=== PATIENT | female | born 1960 | race Caucasian/White ===

== ENCOUNTER → 2018-06-05 14:39 | Outpatient (CLI) | payer BC, SELFPAY ==
[2018-06-05 14:53] LABS: Basophils % 0.1 % (0.1-2.0); Eosinophils % 0.4 % (0.1-12.0); Hematocrit 40.2 % (37.0-47.0); Lymphocytes # 2.2 K/mm3 (0.7-4.5); Lymphocytes % 31.3 % (10-50); Mean Corpuscular HGB Conc 32.4 g/dL (31.8-35.4); Mean Corpuscular Hemoglobin 30.2 pg (27.0-31.2); Mean Corpuscular Volume 93.2 fl (81-99); Mean Platelet Volume 8.2 fl (7.4-10.4); Monocytes # 0.3 K/mm3 (0.1-1.0); Monocytes % 3.8 % (1.7-9.3); Neutrophils # 4.6 K/mm3 (1.8-7.8); Neutrophils % 64.4 % (37.0-80.0); Platelet Count 199 K/mm3 (142-424); Red Blood Count 4.32 M/mm3 (4.20-5.40); Red Cell Distribution Width 14.1 % (11.5-17.5); White Blood Count 7.1 K/mm3 (4.8-10.8)
[2018-06-05 15:42] LABS: Alanine Aminotransferase 37 U/L (12-78); Albumin Level 3.5 gm/dL (3.4-5.0); Albumin/Globulin Ratio 1.1 (1.1-1.8); Alkaline Phosphatase 67 U/L (46-116); Anion Gap 13.7 mEq/L (5-15); Aspartate Amino Transferase 18 U/L (15-37); Bilirubin,Total 0.2 mg/dL (0.2-1.0); Blood Urea Nitrogen 20 mg/dL (7-18); Calcium 9.2 mg/dL (8.5-10.1); Carbon Dioxide 29 mmol/L (21.0-32.0); Chloride 104 mmol/L (98-107); Creatinine,Serum 0.61 mg/dL (0.55-1.02); Estimated Glomerular Filt Rate 100 ml/min (>60); GFR (African American) 121 ML/MIN (>60); Globulin 3.1 gm/dl (1.3-3.2); Glucose 104 mg/dL (74-106); Potassium 3.7 mmoL/L (3.5-5.1); Sodium 143 mmol/L (136-145); Total Protein,Serum 6.6 gm/dL (6.4-8.2); Uric Acid 4.1 mg/dL (2.6-7.2)
[2018-06-05 15:43] LABS: C-Reactive Protein < 0.2 mg/L (0.0-0.9)
[2018-06-06 15:44] LABS: Erythrocyte Sedimentation Rate 14 mm/hr (0-30)
[2018-06-07 13:08] LABS: Clarity,Fluid Hazy (Clear); Color,Fluid Yellow (Yellow); Eosinophils,Fluid 0 % (Not Estab.); Lymphocytes,Fluid 38 % (Not Estab.); Macrophages,Fluid 40 % (Not Estab.); Nucleated cells, Syn. Fluid 1005 cells/uL (0-200); Polys,Fluid 22 % (Not Estab.); RBC,Fluid Rare /uL (Not Estab.)
[2018-06-09 13:19] LABS: Glucose, Body Fluid 93 mg/dL (.)
== END ==
PROVIDERS: Visit Provider Orthopaedic Surgery
DX: B99.9 Unspecified infectious disease (principal); M25.462 Effusion, left knee
CPT/HCPCS: 36415; 80053; 82945; 84550; 85025; 85651; 86140; 87070; 87205; 89051

== ENCOUNTER → 2018-06-13 13:39 | Outpatient (CLI) | payer BC, SELFPAY ==
--- NOTE | 2018-06-13 13:41 | MR_ITS ---
MR knee LT wo con HISTORY: Left knee pain and swelling, pain when bending knee ITS.REASON: evaluate for meniscus tear ORDERING PHYSICIAN: Donovan Segal MD PATIENT AGE: 57 years Comparison: 05/30/2018 TECHNIQUE: Standard multiplanar multiecho sequences are performed without contrast. FINDINGS: The cruciate ligaments are intact. The collateral ligaments are intact. The patellar tendon and quadriceps tendon are unremarkable. There is a moderate to large size knee joint effusion nailing the suprapatellar region. There is a small Naidu cyst of 2.5 cm. Complex tear of the medial meniscus having both a longitudinal and horizontal component. The lateral meniscus has an unremarkable appearance. The patellar cartilage is preserved. There are mild osteoarthritic changes of the medial and lateral compartment. No bone marrow edema is evident. IMPRESSION: 1. Complex tear of the posterior horn of the medial meniscus. 2. Moderate to large size knee joint effusion with mild osteoarthritic change
== END ==
PROVIDERS: PCP Pediatrics; Visit Provider Orthopaedic Surgery
DX: M25.462 Effusion, left knee (principal)
CPT/HCPCS: 73721

== ENCOUNTER 2018-08-04 13:05 | Outpatient (RCR) | payer BC, SELFPAY | END 2018-08-04 13:10 | disposition home or self-care (01) | LOC: PT 13:05 | PROVIDERS: Visit Provider Orthopaedic Surgery | DX: S83.30XA Tear of articular cartilage of unspecified knee, current, initial encounter (principal) | CPT/HCPCS: 97010; 97014; 97110; 97163; G0283 ==

== ENCOUNTER → 2018-08-08 14:50 | Outpatient (CLI) | payer BC, SELFPAY ==
--- NOTE | 2018-08-08 15:17 | US_ITS ---
US thyroid HISTORY: ITS.REASON: LT THYROID MASS ORDERING PHYSICIAN: Jd Santillan PATIENT AGE: 57 years Comparison: 07/01/2018 FINDINGS: The right lobe of the thyroid gland has an unremarkable appearance measuring 2.9 x 1 x 1.4 cm. The left lobe is enlarged measuring 5.6 x 3.5 x 4.4 cm containing a heterogeneous dominant solid appearing nodule with some internal cystic areas. The nodule measures 4.9 x 3.2 cm.. IMPRESSION: Dominant 4.9 cm left thyroid mass. Consider fine-needle aspiration with ultrasound guidance.
[2018-08-08 16:39] LABS: Free T4 (Free Thyroxine) 0.76 ng/dl (0.76-1.46); Thyroid Stimulating Hormone 0.88 uIU/ml (0.358-3.740)
== END ==
PROVIDERS: Visit Provider Pediatrics
DX: E04.1 Nontoxic single thyroid nodule (principal)
CPT/HCPCS: 36415; 76536; 84439; 84443

== ENCOUNTER → 2018-10-21 09:57 | Outpatient (POV) | payer BC, SELFPAY | PROVIDERS: Visit Provider Otolaryngology | DX: Z00.00 Encounter for general adult medical examination without abnormal findings (principal) ==

== ENCOUNTER → 2018-11-13 09:36 | Outpatient (CLI) | payer BC, SELFPAY ==
--- NOTE | 2018-11-13 09:45 | US_ITS ---
US FNA Thyroid HISTORY: Dominant nodule left lobe of thyroid gland ITS.REASON: THYROID NODULE ORDERING PHYSICIAN: Pattie Rome MD PATIENT AGE: 58 years COMPARISON: 08/08/2018 FINDINGS: The nodule was localized using standard sonographic technique. Timeout procedure performed. TECHNIQUE: Following obtaining informed consent, using aseptic technique and local anesthesia with buffered lidocaine, fine-needle aspiration was performed of the nodule of interest using sonographic guidance. 3 passes were made into the nodule with a 21 needle. Specimen was given to cytology. The patient tolerated the procedure well without evidence of immediate complications and left the ultrasound suite in stable condition. CYTOLOGY:Atypical, atypical follicular lesion of undetermined significance. IMPRESSION: Uneventful ultrasound-guided fine-needle aspiration of the dominant nodule in the left showing atypical cytology. Please see pathologist report
== END ==
PROVIDERS: PCP Pediatrics; Visit Provider Otolaryngology
DX: E04.1 Nontoxic single thyroid nodule (principal)
CPT/HCPCS: 10005; 76942

== ENCOUNTER → 2019-03-12 13:42 | Outpatient (CLI) | payer BC, SELFPAY ==
--- NOTE | 2019-03-12 13:48 | CT_ITS ---
PROCEDURE: CT CHEST WO CON CLINICAL INDICATION: 6 MO FU NODULE RML Follow-up pulmonary nodule COMPARISON: CHESTW CT chest w con from 07/01/2018 TECHNIQUE: Axial images obtained with sagittal and coronal reformats. All CT scans at the facility use one or more dose reduction, viz: automated exposure control, ma/kV adjustment per patient size (including targeted exams where dose is matched to indication, i.e. head), or iterative reconstruction technique. FINDINGS: HEART,AORTA,PULMONARY ARTERIES there is extensive coronary artery calcification MEDIASTINAL AND HILAR STRUCTURES: 5 x 4 cm left thyroid mass is present causing compression upon the trachea with deviation of the trachea toward the right by 1.7 cm. Not significantly changed. LUNGS: The there is a 4 mm nodule in right middle lobe unchanged. Calcified granuloma is present in the right lower lobe. 4 mm nodules present in the lingula not previously identified. There was however mild degree of motion in this region on the previous exam. There is also low lung volumes on the previous study. 3 mm nodules present and central aspect of the left upper lobe. The there is a 4 mm ground-glass nodule in the left lower lobe. PLEURAL SPACES: No significant effusion. No evidence of pneumothorax. BONY STRUCTURES: No acute bony abnormalities apparent. LYMPH NODES: No enlarged lymph nodes evident. UPPER ABDOMEN: Hyperdense nodules present on the medial aspect of the left kidney at 8 mm nonspecific. ADDITIONAL FINDINGS: No other significant abnormalities. IMPRESSION: 1. No change in the 4 mm nodule in the right middle lobe. A 4 mm nodule is noted in the lingula, 3 mm nodule left upper lobe, and 4 mm nodule in the left lower lobe. These were not readily identified on the previous exam however the study is much better quality today with improved inspiration and no significant motion. Consider continued six-month follow-up to confirm stability. 2. No change left thyroid mass with mass effect upon the trachea. Dictated by: Jarad Lu MD 03/13/2019 05:38 Electronically signed by Jarad Lu MD in [place] 03/13/2019 13:08
== END ==
PROVIDERS: PCP Pediatrics; Visit Provider Pediatrics
DX: R91.1 Solitary pulmonary nodule (principal)
CPT/HCPCS: 71250

== ENCOUNTER → 2020-10-31 14:56 | Outpatient (CLI) | payer BC, SELFPAY ==
--- NOTE | 2020-10-31 15:06 | CT_ITS ---
PROCEDURE: CT LUNG SCREENING CLINICAL INDICATION: H/O NICOTINE DEPENDENCE Current smoker 46 pack year smoking history No prior COMPARISON: CT CT CHEST WO CON from 03/12/2019 TECHNIQUE: The exam was performed on a GE Light Speed [address] scanner using 2.90 mGy CTDI. A low dose helical CT CHEST was performed on a multi-detector scanner. All CT scans at the facility use one or more dose reduction, viz: automated exposure control, ma/kV adjustment per patient size (including targeted exams where dose is matched to indication, i.e. head), or iterative reconstruction technique. The LDCT was performed in a facility that meets the criteria for the screening program. Data regarding this exam was submitted to ACR which is an approved registry. The order for this exam indicates that it came as a result of a lung cancer screening counseling shard decision-making visit that included all the elements required of such a visit including smoking cessation. The radiologist interpreting this exam meets the CMS criteria for the LDCT lung cancer screening program. The exam is reported using the Lung-RADS classification scale and reported to the ACR registry. NOTE: This study was performed for the specific purposes of lung cancer screening and is not an alternative to diagnostic chest CT. RADIATION DOSE: CTDI vol(CT dose Index-volume) = 2.90mG DLP (Dose Length Product) = 100.81 mGcm FINDINGS: Severe enlargement of the left lobe of the thyroid gland with tracheal deviation and compression toward the right. The trachea is deviated toward the right by 1.7 cm. Not significantly changed from 03/12/2019. COPD changes. Stable right middle lobe nodule at 4 mm. Calcified granuloma right lower lobe. No change 4 mm semi-solid nodule within the lingula. Semi solid nodule left lower lobe at 5 mm not significantly changed. No new nodules apparent. OTHER FINDINGS: Extensive coronary artery calcification. Cholelithiasis. IMPRESSION: Lung-RADS Category 2 Benign Appearance or Behavior Follow-up: Continue annual screening with LDCT in 12 months Dictated by: Jarad Lu MD 11/09/2020 08:25 Jarad Lu MD in [place] 11/09/2020 08:25
== END ==
PROVIDERS: PCP Pediatrics; Visit Provider Pediatrics
DX: Z87.891 Personal history of nicotine dependence (principal); Z12.2 Encounter for screening for malignant neoplasm of respiratory organs
CPT/HCPCS: 71271

== ENCOUNTER → 2020-11-22 09:14 | Outpatient (CLI) | payer BC, SELFPAY ==
--- NOTE | 2020-11-22 09:19 | XR_ITS ---
PROCEDURE: XR DEXA AXIAL SKELETON CLINICAL HISTORY: POST MENOPAUSAL COMPARISON: No exams were available for comparison FINDINGS: The right hip BMD is 0.674 with a T-score of -1.6. The left hip BMD is 0.764 with a T-score of -1.5. The lumbar spine BMD is 0.868 with a T-score of -1.6. IMPRESSION: This patient is considered osteopenic according to the World Health Organization criteria. Bone density is between 10 and 25 percent below young normal. Fracture risk is moderate. Treatment is advised. Based on these results a follow-up exam is recommended in 2 year. Dictated by: Jarad Lu MD 11/22/2020 09:56 Jarad Lu MD in [place] 11/22/2020 09:56
== END ==
PROVIDERS: PCP Pediatrics; Visit Provider Pediatrics
DX: Z13.820 Encounter for screening for osteoporosis (principal); Z78.0 Asymptomatic menopausal state
CPT/HCPCS: 77080

== ENCOUNTER → 2021-08-10 09:59 | Outpatient (CLI) | payer BC, SELFPAY ==
[2021-08-10 10:51] LABS: Alanine Aminotransferase 58 U/L (12-78); Albumin Level 4.5 g/dl (3.5-5.0); Albumin/Globulin Ratio 1.6 (1.1-1.8); Alkaline Phosphatase 84 U/L (38-126); Anion Gap 8.8 mEq/L (5-15); Aspartate Amino Transferase 45 U/L (14-36); Bilirubin,Total 0.5 mg/dl (0.2-1.3); Blood Urea Nitrogen 19 mg/dl (7-17); Calcium 9.3 mg/dl (8.4-10.2); Carbon Dioxide 29 mmol/L (22.0-30.0); Chloride 103 mmol/L (98-107); Chol/HDL Ratio 7.4 (1-3.5); Cholesterol 305 mg/dl (140-200); Estimated Glomerular Filt Rate 101 ml/min (>60); GFR (African American) 123 ML/MIN (>60); Globulin 2.8 g/dL (1.3-3.2); Glucose 113 mg/dl (74-100); HDL Cholesterol 41 mg/dl (40-60); Potassium 3.8 mmoL/L (3.5-5.1); Sodium 137 mmol/L (136-145); Total Protein,Serum 7.3 g/dl (6.3-8.2); Triglycerides 274 mg/dl (30-150); VLDL Cholesterol 55 mg/dL (0-40)
[2021-08-10 11:02] LABS: Direct LDL Cholesterol 186.89 mg/dL (100-129)
== END ==
PROVIDERS: PCP Pediatrics; Visit Provider Pediatrics
DX: E78.5 Hyperlipidemia, unspecified (principal)
CPT/HCPCS: 36415; 80053; 80061

== ENCOUNTER → 2022-06-27 10:41 | Outpatient (CLI) | payer BC, SELFPAY ==
--- NOTE | 2022-06-27 10:55 | CT_ITS ---
FINAL REPORT TECHNIQUE: Axial images were obtained from the lung apex to the mid abdomen by computed tomography. This study was performed with techniques to keep radiation doses as low as reasonably achievable (ALARA). Individualized dose reduction techniques using automated exposure control or adjustment of mA and/or kV according to the patient's size were employed. CLINICAL HISTORY: H/O TOBACCO USE, smokes 1/2 pk per day x 50 yrs COMPARISON: 10/31/2020 FINDINGS: CHEST CT LOW DOSE CTDI vol (mGy): 2.90 DLP (mGy-cm): 105.25 Redemonstrated is a mass in the left lobe of the thyroid favored to represent goiter. This significantly displaces the trachea to the right. There is extrinsic compression of the trachea. There is moderate coronary artery calcification. There is no axillary adenopathy. There is no hilar or mediastinal adenopathy. The heart is normal in size. There is no pericardial or pleural effusion. There is a 4 mm right renal lobe nodule seen on image 52 of series 4. This is stable since previous. The previously questioned left lower lobe nodule is not well seen. The previously identified small focus in the lingula is not well seen. There is a nodule in the periphery of the right lower lobe measuring 4 mm which is stable. Finding is best seen on image 45 of series 4. Limited images of the upper abdomen are unremarkable. IMPRESSION: Stable nodules in the right middle lobe and right lower lobe. Previously identified nodules in the left lower lobe and lingula are not well seen. Lung RADS category 2 S. Recommend 12 month follow-up low-dose chest CT. Reviewed, Interpreted and Dictated by Usman Krueger MD Transcribed by Valentina Mcgovern Authenticated and . [facility]
== END ==
PROVIDERS: PCP Pediatrics; Visit Provider Pediatrics
DX: Z87.891 Personal history of nicotine dependence (principal); Z12.2 Encounter for screening for malignant neoplasm of respiratory organs
CPT/HCPCS: 71271

== ENCOUNTER 2023-07-19 13:31 | Outpatient (CLI) | payer BC, SELFPAY ==
--- NOTE | 2023-07-19 13:38 | CT_ITS ---
FINAL REPORT TECHNIQUE: Thin section axial images were obtained from the lung apices to the upper abdomen by computed tomography. Reformatted images were obtained and reviewed. This study was performed with techniques to keep radiation doses al low as reasonably achievable (ALARA). Individualized dose reduction techniques using automated exposure control or adjustment of mA and/or kV according to the patient's size were employed. CLINICAL HISTORY: H/O TOBACCO USE CURRENT SMOKER 1/2PPD X49 YEARS COMPARISON: 06/27/2022 FINDINGS: CHEST CT LOW DOSE 62-year-old female, current smoker, 15-[id number] history. CTDI vol (mGy): 2.9 DLP (mGy-cm): 92.47 There is no axillary adenopathy. There is a large left thyroid mass, 4.4 cm in size, that is stable since the prior CT. The trachea is displaced to the right, and the degree of displacement is also stable. There is no mediastinal or hilar mass or adenopathy. The heart is normal in size. There is no pericardial or pleural effusion. Severe left coronary artery calcifications are present. There is mild emphysema and mild pulmonary scarring. Lung window images demonstrate a posterior left upper lobe nodule, 3 mm in size, best seen on image #24, stable. There is a 4 mm nodule near the left major fissure, also stable. There are several other less than 5 mm in size nodules, without any new nodules or masses identified. There is a calcified granuloma present in the right lower lobe.. Limited images of the upper abdomen are unremarkable. IMPRESSION: Lung-RADS category 2S, with the S designations for the left thyroid mass and the severe left coronary artery calcifications.. Recommend 12 month follow up low dose chest CT. Reviewed, Interpreted and Dictated by Raymond Boles III, MD Transcribed by Tika Murphy Authenticated and [facility]
== END 2023-07-19 23:59 ==
LOC: RAD 13:32
PROVIDERS: PCP Pediatrics; Visit Provider Pediatrics
DX: F17.210 Nicotine dependence, cigarettes, uncomplicated (principal); Z12.2 Encounter for screening for malignant neoplasm of respiratory organs
CPT/HCPCS: 71271

== ENCOUNTER 2023-08-12 10:47 | Outpatient (CLI) | payer BC, SELFPAY ==
--- NOTE | 2023-08-12 10:53 | US_ITS ---
FINAL REPORT CLINICAL HISTORY: THYROID ENLARGEMENT COMPARISON: CT of the neck dated 07/01/2018 FINDINGS: THYROID ULTRASOUND: The right lobe of the thyroid measures 3.2 x 1 x 1.2 cm in size. There is a 3 mm cystic nodule present in the right lobe of the thyroid, a TI-RADS category 1 nodule. The left lobe of the thyroid is enlarged, measuring 5.25 x 3.4 x 4 cm in size. There is a dominant mass in the left thyroid, measuring 53 x 36 x 48 mm in size. This nodule is spongiform in appearance, a TI-RADS category 1 nodule. This mass was seen on the prior CT of June 2018, and is stable in size since then. The isthmus of the thyroid gland measures 3 mm in thickness. IMPRESSION: Dominant mass in the left lobe of the thyroid, spongiform, a TI-RADS category 1 nodule. This mass is essentially stable since the prior CT of June 2018. Reviewed, Interpreted and Dictated by Raymond Boles III, MD Transcribed by Tika Murphy Authenticated and [facility]
== END 2023-08-12 23:59 | disposition home or self-care (01) ==
LOC: RAD 10:48
PROVIDERS: PCP Pediatrics; Visit Provider Pediatrics
DX: E04.9 Nontoxic goiter, unspecified (principal)
CPT/HCPCS: 76536

== ENCOUNTER 2023-10-14 10:32 | Outpatient (CLI) | payer MEDICARE, BC, SELFPAY ==
[2023-10-14 19:05] LABS: Basophils # 0.1 K/mm3 (0-0.2); Basophils % 0.8 % (0.1-2.0); Eosinophils # 0.1 K/mm3 (0.0-0.4); Eosinophils % 0.9 % (0.1-12.0); Hematocrit 42.3 % (37.0-47.0); Hemoglobin 14.3 g/dL (12.2-16.2); Lymphocytes # 1.8 K/mm3 (0.7-4.5); Lymphocytes % 21.6 % (10-50); Mean Corpuscular HGB Conc 33.8 g/dL (31.8-35.4); Mean Corpuscular Hemoglobin 31.2 pg (27.0-31.2); Mean Corpuscular Volume 92.3 fl (81-99); Mean Platelet Volume 10.2 fl (7.4-10.4); Monocytes # 0.4 K/mm3 (0.1-1.0); Monocytes % 4.9 % (1.7-9.3); Neutrophils # 6.1 K/mm3 (1.8-7.8); Neutrophils % 71.8 % (37.0-80.0); Platelet Count 188 K/mm3 (142-424); Red Blood Count 4.59 M/mm3 (4.20-5.40); Red Cell Distribution Width 14.9 % (11.5-17.5); White Blood Count 8.5 K/mm3 (4.8-10.8)
[2023-10-14 19:28] LABS: Alanine Aminotransferase 25 U/L (12-78); Albumin Level 4.6 g/dl (3.5-5.0); Albumin/Globulin Ratio 1.4 (1.1-1.8); Alkaline Phosphatase 67 U/L (38-126); Anion Gap 13.7 mEq/L (5-15); Aspartate Amino Transferase 25 U/L (14-36); Bilirubin,Total 0.5 mg/dl (0.2-1.3); Blood Urea Nitrogen 25 mg/dl (7-17); Calcium 10.3 mg/dl (8.4-10.2); Carbon Dioxide 28 mmol/L (22.0-30.0); Chloride 101 mmol/L (98-107); Chol/HDL Ratio 6.4 (1-3.5); Cholesterol 255 mg/dl (140-200); Estimated Glomerular Filt Rate 100 ml/min (>60); GFR (African American) 121 ML/MIN (>60); Globulin 3.2 g/dL (1.3-3.2); Glucose 109 mg/dl (74-100); HDL Cholesterol 40 mg/dl (40-60); Potassium 3.7 mmoL/L (3.5-5.1); Sodium 139 mmol/L (136-145); Total Protein,Serum 7.8 g/dl (6.3-8.2); Triglycerides 372 mg/dl (30-150); VLDL Cholesterol 74 mg/dL (0-40)
[2023-10-14 19:39] LABS: Direct LDL Cholesterol 144.13 mg/dL (100-129)
[2023-10-14 19:59] LABS: Hemoglobin A1C 8.2 % (4.0-6.0); Thyroid Stimulating Hormone 0.66 uIU/mL (0.465-4.68)
== END 2023-10-14 23:59 | disposition home or self-care (01) ==
LOC: LAB.DROPOF 10-15 10:33
PROVIDERS: PCP Family Medicine; Visit Provider Family Medicine
DX: E07.9 Disorder of thyroid, unspecified (principal); E78.5 Hyperlipidemia, unspecified; R73.09 Other abnormal glucose
CPT/HCPCS: 80050; 80053; 80061; 83036; 84443; 85025

== ENCOUNTER 2023-11-12 11:56 | Outpatient (CLI) | payer MEDICARE, BC, SELFPAY ==
--- NOTE | 2023-11-12 11:56 | CT_ITS ---
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 A noncontrast coronary calcium scan was performed. A CT attenuation threshold of 130 Hounsfield units (HU) was used for the detection of calcium in contiguous voxels of 1 sq mm in area to be counted as individual lesions. Bolus tracking in the ascending aorta with a threshold of 180 HU was performed. Immediately afterwards, ECG synchronized cardiac CT was then performed from the cardiac base to apex using retrospective gating with ECG tube current modulation. A total of 85 mL of Isovue 370 mg/mL contrast medium was administered at 5 mL/sec followed by a saline flush using a biphasic injection protocol. A tube voltage of 120 KVp was used. The patient received the following medications prior to the cardiac CT. 50 mg of oral metoprolol 15 mg of oral ivabradine 0.8 mg of sublingual nitroglycerin The average heart rate at the time of acquisition was 62 bpm and regular. Image Reconstruction Transaxial images were reconstructed at 0.67 mm slide thickness. Data was reviewed interactively on an advanced workstation capable of 2 and 3-dimensional displays in all conventional reconstruction formats, including multiplanar reformations, maximum intensity projections, curved multiplanar reformations, and volume rendered reconstructions. When applicable, selected routine images describing the relevant coronary anatomy and pathology were saved and sent to PACS. Complications None Technical Quality Overall image quality was suboptimal due to significant motion. Coronary artery opacification was adequate. Total DLP (Dose-Length Product) is 1429.3 mGy-cm. The reported value represents the total of one or more individual components during the CT acquisition of this date and at this time, and as such, the same value may appear in more than one CT report depending on the interpreting/reporting physicians. COMPARISON None FINDINGS CT Coronary Calcium Scoring LMA (Left Main Artery) = 234 LAD (Left Anterior Descending) = 703 LCX (Left Coronary Circumflex) = 261 RCA (Right Coronary Artery) = 36 Total Calcium Score = 1234 using the AJ-130 method. The observed calcium score of 1234 is at 99th percentile for subjects of the same age, sex, and race/ethnicity. The interpretation of the calcium heart score is based on the following continuum*: 0 = no calcified plaque detected (risk of coronary artery disease is very low ??? less than 5%) 1-10 = calcium detected in extremely minimal levels (risk of coronary diseases is still low ??? less than 10%) 11-100 = mild levels of plaque detected with certainty (mild or minimal narrowing of heart arteries is likely) 101-400 = definite,at least moderate levels of plaque detected (relatively high risk of a heart attack within 3-5 years) >401-999 = extensive levels of plaque detected (high risk of heart attack, high levels of vascular disease are present, high likelihood of at least one significant coronary narrowing) *The calcium heart score quantifies the burden of coronary calcification/plaque in the coronary arteries. The calcium heart score is not able to evaluate the presence or burden of non-calcified (i.e. soft) plaque. There is also identifiable calcification in the ascending and descending thoracic aorta. Coronary CT Angiography The coronary arterial system is right dominant. Quantitative Stenosis Grading: Left Main (LM): The left main originates normally from the left sinus of Valsalva. The LM bifurcates into the left anterior descending artery and left circumflex artery. There is mixed calcified/noncalcified plaque in the proximal LM, with up to 50% luminal stenosis. Left Anterior Descending (LAD) and Diagonal Branches: The LAD gives off 2 diagonal branch(es). There is mixed calcified/noncalcified plaque in the proximal and mid LAD segments, with up to 70-90% luminal stenosis. There is no evidence of LAD-myocardial bridge. Left Circumflex (LCX) and Obtuse Marginals (OM): The LCX gives off 1 Obtuse Marginal (OM) branch(es). There is mixed calcified/noncalcified plaque in the proximal LCx segment, with up to 70-90% luminal stenosis. Right Coronary Artery (RCA): The RCA originates normally from the right sinus of Valsalva. The RCA gives off a posterior descending artery (PDA) and posterolateral (PL) branches. There is mixed calcified/noncalcified plaque in the proximal RCA segment with up to 50-70% luminal stenosis. However, this is suboptimal visualization of the mid to distal RCA segments due to significant motion. Non-Coronary Cardiac Findings: Weight is a pleasure talking and this is what Analysis of the left ventricular (LV) structure and function was performed after 3-D reconstruction of the LV from axial images, with user-corrected automatic contouring for assessment of LV volumes and user-defined reconstruction from oblique planes for measurement of 3-D cardiac structure and function. -The left ventricle systolic function is normal. -There is no left atrial appendage filling defect. Two right pulmonary veins and two left pulmonary veins drain normally into the left atrium. -No pericardial thickening or calcification. -Central and branch pulmonary arteries in the [id number] are unremarkable. -Thoracic aorta within the visualized thoracic aortic-branches in the [id number] is unremarkable. Extracardiac Structures No significant extra-cardiac findings. Note, however, that this study is focused on the cardiac findings. IMPRESSION -Presence of coronary calcification with an Agatston score = 1234 using the AJ-130 method. -The observed calcium score of 1234 is at 99th percentile for subjects of the same age, sex, and race/ethnicity. -Significant flow-limiting atherosclerosis of the coronary arterie in the LM and LAD, as well as possibly in the LCX. Suboptimal visualization of the RCA segments due to motion. -CAD-RADS 4B. Management recommendations per ACC/AHA guidelines*, as clinically appropriate. *Recommendations: CAD RADS 0: Reassurance. Consider non-atherosclerotic causes of chest pain. CAD RADS 1: Consider non-atherosclerotic causes of chest pain. Consider preventive therapy and risk factor modification. CAD RADS 2: Consider non-atherosclerotic causes of chest pain. Consider preventive therapy and risk factor modification, particularly for patients with nonobstructive plaque in multiple segments. CAD RADS 3: Consider further functional testing. Consider symptom-guided anti-ischemic and preventive pharmacotherapy as well as risk factor modification per published guideline statements. CAD RADS 4A: Consider further functional testing or invasive coronary angiography with revascularization per published guideline statements. Consider symptom-guided anti-ischemic and preventive pharmacotherapy as well as risk factor modification per published guideline statements. CAD RADS 4B: Invasive coronary angiography recommended with revascularization per published guideline statements. Consider symptom-guided anti-ischemic and preventive pharmacotherapy as well as risk factor modification per published guideline statements. CAD RADS 5: Consider invasive angiography and/or viability assessment with revascularization per published guideline statements. Consider symptom-guided anti-ischemic and preventive pharmacotherapy as well as risk factor modification per published guideline statements. CRITICAL RESULT None COMMUNICATION Per this written report The coronary and cardiac findings of this CCTA were reviewed, reported, and signed by Elijah Hunt MD (Video Game Technician) Conclusion Electronically signed by : Irena Hunt MD 11/14/2023 14:17:24
[2023-11-12 12:18] VITALS: BP 131/71; PULSE 67; RESP 18; O2SAT 99
[2023-11-12] MEDS: METOPROLOL TARTRATE 50MG TABLET 50 MG (12:24)
[2023-11-12] MEDS: IVABRADINE HCL 7.5MG TABLET 15 MG PO (12:24)
[2023-11-12 12:34] LABS: POC Glucose,Bedside 95 (70-110)
[2023-11-12 13:18] VITALS: BP 151/83; PULSE 60; RESP 18; O2SAT 100
[2023-11-12] MEDS: NITROGLYCERIN 0.4MG SL TABLET SL (13:18)
[2023-11-12 13:22] VITALS: BP 141/88; PULSE 71; RESP 18; O2SAT 100
[2023-11-12 13:25] VITALS: BP 144/74; PULSE 67; RESP 18; O2SAT 97
[2023-11-12 13:30] VITALS: BP 150/79; PULSE 71; RESP 18; O2SAT 97
[2023-11-12 13:35] VITALS: BP 115/68; PULSE 64; RESP 18; O2SAT 97
[2023-11-12] MEDS: 0.9 % SODIUM CHLORIDE 50 ML VIAL IV (13:36)
[2023-11-12] MEDS: IOPAMIDOL-370 (76%);100ML BOTTLE 85 ML IV (13:36)
[2023-11-12] MEDS: SODIUM CHLORIDE 0.9% 10ML SYR (RAD ONLY) 10 ML IV (13:36)
[2023-11-12 13:39] VITALS: BMI 30.7
== END 2023-11-12 13:35 | disposition home or self-care (01) ==
PROVIDERS: PCP Family Medicine; Visit Provider Physician Assistant
DX: R94.31 Abnormal electrocardiogram [ECG] [EKG] (principal); I25.10 Atherosclerotic heart disease of native coronary artery without angina pectoris; M89.8X1 Other specified disorders of bone, shoulder; I10 Essential (primary) hypertension; F17.210 Nicotine dependence, cigarettes, uncomplicated
CPT/HCPCS: 75574; 82962; Q9967

== ENCOUNTER 2023-11-22 09:55 | Outpatient (CLI) | payer MEDICARE, BC, SELFPAY ==
--- NOTE | 2023-11-22 09:55 | MM_ITS ---
PROCEDURE INFORMATION: Exam: MG Bilateral Screening 3D Mammography Exam date and time: 11/22/2023 9:42 AM Age: 63 years old Clinical indication: Screening examination TECHNIQUE: Imaging protocol: Bilateral Screening tomosynthesis and 2D mammography including computer-aided detection (CAD) when performed. COMPARISON: 1. MG SCREEN MAMMO W CAD BILAT 08/10/2022 10:56 AM 2. MG SCREEN MAMMO W CAD BILAT 08/09/2021 9:18 AM FINDINGS: MAMMOGRAPHY: Breast composition: There are scattered areas of fibroglandular density. Mass: None. Architectural distortion: None. Calcifications: No suspicious calcifications. Asymmetric density: None. Skin thickening: None. Axillary adenopathy: None. IMPRESSION: No mammographic evidence of malignancy. Annual screening is recommended unless otherwise clinically indicated. ASSESSMENT: BI-RADS Category 1: Negative
== END 2023-11-22 23:59 | disposition home or self-care (01) ==
LOC: RAD 09:55
PROVIDERS: PCP Family Medicine; Visit Provider Family Medicine
DX: Z12.31 Encounter for screening mammogram for malignant neoplasm of breast (principal)
CPT/HCPCS: 77063; 77067

== ENCOUNTER 2024-01-15 19:22 | Outpatient (CLI) | payer MEDICARE, SELFPAY ==
[2024-01-15 19:55] LABS: Alanine Aminotransferase 22 U/L (12-78); Albumin Level 4.7 g/dl (3.5-5.0); Alkaline Phosphatase 63 U/L (38-126); Anion Gap 4.1 mEq/L (5-15); Aspartate Amino Transferase 26 U/L (14-36); Bilirubin,Direct 0.3 mg/dl (0.0-0.4); Bilirubin,Indirect 0.2 mg/dL (0.0-0.9); Bilirubin,Total 0.5 mg/dl (0.2-1.3); Bilirubin,Unconjugated 0.2 mg/dL (0.0-1.1); Blood Urea Nitrogen 20 mg/dl (7-17); Calcium 10.2 mg/dl (8.4-10.2); Carbon Dioxide 30 mmol/L (22.0-30.0); Chloride 105 mmol/L (98-107); Chol/HDL Ratio 6.2 (1-3.5); Cholesterol 271 mg/dl (140-200); Estimated Glomerular Filt Rate 100 ml/min (>60); GFR (African American) 121 ML/MIN (>60); Glucose 108 mg/dl (74-100); HDL Cholesterol 44 mg/dl (40-60); Potassium 4.1 mmoL/L (3.5-5.1); Sodium 135 mmol/L (136-145); Total Protein,Serum 7.7 g/dl (6.3-8.2); Triglycerides 292 mg/dl (30-150); VLDL Cholesterol 58 mg/dL (0-40)
[2024-01-15 20:02] LABS: Basophils # 0.1 K/mm3 (0-0.2); Basophils % 0.8 % (0.1-2.0); Eosinophils # 0.2 K/mm3 (0.0-0.4); Hematocrit 40.5 % (37.0-47.0); Lymphocytes # 2.3 K/mm3 (0.7-4.5); Lymphocytes % 25.7 % (10-50); Mean Corpuscular HGB Conc 34.5 g/dL (31.8-35.4); Mean Corpuscular Hemoglobin 30.9 pg (27.0-31.2); Mean Corpuscular Volume 89.5 fl (81-99); Mean Platelet Volume 8.8 fl (7.4-10.4); Monocytes # 0.4 K/mm3 (0.1-1.0); Monocytes % 4.4 % (1.7-9.3); Neutrophils # 5.9 K/mm3 (1.8-7.8); Platelet Count 197 K/mm3 (142-424); Red Blood Count 4.53 M/mm3 (4.20-5.40); Red Cell Distribution Width 14.7 % (11.5-17.5); White Blood Count 8.8 K/mm3 (4.8-10.8)
[2024-01-15 20:06] LABS: Direct LDL Cholesterol 177.74 mg/dL (100-129)
[2024-01-15 20:14] LABS: Free T4 (Free Thyroxine) 0.85 ng/dl (0.78-2.19)
[2024-01-15 20:18] LABS: Hemoglobin A1C 6.2 % (4.0-6.0)
[2024-01-15 20:25] LABS: Thyroid Stimulating Hormone 0.65 uIU/mL (0.465-4.68)
== END 2024-01-15 23:59 | disposition home or self-care (01) ==
PROVIDERS: PCP Physician Assistant; Visit Provider Physician Assistant
DX: E11.65 Type 2 diabetes mellitus with hyperglycemia (principal); K21.9 Gastro-esophageal reflux disease without esophagitis; R93.1 Abnormal findings on diagnostic imaging of heart and coronary circulation; E78.49 Other hyperlipidemia; I10 Essential (primary) hypertension; R94.31 Abnormal electrocardiogram [ECG] [EKG]; I25.118 Atherosclerotic heart disease of native coronary artery with other forms of angina pectoris; I11.9 Hypertensive heart disease without heart failure; R06.00 Dyspnea, unspecified
CPT/HCPCS: 80048; 80061; 80076; 83036; 84439; 84443; 85025

== ENCOUNTER 2024-02-04 08:44 | Day surgery (SDC) | payer MEDICARE, MEDICAID, SELFPAY ==
[2024-02-04] VITALS (12 sets, daily range): BP systolic 95–168; BP diastolic 45–90; PULSE 52–88; RESP 16–20; TEMP 36.4; O2SAT 91–99; BMI 31.8
--- NOTE | 2024-02-04 07:07 | IR_ITS ---
APPROVED REPORT Patient Location: Outpatient Cafeteria Director: George Dyer, RT (R) PROCEDURES Selective coronary angiogram Catheter placed in the left subclavian artery with left internal mammary angiography INDICATION Abnormal CCTA, Angina pectoris, Preoperative evaluation for coronary bypass surgery Informed consent was obtained prior to the procedure. COMPLICATIONS NONE Estimated Blood Loss: LESS THAN 10 ML TECHNIQUE One percent lidocaine used to anesthetize the right anterior aspect of the wrist. The right radial artery was accessed via the Seldinger technique. A 6 Mal[place]ian sheath was placed in the right radial artery. 2.5 mg of Verapamil, 800 mcg of nitroglycerin, 1mg Lidocaine and 5000 U Heparin were given through the arterial sheath. The JL 3 guide catheter was used to perform selective coronary angiogram. At the end of the diagnostic coronary angiogram the JL 3 guide catheter was placed in left subclavian artery in anticipation of upcoming coronary bypass surgery at the end of the procedure the sheath was removed good hemostasis was achieved using Traclet band, patient was transferred to the postop holding area in stable condition. ANGIOGRAPHIC RESULTS The left main artery Has distal eccentric calcified 60% stenosis The left anterior descending artery Has proximal calcified concentric greater than 90% stenosis the vessel is proximally subtotally occluded. The mid and distal distal vessel is collateralized via a large ramus intermedius The circumflex artery Is a large dominant vessel and gives rise to a large ramus intermedius which has proximal and mid vessel 50% stenoses. The circumflex artery has proximal eccentric calcified 90% stenosis The right coronary artery Is nondominant and has proximal 60 and 70% stenoses The MELO ventriculogram reveals Not performed The left ventricular end-diastolic pressure Not measured The left subclavian artery and left internal mammary artery is widely patent IMPRESSION Severe to critical coronary artery disease as described above Proximally occluded LAD which fills via left to left collaterals through a large ramus intermedius Critical disease in the proximal dominant circumflex artery PLAN 1. Patient will be [facility] to [facility] for coronary bypass graft evaluation 2. LDL less than 55 to be achieved with high intensity statin 3. Maximize antianginal medications Electronically signed by : Antonio Yepez MD 02/04/2024 11:55:01
[2024-02-04 09:24] LABS: Basophils % 0.5 % (0.1-2.0); Eosinophils # 0.1 K/mm3 (0.0-0.4); Eosinophils % 1.6 % (0.1-12.0); Hematocrit 44.8 % (37.0-47.0); Hemoglobin 14.7 g/dL (12.2-16.2); Lymphocytes # 1.3 K/mm3 (0.7-4.5); Lymphocytes % 18.3 % (10-50); Mean Corpuscular HGB Conc 32.7 g/dL (31.8-35.4); Mean Corpuscular Hemoglobin 31.4 pg (27.0-31.2); Mean Platelet Volume 7.8 fl (7.4-10.4); Monocytes # 0.3 K/mm3 (0.1-1.0); Monocytes % 4.2 % (1.7-9.3); Neutrophils # 5.2 K/mm3 (1.8-7.8); Neutrophils % 75.4 % (37.0-80.0); Platelet Count 177 K/mm3 (142-424); Red Blood Count 4.67 M/mm3 (4.20-5.40); Red Cell Distribution Width 14.5 % (11.5-17.5); White Blood Count 6.9 K/mm3 (4.8-10.8)
[2024-02-04 09:34] LABS: Chloride 108 mmol/L (98-107); Potassium 3.7 mmoL/L (3.5-5.1); Sodium 142 mmol/L (136-145)
[2024-02-04 09:37] LABS: Blood Urea Nitrogen 27 mg/dl (7-17); Creatinine Clearance Estimated 63 mL/min (50-200); Estimated Glomerular Filt Rate 84 ml/min (>60); GFR (African American) 102 ML/MIN (>60)
[2024-02-04 09:38] LABS: Anion Gap 12.7 mEq/L (5-15); Calcium 9.6 mg/dl (8.4-10.2); Carbon Dioxide 25 mmol/L (22.0-30.0); Glucose 126 mg/dl (74-100)
[2024-02-04] MEDS: VERAPAMIL 2.5MG/ML 2ML VIAL 2.5 MG IV (10:38)
[2024-02-04] MEDS: 0.9 % SODIUM CHLORIDE 500 ML 25 ML IV (10:38)
[2024-02-04] MEDS: NITROGLYCERIN 800MCG/8ML SYR (CATH LAB) 800 MCG IA (10:38)
[2024-02-04] MEDS: HEPARIN 1,000 UNITS/ML 10ML VIAL (CATH LAB) 10000 UNIT IV (10:38)
[2024-02-04] MEDS: LIDOCAINE 1% 10ML MDV 20 ML IJ (10:38)
[2024-02-04] MEDS: HEPARIN 1,000 UNITS/500ML NS (CATH LAB) 3000 UNIT IV (10:39)
[2024-02-04] MEDS: diphenhydrAMINE 50MG/ML VIAL 50 MG IV (10:40)
[2024-02-04] MEDS: MIDAZOLAM HCL 1MG/ML 5ML VIAL 1 MG IV (10:48)
[2024-02-04] MEDS: FENTANYL 100MCG/2ML VIAL 50 MCG IV (10:49)
[2024-02-04] MEDS: IOPAMIDOL-370 (76%);100ML BOTTLE 50 ML IV (14:35)
== END 2024-02-04 13:49 | disposition home or self-care (01) ==
PROVIDERS: PCP Family Medicine; Visit Provider Internal Medicine
DX: R93.1 Abnormal findings on diagnostic imaging of heart and coronary circulation (principal); E11.65 Type 2 diabetes mellitus with hyperglycemia; E78.49 Other hyperlipidemia; I10 Essential (primary) hypertension; R94.31 Abnormal electrocardiogram [ECG] [EKG]; I25.118 Atherosclerotic heart disease of native coronary artery with other forms of angina pectoris; F17.210 Nicotine dependence, cigarettes, uncomplicated; Z79.899 Other long term (current) drug therapy; E11.9 Type 2 diabetes mellitus without complications; E78.5 Hyperlipidemia, unspecified
CPT/HCPCS: 80048; 85025; 93454; 99152; C1725; C1769; J1200; J1644; J2250; J3010; Q9967

== ENCOUNTER 2024-02-15 11:16 | Outpatient (CLI) | payer MEDICARE, MEDICAID, SELFPAY ==
[2024-02-15 11:36] LABS: Hematocrit 38.8 % (37.0-47.0); Hemoglobin 13.7 g/dL (12.2-16.2); Mean Corpuscular HGB Conc 35.3 g/dL (31.8-35.4); Mean Corpuscular Hemoglobin 31.7 pg (27.0-31.2); Mean Corpuscular Volume 89.9 fl (81-99); Platelet Count 180 K/mm3 (142-424); Red Blood Count 4.32 M/mm3 (4.20-5.40); Red Cell Distribution Width 14.2 % (11.5-17.5); White Blood Count 8.2 K/mm3 (4.8-10.8)
[2024-02-15 12:04] LABS: INR 0.89 (0.9-1.1); Prothrombin Time 10.1 seconds (10.1-12.5)
[2024-02-15 12:34] LABS: Albumin Level 4.6 g/dl (3.5-5.0); Chloride 105 mmol/L (98-107); Potassium 3.9 mmoL/L (3.5-5.1); Sodium 141 mmol/L (136-145)
[2024-02-15 12:37] LABS: Alanine Aminotransferase 21 U/L (12-78); Albumin/Globulin Ratio 1.6 (1.1-1.8); Alkaline Phosphatase 61 U/L (38-126); Anion Gap 8.9 mEq/L (5-15); Aspartate Amino Transferase 25 U/L (14-36); Bilirubin,Total 0.7 mg/dl (0.2-1.3); Blood Urea Nitrogen 23 mg/dl (7-17); Calcium 9.6 mg/dl (8.4-10.2); Carbon Dioxide 31 mmol/L (22.0-30.0); Estimated Glomerular Filt Rate 100 ml/min (>60); GFR (African American) 121 ML/MIN (>60); Globulin 2.8 g/dL (1.3-3.2); Glucose 136 mg/dl (74-100); Total Protein,Serum 7.4 g/dl (6.3-8.2)
== END 2024-02-15 23:59 | disposition home or self-care (01) ==
LOC: LAB 11:18
PROVIDERS: PCP Family Medicine; Visit Provider Thoracic Surgery (Cardiothoracic Vascular Surgery)
DX: I25.10 Atherosclerotic heart disease of native coronary artery without angina pectoris (principal); E11.40 Type 2 diabetes mellitus with diabetic neuropathy, unspecified
CPT/HCPCS: 36415; 80053; 83036; 85027; 85610

== ENCOUNTER 2024-03-13 18:55 | Inpatient (IN) | payer MEDICARE, MEDICAID, SELFPAY ==
[2024-03-13] VITALS (10 sets, daily range): BP systolic 109–167; BP diastolic 54–83; PULSE 65–84; RESP 14–22; TEMP 36.7–36.9; O2SAT 92–98; BMI 31.3; BMI 30.6
--- NOTE | 2024-03-13 18:56 | ECG_ITS ---
APPROVED REPORT Exam: Resting ECG HR:74 bpm ECG Measurements Heart Rate 74 AXES WV 149 P 44 QRSd 95 QRS 61 QT 402 T 69 QTc 429 Conclusion SINUS RHYTHM NORMAL ECG UNCONFIRMED REPORT Electronically signed by : Lee Michaels, 03/14/2024 23:11:59
--- NOTE | 2024-03-13 19:05 | XR_ITS ---
PROCEDURE INFORMATION: Exam: XR Chest Exam date and time: 03/13/2024 7:11 PM Age: 63 years old Clinical indication: Pain; Chest pressure; Additional info: Chest pain TECHNIQUE: Imaging protocol: Radiologic exam of the chest. Views: 2 views. COMPARISON: CT LUNG SCREENING 07/19/2023 1:42 PM FINDINGS: Lungs: Unremarkable. No consolidation. Pleural spaces: Unremarkable. No pleural effusion. No pneumothorax. Heart/Mediastinum: Unremarkable. No cardiomegaly. Bones/joints: Unremarkable. IMPRESSION: No acute findings.
--- NOTE | 2024-03-13 19:06 | PC.NURSE ---
dr blanchard at bedside
[2024-03-13 19:11] LABS: Basophils # 0.1 K/mm3 (0-0.2); Eosinophils # 0.1 K/mm3 (0.0-0.4); Eosinophils % 1.3 % (0.1-12.0); Hematocrit 38.6 % (37.0-47.0); Hemoglobin 13.4 g/dL (12.2-16.2); Lymphocytes # 2.1 K/mm3 (0.7-4.5); Lymphocytes % 29.1 % (10-50); Mean Corpuscular HGB Conc 34.6 g/dL (31.8-35.4); Mean Corpuscular Hemoglobin 31.1 pg (27.0-31.2); Mean Corpuscular Volume 89.8 fl (81-99); Mean Platelet Volume 8.1 fl (7.4-10.4); Monocytes # 0.4 K/mm3 (0.1-1.0); Neutrophils # 4.5 K/mm3 (1.8-7.8); Neutrophils % 62.6 % (37.0-80.0); Platelet Count 178 K/mm3 (142-424); Red Cell Distribution Width 13.8 % (11.5-17.5); White Blood Count 7.1 K/mm3 (4.8-10.8)
[2024-03-13 19:12] LABS: Microscopic, Urine URINE MICROSCOPIC (MICROSCOPIC)
[2024-03-13 19:13] LABS: Chloride 108 mmol/L (98-107)
[2024-03-13 19:14] LABS: Appearance,Urine CLEAR (Clear); Bilirubin,Urine Negative (Negative); Blood, Urine Negative (Negative); Color,Urine YELLOW (Yellow); Glucose,Urine (UA) 3+ (Negative); Ketones,Urine Negative (Negative); Leukocyte Esterase,Urine Negative (Negative); Nitrate,Urine Negative (Negative); Protein,Urine Negative (Negative); Specific Gravity, Urine 1.025 (1.005-1.030); Urobilinogen,Urine 0.2 EU/dl (0.2)
[2024-03-13 19:14] LABS: Albumin Level 4.4 g/dl (3.5-5.0); Sodium 137 mmol/L (136-145)
[2024-03-13 19:16] LABS: Alanine Aminotransferase 20 U/L (12-78); Aspartate Amino Transferase 30 U/L (14-36); Blood Urea Nitrogen 27 mg/dl (7-17); Carbon Dioxide 25 mmol/L (22.0-30.0); Creatinine Clearance Estimated 62 mL/min (50-200); Estimated Glomerular Filt Rate 100 ml/min (>60); GFR (African American) 121 ML/MIN (>60)
[2024-03-13 19:17] LABS: Albumin/Globulin Ratio 1.5 (1.1-1.8); Alkaline Phosphatase 55 U/L (38-126); Bilirubin,Total 0.6 mg/dl (0.2-1.3); Calcium 9.3 mg/dl (8.4-10.2); Globulin 2.9 g/dL (1.3-3.2); Glucose 155 mg/dl (74-100); Total Protein,Serum 7.3 g/dl (6.3-8.2)
[2024-03-13 19:28] LABS: HIV (1&2) Antibody Rapid NONREACTIVE (NONREACTIVE)
[2024-03-13 19:30] LABS: RBC,Urine Occasional #/hpf (0-3)
[2024-03-13 19:31] LABS: Bacteria,Urine 1+ /lpf; Mucus,Urine 2+ /lpf
[2024-03-13 19:33] LABS: Troponin I < 0.01 ng/ml (0.00-0.034)
[2024-03-13] MEDS: MORPHINE 4MG/ML SYRINGE 4 MG IV (19:34)
--- NOTE | 2024-03-13 19:34 | ECG_ITS ---
APPROVED REPORT Exam: Resting ECG HR:73 bpm ECG Measurements Heart Rate 73 AXES UT 152 P 35 QRSd 98 QRS 17 QT 409 T 60 QTc 434 Conclusion SINUS RHYTHM NORMAL ECG UNCONFIRMED REPORT Electronically signed by : Lee Michaels, 03/14/2024 23:11:52
[2024-03-13] MEDS: ONDANSETRON 4MG/2ML VIAL 4 MG IV (19:35)
[2024-03-13 19:39] LABS: Lipase 127 U/L (23-300)
[2024-03-13 19:46] LABS: D-Dimer 0.87 ug/mL (0.0-0.5)
--- NOTE | 2024-03-13 19:49 | PC.NURSE ---
Call to [facility] for cardiac surgery, Dr. Michaels on phone with Dr. Yepez at this time.
--- NOTE | 2024-03-13 20:06 | ED_ITS ---
Discharge Plan Disposition Patient Disposition: Admitted Prescriptions Prescriptions: No Action terconazole 0.8 % cream 1 appful vaginal HS 3 Days Qty: 20 2RF (DME) OneTouch Verio test strips Strip See Rx Instructions .ROUTE .MEDSUPPLY Qty: 50 12RF Rx Instructions: As directed losartan 100 mg tablet 100 mg PO DAILY Qty: 90 3RF polyethylene glycol 3350 [ClearLax] 17 gram/dose powder 17 g PO DAILY Patient Comments: MIX 1/2 - 1 CAPFUL OF POWDER IN 8 OUNCE GLASS OF WATER AND DRINK ONCE DAILY (DME) lancets [OneTouch [employer] Plus Lancet] 33 gauge misc See Rx Instructions .ROUTE .MEDSUPPLY Qty: 100 Patient Comments: TEST BLOOD SUGAR ONCE DAILY Rx Instructions: As directed Repatha SureClick 140 mg/mL pen injector 140 mg SQ Q2W Qty: 2 5RF glimepiride 2 mg tablet 2 mg PO DAILY Qty: 30 2RF loratadine 10 mg tablet 10 mg PO DAILY Qty: 30 3RF cholecalciferol (vitamin D3) [Vitamin D3] 50 mcg (2,000 unit) tablet 2,000 unit PO DAILY Qty: 30 2RF hydrocortisone valerate 0.2 % cream 1 applic topical BID Qty: 60 0RF fluticasone propionate 50 mcg/actuation spray,suspension 1 spray INTRANASAL ONCE Qty: 16 12RF montelukast 10 mg tablet 10 mg PO DAILY Qty: 90 3RF Jardiance 25 mg tablet 25 mg PO DAILY Qty: 30 3RF ezetimibe 10 mg tablet 10 mg PO DAILY Qty: 90 3RF rosuvastatin 40 mg tablet 40 mg PO DAILY Qty: 90 3RF azithromycin 500 mg tablet 500 mg PO DAILY 3 Days Qty: 3 0RF lorazepam 1 mg tablet 1 mg PO HS PRN (Reason: anxiety) Qty: 20 0RF escitalopram oxalate [Lexapro] 20 mg tablet 20 mg PO DAILY Qty: 90 3RF Clinical Impressions Clinical Impression: Unstable angina, CAD, multiple vessel Print Language Print Language: Mohawk Discharge ED Provider: Bryant Michaels General Chief Complaint: Chest Pain Stated Complaint: Chest Pain Time Seen by Provider: 03/13/24 18:58 Mode of Arrival: EMS Source of Information: Patient Limitations: No Limitations Description of Symptoms (Recalled from ER Triage Doc. by RN): pt presents to the er via [facility] for substernal chest pain that radiates to her L breast, biltaeral arms, and in between shoulder blades, states it started around 5:30pm, states pain is worse in L arm more than R arm, ems gave her 2 nitro prior to arrival and she currently rates pain 2/10 from 10/10 prior to adminstration, states pain is constant, states she was playing games on her phone when it started, had heart cath 02/04/24 where she was told she needs a CABG, has follow up with cardologist 01/29/24 to discuss surgery History of Present Illness HPI narrative: Patient is a 63-year-old who presents today with chest pain. She states that chest pain began about 2 hours just prior to arrival located substernal radiating to her left arm also she has been having shoulder blade pain and minimally for the last several months. States that chest pain is worse than it has been in the past associate anxiety shortness of breath diaphoresis and is exertional. With chart review she had a coronary CTA done in November of this year that showed multivessel disease she subsequently had a heart cath that was done on February 03 of this year showing severe multivessel disease ultimately being referred to the emergency of [place]. The heart cath showed proximal 90% LAD occlusion, 90% proximal dominant left circumflex occlusion, 60 to 70% RCA occlusion, 60 to 70% left main occlusion. Initially the patient did not tell me that she had gone to [facility] however she states she wanted to go to [facility] where she saw Dr. Segal whom she thought was a cardiothoracic surgeon but no surgical intervention was planned. She states also she has a severe allergy to aspirin. She has not had any aspirin or antiplatelets today. She had 2 submental nitroglycerin just prior to arrival with significant improvement in her symptoms. Related Data Home Medications ?Medication ?Instructions ?Recorded ?Confirmed polyethylene glycol 3350 17 17 g PO DAILY 01/03/21 02/19/24 gram/dose oral powder (ClearLax) lancets 33 gauge ([employer] #100 ea 06/27/23 02/19/24 Plus Lancet) Previous Rx's ?Medication ?Instructions ?Recorded terconazole 0.8 % vaginal cream 1 appful vaginal HS 3 days #20 11/28/22 grams blood sugar diagnostic (OneTouch #50 ea 10/14/23 Verio test strips) losartan 100 mg tablet 100 mg PO DAILY #90 tabs 10/14/23 glimepiride 2 mg tablet 2 mg PO DAILY #30 tabs 10/16/23 cholecalciferol (vitamin D3) 50 2,000 unit PO DAILY #30 tabs 10/31/23 mcg (2,000 unit) tablet (Vitamin D3) loratadine 10 mg tablet 10 mg PO DAILY allergies #30 tabs 10/31/23 hydrocortisone valerate 0.2 % 1 applic topical BID #60 grams 11/04/23 topical cream fluticasone propionate 50 1 spray intranasal ONCE #16 grams 01/06/24 mcg/actuation nasal spray,suspension montelukast 10 mg tablet 10 mg PO DAILY #90 tabs 01/06/24 evolocumab 140 mg/mL subcutaneous 140 mg SQ Q2W #2 mL 01/13/24 pen injector (Repatha SureClick) empagliflozin 25 mg tablet 25 mg PO DAILY Diabetes #30 tabs 01/14/24 (Jardiance) ezetimibe 10 mg tablet 10 mg PO DAILY #90 tabs 01/28/24 rosuvastatin 40 mg tablet 40 mg PO DAILY #90 tabs 01/28/24 azithromycin 500 mg tablet 500 mg PO DAILY 3 days #3 tabs 02/24/24 lorazepam 1 mg tablet 1 mg PO HS PRN anxiety #20 tabs 02/24/24 escitalopram oxalate 20 mg tablet 20 mg PO DAILY #90 tabs 03/11/24 (Lexapro) Allergies Allergy/AdvReac Type Severity Reaction Status Date / Time aspirin Allergy Mild Rash Verified 03/13/24 19:17 Penicillins (PENICILLINS) Allergy Mild BREAKS HER Verified 03/13/24 19:17 OUT. calcium Allergy rash Verified 03/13/24 19:17 evolocumab (From Repatha AdvReac Mild rash on Verified 03/13/24 19:17 SureClick) arms [facility] Disclaimer: The information contained in this section may have been updated after the patient was seen, as this information can be updated by other users. Medical History Diabetes HLD (hyperlipidemia) HTN (hypertension) Abnormal ECG Shoulder blade pain Impacted cerumen, right ear Sinusitis Ear congestion Right ovarian cyst Surgical History H/O left knee surgery Family History Other No significant family history Social History Smoking Status: Current every day smoker tobacco type: cigarettes packs per day: 0 alcohol intake: never substance use type: denies use current occupational status: other Travel in the last 8 weeks: None household members: family housing: house Other Medical History Have you received the Flu Vaccine for this season: No Have you received the Pneumonia Vaccine: No ROS Obtained: Yes All systems reviewed & no additional complaints except as documented Physical Exam General General appearance: alert and in no apparent distress Respiratory Respiratory exam: Present normal lung sounds bilaterally Cardiovascular Cardiovascular exam: Present regular rate and normal rhythm Neurological Exam Neurological exam: Present alert HEART Score HEART Score HEART Score assessment performed?: Yes History (anamnesis): Highly suspicious ECG: Non-specific disturbance Age: 45-65 years Risk factors: Atherosclerosis history Troponin: </= normal limit HEART Score: 6 Procedures Miscellaneous Procedure Procedure Performed: Limited cardiac ultrasound Indication: Chest pain Identified structures: The heart was visualized in the parasternal long axis, parastenal short axis, apical four chamber and subxyphiod views. The IVC was visualized in the short axis and long axis at its entry into the right atrium. Findings: Normal LVEF no regional wall motion abnormalities noted no severe right heart strain no pericardial effusion Impression: Unremarkable limited cardiac ultrasound Images were saved to permanent archive The study was technically adequate CPT: 83847-49 This study was performed by me, and I personally interpreted all images/videos. Based on my clinical judgement, these images were adequate and did not necessitate further imaging. Critical Care Critical Care Time Critical Care Time: Yes Attestation: On 03/13/24, the high probability of a clinically significant, sudden or life threatening deterioration of the following system(s) required my full and direct attention, intervention and personal management. The time I documented below is in addition to time spent performing reported procedures but includes the following listed in this critical care notation. Total Time Total Critical Care Time: 35 Medical Decision Making [place]wey Inquiry Pt receiving controlled substance: No Vital Signs Vital Signs: 12/06/24 18:55 03/13/24 19:04 03/13/24 19:51 Temperature 98.2 F Temperature Source Oral Pulse Rate 71 79 Pulse Rate [Left Radial] 71 Respiratory Rate 18 20 Blood Pressure 148/81 H Blood Pressure [Right Arm] 155/83 H Blood Pressure Mean [Right Arm] 107 Blood Pressure Source [Right Arm] Automatic Cuff Blood Pressure Position [Right Arm] Sitting 02 Sat by Pulse Oximetry 95 98 Oxygen Delivery Method Room Air Room Air Lab Data Lab results reviewed: Yes I reviewed the patient's lab results. Labs: Lab Results 03/13/24 18:58: WBC 7.1, RBC 4.30, Hgb 13.4, Hct 38.6, MCV 89.8, MCH 31.1, MCHC 34.6, RDW 13.8, Plt Count 178, MPV 8.1, Neut % (Auto) 62.6, Lymph % (Auto) 29.1, [place] % (Auto) 6.0, Eos % (Auto) 1.3, Baso % (Auto) 1.0, Neut # (Auto) 4.5, Lymph # (Auto) 2.1, [place] # (Auto) 0.4, Eos # (Auto) 0.1, Baso # (Auto) 0.1, APTT 27.0 L, D-Dimer 0.87 H, Sodium 137, Potassium 4.0, Chloride 108 H, Carbon Dioxide 25, Anion Gap 8.0, BUN 27 H, Creatinine 0.60, Estimated Creat Clear 62, Estimated GFR 100, Est GFR ( Amer) 121, Glucose 155 H, Calcium 9.3, Total Bilirubin 0.6, AST 30, ALT 20, Alkaline Phosphatase 55, Troponin I < 0.01, Total Protein 7.3, Albumin 4.4, Globulin 2.9, Albumin/Globulin Ratio 1.5, Lipase 127, HIV 1&2 Antibody Rapid Nonreactive 03/13/24 19:00: Urine Color Yellow, Urine Appearance Clear, Urine pH 6.0, Ur Specific Emerson 1.025, Urine Protein Negative, Urine Glucose (UA) 3+, Urine Ketones Negative, Urine Blood Negative, Urine Nitrate Negative, Urine Bilirubin Negative, Urine Urobilinogen 0.2, Ur Leukocyte Esterase Negative, Urine RBC Occasional, Urine WBC 10-20, Ur Squamous Epith Cells 10-20, Urine Bacteria 1+, Urine Mucus 2+ 03/13/24 18:58 03/13/24 18:58 Response Orders (Tests/Meds): ED MEDICATIONS Generic Name Dose Route Start Last Admin Trade Name Freq PRN Reason Stop Dose Admin Nitroglycerin/Dextrose 250 mls @ 6 mls/hr 03/13/24 19:15 Nitroglycerin 50mg/250ml D5w IV 04/12/24 19:14 .Q24H ROSSI Protocol 20 MCG/MIN Heparin Sodium/Dextrose 500 mls @ 16 mls/hr 03/13/24 20:15 Heparin 25,000 Units In D5w 500ml Premix IV 04/12/24 20:14 .Q25H ROSSI 800 UNITS/HR Miscellaneous 1 each 03/13/24 19:45 Heparin Drip Consult NOTAPPLIC 04/12/24 19:44 CONSULT PHARMACY ROSSI Discontinued Medications Generic Name Dose Route Start Last Admin Trade Name Davidq PRN Reason Stop Dose Admin Clopidogrel Bisulfate 300 mg 03/13/24 19:57 Clopidogrel 300mg Tablet PO 03/13/24 19:58 ONCE ONE Heparin Sodium (Porcine) 4,000 unit 03/13/24 19:40 Heparin Sodium 5,000 Unit/Ml Vial IV 03/13/24 19:41 ONCE ONE Morphine Sulfate 4 mg 03/13/24 19:31 03/13/24 19:34 Morphine 4mg/Ml Syringe IV 03/13/24 19:32 4 mg ONCE ONE Administration Ondansetron HCl 4 mg 03/13/24 19:33 03/13/24 19:35 Ondansetron 4mg/2ml Vial IV 03/13/24 19:34 4 mg ONCE ONE Administration ORDERS Category Date Time Status POCUS Point of Care (ER Only) Stat Exams 03/13/24 19:19 Ordered XR chest 2V Stat Exams 03/13/24 19:05 Completed Complete Blood Count Auto Diff Stat Lab 03/13/24 18:58 Completed Comprehensive Metabolic Panel Stat Lab 03/13/24 18:58 Completed D-Dimer Stat Lab 03/13/24 18:58 Completed HIV (1&2) Antibody Rapid Stat Lab 03/13/24 18:58 Completed Hep C Ab with Reflex to RNA Stat Lab 03/13/24 18:58 Received Heparin drip PTT [PTT Heparin (inpatient only)] Stat Lab 03/14/24 02:00 Ordered Lipase Stat Lab 03/13/24 18:58 Completed PTT Heparin (inpatient only) Stat Lab 03/13/24 18:58 Completed Troponin I Q3H Lab 03/13/24 22:15 Ordered Troponin I Q3H Lab 03/14/24 01:15 Ordered Troponin I Stat Lab 03/13/24 18:58 Completed Urinalysis and Microscopic Stat Lab 03/13/24 19:00 Completed Urine Culture Stat Micro 03/13/24 19:00 Received ECG Data Tracing #1: Attestation: I reviewed this ECG and interpreted as documented below: ECG Narrative: Ventricular rate of 74 normal axis no acute ischemic changes noted no significant conduction abnormalities Tracing #2: Attestation: I reviewed this ECG and interpreted as documented below: ECG Narrative: Ventricular rate of 73 normal sinus rhythm no acute ischemic changes noted normal axis no changes from previous EKG MDM Narrative Medical Decision Narrative: Patient with above history and physical. Symptoms are consistent with unstable angina particular given her known severe multivessel coronary disease. Limited bedside ultrasound of the heart did not demonstrate any regional wall motion abnormalities serial EKGs were unremarkable. Initially had ordered a nitroglycerin infusion but her pressure got soft and we stopped this and given morphine and Zofran with improvement in symptoms. I also discussed the case with our edger automatic and reviewed the case with him and we agreed that this was primarily surgical initially. Subsequently I called [facility] and spoke to the transfer center they actually stated that the patient had seen our cardiothoracic surgeons on and had a scheduled CABG on 02/27 however the patient canceled on . I confronted the patient about this and she agreed to this and stated that she wanted to go to [facility] to be closer to family. However she has not seen a surgeon. When asked further she states that she does not want surgery and she just wants Intervention. Nonetheless [facility] had no open beds and we did not place the patient on the list because she does not want surgery at this point. I further spoke with Dr. Yepez who agrees to keep her at [facility] and do a cath on Saturday and stent her at that point. Given the fact that she has an aspirin allergy we decided to anticoagulate her with unfractionated heparin and initiate Plavix in the emergency department. I spoke with Dr. Dillard with hospital medicine who agreed to admit this patient for further evaluation and management.
[2024-03-13] MEDS: CLOPIDOGREL 300MG TABLET 300 MG PO (20:07)
[2024-03-13] MEDS: HEPARIN SODIUM 5,000 UNIT/ML VIAL 4000 UNIT IV (20:09)
[2024-03-13] MEDS: HEPARIN SODIUM,PORCINE/D5W 500 ML 16 UNIT IV (20:12)
--- NOTE | 2024-03-13 20:25 | EXP.HP ---
History of Present Illness *Admission Date: 03/13/24 *Reason for visit:: Chest pain *History of present illness: This is a 63-year-old female that presents to emergency department with concerns of chest pain that started today. She identifies the chest pain as retrosternal and radiates to the left breast. Initially her chest pain was rated as a 10 on a 1-10 pain scale but after receiving nitroglycerin from EMS she reports that her pain has improved. She reports at that chest pain is reproducible with exertion and she reports some diaphoresis but no associated nausea and vomiting. She denies confusion, unusual headaches, bruising, bleeding or syncopal episodes. Her past medical history is significant for multivessel coronary artery disease identified on a cardiac catheterization in January. She was recently evaluated by cardiothoracic surgery at [facility] with plans to pursue CABG but the patient declined and canceled the surgery. Thus far ECG x 2 identifies no acute changes and her troponins are negative. Cardiology was consulted out of the ED. She has been started on IV heparin and has received P2Y12 inhibitor therapy. [facility] Medical History (Updated 03/13/24 @ 21:37 by Calin Henao MD) Tobacco dependence Coronary artery disease CAD, multiple vessel Diabetes HLD (hyperlipidemia) HTN (hypertension) Abnormal ECG Right ovarian cyst Surgical History (Updated 03/13/24 @ 20:38 by Calin Henao MD) S/P cardiac catheterization H/O left knee surgery Family History Other No significant family history Social History Smoking Status: Current every day smoker tobacco type: cigarettes packs per day: 0 alcohol intake: never substance use type: denies use current occupational status: other Travel in the last 8 weeks: None household members: family housing: house Other Medical History Have you received the Flu Vaccine for this season: No Have you received the Pneumonia Vaccine: No Review of Systems Review of Systems Review of systems:: pertinent systems reviewed and negative unless documented below Meds Home Medications and Allergies Home Medications ?Medication ?Instructions ?Recorded ?Confirmed ?Type polyethylene glycol 3350 17 17 g PO DAILY 01/03/21 02/19/24 History gram/dose oral powder (ClearLax) terconazole 0.8 % vaginal cream 1 appful vaginal HS 3 days #20 11/28/22 02/19/24 Rx grams lancets 33 gauge (OneTouch Delica #100 ea 06/27/23 02/19/24 History Plus Lancet) blood sugar diagnostic (OneTouch #50 ea 10/14/23 02/19/24 Rx Verio test strips) losartan 100 mg tablet 100 mg PO DAILY #90 tabs 10/14/23 03/13/24 Rx glimepiride 2 mg tablet 2 mg PO DAILY #30 tabs 10/16/23 02/19/24 Rx hydrocortisone valerate 0.2 % 1 applic topical BID #60 grams 11/04/23 02/19/24 Rx topical cream fluticasone propionate 50 1 spray intranasal ONCE #16 grams 01/06/24 02/19/24 Rx mcg/actuation nasal spray,suspension montelukast 10 mg tablet 10 mg PO DAILY #90 tabs 01/06/24 02/19/24 Rx evolocumab 140 mg/mL subcutaneous 140 mg SQ Q2W #2 mL 01/13/24 02/19/24 Rx pen injector (Repatha SureClick) empagliflozin 25 mg tablet 25 mg PO DAILY Diabetes #30 tabs 01/14/24 03/13/24 Rx (Jardiance) ezetimibe 10 mg tablet 10 mg PO DAILY #90 tabs 01/28/24 02/19/24 Rx rosuvastatin 40 mg tablet 40 mg PO DAILY #90 tabs 01/28/24 03/13/24 Rx lorazepam 1 mg tablet 1 mg PO HS PRN anxiety #20 tabs 02/24/24 Rx escitalopram oxalate 20 mg tablet 20 mg PO DAILY #90 tabs 03/11/24 03/13/24 Rx (Lexapro) New Prescriptions to Start Prescriptions: Allergies Allergy/AdvReac Type Severity Reaction Status Date / Time aspirin Allergy Mild Rash Verified 03/13/24 19:17 Penicillins (PENICILLINS) Allergy Mild BREAKS HER Verified 03/13/24 19:17 OUT. calcium Allergy rash Verified 03/13/24 19:17 evolocumab (From Repatha AdvReac Mild rash on Verified 03/13/24 19:17 SureClick) arms Exam Data for Last 24 hours Vital signs and Labs for Last 24 Hours: Temp Pulse Resp BP Pulse Ox O2 Del Method 98.2 F 74 22 135/73 95 Room Air 03/13/24 18:55 03/13/24 20:00 03/13/24 20:00 03/13/24 20:00 03/13/24 20:00 03/13/24 19:51 Laboratory Results - last 24 hr 03/13/24 18:58: WBC 7.1, RBC 4.30, Hgb 13.4, Hct 38.6, MCV 89.8, MCH 31.1, MCHC 34.6, RDW 13.8, Plt Count 178, MPV 8.1, Neut % (Auto) 62.6, Lymph % (Auto) 29.1, [place] % (Auto) 6.0, Eos % (Auto) 1.3, Baso % (Auto) 1.0, Neut # (Auto) 4.5, Lymph # (Auto) 2.1, [place] # (Auto) 0.4, Eos # (Auto) 0.1, Baso # (Auto) 0.1, APTT 27.0 L, D-Dimer 0.87 H, Sodium 137, Potassium 4.0, Chloride 108 H, Carbon Dioxide 25, Anion Gap 8.0, BUN 27 H, Creatinine 0.60, Estimated Creat Clear 62, Estimated GFR 100, Est GFR ( Amer) 121, Glucose 155 H, Calcium 9.3, Total Bilirubin 0.6, AST 30, ALT 20, Alkaline Phosphatase 55, Troponin I < 0.01, Total Protein 7.3, Albumin 4.4, Globulin 2.9, Albumin/Globulin Ratio 1.5, Lipase 127, HIV 1&2 Antibody Rapid Nonreactive 03/13/24 19:00: Urine Color Yellow, Urine Appearance Clear, Urine pH 6.0, Ur Specific [place] 1.025, Urine Protein Negative, Urine Glucose (UA) 3+, Urine Ketones Negative, Urine Blood Negative, Urine Nitrate Negative, Urine Bilirubin Negative, Urine Urobilinogen 0.2, Ur Leukocyte Esterase Negative, Urine RBC Occasional, Urine WBC 10-20, Ur Squamous Epith Cells 10-20, Urine Bacteria 1+, Urine Mucus 2+ I & O for Last 24 hours: Intake & Output 03/10/24 03/11/24 03/12/24 03/13/24 23:59 23:59 23:59 23:59 Weight 70.307 kg Constitutional Constitutional: no acute distress, obese, chronically ill appearing and cooperative *Routine HEENT Exam Head: Present normocephalic Eye: Present EOMI and PERRL ENT: Present mucous membranes moist *Routine Neck Exam Neck: Present supple; Absent lymphadenopathy *Routine Respiratory Exam Respiratory: Present rhonchi, normal respiratory effort and symmetric chest movement; Absent respiratory distress *Routine Cardiovascular Exam Cardiovascular: Present RRR, Normal S1 and Normal S2; Absent murmur *Routine Abdominal Exam Abdominal: Present soft and normoactive bowel sounds; Absent tenderness *Routine Rectal Exam Rectal:: deferred *Routine Genitalia Exam Genitalia:: deferred *Routine Extremities Exam Extremities: Present full ROM; Absent cyanosis or edema *Routine Skin Exam Skin: Present intact; Absent rash *Routine Neurological Exam Neurological: Present alert, oriented X3, moving all extremities, hearing grossly intact and normal speech; Absent sensory deficit or motor deficit Routine Psychiatric Exam Psychiatric: Present normal affect, normal thought process, cooperative, good insight, good judgment and anxious Assessment and Plan *Assessment and plan (1) Unstable angina: Status: Acute Category: Medical Code(s): I20.0 - Unstable angina (2) CAD, multiple vessel: Status: Acute Category: Medical Code(s): I25.10 - Atherosclerotic heart disease of [place] coronary artery without angina pectoris (3) Diabetes: Status: Acute Qualifiers: Diabetes mellitus complication status: with hyperglycemia Diabetes mellitus 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 insulin use: without 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 use Diabetes mellitus type: type 2 Qualified Code(s): E11.65 - Type 2 diabetes mellitus with hyperglycemia Category: Medical Code(s): E11.9 - Type 2 diabetes mellitus without complications (4) HTN (hypertension): Status: Acute Qualifiers: Hypertension type: primary hypertension Qualified Code(s): I10 - Essential (primary) hypertension Category: Medical Code(s): I10 - Essential (primary) hypertension (5) Tobacco dependence: Status: Acute Category: Medical Code(s): F17.200 - Nicotine dependence, unspecified, uncomplicated Plan This is a 63-year-old female with identified multi-vessel coronary artery disease with recent cardiac catheterization and referred for surgical intervention. The patient declined surgical intervention and presented to the ED with chest pain. Problems addressed as follows: Unstable angina Multi-vessel coronary artery disease Telemetry monitoring Cardiology consultation Coronary angiography CT (11/12/2023) with multi-vessel coronary artery disease Cardiac catheterization (02/04/2024) with multi-vessel coronary artery disease [facility] cardiothoracic surgery evaluation and recommendations (February 2024) Patient elected to decline surgical procedure Admission ECG with no STEMI Admission troponin negative Nitroglycerin as needed Aspirin allergy noted High-dose statin therapy IV heparin Drug therapy requiring intensive monitoring for toxicity Routine PTT P2 Y12 inhibitor therapy Beta-ysabel therapy ARB therapy Antiemetic therapy Pain control Parenterally administered controlled substance for comfort care Diabetes Routine blood sugar monitoring Hemoglobin A1c 6.0% Basal insulin therapy Sliding scale insulin therapy Avoiding SGLT2 inhibitor therapy with planned procedure Consistent carbohydrate diet Hypertension Routine blood pressure monitoring Beta-ysabel therapy ARB therapy IV nitroglycerin for uncontrolled blood pressure Generalized anxiety disorder Routine nursing interaction SSRI therapy Admission ECG with QTc 434 MS Benzodiazepine therapy as needed Tobacco dependence Tobacco cessation education Nicotine replacement therapy The length of stay for this patient will be 2 midnights or greater due to above diagnoses.
--- NOTE | 2024-03-13 21:06 | PC.NURSE ---
This RN called to give report to floor x2. awaiting nurse to recieve report @ 2100 for room 218
--- NOTE | 2024-03-13 21:15 | PC.NURSE ---
Patient arrived to floor via wheelchair from ED at 21:09.
[2024-03-13] MEDS: HEPARIN DRIP CONSULT 1 EACH NOTAPPLIC (21:20)
[2024-03-13] MEDS: ATORVASTATIN 40MG TABLET 80 MG PO (21:33)
[2024-03-13] MEDS: PANTOPRAZOLE 40MG TABLET 40 MG PO (21:33)
[2024-03-13] MEDS: METOPROLOL SUCCINATE XL 50MG TABLET 50 MG PO (21:33)
[2024-03-13] MEDS: humaLOG 100 UNITS/ML 10ML VIAL (SSI) SUBCUT (21:34)
[2024-03-13] MEDS: INSULIN GLARGINE 100 UNITS/ML 10ML VIAL 10 UNIT SUBCUT (21:35)
[2024-03-13] MEDS: ALPRAZolam 0.5MG TABLET 0.5 MG PO (21:42)
[2024-03-13 21:43] LABS: POC Glucose,Bedside 173 (70-110)
[2024-03-13] MEDS: NICOTINE 21MG/24HR PATCH 21 MG TD (21:43)
[2024-03-13 22:55] LABS: Troponin I < 0.01 ng/ml (0.00-0.034)
[2024-03-14] VITALS (8 sets, daily range): BP systolic 97–123; BP diastolic 48–73; PULSE 54–60; RESP 16–20; TEMP 36.5–36.8; O2SAT 90–99; BMI 30.6
[2024-03-14] MEDS: MELATONIN 5MG TABLET 5 MG PO ×2 (00:08→20:12)
[2024-03-14 01:26] LABS: Troponin I < 0.01 ng/ml (0.00-0.034)
[2024-03-14] MEDS: MORPHINE 4MG/ML SYRINGE 4 MG IV (03:22)
--- NOTE | 2024-03-14 04:14 | ECG_ITS ---
APPROVED REPORT Exam: Resting ECG HR:53 bpm ECG Measurements Heart Rate 53 AXES MS 155 P 42 QRSd 98 QRS 40 QT 466 T 63 QTc 449 Conclusion SINUS BRADYCARDIA BORDERLINE ECG UNCONFIRMED REPORT Electronically signed by : Hilton Magana MD 03/14/2024 08:12:24
--- NOTE | 2024-03-14 04:27 | PC.NURSE ---
Spoke with Shawna fofana/ [facility]. Stated PTT result 45.0. States she will order a 3000u heparin bolus and to titrate heparin gtt to 900u/hr. Repeated, verified, and carried out.
[2024-03-14] MEDS: HEPARIN SODIUM 5,000 UNIT/ML VIAL 3000 UNIT IV (04:34)
--- NOTE | 2024-03-14 05:14 | PC.NURSE ---
Pt A/Ox4. Pt has complained of sharp pain in midsternal chest that radiates to left arm with numbness 2x since arriving to floor. PRN pain medication administered. EKG performed, no change from admission. Pt has been bradycardic w/ hr 40s-60s. Tolerating RA with sat >90%. Lung sounds clear, diminished in bilateral lower lobes. Heparin gtt currently running @ 900uhr. Call light within reach.
[2024-03-14 05:20] LABS: POC Glucose,Bedside 102 (70-110)
[2024-03-14 06:51] LABS: Basophils # 0.1 K/mm3 (0-0.2); Basophils % 0.7 % (0.1-2.0); Eosinophils # 0.1 K/mm3 (0.0-0.4); Eosinophils % 1.5 % (0.1-12.0); Hematocrit 38.2 % (37.0-47.0); Hemoglobin 12.9 g/dL (12.2-16.2); Lymphocytes # 2.7 K/mm3 (0.7-4.5); Lymphocytes % 35.2 % (10-50); Mean Corpuscular HGB Conc 33.9 g/dL (31.8-35.4); Mean Corpuscular Hemoglobin 30.9 pg (27.0-31.2); Mean Corpuscular Volume 91.4 fl (81-99); Mean Platelet Volume 8.3 fl (7.4-10.4); Monocytes # 0.4 K/mm3 (0.1-1.0); Monocytes % 5.6 % (1.7-9.3); Neutrophils # 4.3 K/mm3 (1.8-7.8); Platelet Count 172 K/mm3 (142-424); Red Blood Count 4.17 M/mm3 (4.20-5.40); White Blood Count 7.5 K/mm3 (4.8-10.8)
[2024-03-14 06:53] LABS: Chloride 111 mmol/L (98-107); Sodium 139 mmol/L (136-145)
[2024-03-14 06:54] LABS: Potassium 3.8 mmoL/L (3.5-5.1)
[2024-03-14 06:56] LABS: Anion Gap 8.8 mEq/L (5-15); Blood Urea Nitrogen 21 mg/dl (7-17); Carbon Dioxide 23 mmol/L (22.0-30.0); Creatinine Clearance Estimated 61 mL/min (50-200); Estimated Glomerular Filt Rate 84 ml/min (>60); GFR (African American) 102 ML/MIN (>60)
[2024-03-14 06:57] LABS: Calcium 8.9 mg/dl (8.4-10.2); Glucose 98 mg/dl (74-100); Magnesium 2.1 mg/dl (1.6-2.3)
[2024-03-14] MEDS: CITALOPRAM 40MG TABLET 40 MG PO (08:39)
[2024-03-14] MEDS: ENOXAPARIN 80MG/0.8ML SYRINGE 70 MG SUBCUT ×2 (08:40→20:12)
[2024-03-14] MEDS: POLYETHYLENE GLYCOL 3350 17 GM PACKET PO (08:40)
[2024-03-14] MEDS: METOPROLOL SUCCINATE XL 50MG TABLET 50 MG PO (08:49)
[2024-03-14] MEDS: CLOPIDOGREL 75MG TAB 75 MG PO (08:55)
--- NOTE | 2024-03-14 09:30 | HMH.PHAINT1 ---
Pharmacy Intervention Comments: MEDICATION RECONCILIATION COMPLETE USING CARDIOLOGY OFFICE VISIT NOTE AND EXTERNAL PHARMACY FILL HISTORY.
[2024-03-14] MEDS: HYDROCODONE/APAP 5/325 MG TABLET 1 TAB PO ×2 (09:46→17:04)
[2024-03-14 12:27] LABS: POC Glucose,Bedside 109 (70-110)
[2024-03-14] MEDS: hydrOXYzine pamoate 25MG CAPSULE 25 MG PO (13:29)
--- OUTSIDE RECORDS SUMMARY | 2024-03-14 14:20 | XMS_ITS | Encounter Summary ---
Author Organization [facility] Address [address] [place] [address] Care Team Providers Care Embalmer Assistant Name Role Phone Marcos Tran MD Primary Care Provider [phone] Antonio Yepez MD Unavailable [phone] Encounter Details Date Type Department Care Team (Latest Contact Info) Description 02/13/2024 1:41 PM EST - 02/13/2024 11:59 PM [facility] [address], [address] [place] [id number] Preop testing Discharge Disposition: Home or Self Care Social History Tobacco Use Types Packs/Day Years Used Date Smoking Tobacco: Every Day Cigarettes Smokeless Tobacco: Never Alcohol Use Standard Drinks/Week Comments Never 0 (1 standard drink = 0.6 oz pur e alcohol) Comments Unknown Sex and Gender Information Value Date Recorded Sex Assigned at Not on file Legal Sex Female 3:27 PM EDT Gender Identity Not on file Sexual Orientation Not on file Occupation Industry Job Start Date Job End Date retired Not on file Not on file Not on file documented as of this encounter Medications at Time of Discharge D3 50 MCG (1999) tablet Take 1 tablet (2,000 Units) by mouth 1 (one) time each day. 07/15/2023 empagliflozin (Jardiance) 25 MG Take 1 tablet (25 mg) by mouth 1 (one) time each day. 09/05/2023 ezetimibe (Zetia) 10 MG tablet Take 1 tablet (10 mg) by mouth 1 (one) time each day. fluticasone (Flonase) 50 MCG/ACT nasal spray 04/15/2023 glimepiride (Amaryl) 2 MG tablet Take 1 tablet (2 mg) by mouth 1 (one) time each day before breakfast. 10/16/2023 hydrocortisone (West-Rodolfo) 0.2 % cream Apply topically 2 (two) times a day. 11/04/2023 ibuprofen 400 MG tablet Take 1 tablet (400 mg) by mouth every 6 (six) hours if needed for moderate pain. loratadine (Claritin) 10 MG tablet Take 1 tablet (10 mg) by mouth 1 (one) time each day. 10/31/2023 losartan (Cozaar) 100 MG tablet Take 1 tablet (100 mg) by mouth 1 (one) time each day. 10/14/2023 montelukast (Singulair) 10 MG tablet Take 1 tablet (10 mg) by mouth every night. 09/27/2023 rosuvastatin (Crestor) 40 MG tablet Take 1 tablet (40 mg) by mouth 1 (one) time each day. 01/28/2024 documented as of this encounter Plan of Treatment Not on file documented as of this encounter Procedures Procedure Name Priority Date/Time Associated Diagnosis Comments XR CHEST 2 VIEWS Routine 02/13/2024 1:52 PM EST Preop testing documented in this encounter Results * XR Chest 2 Views (02/13/2024 1:52 PM EST) Anatomical Region Laterality Modality Chest Digital Radiogra phy Impressions 02/13/2024 4:03 PM EST No acute findings. CRITICAL RESULT: ?? No. COMMUNICATION: Per this written report. By electronically signing this report, I, the attending physician, attest that I have personally reviewed the images/data for the above examination(s) and agree with the final edited report. Drafted by Yeyo Aldana MD on 02/13/2024 3:27 PM Final report signed by George Pickard MD on 02/13/2024 4:03 PM Narrative 02/13/2024 4:03 PM EST CLINICAL INDICATION: Preop testing TECHNIQUE: XR CHEST 2 VIEWS COMPARISON: CT angiography coronary artery protocol outside images dated November 12, 2023 FINDINGS: Cardiac silhouette and mediastinal contours are normal. No consolidation, pleural effusion, or pneumothorax. Procedure Note George Pickard MD - 02/13/2024 CLINICAL INDICATION: Preop testing TECHNIQUE: XR CHEST 2 VIEWS COMPARISON: CT angiography coronary artery protocol outside images dated November FINDINGS: Cardiac silhouette and mediastinal contours are normal. No consolidation,pleural effusion, or pneumothorax. IMPRESSION: No acute findings. CRITICAL RESULT: No. COMMUNICATION: Per this written report. By electronically signing this report, I, the attending physician, attestthat I have personally reviewed the images/data for the aboveexamination(s) and agree with the final edited report. Drafted by Yeyo Aldana MD on 02/13/2024 3:27 PM Final report signed by George Pickard MD on 02/13/2024 4:03 PM George Sandoval MD IMG XR PROCEDURES Final Resu lt documented in this encounter Visit Diagnoses Diagnosis Preop testing Unspecified pre-operative examination documented in this encounter Additional Health Concerns Assessment Noted Time A fall risk assessment has been complete d for the patient 02/13/2024 11:11 AM EST A Body Mass Index follow-up plan has been documented for the patient 02/13/2024 12:52 PM EST documented as of this encounter Care Teams Embalmer Assistant Relationship Specialty Start Date End Date Marcos Tran MD [facility] [place] [address] PCP - General 02/05/24 Antonio Yepez MD [address] [address] Referring Physician 02/05/24 documented as of this encounter
--- OUTSIDE RECORDS SUMMARY | 2024-03-14 14:20 | XMS_ITS | Encounter Summary ---
Author Organization [facility] Address [address] [id number] Care Team Providers Care Grades 1 Through 6 Teacher Name Role Phone Marcos Tran MD Primary Care Provider [phone] Antonio Yepez MD Unavailable [phone] Encounter Details Date Type Department Care Team (Late st Contact Info) Description 02/24/2024 2:00 PM EST Pre-Admission Testing [facility] [address], [address] [place] [id number] Social History Tobacco Use Types Packs/Day Years [...] on file documented as of this encounter Last Filed Vital Signs Vital Sign Reading Time Taken Comments Blood Pressure - - Pulse - - Temperature - - Respiratory Rate - - Oxygen Saturation - - Inhaled Oxygen Concentration - - Weight 70.8 kg (156 lb) 02/24/2024 12:43 PM EST Height - - Body Mass Index 31.51 02/13/2024 10:59 AM EST documented in this encounter Miscellaneous Notes * PAT Evaluation Note - Lianna Coelho PA - 02/24/2024 2:00 PM EST HPI Ruthann Lee is a 63 y.o. female who presents with Pre-op Diagnosis * Coronary artery disease involving [place] coronary artery of [place] heart without angina pectoris [I25.10] now scheduled for CABG, 2 OR MORE VESSELS (N/A) with George Sandoval MD on 02/28/2024 [facility]. Past Medical History: Diagnosis Date CAD (coronary artery disease) DMII (diabetes mellitus, type 2) (CMS/HCC) Family History Problem Relation Name Age of Onset Heart disease Mother Cancer Father liver Cancer Brother Cancer Brother Anesthesia problems Neg Hx Malig Hyperthermia Neg Hx Social History Tobacco Use Smoking status: Every Day Types: Cigarettes Smokeless tobacco: Never Vaping Use Vaping status: Never Used Substance Use Topics Alcohol use: Never Drug use: Never SURGICAL HISTORY: Past Surgical History: Procedure Laterality Date COLONOSCOPY CYST REMOVAL ovaries KNEE SURGERY Allergies Allergen Reactions Aspirin Rash Evolocumab Rash Penicillins Rash MEDICATIONS: Current Outpatient Medications: D3, Take 1 tablet (2,000 Units) by mouth 1 (one) time each day. empagliflozin, Take 1 tablet (25 mg) by mouth 1 (one) time each day. ezetimibe, Take 1 tablet (10 mg) by mouth 1 (one) time each day. fluticasone, glimepiride, Take 1 tablet (2 mg) by mouth 1 (one) time each day before breakfast. hydrocortisone, Apply topically 2 (two) times a day. ibuprofen, Take 1 tablet (400 mg) by mouth every 6 (six) hours if needed for moderate pain. loratadine, Take 1 tablet (10 mg) by mouth 1 (one) time each day. losartan, Take 1 tablet (100 mg) by mouth 1 (one) time each day. montelukast, Take 1 tablet (10 mg) by mouth every night. rosuvastatin, Take 1 tablet (40 mg) by mouth 1 (one) time each day. (Patient not taking: Reported on 02/13/2024) ROS Anesthesia: Date of last anesthetic: 3 years ago history of previous anesthesia. Does not have a history of anesthetic complications, obstructive sleep apnea and PONV. Cardiovascular: CAD and hyperlipidemia. Does not have angina, atrial fibrillation, CHF, dyspnea, dysrhythmias, murmur, pacemaker, past AK or syncope. hypertension: is well controlled. Exercise tolerance is 1 flight of stairs. Does not have chest pain. Cardio additional comments: 02/04/2024 Cardiac Cath Results: 60% L Main Dz 90% Proximal LAD 90% proximal Cx 60-70% proximal RCA EKG () 06/2023: normal EKG, sinus rhythm. . Respiratory: Patient has no dyspnea.no asthma: no COPD: Has not had bronchitis in the last 30 days, pneumonia inthe last 30 days or COVID in the last 30 days. Respiratory ROS additional comments: Pt reports onset 02/20 rhinorrhea, cough, sneezing with malaise; afebrile. Seeing PCP this afternoon. Per pt she informed surgeon and they want her to give them an update after seeing PCP. Neurological: no seizures: Did not have a cerebrovascular accident.Does not have TIA. Musculoskeletal: arthritis. Does not have cervical spine limited mobility. Musc/Skel/Integ additional comments: + Able to lay flat without difficulty Gastrointestinal: Does not have GERD.Does not have cirrhosis. obese. Genitourinary: Does not have renal disease. Hematological/Lymphatic: History of no DVT. History of no pulmonary embolism. no history of chemotherapy no history of radiation Does not have HIV, MRSA or tuberculosis. Endocrine/Metabolic: diabetes mellitus type 2.well controlled. 6% Does not have thyroid disorder. Lab Results Component Value Date WBC 8.2 02/15/2024 HGB 13.70 02/15/2024 HCT 38.8 02/15/2024 MCV 89.9 02/15/2024 PLT 180 02/15/2024 Lab Results Component Value Date GLUCOSE 136 02/15/2024 BUN 23 02/15/2024 CREATININE 0.60 02/15/2024 NA 141 02/15/2024 K 3.9 02/15/2024 CL 105 02/15/2024 CO2 31 02/15/2024 PROT 7.4 02/15/2024 ALBUMIN 4.6 02/15/2024 ALKPHOS 61 02/15/2024 BILITOT 0.7 02/15/2024 Lab Results Component Value Date HGBA1C 6.0 02/15/2024 Lab Results Component Value Date INR 0.89 02/15/2024 PROTIME 10.1 02/15/2024 Visit Vitals Wt 70.8 kg (156 lb) BMI 31.51 kg/m?? Smoking Status Every Day BSA 1.72 m?? 02/24/2024 12:43 PM Vitals Weight (kg) 70.761 kg BMI 31.51 kg/m2 BSA (m2) 1.72 m2 Physical Exam BUSHRA phone screen. Anesthesia Plan ASA 4 Anesthesia technique(s) discussed with the patient/family: general Comment: B[facility]RA phone screen. Pt is sick with cold like symptoms, per pt seeing PCP today then going to update Dr. Sandoval's team.Will follow up as well. Update 02/24: Per Dr. Sandoval's nurse Pt reports she has decided to cancel her surgery at and [facility] to [facility] due to the close proximity to her home and family. Dr Sandoval updated. PHILLY Maguire * Preprocedure Instructions - Lianna Coelho PA - 02/24/2024 2:00 PM EST Home Medication Instructions Current Medications Medication Instructions D3 50 MCG (2000 UT) tablet Hold day of surgery empagliflozin (Jardiance) 25 MG Hold 72 days before surgery ezetimibe (Zetia) 10 MG tablet Take morning of surgery fluticasone (Flonase) 50 MCG/ACT nasal spray Take morning of surgery glimepiride (Amaryl) 2 MG tablet Hold day of surgery hydrocortisone (West-Rodolfo) 0.2 % cream Hold day of surgery ibuprofen 400 MG tablet Hold 5-7 days before surgery loratadine (Claritin) 10 MG tablet Take morning of surgery as needed losartan (Cozaar) 100 MG tablet Hold 3 days before surgery per surgeon montelukast (Singulair) 10 MG tablet Take night before surgery General Preoperative Instructions You will be called the business day before surgery with your arrival time Do not eat or drink anything after midnight except water with your medications unless other instructions are given No alcohol or smoking prior to surgery Arrive on time to avoid delays Parking/Registration procedure explained You MUST have a responsible adult available for transport to and from hospital Visitation policy for the day of surgery reviewed Bring insurance card, photo ID, along with power of trade mark attorney, guardianship or advanced directives if applicable Do not bring money, jewelry or other valuables Hibiclens bathing instructions reviewed if applicable Notify surgeon of fever, illness, any changes or if you decide not to have surgery Pediatric patients under 12 years of age (If applicable) No solid food or milk after midnight Formula 6 hours prior to arrival for surgery Breast milk 4 hours prior to arrival surgery Clear liquids 2 hours prior to arrival for surgery Diabetes Instructions (If applicable) Take diabetes medication as instructed You may have up to 4 ounces of apple juice 2 hours prior to arrival for surgery for low glucose documented in this encounter Plan of Treatment Not on file documented as of this encounter Visit Diagnoses Not on filedocumented in this encounter Additional Health Concerns Assessment Noted Time A fall risk assessment has been complete d for the patient 02/13/2024 11:11 AM EST A Body Mass Index follow-up plan has been documented for the patient 02/13/2024 12:52 PM EST documented as of this encounter Care Teams Grades 1 Through 6 Teacher Relationship Specialty Start Date End Date Marcos Tran MD [address] [place] [address] PCP - General 02/05/24 Antonio Yepez MD [address] [place] [address] Referring Physician 02/05/24 documented as of this encounter
--- OUTSIDE RECORDS SUMMARY | 2024-03-14 14:20 | XMS_ITS | Encounter Summary ---
Author Organization [facility] Address [address] [place] [address] Care Team Providers Care Pega Developer Name Role Phone Marcos Tran MD Primary Care Provider [phone] Antonio Yepez MD Unavailable [phone] Encounter Details Date Type Department Care Team (Latest Contact Info) Description 02/13/2024 Travel Social History Tobacco Use Types Packs/Day Years [...] on file documented as of this encounter Plan of [...] documented as of this encounter Care Teams Pega Developer Relationship Specialty Start Date End Date Marcos Tran MD [address] [place] [address] PCP - General 02/05/24 Antonio Yepez MD [address] [place] [address] Referring Physician 02/05/24 documented as of this encounter
--- OUTSIDE RECORDS SUMMARY | 2024-03-14 14:20 | XMS_ITS | Clinical Summary ---
Author Organization [facility] Address [address] [place] [address] Care Team Providers Care Cooperage Shop Supervisor Name Role Phone Marcos Tran MD Primary Care Provider [phone] Antonio Yepez MD Unavailable [phone] Allergies Active Allergy Reactions Criticality Noted Date Comments Aspirin Rash Low 02/04/2024 Evolocumab Rash Low 02/04/2024 Penicillins Rash Low 12/28/2016 Medications D3 50 MCG (1999 UT) tablet Take 1 tablet (2,000 Units) by mouth 1 (one) time each day. 4 Active empagliflozin (Jardiance) 25 MG Take 1 tablet (25 mg) by mouth 1 (one) time each day. 4 Active fluticasone (Flonase) 50 MCG/ACT nasal spray 4 Active glimepiride (Amaryl) 2 MG tablet Take 1 tablet (2 mg) by mouth 1 (one) time each day before breakfast. 4 Active hydrocortisone (West-Rodolfo) 0.2 % cream Apply topically 2 (two) times a day. 4 Active loratadine (Claritin) 10 MG tablet Take 1 tablet (10 mg) by mouth 1 (one) time each day. 4 Active losartan (Cozaar) 100 MG tablet Take 1 tablet (100 mg) by mouth 1 (one) time each day. 4 Active montelukast (Singulair) 10 MG tablet Take 1 tablet (10 mg) by mouth every night. 4 Active rosuvastatin (Crestor) 40 MG tablet Take 1 tablet (40 mg) by mouth 1 (one) time each day. 4 Active ezetimibe (Zetia) 10 MG tablet Take 1 tablet (10 mg) by mouth 1 (one) time each day. Active ibuprofen 400 MG tablet Take 1 tablet (400 mg) by mouth every 6 (six) hours if needed for moderate pain. Active Active Problems Problem Noted Date Diagnosed Date BMI 31.0-31.9,adult 02/13/2024 Coronary artery disease invo lving [place] coronary artery of [place] mountain heart without angina pectoris 02/13/2024 Encounters Date Type Department Care Team Description 03/13/2024 Orders Only External Location [address] [place] [address] Devin Michaels MD 02/24/2024 2:00 PM EST Pre-Admission Testing [facility] [address], [address] [place] [address] 02/24/2024 Travel 02/24/2024 Telephone [facility] [address], [address] [place] [address] Jeannine Chapman RN 02/21/2024 Travel 02/13/2024 1:41 PM EST - 02/13/2024 11:59 PM EST Hospital Encounter [facility] Radiology [address], [address] [place] [address] Preop testing Discharge Disposition: Home or Self Care 02/13/2024 10:00 AM EST Consult [facility] [address], [address] [place] [address] George Sandoval MD Coronary artery disease involving [place] coronary artery of [place] mountain heart without angina pectoris (Primary Dx) 02/13/2024 Orders Only [facility] [address], [address] [place] [address] George Sandoval MD Preop testing (Primary Dx) 02/13/2024 Orders Only [facility] [address], [address] [place] [address] George Sandoval MD Coronary artery disease involving [place] mountain coronary artery of [place] mountain heart without angina pectoris (Primary Dx) 02/13/2024 Travel from Last 3 Months Immunizations Name Administration Dates Next Due Tdap 10/12/2020 Family History Medical History Relation Name Comments Cancer Brother 1 Cancer Brother 2 Cancer Father liver Heart disease Mother Anesthesia problems Neg Hx Malig Hyperthermia Neg Hx Relation Name Status Comments Brother 1 Brother 2 Father Mother Social History Tobacco Use Types Packs/Day Years Used Date Smoking Tobacco: Every Day Cigarettes Smokeless Tobacco: Never Tobacco Cessation:Ready to Q uit: Not Asked; Counseling Given: Not Answered Alcohol Use Standard Drinks/Week Comments Never 0 [...] file Not on file Not on file Last Filed Vital Signs Vital Sign Reading Time Taken Comments Blood Pressure 115/71 02/13/2024 10:59 AM EST Pulse 75 02/13/2024 10:59 AM EST Temperature - - Respiratory Rate - - Oxygen Saturation 96% 02/13/2024 10:59 AM EST Inhaled Oxygen Concentration - - Weight 70.8 kg (156 lb) 02/24/2024 12:43 PM EST Height 149.9 cm (4' 11 ) 02/13/2024 10:59 AM EST Body Mass Index 31.51 02/13/2024 10:59 AM EST Plan of Treatment Health Maintenance Due Date Last Done Comments [facility]- Medicare Initial Physic al (IPPE) 1958 [facility]-Bone Density Scan 1958 [facility]-Depression Screening 1958 [facility]-Infant/Child/Adol SDOH Screenings 1958 [facility]-Pneumococcal Vaccine: 65 + Years (1 of 2 - PCV) 1964 Diabetes: Dental Exam 1968 [facility]- SDOH Screenings 1976 [facility]-Adult SDOH Screenings 1976 [facility]-Zoster Vaccines (1 of 2) 1977 [facility]-Pap Smear 08/19/1979 [facility]-Cervical Cancer Screening 1988 [facility]-HPV/Cotest 1988 CT Colonography 08/19/2003 Colonoscopy 08/19/2003 FIT-DNA 08/19/2003 FIT 08/19/2003 FOBT 08/19/2003 Sigmoidoscopy 08/19/2003 [facility]-Colorectal Cancer Screening 08/19/2003 [facility]-Breast Cancer Screening 2008 [id number] Vaccine (3 - Moderna risk series) 10/06/2020 09/08/2020, 08/11/2020 [facility]-Influenza Vaccine (#1) 2023 [facility]-Diabetes: Hemoglobin A1C 08/14/2024 02/15/2024 [facility]-DTaP,Tdap,and Td Vaccine s (2 - Td or Tdap) 10/12/2030 10/12/2020 [facility]-RSV Vaccine: 60+ Years o r (1 - 1-dose 75+ series) 2033 [facility]-Hepatitis C Screening Completed 05/21/2022 [facility]-Obesity Intervention Completed 02/13/2024 [facility]-HIB Vaccines Aged Out No longer e ligible based on patient's age to complete this topic [facility]-HPV Vaccines Aged Out No longer e ligible based on patient's age to complete this topic [facility]-Hepatitis A Vaccines Aged Out No longer eligible based on patient's age to complete this topic [facility]-IPV Vaccines Aged Out No longer e ligible based on patient's age to complete this topic [facility]-Rotavirus Vaccines Aged Out No lo nger eligible based on patient's age to complete this topic Procedures Procedure Name Priority Date/Time Associated Diagnosis Comments XR OUTSIDE IMAGES 03/13/2024 7:1 1 PM EST EXTERNAL PROTHROMBIN TIME (PT)/INR Routine 02/15/2024 COMPREHENSIVE METABOLIC PANEL, PLASMA Routine 02/15/2024 HEMOGLOBIN A1C Routine 02/15/2024 CBC W/O DIFFERENTIAL Routine 02/15/2024 COMPLETE METABOLIC PROFILE (CMP) Routine 02/15/2024 XR CHEST 2 VIEWS Routine 02/13/2024 1:52 PM EST Preop testing TYPE AND SCREEN 30 DAYS Routine 02/13/2024 1:21 PM EST Coronary artery disease involving ute mountain coronary artery of [place] mountain heart without angina pectoris from Last 3 Months Results * XR OUTSIDE IMAGES (03/13/2024 7:11 PM EST) Anatomical Region Laterality Modality Radiographic Iwona ging 03/13/2024 7:11 PM EST Result [facility] Devin Michaels MD IMG XR PROCEDURES Final Result * External Prothrombin Time (PT)/INR (02/15/2024) External Prothrombin Time (PT) 10.1 External INR - Internormal Ratio 0.89 Blood Venous blood specimen / Unknown 02/15/2024 Result [facility] Historical Provider POINT OF CARE TEST ENTER/ EDIT ORDERABLES Final Result * COMPLETE METABOLIC PROFILE (CMP) (02/15/2024) 02/15/2024 Result [facility] Historical Provider LAB BLOOD ORDERABLES Edit ed Result - Final * CBC W/O Differential (02/15/2024) External WBC 8.2 External Red Blood Cell (RBC) 4.32 External Hemoglobin (Hgb) 13.70 External Hematocrit (Hct) 38.8 External Platelet Count (Plt) 180 External MCV 89.9 External MCH 31.7 External MCHC 35.3 External RDW 14.2 Blood Venous blood specimen / Unknown 02/15/2024 Result [facility] Historical Provider LAB BLOOD ORDERABLES Michela l Result * Hemoglobin A1c (02/15/2024) External Hemoglobin A1c 6.0 Blood Venous blood specimen / Unknown 02/15/2024 Historical Provider LAB BLOOD ORDERABLES Michela l Result * Comprehensive Metabolic Panel, Plasma (02/15/2024) External Glucose 136 External BUN 23 External Creatinine Blood 0.60 mg/dL External Sodium (Na) 141 mEq/L External Potassium (K) 3.9 External Chloride (Cl) 105 External Carbon Dioxide (CO2) 31 External Anion Gap (AG) 8.9 External Calcium (Ca) 9.6 External Total Protein 7.4 External Albumin 4.6 g/dL External AST (SGOT) 25 External ALT (SGPT) 21 External Alkaline Phosphatase 61 External Bilirubin Total 0.7 mg/dL External Estimated GFR 100 Blood Venous blood specimen / Unknown 02/15/2024 [facility] Provider LAB BLOOD ORDERABLES Michela l Result * XR Chest 2 Views (02/13/2024 1:52 [...] George Pickard MD on 02/13/2024 4:03 PM us George Sandoval MD IMG XR PROCEDURES Final Resu lt * Type & Screen, 30 Days (02/13/2024 1:21 PM EST) ABO/Rh A Positive 02/13/2024 1:15 PM EST BLOOD BANK Antibody Screen Negative 1:15 PM EST BLOOD BANK Specimen Expiration 02/16/2024 23:59 02/13/2024 1:15 PM EST BLOOD BANK 30 Day Eligibility See Comment 02/13/2024 1:15 PM EST BLOOD BANK Comment:This specimen is not eligible for a 30 day Type and Screen. A new Type and Screen will need to be ordered and collected on the day of, or the day before, surgery/procedure which may result in a delay of transfusion. Please contact the Blood Bank with any questions or concerns. Blood Venous blood specimen / Unknown Venipuncture / Unknown 02/13/2024 1:21 PM EST 02/13/2024 1:21 PM EST us George Sandoval MD LAB BLOOD BANK TEST ORDERABL ES Final Result Performing Organization Address City/State/[facility] Co de Phone Number BLOOD BANK [address] [place] [address], from Last 3 Months Insurance [employer] MED[employer] Care Teams Cooperage Shop Supervisor Relationship Specialty Start Date End Date Marcos Tran MD [address] [place] [address] PCP - General 02/05/24 Antonio Yepez MD [address] [place] [address] Referring Physician 02/05/24
--- OUTSIDE RECORDS SUMMARY | 2024-03-14 14:20 | XMS_ITS | Encounter Summary ---
Author Organization [facility] Address [address] [place] [address] Care Team Providers Care [facility] Name Role Phone Marcos Tran MD Primary Care Provider [phone] Antonio Yepez MD Unavailable [phone] Reason for Referral * Consultation (Routine) - Authorized Specialty Diagnoses / Procedures Referred By Contac t Referred To Contact Anesthesiology Diagnoses Coronary artery disease involving sel[place] coronary artery of [place] heart without angina pectoris George Sandoval MD [address] [place] [address] Phone: tel: fax: [facility] [address] [facility], [address]st [place] [address] Phone: tel: Referral ID Status Reason Start Date Expiration Date Visits Requested Visits Authorized [id number] Authorized Consult and Treat 02/14/2024 08/15/2025 1 1 Encounter Details Date Type Department Care Team (Late st Contact Info) Description 02/13/2024 10:00 AM EST Consult [facility] [address] [address] George Sandoval MD [address] [place], [place] [address] Coronary artery disease involving [place] coronary artery of [place] heart without angina pectoris (Primary Dx) Social History Tobacco Use Types Packs/Day Years [...] EST Inhaled Oxygen Concentration - - Weight 70.9 kg (156 lb 4.9 oz) 02/13/2024 10:59 AM EST Height 149.9 cm (4' 11 ) 02/13/2024 10:59 AM EST Body Mass Index 31.57 02/13/2024 10:59 AM EST documented in this encounter Miscellaneous Notes * Addendum Note - Marcos Fernandez - 02/13/2024 10:00 AM ESTAddended by: MARCOS FERNANDEZ on: 02/14/2024 02:50 PM Modules accepted: Orders * Progress Notes - Yasmani Gonzalez PA - 02/13/2024 10:[address] Surgery Consult Reason for visit / Chief Complaint: CAD History of present illness: Ruthann Denice Lee is a 63 y.o. DM II female from [facility] referred to us in consultation by Dr. Mushtaq Yepez in regards to multivessel CAD. Ms. Lee was in the process of changing providers as she was transitioning to Medicare coverage. She had undergone CTA of coronaries which revealed multivessel atherosclerosis. This led to a L heart catheterization confirming CTA findings. She states that she is asymptomatic and denies syncope, presycopal episodes, dizziness, lightheadedness, chest pain, AGEE and PND. She has been referred to our service for surgical evaluation. Medical History Her chronic comorbid conditions that impact our treatment planning include: Cardiac Surgery: The comorbid conditions that impact and complicate our treatment planning include:Atherosclerosis, Non-peripheral Type II Diabetes Tobacco abuse disorder Active Problems: Patient Active Problem List Diagnosis Date Noted BMI 31.0-31.9,adult 02/13/2024 Medical History: No past medical history on file. Surgical History: Past Surgical History: Procedure Laterality Date COLONOSCOPY CYST REMOVAL ovaries KNEE SURGERY Social History: Tobacco: Tobacco Use: High Risk (02/13/2024) Patient History Smoking Tobacco Use: Every Day Smokeless Tobacco Use: Never Passive Exposure: Not on file Alcohol: Alcohol Use: Not on file Illicit drug use: Social History Substance and Sexual Activity Drug Use Never Family History: family history includes Cancer in her brother, brother, and father; Heart disease in her mother. Allergies: Allergies Allergen Reactions Aspirin Rash Evolocumab Rash Penicillins Rash Medications: Prior to Admission medications Medication Sig Start Date End Date Taking? Authorizing Provider D3 50 MCG (2000 UT) tablet Take 1 tablet (2,000 Units) by mouth 1 (one) time each day. 07/15/23 Yes Génesis Negrete MD empagliflozin (Jardiance) 25 MG Take 1 tablet (25 mg) by mouth 1 (one) time each day. 09/05/23 Yes Génesis Negrete MD ezetimibe (Zetia) 10 MG tablet Take 1 tablet (10 mg) by mouth 1 (one) time each day. Yes Génesis Negrete MD fluticasone (Flonase) 50 MCG/ACT nasal spray 04/15/23 Yes Génesis Negrete MD hydrocortisone (West-Rodolfo) 0.2 % cream Apply topically 2 (two) times a day. 11/04/23 Yes Génesis Negrete MD ibuprofen 400 MG tablet Take 1 tablet (400 mg) by mouth every 6 (six) hours if needed for moderate pain. Yes Génesis Negrete MD loratadine (Claritin) 10 MG tablet Take 1 tablet (10 mg) by mouth 1 (one) time each day. 10/31/23 Yes Génesis Negrete MD losartan (Cozaar) 100 MG tablet Take 1 tablet (100 mg) by mouth 1 (one) time each day. 10/14/23 Yes Génesis Negrete, MD montelukast (Singulair) 10 MG tablet Take 1 tablet (10 mg) by mouth every night. 09/27/23 Yes Génesis Negrete MD glimepiride (Amaryl) 2 MG tablet Take 1 tablet (2 mg) by mouth 1 (one) time each day before breakfast. 10/16/23 Génesis Negrete MD rosuvastatin (Crestor) 40 MG tablet Take 1 tablet (40 mg) by mouth 1 (one) time each day. Patient not taking: Reported on 02/13/2024 01/28/24 ProviderGénesis MD ROS: 14 point ROS obtained, all negative unless stated in the HPI Physical exam: Physical Exam Vitals and nursing note reviewed. Constitutional: Appearance: She is obese. Comments: BMI 31.57 Class I obesity HENT: Head: Normocephalic and atraumatic. Nose: Nose normal. Mouth/Throat: Mouth: Mucous membranes are moist. Eyes: Extraocular Movements: Extraocular movements intact. Pupils: Pupils are equal, round, and reactive to light. Cardiovascular: Rate and Rhythm: Normal rate and regular rhythm. Pulses: Normal pulses. Heart sounds: Normal heart sounds. No murmur heard. Pulmonary: Effort: Pulmonary effort is normal. Breath sounds: Normal breath sounds. Abdominal: General: Bowel sounds are normal. Musculoskeletal: General: Normal range of motion. Cervical back: Normal range of motion and neck supple. Skin: General: Skin is warm. Capillary Refill: Capillary refill takes less than 2 seconds. Neurological: General: No focal deficit present. Mental Status: She is alert and oriented to person, place, and time. Mental status is at baseline. Psychiatric: Mood and Affect: Mood normal. Behavior: Behavior normal. Thought Content: Thought content normal. Imagin02/04/2024 Cardiac Cath Results: 60% L Main Dz 90% Proximal LAD 90% proximal Cx 60-70% proximal RCA Impression/Plan: Ruthannsharifa Lee is a 63 y.o. DM II female from [facility] referred to us in consultation by Dr. Mushtaq Yepez in regards to multivessel CAD. Ms. Lee was in the process of changing providers as she was transitioning to Medicare coverage. She had undergone CTA of coronaries which revealed multivessel atherosclerosis. This led to a L heart catheterization confirming CTA findings. She states that she is asymptomatic and denies syncope, presycopal episodes, dizziness, lightheadedness, chest pain, AGEE and PND. She has been referred to our service for surgical evaluation. After examining and interviewing the pt., as well as reviewing the imaging provided, we have offered her coronary artery bypass grafting for her MVCAD and she is in agreement. She has been consented.She has been instructed when to stop taking her Jardiance and Losartan prior to day of surgery. Surgery is scheduled for 02/28/2024 MES Cosigned by George Sandoval MD at 02/18/2024 4:17 PM EST Associated attestation - George Sandoval MD - 02/18/2024 4:17 PM EST The patient was seen by myself and Advanced Practice Provider (BUSHRA), and care was reviewed with me. documented in this encounter Plan of Treatment Scheduled Orders Name Type Priority Associated Diagnoses Orde r Schedule CBC W/O Differential Lab Routine Coronary artery disease involving sel[place]ik coronary artery of [place] heart without angina pectoris Expected: 02/14/2024 (Approximate), Expires: 08/13/2025 Comprehensive Metabolic Panel, Plasma Lab Routine Coronary artery disease involving [place] coronary artery of [place] heart without angina pectoris Expected: 02/14/2024 (Approximate), Expires: 08/13/2025 Hemoglobin A1c Lab Routine Coronary artery disease involving [place] coronary artery of [place] heart without angina pectoris Expected: 02/14/2024 (Approximate), Expires: 08/13/2025 Prothrombin Time/INR Lab Routine Coronary artery disease involving [place] coronary artery of sel[place] heart without angina pectoris Expected: 02/14/2024 (Approximate), Expires: 08/13/2025 XR Chest 2 Views Imaging Routine Coronary artery disease involving sel[place] coronary artery of sel[place] heart without angina pectoris 1 Occurrences starting 02/14/2024 until 08/13/2025 Scheduled Referrals Name Type Priority Associated Diagnoses Order Schedule Ambulatory referral to Anesthesiology Outpatient Referral Routine Coronary artery disease involving sel[place] coronary artery of sel[place] heart without angina pectoris 1 Occurrences starting 02/14/2024 until 08/13/2025 documented as of this encounter Visit Diagnoses Diagnosis Coronary artery disease involving [place] coronary artery of sel[place] heart without angina pectoris- Primary documented in this encounter Additional Health Concerns Assessment Noted Time A fall risk assessment has been complete d for the patient 02/13/2024 11:11 AM EST A Body Mass Index follow-up plan has been documented for the patient 02/13/2024 12:52 PM EST documented as of this encounter Care Teams [facility] Relationship Specialty Start Date End Date Marcos Tran MD [address] [place] [address] PCP - General 02/05/24 Antonio Yepez MD [address] [place] [address] Referring Physician 02/05/24 documented as of this encounter
--- OUTSIDE RECORDS SUMMARY | 2024-03-14 14:20 | XMS_ITS | Encounter Summary ---
Author Organization [facility] Address [address] [place] [address] Care Team Providers Care Exterior Interior Specialist Name Role Phone Marcos Tran MD Primary Care Provider [phone] Antonio Yepez MD Unavailable [phone] Reason for Referral * Consultation (Routine) - Authorized Specialty Diagnoses / Procedures Referred By Contac t Referred To Contact Anesthesiology Diagnoses Coronary artery disease involving campo coronary artery of campo heart without angina pectoris George Sandoval MD [address] [place] [address] Phone: tel: fax: [facility] [address], [address] [place] [address] Phone: tel: Referral ID Status Reason Start Date Expiration Date Visits Requested Visits Authorized [id number] Authorized Consult and Treat 02/13/2024 08/14/2025 1 1 Encounter Details Date Type Department Care Team (Late st Contact Info) Description 02/13/2024 Orders Only [facility] [id number] [place] [address] George Sandoval MD [address] [place], [place] [phone] Coronary artery disease involving campo coronary artery of campo heart without angina pectoris (Primary Dx) Social [...] as of this encounter Plan of Treatment Scheduled Referrals Name Type Priority Associated Diagnoses Order Schedule Ambulatory referral to Anesthesiology Outpatient Referral Routine Coronary artery disease involving campo coronary artery of campo heart without angina pectoris Expected: 02/13/2024 (Approximate), Expires: 08/12/2025 documented as of this encounter Results * Type & Screen, 30 Days (02/13/2024 [...] BLOOD BANK TEST ORDERABL ES Final Result BLOOD BANK [address] [id number], documented in this encounter Visit Diagnoses Diagnosis Coronary artery disease involving campo coronary artery of campo heart without angina pectoris- Primary documented in this encounter Additional Health Concerns Assessment Noted Time A fall risk assessment has been complete d for the patient 02/13/2024 11:11 AM EST A Body Mass Index follow-up plan has been documented for the patient 02/13/2024 12:52 PM EST documented as of this encounter Care Teams Exterior Interior Specialist Relationship Specialty Start Date End Date Marcos Tran MD [facility] [place] [address] PCP - General 02/05/24 Antonio Yepez MD [address] [place] [address] Referring Physician 02/05/24 documented as of this encounter
--- OUTSIDE RECORDS SUMMARY | 2024-03-14 14:20 | XMS_ITS | Encounter Summary ---
Author Organization [facility] Address [address] [place] [address] Care Team Providers Care Bell Spinner Name Role Phone Marcos Tran MD Primary Care Provider [phone] Antonio Yepez MD Unavailable [phone] Encounter Details Date Type Department Care Team (Late st Contact Info) Description 02/24/2024 Telephone [facility] [address], [address] [place] [address] Jeannine Chapman RN [id number] [address] [id number] Social History Tobacco Use Types Packs/Day Years [...] on file documented as of this encounter Miscellaneous Notes * Telephone Encounter - Jeannine Chapman RN - 02/25/2024 10:07 AM EST Pt reports she has decided to cancel her surgery at and is going to [facility] due to the close proximity to her home and family. Dr Sandoval updated. * Telephone Encounter - Jeannine Chapman RN - 02/24/2024 8:39 AM EST Pt called in with sneezing, coughing, runny nose, cold chills, has not checked temperature. Going to see PCP today and will be tested for flu and COVID and call me back. documented in this encounter Plan of Treatment [...] documented as of this encounter Care Teams Bell Spinner Relationship Specialty Start Date End Date Marcos Tran MD [address] [place] [address] PCP - General 02/05/24 Antonio Yepez MD [address] [place] [address] Referring Physician 02/05/24 documented as of this encounter
--- OUTSIDE RECORDS SUMMARY | 2024-03-14 14:20 | XMS_ITS | Encounter Summary ---
Author Organization [facility] Address [address] [place] [address] Care Team Providers Care Word Processor Operator Name Role Phone Marcos Tran MD Primary Care Provider [phone] Antonio Yepez MD Unavailable [phone] Encounter Details Date Type Department Care Team (Late st Contact Info) Description 03/13/2024 Orders Only External Location [address] [place] [id number] Devin Michaels MD [address] [place] [phone] Social History Tobacco Use Types Packs/Day Years [...] Associated Diagnosis Comments XR OUTSIDE IMAGES 03/13/2024 7:11 PM EST documented in this encounter Results * XR OUTSIDE IMAGES (03/13/2024 7:11 PM EST) Anatomical Region Laterality Modality Radiographic Iwona ging 03/13/2024 7:11 PM EST Devin Michaels MD IMG XR PROCEDURES Final Result documented in this encounter Visit Diagnoses Not on filedocumented in this encounter Additional Health Concerns Assessment Noted Time A fall risk assessment has been complete d for the patient 02/13/2024 11:11 AM EST A Body Mass Index follow-up plan has been documented for the patient 02/13/2024 12:52 PM EST documented as of this encounter Care Teams Word Processor Operator Relationship Specialty Start Date End Date Marcos Tran MD [address] [place] [address] PCP - General 02/05/24 Antonio Yepez MD [address] [place] [address] Referring Physician 02/05/24 documented as of this encounter
--- OUTSIDE RECORDS SUMMARY | 2024-03-14 14:20 | XMS_ITS | Encounter Summary ---
Author Organization [facility] Address [address] [place] [address] Care Team Providers Care Port Traffic Manager Name Role Phone Marcos Tran MD Primary Care Provider [phone] Antonio Yepez MD Unavailable [phone] Encounter Details Date Type Department Care Team (Latest Contact Info) Description 02/24/2024 Travel Social History Tobacco Use Types Packs/Day [...] documented as of this encounter Care Teams Port Traffic Manager Relationship Specialty Start Date End Date Marcos Tran MD [address] [place] [address] PCP - General 02/05/24 Antonio Yepez MD [address] [place] [address] Referring Physician 02/05/24 documented as of this encounter
--- OUTSIDE RECORDS SUMMARY | 2024-03-14 14:20 | XMS_ITS | Encounter Summary ---
Author Organization [facility] Address [address] [place] [address] Care Team Providers Care Communications Maintainer Name Role Phone Marcos Tran MD Primary Care Provider [phone] Marcos Tran MD Unavailable [phone] Reason for Visit * Reason Onset Date Comments Referral 03/03/2024 Encounter Details Date Type Department Care Team (Late st Contact Info) Description 03/03/2024 Telephone [facility] Physicians - Heart & Vascular, [facility] [address] [facility], [facility] [address] [place] [address] Damion Navas MD [address] [facility] [address] [place], [place] [address] Referral Social History Tobacco Use Types Packs/Day Years Used Date Smoking Tobacco: Never Assessed Comments Unknown Sex and Gender Information Value Date Recorded Sex Assigned at Not on file Legal Sex Female 9:35 AM EST Gender Identity Not on file Sexual Orientation Not on file documented as of this encounter Miscellaneous Notes * Telephone Encounter - Hayley Desai - 03/03/2024 1:13 PM EST PT already scheduled at [facility] office. documented in this encounter Plan of Treatment Upcoming Encounters Date Type Department Care Team (Late st Contact Info) Description 03/30/2024 3:00 PM EST Office Visit [facility] Physicians - Heart & Vascular, [facility] [address] [facility] [place] [address] Cata Segal Jr., MD [address] [facility] [place] [address] documented as of this encounter Visit Diagnoses Not on filedocumented in this encounter Care Teams Communications Maintainer Relationship Specialty [place] [address] [place] [address] PCP - General Family Medicine 03/03/24 [place] [address] [place] [address] Family Medicine 03/03/24 documented as of this encounter
--- OUTSIDE RECORDS SUMMARY | 2024-03-14 14:20 | XMS_ITS | Encounter Summary ---
Author Organization [facility] Address [address] [place] [address] Care Team Providers Care Mottler Operator Name Role Phone Marcos Tran MD Primary Care Provider [phone] Antonio Yepez MD Unavailable [phone] Encounter Details Date Type Department Care Team (Late st Contact Info) Description 02/13/2024 Orders Only [facility] Cardiothoracic [address], [address] [place] [address] George Sandoval MD [address] [place] [address] Preop testing (Primary Dx) Social History Tobacco Use Types [...] on file documented as of this encounter Results * XR Chest 2 [...] in this encounter Visit Diagnoses Diagnosis Preop testing- Primary Unspecified pre-operative examination Preop testing Unspecified pre-operative examination documented in this encounter Additional Health Concerns Assessment Noted Time A fall risk assessment has been complete d for the patient 02/13/2024 11:11 AM EST A Body Mass Index follow-up plan has been documented for the patient 02/13/2024 12:52 PM EST documented as of this encounter Care Teams Mottler Operator Relationship Specialty Start Date End Date Marcos Tran MD [address] [place] [address] PCP - General 02/05/24 Antonio Yepez MD [facility] [place] [address] Referring Physician 02/05/24 documented as of this encounter
--- OUTSIDE RECORDS SUMMARY | 2024-03-14 14:20 | XMS_ITS | Encounter Summary ---
Author Organization [facility] Address [address] [place] [address] Care Team Providers Care Lift Supervisor Name Role Phone Marcos Tran MD Primary Care Provider [phone] Antonio Yepez MD Unavailable [phone] Encounter Details Date Type Department Care Team (Latest Contact Info) Description 02/21/2024 Travel Social History Tobacco Use Types Packs/Day [...] documented as of this encounter Care Teams Lift Supervisor Relationship Specialty Start Date End Date Marcos Tran MD [address] [place] [address] PCP - General 02/05/24 Antonio Yepez MD [address] [place] [address] Referring Physician 02/05/24 documented as of this encounter
--- OUTSIDE RECORDS SUMMARY | 2024-03-14 14:20 | XMS_ITS | Encounter Summary ---
Author Organization [facility] Address [address] [place] [id number] Care Team Providers Care Mail Distribution Scheme Examiner Name Role Phone Marcos Tran MD Primary Care Provider [phone] Marcos Tran MD Unavailable [phone] Encounter Details Date Type Department Care Team (Late st Contact Info) Description 03/03/2024 Telephone [facility] Physicians - Heart & Vascular, [facility] [address] [address] None, None [address] [place] [address] Social History Tobacco Use Types Packs/Day Years Used Date Smoking Tobacco: Never Assessed Comments Unknown Sex and Gender Information Value Date Recorded Sex Assigned at Not on file Legal Sex Female 9:35 AM EST Gender Identity Not on file Sexual Orientation Not on file documented as of this encounter Miscellaneous Notes * Telephone Encounter - Vita Beltran - 03/03/2024 9:45 AM EST Referral received from [facility] for HIGH CALCIUM SCORE, POSSIBLE LHC. Routed to scheduling pool for scheduling documented in this encounter Plan of Treatment Upcoming Encounters Date Type Department Care Team (Late st Contact Info) Description 03/30/2024 3:00 PM EST Office Visit [facility] Physicians - Heart & Vascular, [place] [address] [place] [address] Cata Segal Jr., MD [address] [place] [address] documented as of this encounter Visit Diagnoses Not on filedocumented in this encounter Care Teams Mail Distribution Scheme Examiner Relationship Specialty [place] [address] [place] [address] PCP - General Family Medicine 03/03/24 [place] [address] [place] [address] Family Medicine 03/03/24 documented as of this encounter
--- OUTSIDE RECORDS SUMMARY | 2024-03-14 14:20 | XMS_ITS | Clinical Summary ---
Author Organization [facility] Address [address] [place] [address] Care Team Providers Care Freezer Assistant Name Role Phone Marcos Tran MD Primary Care Provider [phone] Marcos Tran MD Unavailable [phone] Encounters Date Type Department Care Team Description 03/03/2024 Telephone [facility] Heart & Vascular, [facility] [address] [place] [phone] None, None 03/03/2024 Telephone [facility] Heart & [facility] [address] [address] Damion Navas MD Referral from Last 3 Months Social History Tobacco Use Types Packs/Day Years Used Date Smoking Tobacco: Never Assessed Comments Unknown Sex and Gender Information Value Date Recorded Sex Assigned at Not on file Legal Sex Female 9:35 AM EST Gender Identity Not on file Sexual Orientation Not on file Plan of Treatment Upcoming Encounters Date Type Department Care Team (Late st Contact Info) Description 03/30/2024 3:00 PM EST Office Visit [facility] Physicians - Heart & Vascular, [facility] [address] [facility] [place] [address] Cata Segal Jr., MD [address] [facility] [place] [address] Health Maintenance Due Date Last Done Comments Cologuard 1960 Colonoscopy 1960 Colorectal Cancer Screening 1960 FIT 1958 Lipid Screening 1976 Tetanus Vaccination (Every 10 Years) 1976 Hepatitis C Virus (HCV) Screening 08/19/1979 Breast Cancer Screening 2008 Zoster-RZV(Shingrix) (1 of 2) 2008 Depression Screening 04/08/2023 Advance Care Planning 08/19/2023 Fall Risk Assessment 08/19/2023 Osteoporosis Screening 08/19/2023 Pneumococcal Vaccine: 65+ Years (1 of 1 - PCV) 024 COVID-19 Vaccine ( - 2023-25 season) 2023 Influenza Vaccination (#1) 2023 RSV Vaccines (1 - 1-dose 75+ series) 2033 Insurance [employer] MEDICARE Care Teams Freezer Assistant Relationship Specialty [place] [address] [place] [address] PCP - General Family Medicine 03/03/24 [place] [address] [place] [address] Family Medicine 03/03/24
--- OUTSIDE RECORDS SUMMARY | 2024-03-14 14:21 | XMS_ITS | Encounter Summary ---
Author Organization [facility] Address [address] [place] [phone] Care Team Providers Care Communications Department Head Name Role Phone Jd Santillan MD Primary Care Provider [phone] Reason for Visit * Reason Comments sinus Encounter Details Date Type Department Care Team (Late st Contact Info) Description 07/16/2022 11:30 AM EDT Office Visit [facility] [address] [place] [address] [place] [address] Tash Luna APRN [address] [place], [place] [id number] Acute recurrent maxillary sinusitis (Primary Dx); Seasonal allergic rhinitis due to pollen Social History Tobacco Use Types Packs/Day Years Used Date Smoking Tobacco: Every Day Cigarettes 0.5 48 Smokeless Tobacco: Never Tobacco Cessation:Ready to Q uit: Not Asked; Counseling Given: Not Answered Alcohol Use Standard Drinks/Week Comments Defer 0 (1 standard drink = 0.6 oz pur e alcohol) PHQ-2 Answer Date Recorded Retired PHQ-9: Brief Depression Severity Measure Score 0 05/21/2022 PHQ-2 Answer Date Recorded Retired PHQ-9: Brief Depression Severity Measure Score 0 05/21/2022 Comments Unknown Sex and Gender Information Value Date Recorded Sex Assigned at Not on file Legal Sex Female 2:25 PM EDT Gender Identity Not on file Sexual Orientation Not on file documented as of this encounter Last Filed Vital Signs Vital Sign Reading Time Taken Comments Blood Pressure 128/74 07/16/2022 11:12 AM EDT Pulse 96 07/16/2022 11:12 AM EDT Temperature 36.3 ??C (97.4 ??F) 07/16/2022 11:12 AM E DT Respiratory Rate 18 07/16/2022 11:12 AM EDT Oxygen Saturation 98% 07/16/2022 11:12 AM EDT Inhaled Oxygen Concentration - - Weight 82.1 kg (181 lb) 07/16/2022 11:12 AM EDT Height 149.9 cm (4' 11 ) 07/16/2022 11:12 AM EDT Body Mass Index 36.56 07/16/2022 11:12 AM EDT documented in this encounter Progress Notes * Tash Luna APRN - 07/16/2022 11:40 AM EDTAssociated Problem(s): Seasonal allergic rhinitis due to pollen Good response to daily Claritin, Flonase and Singulair until recently when her sinus symptoms have continued to worsen without any benefit to these medications. Significant maxillary tenderness on palpation during physical exam. Some mild periorbital swelling bilaterally. Advised to continue Claritin, Singulair and Flonase. We will add prednisone 30 mg once daily for 5 days for allergy benefit. Prescribe Z-Pato as directed for secondary sinusitis. Discussed possible benefits of saline nasal spray, coolmist humidifier and Tylenol/Advil as needed * Tash Luna APRN - 07/16/2022 11:30 AM EDT Images from the original note were not included. Office Note Name: Ruthann Lee : 1960 Chief Complaint sinus Subjective History of Present Illness: Ruthann Lee is a 61 y.o. female who presents today with complaints of sinus headache, sinus pressure, facial swelling and ear pain for approximately 9 days. She denies any fever or GI symptoms. Continue to utilize her daily Flonase, Claritin and Singulair without benefit. She denies any shortness of breath, she has developed a mild intermittent dry cough over the last 24 hours. She has significant seasonal allergies with chronic rhinitis due to pollen. She has no further complaints or concerns today Review of Systems Constitutional: Negative for activity change, appetite change, fatigue and fever. HENT: Positive for congestion, ear pain, postnasal drip, sinus pressure and sneezing. Negative for sore throat and swollen glands. Eyes: Positive for itching. Negative for blurred vision and double vision. Respiratory: Positive for cough. Negative for chest tightness, shortness of breath and wheezing. Cardiovascular: Negative for chest pain, palpitations and leg swelling. Gastrointestinal: Positive for diarrhea. Negative for constipation, nausea and vomiting. Endocrine: Negative for polydipsia and polyuria. Musculoskeletal: Negative for arthralgias and myalgias. Neurological: Positive for headache. Negative for dizziness, syncope, weakness and light-headedness. Objective Past Medical History: Diagnosis Date ??? Acute maxillary sinusitis ??? Allergic ??? Asthma ??? Atopic dermatitis ??? Borderline hyperlipidemia ??? Cervicalgia ??? Chronic low back pain managed by anti-inflammatories ??? Left hip pain cartilage tear, details not further known ??? Localized swelling, mass and lump, neck ??? Nicotine dependence ??? Pain in left shoulder ??? Pain in right shoulder ??? Seasonal allergic rhinitis ??? Tinea barbae and tinea capitis ??? Type 2 diabetes mellitus without complication ??? Urinary tract infection, site not specified Past Surgical History: Procedure Laterality Date ??? KNEE SURGERY Left 1993 knee repair, arthroscopic procedure ??? OVARIAN CYST REMOVAL Left 1993 Family History Problem Relation Age of Onset ??? Heart disease Mother ??? Liver cancer Father ??? Breast cancer Sister ??? Heart disease Brother ??? Other Brother RESPIRATORY PROBLEMS ??? No Known Problems Brother ??? No Known Problems Maternal Grandmother ??? Heart disease Paternal Grandfather ??? No Known Problems Daughter ??? Bipolar disorder Son ??? Liver cancer Paternal Uncle Vital Signs BP 128/74 (BP Location: Left arm, Patient Position: Sitting, Cuff Size: Adult) Pulse 96 Temp 97.4 ??F (36.3 ??C) (Temporal) Resp 18 Ht 149.9 cm (59 ) Wt 82.1 kg (181 lb) SpO2 98% BMI 36.56 kg/m?? Estimated body mass index is 36.56 kg/m?? as calculated from the following: Height as of this encounter: 149.9 cm (59 ). Weight as of this encounter: 82.1 kg (181 lb). Physical Exam Constitutional: Appearance: Normal appearance. HENT: Head: Normocephalic and atraumatic. Right Ear: Ear canal and external ear normal. Left Ear: Ear canal and external ear normal. Ears: Comments: Clear fluid noted bilaterally behind TMs. Mild erythema noted. No bulging Nose: Congestion present. Right Sinus: Maxillary sinus tenderness present. Left Sinus: Maxillary sinus tenderness present. Mouth/Throat: Pharynx: Oropharynx is clear. Posterior oropharyngeal erythema present. Eyes: Conjunctiva/sclera: Conjunctivae normal. Cardiovascular: Rate and Rhythm: Normal rate and regular rhythm. Pulses: Normal pulses. Heart sounds: Normal heart sounds. Pulmonary: Effort: Pulmonary effort is normal. Breath sounds: Normal breath sounds. Skin: General: Skin is warm and dry. Neurological: Mental Status: She is alert and oriented to person, place, and time. Psychiatric: Behavior: Behavior normal. Thought Content: Thought content normal. Judgment: Judgment normal. POCT Results (if applicable): Results for orders placed or performed in visit on 05/21/22 Urine culture, Comprehensive - , Urine Release to gi Result Value Ref Range Urine Culture Final report (A) Result 1 Comment (A) Result 2 Enterococcus faecalis (A) Susceptibility Testing Comment Vitamin D,25-Hydroxy Specimen: Arm, Right; Blood Blood Release to gi Result Value Ref Range 25 Hydroxy, Vitamin D 22.2 (L) 30.0 - 100.0 ng/mL Hepatitis C Antibody Specimen: Arm, Right; Blood Blood Release to gi Result Value Ref Range Hep C Virus Ab Non Reactive Non Reactive HIV-1 / O / 2 Ag / Antibody 4th Generation Specimen: Arm, Right; Blood Blood Release to gi Result Value Ref Range HIV Screen 4th Gen w/RFX (Reference) Non Reactive Non Reactive MicroAlbumin, Urine, Random - Urine, Clean Catch Specimen: Urine, Clean Catch Urine Release to gi Result Value Ref Range Microalbumin, Urine 8.0 Not Estab. ug/mL TSH Specimen: Arm, Right; Blood Blood Release to gi Result Value Ref Range TSH 1.020 0.450 - 4.500 uIU/mL Lipid Panel Specimen: Arm, Right; Blood Blood Release to gi Result Value Ref Range Total Cholesterol 299 (H) 100 - 199 mg/dL Triglycerides 411 (H) 0 - 149 mg/dL HDL Cholesterol 36 (L) >39 mg/dL VLDL Cholesterol Cornelio 82 (H) 5 - 40 mg/dL LDL Chol Calc (NIH) 181 (H) 0 - 99 mg/dL Comprehensive Metabolic Panel Specimen: Arm, Right; Blood Blood Release to gi Result Value Ref Range Glucose CANCELED mg/dL BUN 21 8 - 27 mg/dL Creatinine 0.66 0.57 - 1.00 mg/dL EGFR Result 99 >59 mL/min/1.73 BUN/Creatinine Ratio 32 (H) 12 - 28 Sodium 138 134 - 144 mmol/L Potassium CANCELED mmol/L Chloride 100 96 - 106 mmol/L Total CO2 19 (L) 20 - 29 mmol/L Calcium 9.8 8.7 - 10.3 mg/dL Total Protein 7.5 6.0 - 8.5 g/dL Albumin 4.5 3.8 - 4.8 g/dL Globulin 3.0 1.5 - 4.5 g/dL A/G Ratio 1.5 1.2 - 2.2 Total Bilirubin 0.2 0.0 - 1.2 mg/dL Alkaline Phosphatase 93 44 - 121 IU/L AST (SGOT) 18 0 - 40 IU/L ALT (SGPT) 23 0 - 32 IU/L Urinalysis With Culture If Indicated - Urine, Clean Catch Specimen: Urine, Clean Catch Urine Release to gi Result Value Ref Range Specific Albia, UA 1.020 1.005 - 1.030 pH, UA 6.0 5.0 - 7.5 Color, UA Yellow Yellow Appearance, UA Clear Clear Leukocytes, UA 1+ (A) Negative Protein Negative Negative/Trace Glucose, UA Negative Negative Ketones Negative Negative Blood, UA Negative Negative Bilirubin, UA Negative Negative Urobilinogen, UA 0.2 0.2 - 1.0 mg/dL Nitrite, UA Negative Negative Microscopic Examination See below: Urinalysis Reflex Comment Microscopic Examination - Urine Release to gi Result Value Ref Range WBC, UA 0-5 0 - 5 /hpf RBC, UA None seen 0 - 2 /hpf Epithelial Cells (non renal) 0-10 0 - 10 /hpf Casts None seen None seen /lpf Bacteria, UA None seen None seen/Few POC Glycosylated Hemoglobin (Hb A1C) Specimen: Blood Result Value Ref Range Hemoglobin A1C 6.6 % Lot Number [id number] Expiration Date 02/09/2024 POC Glucose Specimen: Blood Result Value Ref Range Glucose 119 70 - 130 mg/dL CBC & Differential Specimen: Arm, Right; Blood Blood Release to gi Result Value Ref Range WBC 7.1 3.4 - 10.8 x10E3/uL RBC 4.73 3.77 - 5.28 x10E6/uL Hemoglobin 14.2 11.1 - 15.9 g/dL Hematocrit 41.4 34.0 - 46.6 % MCV 88 79 - 97 fL MCH 30.0 26.6 - 33.0 pg MCHC 34.3 31.5 - 35.7 g/dL RDW 13.4 11.7 - 15.4 % Platelets 199 150 - 450 x10E3/uL Neutrophil Rel % 66 Not Estab. % Lymphocyte Rel % 28 Not Estab. % Monocyte Rel % 6 Not Estab. % Eosinophil Rel % 0 Not Estab. % Basophil Rel % 0 Not Estab. % Neutrophils Absolute 4.6 1.4 - 7.0 x10E3/uL Lymphocytes Absolute 2.0 0.7 - 3.1 x10E3/uL Monocytes Absolute 0.4 0.1 - 0.9 x10E3/uL Eosinophils Absolute 0.0 0.0 - 0.4 x10E3/uL Basophils Absolute 0.0 0.0 - 0.2 x10E3/uL Immature Granulocyte Rel % 0 Not Estab. % Immature Grans Absolute 0.0 0.0 - 0.1 x10E3/uL Assessment and Plan Diagnoses and all orders for this visit: 1. Acute recurrent maxillary sinusitis (Primary) - azithromycin (Zithromax Z-Pato) 250 MG tablet; Take 2 tablets by mouth on day 1, then 1 tablet daily on days 2-5 Dispense: 6 tablet; Refill: 0 - predniSONE (DELTASONE) 10 MG tablet; Take 3 tablets by mouth Daily for 5 days. Dispense: 15 tablet; Refill: 0 2. Seasonal allergic rhinitis due to pollen Assessment & Plan: Good response to daily Claritin, Flonase and Singulair until recently when her sinus symptoms have continued to worsen without any benefit to these medications. Significant maxillary tenderness on palpation during physical exam. Some mild periorbital swelling bilaterally. Advised to continue Claritin, Singulair and Flonase. We will add prednisone 30 mg once daily for 5 days for allergy benefit. Prescribe Z-Pato as directed for secondary sinusitis. Discussed possible benefits of saline nasal spray, coolmist humidifier and Tylenol/Advil as needed Follow Up No follow-ups on file. Tash Luna APRN documented in this encounter Plan of Treatment Not on file documented as of this encounter Visit Diagnoses Diagnosis Acute recurrent maxillary sinusitis- Primary Seasonal allergic rhinitis due to pollen documented in this encounter Care Teams Communications Department Head Relationship Specialty Start Date End Date Jd Santillan MD [address] [place] [address] PCP - General Internal Medicine 05/18/22 documented as of this encounter
--- OUTSIDE RECORDS SUMMARY | 2024-03-14 14:21 | XMS_ITS | Encounter Summary ---
Author Organization [facility] Address [address] [place] [id number] Care Team Providers Care Last Sawyer Name Role Phone Jd Santillan MD Primary Care Provider [phone] Reason for Visit * Reason Comments Med Refill Encounter Details Date Type Department Care Team (Late st Contact Info) Description 09/28/2022 Refill [facility] [address] [place] [id number] Jd Santillan MD [address] [place] [address] [place] [id number] Social History Tobacco Use Types Packs/Day Years Used Date Smoking Tobacco: Every Day Cigarettes 0.5 48 Smokeless Tobacco: Never Alcohol Use Standard Drinks/Week Comments Defer 0 [...] on filedocumented in this encounter Care Teams Last Sawyer Relationship Specialty Start Date End Date Jd Santillan MD [address] [place] [address] [place] [id number] PCP - General Internal Medicine 05/18/22 documented as of this encounter
--- OUTSIDE RECORDS SUMMARY | 2024-03-14 14:21 | XMS_ITS | Encounter Summary ---
Author Organization [facility] Address [address] [place] [address] Care Team Providers Care Block Saw Operator Name Role Phone Jd Santillan MD Primary Care Provider [phone] Reason for Visit * Reason Onset Date Comments MD ASHLEY MEEHAN REQUEST 07/16/2022 Encounter Details Date Type Department Care Team (Late st Contact Info) Description 07/16/2022 Telephone [facility] [address] [place] [address] [place] [address] Jd Santillan MD [address] [place] [address] MD ASHLEY MEEHAN REQUEST Social History Tobacco Use Types Packs/Day Years [...] encounter Miscellaneous Notes * Telephone Encounter - Mandi Khanna MA - 07/16/2022 9:45 AM EDT Spoke to patient sent to front to make appt. * Telephone Encounter - Lorie Bah RegSched Rep - 07/16/2022 8:41 AM EDT Caller: Ruthann Lee Relationship: Self Best call back number: [phone] What medication are you requesting: ANTIBIOTICS TO HELP WITH ALLERGIES What are your current symptoms: INFECTED EAR, RIGHT EYE SWOLLEN RED, SINUS HEADACHE, SINUS PRESSURE, ALLERGIES How long have you been experiencing symptoms: A WEEK If a prescription is needed, what is your preferred pharmacy and phone number: [facility] - [place], [place] - [address] [facility] - [phone] - [phone] FX PATIENT IS REQUESTING A CALL BACK TO DISCUSS OPTIONS AND HER SYMPTOMS. documented in this encounter Plan of Treatment Not on file documented as of this encounter Visit Diagnoses Not on filedocumented in this encounter Care Teams Block Saw Operator Relationship Specialty Start Date End Date Jd Santillan MD [address] [place] [address] PCP - General Internal Medicine 05/18/22 documented as of this encounter
--- OUTSIDE RECORDS SUMMARY | 2024-03-14 14:21 | XMS_ITS | Encounter Summary ---
Author Organization [facility] Address [address] [place] [address] Care Team Providers Care Landmen Name Role Phone Jd Santillan MD Primary Care Provider [phone] Reason for Visit * Reason Comments Follow-up Encounter Details Date Type Department Care Team (Late st Contact Info) Description 02/13/2023 11:00 AM EST Office Visit [facility] [address] [place] [address] Jd Santillan MD [address] [place] [address] Type 2 diabetes mellitus without complication, without long-term current use of insulin (Primary Dx); Mixed hyperlipidemia; Essential hypertension; Folliculitis barbae; Cigarette smoker; Class 2 obesity due to excess calories without serious comorbidity with body mass index (BMI) of 35.0 to 35.9 in adult; Right middle lobe pulmonary nodule; Vitamin D deficiency; Need for vaccination Social History Tobacco Use Types Packs/Day Years Used Date Smoking Tobacco: Every Day Cigarettes 0.5 48 Smokeless Tobacco: Never Alcohol Use Standard Drinks/Week Comments Defer 0 (1 standard drink = 0.6 oz pur e alcohol) PHQ-2 Answer Date Recorded Retired PHQ-9: Brief Depression Severity Measure Score 0 05/21/2022 Abuse Screen Answer Date Recorded Unsafe at Home or Work/School Not on file Feels Threatened by Someone? Not on file 02/2023 Does Anyone Keep You from Co ntacting Others or Doint Things Outside the Home? Not on file 01/16/2023 Physical Sign of Abuse Present Not on file 1 Housing Stability Answer Date Recorded Current Living Arrangements Not on file 01/06 Potentially Unsafe Housing Conditions Not on mitzi e 01/16/2023 Family and Community Support Answer Deandre e Recorded Help with Day-to-Day Activities Not on file 01/16/2023 Lonely or Isolated Not on file 01/16/2023 Employment Answer Date Recorded Do you want help finding or keeping work or a shawn b? Not on file 01/16/2023 Disabilities Answer Date Recorded Concentrating, Remembering, or Making Decisions Difficulty Not on file 01/16/2023 Doing Errands Independently Difficulty Not on fi le 01/16/2023 Education Answer Date Recorded Help with school or training? Not on file Preferred Language Not on file 01/16/2023 PHQ-2 Answer Date Recorded Retired PHQ-9: Brief Depression Severity Measure Score 0 05/21/2022 Comments Unknown Sex and Gender Information Value Date Recorded Sex Assigned at Not on file Legal Sex Female 2:25 PM EDT Gender Identity Not on file Sexual Orientation Not on file documented as of this encounter Last Filed Vital Signs Vital Sign Reading Time Taken Comments Blood Pressure 140/80 02/13/2023 11:08 AM EST Pulse 85 02/13/2023 11:08 AM EST Temperature 36.2 ??C (97.2 ??F) 02/13/2023 11:[address] Respiratory Rate 18 02/13/2023 11:08 AM EST Oxygen Saturation 96% 02/13/2023 11:08 AM EST Inhaled Oxygen Concentration - - Weight 81.3 kg (179 lb 4 oz) 02/13/2023 11:08 AM EST Height 149.9 cm (4' 11 ) 02/13/2023 11:08 AM EST Body Mass Index 36.2 02/13/2023 11:08 AM EST documented in this encounter Progress Notes * Jd Santillan MD - 02/13/2023 12:30 PM ESTAssociated Problem(s): Vitamin D deficiency 05/21/2022 vitamin D 25-hydroxy level 22.0, comparison 06/13/2020 at 26.4 with lower limit of normal 30, 17.1 on 07/07/2016.patient has not been taking vitamin D as such I prescribed vitamin D 2000 units daily, to take regularly we will recheck with next year's blood work. * Jd Santillan MD - 02/13/2023 12:30 PM ESTAssociated Problem(s): Type 2 diabetes mellitus, without long-term current use of insulin Diagnosis 06/13/2020 with hemoglobin A1c 6.8%. Hemoglobin A1c modestly increased to 7.0%, previous 6.6%, 6.5%, 6.4%, 6.5%. Previous diet control but we will add metformin 5 mg ER daily, continue importance of healthy diet, exercise, ongoing weight loss. Infrequent monitoring of glucose at home, recommend checking more regularly. Check feet daily, eye check non-concerning April 2022, monitor yearly. * Jd Santillan MD - 02/13/2023 12:29 PM ESTAssociated Problem(s): Right middle lobe pulmonary nodule Noted incidentally on CT the chest 07/01/2018, a 5 mm noncalcified right middle lobe nodule, followup 03/12/2019 revealing no change in 4 mm nodule in right middle lobe, 4 mm nodule in lingula, 3 mm nodule left upper lobe, 4 mm nodule left upper lobe, all new. Low-dose CT of chest 10/31/2020 revealingstable right middle lobe nodule a 4 mm, and 4 mm semisolid nodule in the lingula, 5 mm semi- solid nodule in the left lower lobe, all without change compared to 2019. Subsequent follow-up at [facility] on 06/27/2022 with stable right middle lung nodule, recommend 12-month follow-up low-dose CT the chest which will be due for July 2023. * Jd Santillan MD - 02/13/2023 12:28 PM ESTAssociated Problem(s): Mixed hyperlipidemia 05/21/2022 total cholesterol 299, triglycerides of 411, HDL 36, LDL 181. Previous 06/13/2020 total cholesterol 295, triglycerides 187, HDL 41, LDL 207, 07/07/2016 with total cholesterol 317, [id number], HDL 47, LDL 212. Previous attempts at pravastatin, simvastatin and atorvastatin all causing GIupset. Crestor 10 mg attempted 10/11/2020 with some GI upset but also rash. Livalo was not covered by insurance although he might retry in the future. At this time despite asking to increase to 3 timesweekly atorvastatin 40 mg daily she has not, she says she worries about her stomach, such we have agreed to try twice weekly and I will add additionally Zetia 10 mg tablet daily. Caution stomach upset. Reinforced importance healthy diet, exercise and weight loss. * Jd Santillan MD - 02/13/2023 12:27 PM ESTAssociated Problem(s): Folliculitis barbae Some associated modest dandruff for which she is using Selsun Blue, but some secondary folliculitisbarbae. Initial treatment will be with mupirocin 2% ointment for a mild pattern, if persistent we could consider oral antibiotic or even fungal pursuit as there can be sometimes similar in appearance. Advised if not improving, reassess at follow-up. * Jd Santillan MD - 02/13/2023 12:26 PM ESTAssociated Problem(s): Essential hypertension Somewhat borderline elevations in the past which would improve on recheck, but today persisting around 140/80. As such she is transition to hypertension pattern, initiate losartan/HCTZ 50/12.5 mg daily. Continue healthy diet, exercise, decrease salt intake, weight loss to benefit blood pressure. Recommend monitoring most days at home and bring in blood pressure diary at follow-up. Reassess at follow-up. * Jd Santillan MD - 02/13/2023 12:26 PM ESTAssociated Problem(s): Class 2 obesity due to excess calories without serious comorbidity with bodymass index (BMI) of 35.0 to 35.9 in adult BMI in the mid 30s range, reinforced importance of healthy diet, exercise and weight loss to benefit multiple medical comorbidities. * Jd Santillan MD - 02/13/2023 12:25 PM ESTAssociated Problem(s): Cigarette smoker Long-standing smoker, at average about 1/2 pack/day for about 45 years. Currently 1/4-1/3 pack per day, patient understands cardiovascular, cancer, respiratory risks. Not ready to pursue cessation, advise if she changes her mind. * Jd Santillan MD - 02/13/2023 11:00 AM EST Images from the original note were not included. Follow Up Office Visit Date: 02/13/2023 Patient Name: Ruthann Lee : 1960 Chief Complaint: Chief Complaint Patient presents with Follow-up History of Present Illness: Ruthann Lee is a 62 y.o. female who is here today to follow up with multimedical problems. Regarding type 2 diabetes mellitus she is checking her sugars most mornings and runs in the 120s to 130s, possibly little bit higher recently but nothing significant change. Diet and exercise has been fairly stable, despite modest increase hemoglobin A1c today she does not notice any specific differences in how she has been doing. Regarding her hyperlipidemia pattern as noted with significant increased cholesterol from May 2022, she did not increase her atorvastatin 40 mg daily up from weekly to 3 times weekly as we discussed, she worried about stomach upset. She is agreeable today to try and twice weekly and we will add Zetia 10 mg tablet daily as well. Livalo was tried but not covered by insurance at that time. Diet and exercise stable. Regarding blood pressure today, no lightheadedness or dizziness but modestly elevated in clinic and she now requires medication, discussed in detail. No chest pain or palpitations. She continued to smoke at 1/2 pack/day, understands benefit of cessation but not ready to pursue. Subjective Review of Systems: Review of Systems I have reviewed the patients family history, social history, past medical history, past surgical history and have updated it as appropriate. Medications: Current Outpatient Medications: albuterol (PROVENTIL HFA;VENTOLIN HFA) 108 (90 Base) MCG/ACT inhaler, Inhale 2 puffs Every 4 (Four)Hours As Needed for Wheezing or Shortness of Air., Disp: 1 inhaler, Rfl: 0 [START ON 02/14/2023] atorvastatin (LIPITOR) 40 MG tablet, Take 1 tablet by mouth 2 (Two) Times a Week., Disp: 30 tablet, Rfl: 2 fluticasone (FLONASE) 50 MCG/ACT nasal spray, Use 1 to 2 Sprays in each nostril once daily., Disp: 16 g, Rfl: 3 loratadine (CLARITIN) 10 MG tablet, Take 1 Tablet by mouth once daily., Disp: 30 tablet, Rfl: 3 montelukast (SINGULAIR) 10 MG tablet, Take 1 tablet by mouth Every Night for 30 days., Disp: 30 tablet, Rfl: 0 Cholecalciferol (Vitamin D) 50 MCG (2000 UT) tablet, Take 1 tablet by mouth Daily., Disp: 90 tablet, Rfl: 3 ezetimibe (Zetia) 10 MG tablet, Take 1 tablet by mouth Daily., Disp: 30 tablet, Rfl: 5 losartan-hydrochlorothiazide (Hyzaar) 50-12.5 MG per tablet, Take 1 tablet by mouth Daily., Disp: 30 tablet, Rfl: 2 metFORMIN ER (GLUCOPHAGE-XR) 500 MG 24 hr tablet, Take 1 tablet by mouth Daily With Breakfast., Disp: 30 tablet, Rfl: 2 mupirocin (BACTROBAN) 2 % ointment, Apply 1 application topically to the appropriate area as directed 3 (Three) Times a Day., Disp: 22 g, Rfl: 1 Allergies: Allergies Allergen Reactions Penicillins Rash Objective Physical Exam: Please see above Vital Signs: Vitals: 02/13/23 1108 BP: 140/80 BP Location: Left arm Patient Position: Sitting Cuff Size: Adult Pulse: 85 Resp: 18 Temp: 97.2 ??F (36.2 ??C) TempSrc: Temporal SpO2: 96% Weight: 81.3 kg (179 lb 4 oz) Height: 149.9 cm (59 ) Body mass index is 36.2 kg/m??. Physical Exam Constitutional: General: She is not in acute distress. Appearance: Normal appearance. She is not ill-appearing, toxic-appearing or diaphoretic. HENT: Head: Normocephalic and atraumatic. Right Ear: Tympanic membrane, ear canal and external ear normal. Left Ear: Tympanic membrane, ear canal and external ear normal. Nose: Nose normal. No rhinorrhea. Mouth/Throat: Mouth: Mucous membranes are moist. Pharynx: Oropharynx is clear. No oropharyngeal exudate or posterior oropharyngeal erythema. Neck: Vascular: No carotid bruit. Cardiovascular: Rate and Rhythm: Normal rate and regular rhythm. Pulses: Normal pulses. Heart sounds: Normal heart sounds. No murmur heard. No friction rub. No gallop. Pulmonary: Effort: Pulmonary effort is normal. No respiratory distress. Breath sounds: Normal breath sounds. No stridor. No wheezing. Abdominal: General: Abdomen is flat. Bowel sounds are normal. There is no distension. Palpations: Abdomen is soft. Tenderness: There is no abdominal tenderness. There is no guarding or rebound. Musculoskeletal: Cervical back: Neck supple. No tenderness. Right lower leg: No edema. Left lower leg: No edema. Lymphadenopathy: Cervical: No cervical adenopathy. Skin: General: Skin is warm and dry. Capillary Refill: Capillary refill takes less than 2 seconds. Findings: Rash present. Comments: Some dry scaly rash in the scalp with a couple areas of slight thickening consistent withfolliculitis pattern, no significant erythema, no discharge or drainage, no crusting. Neurological: General: No focal deficit present. Mental Status: She is alert and oriented to person, place, and time. Mental status is at baseline. Psychiatric: Mood and Affect: Mood normal. Behavior: Behavior normal. Thought Content: Thought content normal. Procedures Results: Labs: Hemoglobin A1C Date Value Ref Range Status 02/13/2023 7.0 (A) 4.5 - 5.7 % Final TSH Date Value Ref Range Status 05/21/2022 1.020 0.450 - 4.500 uIU/mL Final Imaging: No valid procedures specified. Smoking Cessation: 3-10 mintues spent counseling Will try to cut down Patient declines flu vaccine. Assessment / Plan Assessment/Plan: Diagnoses and all orders for this visit: 1. Type 2 diabetes mellitus without complication, without long-term current use of insulin (Primary) Assessment & Plan: Diagnosis 06/13/2020 with hemoglobin A1c 6.8%. Hemoglobin A1c modestly increased to 7.0%, previous 6.6%, 6.5%, 6.4%, 6.5%. Previous diet control but we will add metformin 5 mg ER daily, continue importance of healthy diet, exercise, ongoing weight loss. Infrequent monitoring of glucose at home, recommend checking more regularly. Check feet daily, eye check non-concerning April 2022, monitor yearly. Orders: - POC Glycosylated Hemoglobin (Hb A1C) - POC Glucose - metFORMIN ER (GLUCOPHAGE-XR) 500 MG 24 hr tablet; Take 1 tablet by mouth Daily With Breakfast. Dispense: 30 tablet; Refill: 2 2. Mixed hyperlipidemia Assessment & Plan: 05/21/2022 total cholesterol 299, triglycerides of 411, HDL 36, LDL 181. Previous 06/13/2020 total cholesterol 295, triglycerides 187, HDL 41, LDL 207, 07/07/2016 with total cholesterol 317, [id number], HDL 47, LDL 212. Previous attempts at pravastatin, simvastatin and atorvastatin all causing GIupset. Crestor 10 mg attempted 10/11/2020 with some GI upset but also rash. Livalo was not covered by insurance although he might retry in the future. At this time despite asking to increase to 3 timesweekly atorvastatin 40 mg daily she has not, she says she worries about her stomach, such we have agreed to try twice weekly and I will add additionally Zetia 10 mg tablet daily. Caution stomach upset. Reinforced importance healthy diet, exercise and weight loss. Orders: - ezetimibe (Zetia) 10 MG tablet; Take 1 tablet by mouth Daily. Dispense: 30 tablet; Refill: 5 - atorvastatin (LIPITOR) 40 MG tablet; Take 1 tablet by mouth 2 (Two) Times a Week. Dispense: 30 tablet; Refill: 2 3. Essential hypertension Assessment & Plan: Somewhat borderline elevations in the past which would improve on recheck, but today persisting around 140/80. As such she is transition to hypertension pattern, initiate losartan/HCTZ 50/12.5 mg daily. Continue healthy diet, exercise, decrease salt intake, weight loss to benefit blood pressure. Recommend monitoring most days at home and bring in blood pressure diary at follow-up. Reassess at follow-up. Orders: - losartan-hydrochlorothiazide (Hyzaar) 50-12.5 MG per tablet; Take 1 tablet by mouth Daily. Dispense: 30 tablet; Refill: 2 4. Folliculitis barbae Assessment & Plan: Some associated modest dandruff for which she is using Selsun Blue, but some secondary folliculitisbarbae. Initial treatment will be with mupirocin 2% ointment for a mild pattern, if persistent we could consider oral antibiotic or even fungal pursuit as there can be sometimes similar in appearance. Advised if not improving, reassess at follow-up. Orders: - mupirocin (BACTROBAN) 2 % ointment; Apply 1 application topically to the appropriate area as directed 3 (Three) Times a Day. Dispense: 22 g; Refill: 1 5. Cigarette smoker Assessment & Plan: Long-standing smoker, at average about 1/2 pack/day for about 45 years. Currently 1/4-1/3 pack per day, patient understands cardiovascular, cancer, respiratory risks. Not ready to pursue cessation, advise if she changes her mind. 6. Class 2 obesity due to excess calories without serious comorbidity with body mass index (BMI) of35.0 to 35.9 in adult Assessment & Plan: BMI in the mid 30s range, reinforced importance of healthy diet, exercise and weight loss to benefit multiple medical comorbidities. 7. Right middle lobe pulmonary nodule Assessment & Plan: Noted incidentally on CT the chest 07/01/2018, a 5 mm noncalcified right middle lobe nodule, followup 03/12/2019 revealing no change in 4 mm nodule in right middle lobe, 4 mm nodule in lingula, 3 mm nodule left upper lobe, 4 mm nodule left upper lobe, all new. Low-dose CT of chest 10/31/2020 revealingstable right middle lobe nodule a 4 mm, and 4 mm semisolid nodule in the lingula, 5 mm semi- solid nodule in the left lower lobe, all without change compared to 2019. Subsequent follow-up at [facility] on 06/27/2022 with stable right middle lung nodule, recommend 12-month follow-up low-dose CT the chest which will be due for July 2023. 8. Vitamin D deficiency Assessment & Plan: 05/21/2022 vitamin D 25-hydroxy level 22.0, comparison 06/13/2020 at 26.4 with lower limit of normal 30, 17.1 on 07/07/2016.patient has not been taking vitamin D as such I prescribed vitamin D 2000 units daily, to take regularly we will recheck with next year's blood work. 9. Need for vaccination Other orders - Cholecalciferol (Vitamin D) 50 MCG (2000 UT) tablet; Take 1 tablet by mouth Daily. Dispense: 90 tablet; Refill: 3 Follow Up: Return in about 3 months (around 05/16/2023) for Next scheduled follow up. Jd Santillan MD [facility] documented in this encounter Plan of Treatment Not on file documented as of this encounter Procedures Procedure Name Priority Date/Time Associated Diagnosis Comments POCT GLUCOSE FINGERSTICK Routine 02/13/2023 12:37 PM EST Type 2 diabetes mellitus without complication, without long-term current use of insulin POCT GLYCOSYLATED HEMOGLOBIN (HGB A1C) Routine 02/13/2023 12:37 PM EST Type 2 diabetes mellitus without complication, without long-term current use of insulin documented in this encounter Results * (ABNORMAL) POC Glucose (02/13/2023 12:37 PM EST) Glucose 153(A) 70 - 130 mg/dL Blood 02/13/2023 12:3 7 PM EST Jd Santillan MD POINT OF CARE TEST ORDERABLES Fi nal Result * (ABNORMAL) POC Glycosylated Hemoglobin (Hb A1C) (02/13/2023 12:37 PM EST) Hemoglobin A1C 7.0(A) 4.5 - 5.7 % [facility] Lot Number [id number] [facility] Expiration Date 10/07/2024 [facility] Blood 02/13/2023 12:3 7 PM EST us Jd Santillan MD POINT OF CARE TEST ORDERABLES Fi nal Result [facility]
[address] [place] [address], documented in this encounter Visit Diagnoses Diagnosis Type 2 diabetes mellitus without complication, without long-term current use of insulin- Primary Mixed hyperlipidemia Essential hypertension Unspecified essential hypertension Folliculitis barbae Dermatophytosis of scalp and streeter Cigarette smoker Tobacco use disorder Class 2 obesity due to excess calories without serious comorbidity with body mass index (BMI) of 35.0 to 35.9 in adult Right middle lobe pulmonary nodule Vitamin D deficiency Need for vaccination Need for prophylactic vaccination and inoculation against unspecified single disease documented in this encounter Care Teams Landmen Relationship Specialty Start Date End Date Jd Santillan MD [address] [place] [address] [place] [address] PCP - General Internal Medicine 05/18/22 documented as of this encounter
--- OUTSIDE RECORDS SUMMARY | 2024-03-14 14:21 | XMS_ITS | Encounter Summary ---
Author Organization [facility] Address [address] [place] [address] Care Team Providers Care Admitted Attorneys Name Role Phone Jd Santillan MD Primary Care Provider [phone] Reason for Visit * Reason Onset Date Comments Med Refill 08/01/2023 Encounter Details Date Type Department Care Team (Late st Contact Info) Description 08/01/2023 Refill [facility] [address] [place] [address] [place] [address] Jd Santillan MD [address] [place] [address] Social History Tobacco Use Types Packs/Day Years [...] PHQ-9: Brief Depression Severity Measure Score 0 06/14/2023 Comments Unknown Sex and Gender Information Value Date Recorded Sex Assigned at Not on file Legal Sex Female 2:25 PM EDT Gender Identity Not on file Sexual Orientation Not on file documented as of this encounter Miscellaneous Notes * Telephone Encounter - Yadi Ramirez RegSched Rep - 08/01/2023 11:59 AM EDT Caller: Ruthann Lee Relationship: Self Best call back number: [phone] Requested Prescriptions: Requested Prescriptions Pending Prescriptions Disp Refills Blood Glucose Monitoring Suppl (ONE TOUCH ULTRA 2) w/Device kit 1 each 1 Sig: Use 1 each Daily. glucose blood (OneTouch Verio) test strip 50 each 6 Sig: TEST BLOOD SUGAR ONCE DAILY OneTouch Delica Lancets 30G misc 50 each 6 Sig: Use 1 each Daily. Pharmacy where request should be sent: [facility] - [place], [place] - [address] [place] [address] [facility] [phone] FX Last office visit with prescribing clinician: 06/14/2023 Last telemedicine visit with prescribing clinician: Visit date not found Next office visit with prescribing clinician: 09/16/2023 Additional details provided by patient: PATIENT STATED THAT SHE PREFERS THE ONE TOUCH Does the patient have less than a 3 day supply: [x] Yes [] No Lula Sanchez 08/01/23 12:00 EDT documented in this encounter Plan of Treatment Not on file documented as of this encounter Visit Diagnoses Not on filedocumented in this encounter Care Teams Admitted Attorneys Relationship Specialty Start Date End Date Jd Santillan MD [address] [place] [address] PCP - General Internal Medicine 05/18/22 documented as of this encounter
--- OUTSIDE RECORDS SUMMARY | 2024-03-14 14:21 | XMS_ITS | Encounter Summary ---
Author Organization [facility] Address [address] [place] [address] Care Team Providers Care Pharmacy Technician Inpatient Name Role Phone Jd Santillan MD Primary Care Provider [phone] Reason for Visit * Reason Comments Med Refill Encounter Details Date Type Department Care Team (Late st Contact Info) Description 09/27/2023 Refill [facility] [address] [place] [address] Jd Santillan MD [address] [place] [id number] Essential hypertension Social History Tobacco Use Types Packs/Day Years [...] as of this encounter Visit Diagnoses Diagnosis Essential hypertension Unspecified essential hypertension documented in this encounter Care Teams Pharmacy Technician Inpatient Relationship Specialty Start Date End Date Jd Santillan MD [address] [place] [address] [place] [id number] PCP - General Internal Medicine 05/18/22 documented as of this encounter
--- OUTSIDE RECORDS SUMMARY | 2024-03-14 14:21 | XMS_ITS | Encounter Summary ---
Author Organization [facility] Address [address] [place] [address] Care Team Providers Care Manager Organizational Name Role Phone Jd Santillan MD Primary Care Provider [phone] Reason for Visit * Reason Comments Med Refill Encounter Details Date Type Department Care Team (Late st Contact Info) Description 04/10/2023 Refill [facility] [address] [place] [address] Jd Santillan MD [address] [place] [id number] Social History Tobacco Use Types Packs/Day Years [...] on filedocumented in this encounter Care Teams Manager Organizational Relationship Specialty Start Date End Date Jd Santillan MD [address] [place] [address] PCP - General Internal Medicine 05/18/22 documented as of this encounter
--- OUTSIDE RECORDS SUMMARY | 2024-03-14 14:21 | XMS_ITS | Clinical Summary ---
Author Organization [facility] Address [address] [place] [address] Care Team Providers Care Horse Show Manager Name Role Phone Jd Santillan MD Primary Care Provider [phone] Allergies Active Allergy Reactions Criticality Noted Date Comments Penicillins Rash Low 12/28/2016 Medications ezetimibe (Zetia) 10 MG tabletIndications: Mixed hyperlipidemia Take 1 tablet by mouth Daily. 30 tablet 5 02/14/20 23 Active atorvastatin (LIPITOR) 40 MG tabletIndications: Mixed hyperlipidemia Take 1 tablet by mouth 2 (Two) Times a Week. 30 tablet 2 02/15/20 23 Active mupirocin (BACTROBAN) 2 % ointmentIndication s:Folliculitis barbae Apply 1 application topically to the appropriate area as directed 3 (Three) Times a Day. 22 g 1 02/14/20 23 Active metFORMIN ER (GLUCOPHAGE-XR) 500 MG 24 hr tabletIndications: Type 2 diabetes mellitus without complication, without long-term current use of insulin Take 1 tablet by mouth Daily With Breakfast. 30 tablet 2 06/03/19 24 Active D3 50 MCG (1999) tablet Take 1 tablet by mouth Daily. 05/09/19 24 Active Blood Glucose Monitoring Suppl (ONE TOUCH ULTRA 2) w/Device kit Use 1 each Daily. 1 each 1 08/01/19 24 Active glucose blood (OneTouch Verio) test strip TEST BLOOD SUGAR ONCE DAILY 50 each 6 08/01/19 24 Active OneTouch Delica Lancets 30G misc Use 1 each Daily. 50 each 6 08/01/19 24 Active Jardiance 25 MG tablet tabletIndications: Type 2 diabetes mellitus without complication, without long-term current use of insulin Take 1 tablet by mouth Daily. 30 tablet 2 09/05/19 24 Active fluticasone (FLONASE) 50 MCG/ACT nasal spray Use 1 to 2 Sprays in each nostril once daily. 16 g 3 09/27/19 24 Active loratadine (CLARITIN) 10 MG tablet Take 1 Tablet by mouth once daily. 30 tablet 3 09/27/19 24 Active montelukast (SINGULAIR) 10 MG tablet Take 1 Tablet by mouth once daily. 30 tablet 3 09/27/19 24 Active losartan-hydrochlo rothiazide (HYZAAR) 100-25 MG per tabletIndications: Essential hypertension Take 1 tablet by mouth Daily. 30 tablet 2 09/27/19 24 Active Cholecalciferol (Vitamin D) 50 MCG (2000 UT) tablet Take 1 tablet by mouth Daily. 90 tablet 3 02/14/20 23 024 Active Problems Problem Noted Date Diagnosed Date Need for vaccination 02/13/2023 Folliculitis barbae 02/13/2023 Assessment & Plan (06/14/2023 11:42 AM EST): Some associated modest dandruff for which she is using Selsun Blue, but some secondary folliculitis barbae. Good response to treatment 02/14/2023 with mupirocin 2% ointment, resolved at this time. Advise any recurrence. Assessment & Plan (02/13/2023 12:27 PM EST): Some associated modest dandruff for which she is using Selsun Blue, but some secondary folliculitis barbae. Initial treatment will be with mupirocin 2% ointment for a mild pattern, if persistent we could consider oral antibiotic or even fungal pursuit as there can be sometimes similar in appearance. Advised if not improving, reassess at follow-up. Essential hypertension 02/13/2023 Assessment & Plan (06/14/2023 11:43 AM EST): With persistent blood pressure elevation as of 06/14/2023 visit, increase losartan/HCTZ from 50/12.5 mg dosing after 100/25 mg dosing. She needs to start monitoring her blood pressure more regularly at home. Notable for nonconcerning EKG with only some nonspecific ST and T wave changes 06/14/2023 and unchanged compared to 05/21/2022, 10/11/2020. Continue healthy diet, exercise, decrease salt intake, weight loss to benefit blood pressure. Reassess at follow-up. Assessment & Plan (02/13/2023 12:26 PM EST): Somewhat borderline elevations in the past which would improve on recheck, but today persisting around 140/80. As such she is transition to hypertension pattern, initiate losartan/HCTZ 50/12.5 mg daily. Continue healthy diet, exercise, decrease salt intake, weight loss to benefit blood pressure. Recommend monitoring most days at home and bring in blood pressure diary at follow-up. Reassess at follow-up. Acute recurrent maxillary sinusitis 07/16/2022 Type 2 diabetes mellitus, [facility] long-term current use of insulin 05/21/2022 Assessment & Plan (06/14/2023 11:47 AM EST): Diagnosis 06/13/2020 with hemoglobin A1c 6.8%. Hemoglobin A1c improved to 6.3% with addition of metformin 500 mg ER on 02/13/2023 visit, previous 7.0%, 6.6%, 6.5%, 6.4%, 6.5%. Despite benefit of hemoglobin A1c, metformin 500 mg ER daily caused notable GI upset, such we will discontinue and switch to Jardiance 25 mg daily, and subsequently could add GLP-1 agonist in future. continue importance of healthy diet, exercise, ongoing weight loss. Infrequent monitoring of glucose at home, recommend checking more regularly. Check feet daily, eye check non-concerning April 2022, monitor yearly. Diabetic foot exam nonconcerning 06/14/2023. Assessment & Plan (02/13/2023 12:30 PM EST): Diagnosis 06/13/2020 with hemoglobin A1c 6.8%. Hemoglobin A1c modestly increased to 7.0%, previous 6.6%, 6.5%, 6.4%, 6.5%. Previous diet control but we will add metformin 5 mg ER daily, continue importance of healthy diet, exercise, ongoing weight loss. Infrequent monitoring of glucose at home, recommend checking more regularly. Check feet daily, eye check non-concerning April 2022, monitor yearly. Assessment & Plan (05/21/2022 2:44 PM EST): Currently diet controlled. Diagnosis 06/13/2020 with hemoglobin A1c 6.8%. Hemoglobin A1c 6.6%, previous 6.5%, 6.4%, 6.5%. Nonfasting glucose 119. Continue diet control, no need to add a medicine at this time. Reinforced importance of healthy diet, exercise, ongoing weight loss. Infrequent monitoring of glucose at home, recommend checking more regularly. Check feet daily, eye check non-concerning April 2022, monitor yearly. Routine general medical exam ination at a health care facility 05/21/2022 Assessment & Plan (06/14/2023 11:45 AM EST): Last blood work 05/21/2022 including notable negative HIV and hepatitis C virus screening, repeat ordered 06/14/2023 with management per results. Mammogram normal 08/10/2022, monitor yearly. DEXA scan 11/22/2020 with osteopenic picture but not in the range treatment with bisphosphonate, initiation of calcium plus vitamin D. Recheck 3 years. Pap smear normal by Dr. Anthony montalvo in summer 2022, patient discussed with That she may not need further based on no ongoing risk factors. Positive Cologuard testing 04/18/2020 with resultant colonoscopy 06/01/2020 with 4-5 mm sessile polyp in the descending colon and few hyperplastic polyps in the rectum with five-year repeat recommended, by Dr. Ga, due April 2025. TDaP vaccine October 2020 at [facility]. Recommend keep COVID vaccination and flu vaccinations up-to-date. Plan pneumococcal 20 valent vaccine at 63 years of age. Assessment & Plan (05/21/2022 2:49 PM EST): Last blood work 06/13/2020, complete blood work ordered at this time. Mammogram normal 08/09/2021, monitor yearly. DEXA scan 11/22/2020 with osteopenic picture but not in the range treatment with bisphosphonate, initiation of calcium plus vitamin D. Recheck 3 years. Pap smear normal by Dr. Cruz 12/06/2020. Positive Cologuard testing 04/18/2020 with resultant colonoscopy 06/01/2020 with 4-5 mm sessile polyp in the descending colon and few hyperplastic polyps in the rectum with five-year repeat recommended, by Dr. Ga. TDaP vaccine October 2020 at [facility]. Covid vaccine x3 up-to-date. Palpitation 05/21/2022 Assessment & Plan (05/21/2022 2:48 PM EST): Infrequent palpitation pattern, not associated chest pain or shortness of breath. EKG nonconcerning 05/21/2022 with normal sinus rhythm, nonspecific T wave change completely unchanged compared to 10/11/2020. Nonconcerning pattern. No need to evaluate further Seasonal allergic rhinitis due to pollen 023 Assessment & Plan (06/14/2023 11:46 AM EST): General benefit on regimen of Claritin, Flonase and Singulair, though typical June seasonal triggers in spring where she is having some breakthrough at this time. I discussed that neck step of treatment would be for allergy evaluation but she declines desire to proceed at this time. Additionally recommend [place] pot, nasal flushing, saline spray. Advised if not improving. Assessment & Plan (07/16/2022 11:48 AM EDT): Good response to daily Claritin, Flonase and [...] spray, coolmist humidifier and Tylenol/Advil as needed Assessment & Plan (05/21/2022 2:44 PM EST): Good response historically to Zyrtec, Flonase and Singulair, use as needed. Additional benefit saline spray, Olga pot, discuss. Cigarette smoker 05/21/2022 Assessment & Plan (06/14/2023 11:41 AM EST): Long-standing smoker, at average about 1/2 pack/day for about 45 years. Currently 1/4-1/3 pack per day, patient understands cardiovascular, cancer, respiratory risks. Not ready to pursue cessation, advise if she changes her mind. Assessment & Plan (02/13/2023 12:25 PM EST): Long-standing smoker, at average about 1/2 pack/day for about 45 years. Currently 1/4-1/3 pack per day, patient understands cardiovascular, cancer, respiratory risks. Not ready to pursue cessation, advise if she changes her mind. Assessment & Plan (05/21/2022 2:45 PM EST): Long-standing smoker, at average about 1/2 pack/day for about 45 years. Currently 1/4-1/3 pack per day, patient understands cardiovascular, cancer, respiratory risks. Not ready to pursue cessation, advise if she changes her mind. Mixed hyperlipidemia 05/21/2022 Assessment & Plan (06/14/2023 11:53 AM EST): 05/21/2022 total cholesterol 299, triglycerides of 411, HDL 36, LDL 181. Previous 06/13/2020 total cholesterol 295, triglycerides 187, HDL 41, LDL 207, 07/07/2016 with total cholesterol 317, triglycerides 291, HDL 47, LDL 212. Previous attempts at pravastatin, simvastatin and atorvastatin all causing GI upset. Crestor 10 mg attempted 10/11/2020 with some GI upset but also rash. Livalo was not covered by insurance although he might retry in the future. Patient currently taking atorvastatin 40 mg twice weekly, with tolerable amount of mild GI upset. Also continue on Zetia 10 mg tablet daily. Caution stomach upset. Reinforced importance healthy diet, exercise and weight loss. Repeat cholesterol pending with blood work 06/14/2023, management per results. Assessment & Plan (02/13/2023 12:28 PM EST): 05/21/2022 total cholesterol 299, triglycerides of 411, HDL 36, LDL 181. Previous 06/13/2020 total cholesterol 295, triglycerides 187, HDL 41, LDL 207, 07/07/2016 with total cholesterol 317, triglycerides 291, HDL 47, LDL 212. Previous attempts at pravastatin, simvastatin and atorvastatin all causing GI upset. Crestor 10 mg attempted 10/11/2020 with some GI upset but also rash. Livalo was not covered by insurance although he might retry in the future. At this time despite asking to increase to 3 times weekly atorvastatin 40 mg daily she has not, she says she worries about her stomach, such we have agreed to try twice weekly and I will add additionally Zetia 10 mg tablet daily. Caution stomach upset. Reinforced importance healthy diet, exercise and weight loss. Assessment & Plan (05/21/2022 2:46 PM EST): 06/13/2020 total cholesterol 295, triglycerides 187, HDL 41, LDL 207. Comparison cholesterol 07/07/2016 with total cholesterol 317, triglycerides 291, HDL 47, LDL 212. Previous attempts at pravastatin, simvastatin and atorvastatin all causing GI upset. Crestor 10 mg attempted 10/11/2020 with some GI upset but also rash. Initiate Livalo 2 mg daily, her high cholesterol with comorbid diabetes warrants statin therapy. Lipid panel from 08/10/2021 with total cholesterol 305, triglycerides 274, HDL 41, LDL 186.9. Comparison 06/13/2020 with total cholesterol 295, triglycerides 187, HDL 41, LDL 207. Attempted initiate atorvastatin 40 mg that time, she is taking once weekly on average, recheck pending. We could also attempt Livalo in future which has less side effect profile regarding obesity, BMI in the 38 range. Recommended healthy diet, exercise and weight loss loss. Class 2 obesity due to exces s calories without serious comorbidity with body mass index (BMI) of 35.0 to 35.9 in adult 05/21/2022 Assessment & Plan (06/14/2023 11:42 AM EST): BMI in the mid 30s range, reinforced importance of healthy diet, exercise and weight loss to benefit multiple medical comorbidities. Assessment & Plan (02/13/2023 12:26 PM EST): BMI in the mid 30s range, reinforced importance of healthy diet, exercise and weight loss to benefit multiple medical comorbidities. Assessment & Plan (05/21/2022 2:47 PM EST): Modest weight loss over the last 8 months, reinforced importance of healthy diet, exercise and even modest weight loss further. Vitamin D deficiency 05/21/2022 Assessment & Plan (06/14/2023 11:47 AM EST): 05/21/2022 vitamin D 25-hydroxy level 22.0, comparison 06/13/2020 at 26.4 with lower limit of normal 30, 17.1 on 07/07/2016.the patient continues on vitamin D 2000 units daily, recheck with pending blood work. Assessment & Plan (02/13/2023 12:30 PM EST): 05/21/2022 vitamin D 25-hydroxy level 22.0, comparison 06/13/2020 at 26.4 with lower limit of normal 30, 17.1 on 07/07/2016.patient has not been taking vitamin D as such I prescribed vitamin D 2000 units daily, to take regularly we will recheck with next year's blood work. Assessment & Plan (05/21/2022 2:47 PM EST): 06/13/2020 vitamin D 25-hydroxy level 26.4 with lower limit of normal 30, comparison 17.1 on 07/07/2016.patient has not been taking her vitamin D 1000 units daily, recheck pending. 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 08/08/2018 TSH normal 0.88, free T4 normal 0.76, 08/08/2018 thyroid ultrasound showed dominant 4.9 cm left thyroid mass. Fine needle aspiration by Dr. Rome 11/13/2018 with atypical follicular lesion of undetermined significance, cleared from followup by Dr. Rome. Right middle lobe pulmonary nodule 05/21/2022 Assessment & Plan (06/14/2023 11:44 AM EST): Noted incidentally on CT the chest 07/01/2018, a 5 mm noncalcified right middle lobe nodule, followup 03/12/2019 revealing no change in 4 mm nodule in right middle lobe, 4 mm nodule in lingula, 3 mm nodule left upper lobe, 4 mm nodule left upper lobe, all new. Low-dose CT of chest 10/31/2020 revealing stable right middle lobe nodule a 4 mm, and 4 mm semisolid nodule in the lingula, 5 mm semi-solid nodule in the left lower lobe, all without change compared to 2019. Subsequent follow-up at [facility] on 06/27/2022 with stable right middle lung nodule, recommend 12-month follow-up low-dose CT the chest which has been scheduled as of 06/14/2023. Management per results. Assessment & Plan (02/13/2023 12:29 PM EST): Noted incidentally on CT the chest 07/01/2018, a 5 mm noncalcified right middle lobe nodule, followup 03/12/2019 revealing no change in 4 mm nodule in right middle lobe, 4 mm nodule in lingula, 3 mm nodule left upper lobe, 4 mm nodule left upper lobe, all new. Low-dose CT of chest 10/31/2020 revealing stable right middle lobe nodule a 4 mm, and 4 mm semisolid nodule in the lingula, 5 mm semi-solid nodule in the left lower lobe, all without change compared to 2019. Subsequent follow-up at [facility] on 06/27/2022 with stable right middle lung nodule, recommend 12-month follow-up low-dose CT the chest which will be due for July 2023. Assessment & Plan (05/21/2022 2:48 PM EST): Noted incidentally on CT the chest 07/01/2018, a 5 mm noncalcified right middle lobe nodule, followup 03/12/2019 revealing no change in 4 mm nodule in right middle lobe, 4 mm nodule in lingula, 3 mm nodule left upper lobe, 4 mm nodule left upper lobe, all new. Low-dose CT of chest 10/31/2020 revealing stable right middle lobe nodule a 4 mm, and 4 mm semisolid nodule in the lingula, 5 mm semi-solid nodule in the left lower lobe, all without change compared to 2019, pending 12 month followup low-dose CT of the chest, scheduled at this time through [facility]. Immunizations Name Administration Dates Next Due COVID-19 (MODERNA) 1st,2nd,3rd Dose Monovalent 0 09/08/2020,08/11/2020 COVID-19 (UNSPECIFIED) 09/08/2020,08/11/2020 Tdap 10/12/2020 Family History Medical History Relation Name Comments Heart disease Brother 1 Other Brother 3 RESPIRATORY PRO BLEMS No Known Problems Brother 4 No Known Problems Daughter Liver cancer Father No Known Problems Maternal Grandmother Heart disease Mother Heart disease Paternal Grandfather Liver cancer Paternal Uncle Breast cancer Sister Bipolar disorder Son Relation Name Status Comments Brother 1 (Age 65) Brother 2 (Age 60) Brother 3 Alive Brother 4 Alive Daughter Alive Father (Age 61) Maternal Grandfather at [employer] [employer] age of an accident. Maternal Grandmother (Age 80) Mother (Age 86) Paternal Grandfather (Age 70) Paternal Grandmother (Age 60) Paternal Uncle Alive Sister Alive Son Alive Social History Tobacco Use Types Packs/Day Years [...] on file Sexual Orientation Not on file Last Filed Vital Signs Vital Sign Reading Time Taken Comments Blood Pressure 144/92 06/14/2023 11:03 AM EST Pulse 85 06/14/2023 10:52 AM EST Temperature 36.3 ??C (97.3 ??F) 06/14/2023 10:[address] Respiratory Rate 18 06/14/2023 10:52 AM EST Oxygen Saturation 97% 06/14/2023 10:52 AM EST Inhaled Oxygen Concentration - - Weight 75.9 kg (167 lb 4 oz) 06/14/2023 10:52 AM EST Height 149.9 cm (4' 11 ) 06/14/2023 10:52 AM EST Body Mass Index 33.78 06/14/2023 10:52 AM EST Plan of Treatment Health Maintenance Due Date Last Done Comments COLOGUARD 1960 COLON CANCER SCREENING 5 YEA R SIGMOIDOSCOPY [address] COLONOGRAPHY 1960 FECAL OCCULT BLOOD TEST 1960 FIT Testing (1 year) 1960 Pneumococcal Vaccine 65+ (1 of 2 - PCV) 1964 ZOSTER VACCINE (1 of 2) 2008 DXA SCAN 11/22/2022 11/22/2020 DIABETIC FOOT EXAM 05/21/2023 05/21/2022, 0 05/21/2022, 05/21/2022 LUNG CANCER SCREENING 06/28/2023 06/27/2022 DIABETIC EYE EXAM 07/08/2023 07/07/2022 (Adilson valadeznt-Reported (Performed Externally)) INFLUENZA VACCINE 10/07/2023 COVID-19 Vaccine (5 2023-2 5 season) 2023 09/08/2020, 09/08/2020, 08/11/2020, Additional history exists HEMOGLOBIN A1C 12/15/2023 06/14/2023, 110 11/2022, 05/21/2022 ANNUAL PHYSICAL 06/13/2024 06/14/2023 BMI FOLLOWUP 06/13/2024 06/14/2023, 05/09, 05/21/2022 LIPID PANEL 06/13/2024 06/14/2023, 05/21/2022 MAMMOGRAM 08/10/2024 08/10/2022, 08/09/2021 PAP SMEAR 10/06/2025 10/06/2022 (Ruchi ent-Reported (Performed Externally)), 12/06/2020 COLONOSCOPY 06/01/2030 06/01/2020 COLORECTAL CANCER SCREENING 06/01/2030 TDAP/TD VACCINES (2 - Td or Tdap) 10/12/2030 021 HEPATITIS C SCREENING Completed 05/21/2022 URINE MICROALBUMIN Discontinued 06/14/2023, 05/21/2022 Procedures Procedure Name Priority Date/Time Associated Diagnosis Comments MICROALBUMIN, URINE, RANDOM Routine 06/14/2023 11:29 AM EST Routine general medical examination at a health care facility LIPID PANEL Routine 06/14/2023 11:29 AM EST Routine general medical examination at a health care facility POCT GLYCOSYLATED HEMOGLOBIN (HGB A1C) Routine 06/14/2023 11:04 AM EST Type 2 diabetes mellitus without complication, without long-term current use of insulin SCANNED - MAMMO 08/10/2022 HEPATITIS C ANTIBODY Routine 05/21/2022 2:41 PM EST Routine general medical examination at a health care facility SCANNED - DEXA Routine 11/22/2020 COLONOSCOPY Routine 06/01/2020 from Last 3 Months or Most Recently Relevant to Health Maintenance Results * MicroAlbumin, Urine, Random - Urine, Clean Catch (06/14/2023 11:29 AM EST) Pathologist [facility] Microalbumin, Urine 9.0 Not Estab. ug/mL [facility] Urine Urine specimen obtained by clean catch procedure / Unknown 06/14/2023 11:29 AM EST 06/14/2023 Comment:Urine Release to [facility] (AMBULATORY) - 06/15/2023 9:07 AM EST Performed at: ??01 - [address] ??[id number] Central Sterile Tech: Justino Duron PhD, Phone: ??[phone] us Jd Santillan MD URINE ORDERABLES Final Result [facility] (AMBULATORY) [address] [place] [address], [place] [phone] [facility] [address] [place] [address], [place] [phone] * (ABNORMAL) Lipid Panel (06/14/2023 11:29 AM EST) Pathologist [facility] Total Cholesterol 281(H) 100 - 199 mg/dL [facility] Triglycerides 323(H) 0 - 149 mg/dL [facility] HDL Cholesterol 35(L) >39 mg/dL [facility] VLDL Cholesterol Cornelio 63(H) 5 - 40 mg/dL [facility] LDL Chol Calc (NIH) 183(H) 0 - 99 mg/dL [facility] Blood Structure of right upper limb / Unknown 06/14/2023 11:29 AM EST 06/14/2023 Comment:Blood Release to [facility] (AMBULATORY) - 06/15/2023 10:07 AM EST Performed at: ??01 - [address] ??[id number] Central Sterile Tech: Justino Duron PhD, Phone: ??[phone] us Jd Santillan MD LAB BLOOD ORDERABLES Final Resul t [facility] (AMBULATORY) [address] [place] [address], [place] [phone] [facility] [address] [place] [address], [place] [phone] * (ABNORMAL) POC Glycosylated Hemoglobin (Hb A1C) (06/14/2023 11:04 AM EST) Hemoglobin A1C 6.3(A) 4.5 - 5.7 % [facility] Lot Number [id number] [facility] Expiration Date 02/26/2025 [facility] Blood 06/14/2023 11:0 4 AM EST us Jd Santillan MD POINT OF CARE TEST ORDERABLES Fi nal Result [facility]
[address] [place] [address], * SCANNED - MAMMO (08/10/2022) Anatomical Region Laterality Modality Other us Jd Santillan MD CHART REVIEW TABS Final Resul t * Hepatitis C Antibody (05/21/2022 2:41 PM EST) Hep C Virus Ab Non Reactive Non Reactive [facility] Comment: HCV antibody alone does not differentiate between previously resolved infection and active infection. Equivocal and Reactive HCV antibody results should be followed up with an HCV RNA test to support the diagnosis of active HCV infection. Blood Structure of right upper limb / Unknown 05/21/2022 2:41 PM EST 05/21/2022 Comment:Blood Release to mimi Shrestha [facility] (AMBULATORY) - 05/22/2022 11:07 AM EST Performed at: ??01 - [facility] [address] [facility], [place], [place] ??[id number] Central Sterile Tech: Justino Duron PhD, Phone: ??[phone] us Jd Santillan MD LAB BLOOD ORDERABLES Final Resul t [facility] (AMBULATORY) [address] [place] [address], [place] [phone] [facility] [address] [place] [address], [place] [phone] * DEXA Scan (11/22/2020) Anatomical Region Laterality Modality Other [facility] CHART REVIEW TABS Final Re sult * Colonoscopy (06/01/2020) [facility] SURGICAL HISTORY PROCEDURES F inal Result from Last 3 Months or Most Recently Relevant to Health Maintenance Insurance [employer] Care Teams Horse Show Manager Relationship Specialty Start Date End Date Jd Santillan MD [address] [place] [address] [place] [address] PCP - General Internal Medicine 05/18/22
--- OUTSIDE RECORDS SUMMARY | 2024-03-14 14:21 | XMS_ITS | Encounter Summary ---
Author Organization [facility] Address [address] [place] [address] Care Team Providers Care Limb Driver Name Role Phone Jd Santillan MD Primary Care Provider [phone] Reason for Visit * Reason Comments Med Refill Encounter Details Date Type Department Care Team (Late st Contact Info) Description 12/12/2023 Refill [facility] [address] [place] [address] Jd Santillan MD [address] [place] [id number] Type 2 diabetes mellitus without complication, without long-term current use of insulin Social History Tobacco Use Types Packs/Day Years [...] encounter Miscellaneous Notes * Telephone Encounter - Johanna Villalba MA - 12/12/2023 5:19 PM EDT Attempted to contact patient left voicemail advising her that she needed to make an appointment * Telephone Encounter - Jd Santillan MD - 12/12/2023 5:18 PM EDT The patient is over 3 months past due for follow-up, I am going to refuse this medicine. Please call the patient to ensure this follow-up is scheduled, and if done, then we can provide 1 month of this medicine. documented in this encounter Plan of Treatment Not on file documented as of this encounter Visit Diagnoses Diagnosis Type 2 diabetes mellitus without complication, without long-term current use of insulin documented in this encounter Care Teams Limb Driver Relationship Specialty Start Date End Date Jd Santillan MD [address] [place] [address] [place] [address] PCP - General Internal Medicine 05/18/22 documented as of this encounter
--- OUTSIDE RECORDS SUMMARY | 2024-03-14 14:21 | XMS_ITS | Encounter Summary ---
Author Organization [facility] Address [address] [place] [address] Care Team Providers Care Dance Artist Name Role Phone Jd Santillan MD Primary Care Provider [phone] Encounter Details Date Type Department Care Team (Late st Contact Info) Description 07/22/2023 Telephone [facility] [address] [place] [address] Jd Santillan MD [address] [place] [address] Social History Tobacco Use Types Packs/Day [...] encounter Miscellaneous Notes * Telephone Encounter - aMndi Khanna MA - 07/22/2023 2:57 PM EDT Patient would prefer [place]. She had no other questions besides should she eat before ultrasound.I did tell her they would give all directions to the test. * Telephone Encounter - Mandi Khanna MA - 07/22/2023 2:57 PM EDT ----- Message from Jd Santillan MD sent at 07/22/2023 10:54 AM EDT ----- Please speak the patient regarding results of 07/19/2023 low-dose CT of the chest is obtained at [facility]. Results reveal incidentally noted and stable large left thyroid lesion of 4.4 cm that is stable compared to 06/27/2022, which is felt to favor goiter. Otherwise lungs show mildemphysema and scarring pattern which is unchanged, and a couple very small stable nodules. From the perspective of her lungs, recommendation to follow-up and repeat low- dose CT of the chest in 12 months time. Based on the left thyroid finding which is stable, I would like to go ahead and check an ultrasound of the thyroid, just to further delineate the details of the thyroid lesion, doesthe patient have a preference to obtain at [facility] or other facility. When clarified please advise and I will put in an order in that regard. documented in this encounter Plan of Treatment Not on file documented as of this encounter Visit Diagnoses Not on filedocumented in this encounter Care Teams Dance Artist Relationship Specialty Start Date End Date Jd Santillan MD [address] [place] [address] PCP - General Internal Medicine 05/18/22 documented as of this encounter
--- OUTSIDE RECORDS SUMMARY | 2024-03-14 14:21 | XMS_ITS | Encounter Summary ---
Author Organization [facility] Address [address] [place] [id number] Care Team Providers Care Former Hand Name Role Phone Jd Santillan MD Primary Care Provider [phone] Reason for Referral * MRI/CAT/PET Scan (Routine) - Closed Specialty Diagnoses / Procedures Referred By Sanjay uribe Referred To Contact Diagnoses Cigarette smoker Procedures CT Chest Low Dose Cancer Screening WO Jd Santillan MD [address] [place] [address] Phone: tel: fax: [facility] [address] [place] [address] Phone: tel: fax: Referral ID Status Reason Start Date Expiration Date Visits Re quested Visits Authorized [id number] Closed 07/01/2023 08/29/2023 1 1 Reason for Visit * Reason Comments Annual Exam Encounter Details Date Type Department Care Team (Late st Contact Info) Description 06/14/2023 11:00 AM EST Office Visit [facility] [address] [place] [address] [place] [id number] Jd Santillan MD [address] [place] [address] [place] [id number] Routine general medical examination at a health care facility (Primary Dx); Type 2 diabetes mellitus without complication, without long-term current use of insulin; Essential hypertension; Mixed hyperlipidemia; Right middle lobe pulmonary nodule; Cigarette smoker; Class 2 obesity due to excess calories without serious comorbidity with body mass index (BMI) of 35.0 to 35.9 in adult; Seasonal allergic rhinitis due to pollen; Vitamin D deficiency; Folliculitis barbae Social History Tobacco Use Types Packs/Day Years [...] Mass Index 33.78 06/14/2023 10:52 AM EST documented in this encounter Patient Instructions * Patient Instructions* Jd Santillan MD - 06/14/2023 11:00 AM EST Health Maintenance, Female Adopting a healthy lifestyle and getting preventive care can go a long way to promote health and wellness. Talk with your health care provider about what schedule of regular examinations is right foryou. This is a good chance for you to check in with your provider about disease prevention and staying healthy. In between checkups, there are plenty of things you can do on your own. Experts have done a lot of research about which lifestyle changes and preventive measures are most likely to keep you healthy. Ask your health care provider for more information. Weight and diet Eat a healthy diet Be sure to include plenty of vegetables, fruits, low-fat dairy products, and lean protein. Do not eat a lot of foods high in solid fats, added sugars, or salt. Get regular exercise. This is one of the most important things you can do for your health. Most adults should exercise for at least 150 minutes each week. The exercise should increase your heart rate and make you sweat (moderate-intensity exercise). Most adults should also do strengthening exercises at least twice a week. This is in addition to the moderate-intensity exercise. Maintain a healthy weight Body mass index (BMI) is a measurement that can be used to identify possible weight problems. It estimates body fat based on height and weight. Your health care provider can help determine your BMI and help you achieve or maintain a healthy weight. For females 20 years of age and older: A BMI below 18.5 is considered underweight. A BMI of 18.5 to 24.9 is normal. A BMI of 25 to 29.9 is considered overweight. A BMI of 30 and above is considered obese. Watch levels of cholesterol and blood lipids You should start having your blood tested for lipids and cholesterol at 20 years of age, then have this test every 5 years. You may need to have your cholesterol levels checked more often if: Your lipid or cholesterol levels are high. You are older than 50 years of age. You are at high risk for heart disease. Cancer screening Lung Cancer Lung cancer screening is recommended for adults 55-80 years old who are at high risk for lung cancer because of a history of smoking. A yearly low-dose CT scan of the lungs is recommended for people who: Currently smoke. Have quit within the past 15 years. Have at least a [id number] history of smoking. A pack year is smoking an average of one pack of cigarettes a day for 1 year. Yearly screening should continue until it has been 15 years since you quit. Yearly screening should stop if you develop a health problem that would prevent you from having lung cancer treatment. Breast Cancer Practice breast self-awareness. This means understanding how your breasts normally appear and feel. It also means doing regular breast self-exams. Let your health care provider know about any changes, no matter how small. If you are in your 20s or 30s, you should have a clinical breast exam (CBE) by a health care provider every 1-3 years as part of a regular health exam. If you are 40 or older, have a CBE every year. Also consider having a breast X- ray (mammogram) every year. If you have a family history of breast cancer, talk to your health care provider about genetic screening. If you are at high risk for breast cancer, talk to your health care provider about having an MRI and a mammogram every year. Breast cancer gene (BRCA) assessment is recommended for women who have family members with BRCA-related cancers. BRCA-related cancers include: Breast. Ovarian. Tubal. Peritoneal cancers. Results of the assessment will determine the need for genetic counseling and BRCA1 and BRCA2 testing. Cervical Cancer Your health care provider may recommend that you be screened regularly for cancer of the pelvic organs (ovaries, uterus, and vagina). This screening involves a pelvic examination, including checking for microscopic changes to the surface of your cervix (Pap test). You may be encouraged to have thisscreening done every 3 years, beginning at age 21. For women ages 30-65, health care providers may recommend pelvic exams and Pap testing every 3 years, or they may recommend the Pap and pelvic exam, combined with testing for human papilloma virus (HPV), every 5 years. Some types of HPV increase your risk of cervical cancer. Testing for HPV may also be done on women of any age with unclear Pap test results. Other health care providers may not recommend any screening for non women who are considered low risk for pelvic cancer and who do not have symptoms. Ask your health care provider if a screening pelvic exam is right for you. If you have had past treatment for cervical cancer or a condition that could lead to cancer, you need Pap tests and screening for cancer for at least 20 years after your treatment. If Pap tests have been discontinued, your risk factors (such as having a new sexual partner) need to be reassessed to determine if screening should resume. Some women have medical problems that increase the chance of getting cervical cancer. In these cases, your health care provider may recommend more frequent screening and Pap tests. Colorectal Cancer This type of cancer can be detected and often prevented. Routine colorectal cancer screening usually begins at 50 years of age and continues through 75 years of age. Your health care provider may recommend screening at an earlier age if you have risk factors for colon cancer. Your health care provider may also recommend using home test kits to check for hidden blood in the stool. A small camera at the end of a tube can be used to examine your colon directly (sigmoidoscopy or colonoscopy). This is done to check for the earliest forms of colorectal cancer. Routine screening usually begins at age 50. Direct examination of the colon should be repeated every 5-10 years through 75 years of age. However, you may need to be screened more often if early forms of precancerous polyps or small growths arefound. Skin Cancer Check your skin from head to toe regularly. Tell your health care provider about any new moles or changes in moles, especially if there is a change in a mole's shape or color. Also tell your health care provider if you have a mole that is larger than the size of a pencil eraser. Always use sunscreen. Apply sunscreen liberally and repeatedly throughout the day. Protect yourself by wearing long sleeves, pants, a wide-brimmed hat, and sunglasses whenever you are outside. Heart disease, diabetes, and high blood pressure High blood pressure causes heart disease and increases the risk of stroke. High blood pressure is more likely to develop in: People who have blood pressure in the high end of the normal range (130-139/85-89 mm Hg). People who are overweight or obese. People who are . If you are 18-39 years of age, have your blood pressure checked every 3-5 years. If you are 40 years of age or older, have your blood pressure checked every year. You should have your blood pressure measured twice--once when you are at a hospital or clinic, and once when you are not at a hospital or clinic. Record the average of the two measurements. To check your blood pressure when you are not at a hospital or clinic, you can use: An automated blood pressure machine at a pharmacy. A home blood pressure monitor. If you are between 55 years and 79 years old, ask your health care provider if you should take aspirin to prevent strokes. Have regular diabetes screenings. This involves taking a blood sample to check your fasting blood sugar level. If you are at a normal weight and have a low risk for diabetes, have this test once every three years after 45 years of age. If you are overweight and have a high risk for diabetes, consider being tested at a younger age or more often. Preventing infection Hepatitis B If you have a higher risk for hepatitis B, you should be screened for this virus. You are considered at high risk for hepatitis B if: You were born in a country where hepatitis B is common. Ask your health care provider which countries are considered high risk. Your parents were born in a high-risk country, and you have not been immunized against hepatitis B (hepatitis B vaccine). You have HIV or AIDS. You use needles to inject street drugs. You live with someone who has hepatitis B. You have had sex with someone who has hepatitis B. You get hemodialysis treatment. You take certain medicines for conditions, including cancer, organ transplantation, and autoimmune conditions. Hepatitis C Blood testing is recommended for: Everyone born from 1945 through 1965. Anyone with known risk factors for hepatitis C. Sexually transmitted infections (STIs) You should be screened for sexually transmitted infections (STIs) including gonorrhea and chlamydiaif: You are sexually active and are younger than 24 years of age. You are older than 24 years of age and your health care provider tells you that you are at risk forthis type of infection. Your sexual activity has changed since you were last screened and you are at an increased risk for chlamydia or gonorrhea. Ask your health care provider if you are at risk. If you do not have HIV, but are at risk, it may be recommended that you take a prescription medicine daily to prevent HIV infection. This is called pre- exposure prophylaxis (PrEP). You are consideredat risk if: You are sexually active and do not regularly use condoms or know the HIV status of your partner(s). You take drugs by injection. You are sexually active with a partner who has HIV. Talk with your health care provider about whether you are at high risk of being infected with HIV. If you choose to begin PrEP, you should first be tested for HIV. You should then be tested every 3 months for as long as you are taking PrEP. If you are premenopausal and you may become , ask your health care provider about preconception counseling. If you may become , take 400 to 800 micrograms (mcg) of folic acid every day. If you want to prevent , talk to your health care provider about control (contraception). Osteoporosis and menopause Osteoporosis is a disease in which the bones lose minerals and strength with aging. This can resultin serious bone fractures. Your risk for osteoporosis can be identified using a bone density scan. If you are 65 years of age or older, or if you are at risk for osteoporosis and fractures, ask yourhealth care provider if you should be screened. Ask your health care provider whether you should take a calcium or vitamin D supplement to lower your risk for osteoporosis. Menopause may have certain physical symptoms and risks. Hormone replacement therapy may reduce some of these symptoms and risks. Talk to your health care provider about whether hormone replacement therapy is right for you. Follow these instructions at home: Schedule regular health, dental, and eye exams. Stay current with your immunizations. Do not use any tobacco products including cigarettes, chewing tobacco, or electronic cigarettes. If you are , do not drink alcohol. If you are , limit how much and how often you drink alcohol. Limit alcohol intake to no more than 1 drink per day for non women. One drink equals 12 ounces of beer, 5 ounces of wine, or 1?? ounces of hard liquor. Do not use street drugs. Do not share needles. Ask your health care provider for help if you need support or information about quitting drugs. Tell your health care provider if you often feel depressed. Tell your health care provider if you have ever been abused or do not feel safe at home. This information is not intended to replace advice given to you by your health care provider. Make sure you discuss any questions you have with your health care provider. Document Released: 10/08/2011 Document Revised: 08/30/2016 Document Reviewed: 12/27/2015 [employer] Interactive Patient Education ?? 2018 [employer] documented in this encounter Progress Notes * Jd Santillan MD - 06/14/2023 11:47 AM ESTAssociated Problem(s): Vitamin D deficiency 05/21/2022 vitamin D 25-hydroxy level 22.0, comparison 06/13/2020 at 26.4 with lower limit of normal 30, 17.1 on 07/07/2016.the patient continues on vitamin D 2000 units daily, recheck with pending blood work. * Jd Santillan MD - 06/14/2023 11:47 AM ESTAssociated Problem(s): Type 2 diabetes mellitus, without [...] more regularly. Check feet daily, eye check non- concerning April 2022, monitor yearly. Diabeticfoot exam nonconcerning 06/14/2023. * Jd Santillan MD - 06/14/2023 11:46 AM ESTAssociated Problem(s): Seasonal allergic rhinitis due to pollen General benefit on regimen of Claritin, Flonase and Singulair, though typical June seasonal triggers in spring where she is having some breakthrough at this time. I discussed that neck step of treatment would be for allergy evaluation but she declines desire to proceed at this time. Additionally recommend Olga pot, nasal flushing, saline spray. Advised if not improving. * Jd Santillan MD - 06/14/2023 11:45 AM ESTAssociated Problem(s): Routine general medical examination at a health care facility Last blood work 05/21/2022 including notable negative HIV and hepatitis C virus screening, repeat ordered 06/14/2023 with management per results. Mammogram normal 08/10/2022, monitor yearly. DEXA scan 11/22/2020 with osteopenic picture but not in the range treatment with bisphosphonate, initiation of calcium plus vitamin D. Recheck 3 years. Pap smear normal by Dr. Cruz last in summer 2022, patient disc ussed with That she may not need further [...] valent vaccine at 65 years of age. * Jd Santillan MD - 06/14/2023 11:44 AM ESTAssociated Problem(s): Right middle lobe pulmonary nodule [...] change compared to 2019. Subsequent follow-up at [facility] on 06/27/2022 with stable right middle lung nodule, recommend 12-month follow-up low-dose CT the chest which has been scheduled as of 06/14/2023. Management per results. * Jd Santillan MD - 06/14/2023 11:43 AM ESTAssociated Problem(s): Mixed hyperlipidemia 05/21/2022 total cholesterol 299, triglycerides of 411, HDL 36, LDL 181. Previous 06/13/2020 total cholesterol 295, triglycerides 187, HDL 41, LDL 207, 07/07/2016 with total cholesterol 317, [id number], HDL 47, LDL 212. Previous attempts at [...] with blood work 06/14/2023, management per results. * Jd Santillan MD - 06/14/2023 11:42 AM ESTAssociated Problem(s): Folliculitis barbae Some associated modest dandruff for which she is using Selsun Blue, but some secondary folliculitisbarbae. Good response to treatment 02/14/2023 with mupirocin 2% ointment, resolved at this time. Advise any recurrence. * Jd Santillan MD - 06/14/2023 11:42 AM ESTAssociated Problem(s): Class 2 obesity due to excess calories without serious comorbidity with bodymass index (BMI) of 35.0 to 35.9 in adult BMI in the mid 30s range, reinforced importance of healthy diet, exercise and weight loss to benefit multiple medical comorbidities. * Jd Santillan MD - 06/14/2023 11:41 AM ESTAssociated Problem(s): Cigarette smoker Long-standing smoker, at average about 1/2 pack/day for about 45 years. Currently 1/4-1/3 pack per day, patient understands cardiovascular, cancer, respiratory risks. Not ready to pursue cessation, advise if she changes her mind. * Jd Santillan MD - 06/14/2023 11:41 AM ESTAssociated Problem(s): Essential hypertension With persistent blood pressure elevation as of 06/14/2023 visit, increase losartan/HCTZ from 50/12.5 mg dosing after 100/25 mg dosing. She needs to start monitoring her blood pressure more regularly athome. Notable for nonconcerning EKG with only some nonspecific ST and T wave changes 06/14/2023 and unchanged compared to 05/21/2022, 10/11/2020. Continue healthy diet, exercise, decrease salt intake, weight loss to benefit blood pressure. Reassess at follow-up. * Katty Laird MA - 06/14/2023 11:00 AM EST Venipuncture Blood Specimen Collection Venipuncture performed in right arm by Katty Laird MA with good hemostasis. Patient tolerated the procedure well without complications. 06/14/23 Katty Laird MA * Jd Santillan MD - 06/14/2023 11:00 AM ESTAssociated Order(s): ECG 12 Lead Pre-Procedure Diagnose(s): Essential hypertension Post-Procedure Diagnose(s): Essential hypertension Images from the original note were not included. Female Physical Note Date: 06/14/2023 Patient Name: Ruthann Lee : 1960 Chief Complaint Patient presents with Annual Exam History of Present Illness: Ruthann Lee is a 62 y.o. female who is here today for their annual health maintenance and physical. In addition discussion of multiple other medical problems and concerns. Regarding diabetic pattern we initiated metformin 500 mg ER at last visit with globin A1c had increased to 7.0% range and it has resulted in good sugars in the 110s to 120s but unfortunate she feels she has some GI upset and little bit of diarrhea on this and would prefer to try different medicine. At the last visit we also noticed some modest increase blood pressure, such we initiated losartan/HCTZ 50/12.5 mg daily although she is not checking her blood pressure at home, she has no lightheadedness or dizziness on the medicine. Regarding hyperlipidemia and obesity pattern, she has ongoing tolerability issues of taking her statin medicine but she still is taking the Zetia 10 mg tablet daily and atorvastatin 40 mg twice weekly. She continues smoking unchanged amount, we discussed cessation she will consider but not ready to pursue. Regarding her right middle lobe pneumonia with recommendation repeat low-dose CT of the chest she is due in the next couple weeks we will schedule. She ishaving some breakthrough congestion drainage and sneezing consistent with allergies with little bitof ear pressure especially the last couple weeks, she is taking her allergy medicine as prescribed but declines desire to pursue allergy referral. She is taking vitamin D as prescribed. Her folliculitis Barbae treated with mupirocin has improved since treatment from February 2024. Subjective Review of Systems Past Medical History, Social History, Family History and Care Team were all reviewed with patient and updated as appropriate. Current Outpatient Medications: atorvastatin (LIPITOR) 40 MG tablet, Take 1 tablet by mouth 2 (Two) Times a Week., Disp: 30 tablet,Rfl: 2 Cholecalciferol (Vitamin D) 50 MCG (1999) tablet, Take 1 tablet by mouth Daily., Disp: 90 tablet, Rfl: 3 D3 50 MCG (2000 UT) tablet, Take 1 tablet by mouth Daily., Disp: , Rfl: ezetimibe (Zetia) 10 MG tablet, Take 1 tablet by mouth Daily., Disp: 30 tablet, Rfl: 5 fluticasone (FLONASE) 50 MCG/ACT nasal spray, Use 1 to 2 Sprays in each nostril once daily., Disp: 16 g, Rfl: 3 loratadine (CLARITIN) 10 MG tablet, Take 1 Tablet by mouth once daily., Disp: 30 tablet, Rfl: 3 metFORMIN ER (GLUCOPHAGE-XR) 500 MG 24 hr tablet, Take 1 tablet by mouth Daily With Breakfast., Disp: 30 tablet, Rfl: 2 montelukast (SINGULAIR) 10 MG tablet, Take 1 Tablet by mouth once daily., Disp: 30 tablet, Rfl: 3 mupirocin (BACTROBAN) 2 % ointment, Apply 1 application topically to the appropriate area as directed 3 (Three) Times a Day., Disp: 22 g, Rfl: 1 OneTouch Delica Lancets 30G misc, Use 1 each Daily., Disp: 50 each, Rfl: 6 OneTouch Verio test strip, TEST BLOOD SUGAR ONCE DAILY, Disp: 50 each, Rfl: 6 empagliflozin (Jardiance) 25 MG tablet tablet, Take 1 tablet by mouth Daily., Disp: 30 tablet, Rfl:2 losartan-hydrochlorothiazide (Hyzaar) 100-25 MG per tablet, Take 1 tablet by mouth Daily., Disp: 30tablet, Rfl: 2 Allergies Allergen Reactions Penicillins Rash Health Maintenance Summary Overdue - Pneumococcal Vaccine 0-64 (1 of 2 - PCV) Never done 07/16/2022 Postponed until 07/16/2022 by Johanna Vilallba MA (Pending event) Overdue - ZOSTER VACCINE (1 of 2) Never done 07/16/2022 Postponed until 07/16/2022 by Johanna Villalba MA (Patient Refused) Overdue - RSV Vaccine - Adults (1 - 1-dose 60+ series) Never done No completion, postpone, or frequency change history exists for this topic. Overdue - COVID-19 Vaccine (2022-24 season) Overdue since 12/07/2022 07/16/2022 Postponed until 08/25/2022 by Johanna Villalba MA (Pending event) 09/08/2020 Imm Admin: COVID-19 (UNSPECIFIED) 09/08/2020 Imm Admin: COVID-19 (MODERNA) 1st,2nd,3rd Dose Monovalent 08/11/2020 Imm Admin: COVID-19 (UNSPECIFIED) 08/11/2020 Imm Admin: COVID-19 (MODERNA) 1st,2nd,3rd Dose Monovalent Only the first 5 history entries have been loaded, but more history exists. Overdue - ANNUAL PHYSICAL (Yearly) Overdue since 05/21/2023 05/21/2022 Registry Metric: Last Annual Physical Overdue - DIABETIC FOOT EXAM (Yearly) Overdue since 05/21/2023 05/21/2022 Smart[employer]: WORKFLOW - DIABETES - DIABETIC FOOT EXAM PERFORMED 05/21/2022 [employer]: FINDINGS - TESTS - NEUROLOGY - MONOFILAMENT TEST - MONOFILAMENT TEST PERFORMED 05/21/2022 [employer]: WORKFLOW - DIABETES - DIABETIC FOOT EXAM PERFORMED Ordered - LIPID PANEL (Yearly) Ordered on 06/14/2023 05/21/2022 Lipid Panel Ordered - URINE MICROALBUMIN (Yearly) Ordered on 06/14/2023 05/21/2022 Microalbumin, Urine component of MicroAlbumin, Urine, Random - Urine, Clean Catch Postponed - INFLUENZA VACCINE (Yearly - November to June) Postponed until 07/07/2023 02/13/2023 Postponed until 07/07/2023 by Jd Santillan MD (Patient Refused) Ordered - LUNG CANCER SCREENING (Yearly) Ordered on 06/14/2023 06/27/2022 Done - Completed low-dose CT of the chest 06/27/2022 at [facility] with stability and 12-month follow-up recommended DIABETIC EYE EXAM (Yearly) Next due on 07/08/2023 07/16/2022 Postponed until 09/03/2022 by Johanna Villalba MA (Pending event) 07/07/2022 Patient-Reported (Performed Externally) - Patient reported negative diabetic screening HEMOGLOBIN A1C (Every 6 Months) Next due on 12/15/2023 06/14/2023 Hemoglobin A1C component of POC Glycosylated Hemoglobin (Hb A1C) 02/13/2023 Hemoglobin A1C component of POC Glycosylated Hemoglobin (Hb A1C) 05/21/2022 Hemoglobin A1C component of POC Glycosylated Hemoglobin (Hb A1C) BMI FOLLOWUP (Yearly) Next due on 06/13/2024 06/14/2023 [employer]: WORKFLOW - QUALITY MEASUREMENT - DOCUMENTED WEIGHT FOLLOW- UP PLAN 05/21/2022 [employer]: WORKFLOW - QUALITY MEASUREMENT - BMI FOLLOW UP CARE PLAN DOCUMENTED 05/21/2022 [employer]: WORKFLOW - QUALITY MEASUREMENT - DOCUMENTED WEIGHT FOLLOW- UP PLAN MAMMOGRAM (Every 2 Years) Next due on 08/10/2024 08/10/2022 SCANNED - MAMMO 08/09/2021 [facility] MAMMOGRAPHY PAP SMEAR (Every 3 Years) Next due on 10/06/2025 10/06/2022 Patient-Reported (Performed Externally) - Negative PAP smear by Dr. Cruz in summer12/06/2020 Done - Pap smear normal by Dr. Cruz 12/06/2020. COLORECTAL CANCER SCREENING (COLONOSCOPY - Every 10 Years) Next due on 06/01/2030 06/01/2020 Colonoscopy TDAP/TD VACCINES (2 - Td or Tdap) Next due on 10/12/2030 10/12/2020 Imm Admin: Tdap HEPATITIS C SCREENING Completed 05/21/2022 Hep C Virus Ab component of Hepatitis C Antibody Immunization History Administered Date(s) Administered COVID-19 (MODERNA) 1st,2nd,3rd Dose Monovalent 08/11/2020, 09/08/2020 COVID-19 (UNSPECIFIED) 08/11/2020, 09/08/2020 Tdap 10/12/2020 Colorectal Screening: Last Completed Colonoscopy COLORECTAL CANCER SCREENING (COLONOSCOPY - Every 10 Years) Next due on 06/01/2030 06/01/2020 Colonoscopy Pap: Last Completed Pap Smear PAP SMEAR (Every 3 Years) Next due on 10/06/2025 10/06/2022 Patient-Reported (Performed Externally) - Negative PAP smear by Dr. Cruz in summer12/06/2020 Done - Pap smear normal by Dr. Cruz 12/06/2020. Mammogram: Last Completed Mammogram MAMMOGRAM (Every 2 Years) Next due on 08/10/2024 08/10/2022 SCANNED - MAMMO 08/09/[address] for Smoker (Age 50-80, 20 pk yr): 06/28/2023 with some nodules and 12-month repeat scheduled at this time Hep C (Age 18-79 once): Negative on 05/21/2022 HIV (Age 15-65 once): Negative on 05/21/2022 A1c: Hemoglobin A1C Date Value Ref Range Status 06/14/2023 6.3 (A) 4.5 - 5.7 % Final Lipid panel: No results found for: LIPIDEXCLUSI The 10-year ASCVD risk score (Norma FERRIS, et al., 2019) is: 39.8% Values used to calculate the score: Age: 62 years Sex: Female Is Non- : No Diabetic: Yes Tobacco smoker: Yes Systolic Blood Pressure: 144 mmHg Is BP treated: Yes HDL Cholesterol: 36 mg/dL Total Cholesterol: 299 mg/dL Tobacco Use: High Risk (06/14/2023) Patient History Smoking Tobacco Use: Every Day Smokeless Tobacco Use: Never Passive Exposure: Not on file Social History Substance and Sexual Activity Alcohol Use Defer Social History Substance and Sexual Activity Drug Use Defer Diet/Physical activity: Ongoing attempts to improve dietary intake and activity level but difficulty maintaining Social History Substance and Sexual Activity Sexual Activity Defer No LMP recorded. Depression: PHQ-2 Depression Screening PHQ-9 Total Score: 0 Intimate partner violence: (Screen on initial visit, women, women with injuries, older adult with injury or evidence of neglect): Violence can be a problem in many people's lives, so I now ask every patient about trauma or abuse they may have experienced in a relationship. Stress/Safety - Do you feel safe in your relationship? Afraid/Abused - Have you ever been in a relationship where you were threatened, hurt, or afraid? Friend/Family - Are your friends aware you have been hurt? Emergency Plan - Do you have a safe place to go and the resources you need in an emergency? Osteoporosis: Ost menopausal women < 65 with RF (advancing age, previous fracture, glucocorticoid therapy, parental hip fracture, low body weight, current cigarette smoking, excessive alcohol consumption, rheumatoid arthritis, secondary osteoporosis [hypogonadism/premature menopause, malabsorption, chronic liver disease, IBD]). All women 65 or older Objective Physical Exam: Vitals: 06/14/23 1052 06/14/23 1103 BP: 132/88 144/92 BP Location: Right arm Patient Position: Sitting Cuff Size: Adult Pulse: 85 Resp: 18 Temp: 97.3 ??F (36.3 ??C) TempSrc: Temporal SpO2: 97% Weight: 75.9 kg (167 lb 4 oz) Height: 149.9 cm (59 ) Facility age limit for growth %willian is 20 years. Body mass index is 33.78 kg/m??. Physical Exam Constitutional: General: She is not in acute distress. Appearance: Normal appearance. She is not ill-appearing, toxic-appearing or diaphoretic. HENT: Head: Normocephalic and atraumatic. Right Ear: Ear canal and external ear normal. Left Ear: Ear canal and external ear normal. Ears: Comments: Mild to moderate fluid behind the right great left TM, partial screw by earwax in the right, otherwise clear. Nose: Nose normal. Rhinorrhea present. Comments: Mild to moderate clear rhinorrhea, pale mucosa Mouth/Throat: Mouth: Mucous membranes are moist. Pharynx: Oropharynx is clear. No oropharyngeal exudate or posterior oropharyngeal erythema. Comments: Poor dentition noted with recommendation to have dentist evaluation Eyes: Extraocular Movements: Extraocular movements intact. Conjunctiva/sclera: Conjunctivae normal. Pupils: Pupils are equal, round, and reactive to light. Neck: Vascular: No carotid bruit. Comments: No thyroid enlargement Cardiovascular: Rate and Rhythm: Normal rate and regular rhythm. Pulses: Normal pulses. Heart sounds: Normal heart sounds. No murmur heard. No friction rub. No gallop. Pulmonary: Effort: Pulmonary effort is normal. No respiratory distress. Breath sounds: Normal breath sounds. No stridor. No wheezing. Abdominal: General: Abdomen is flat. Bowel sounds are normal. There is no distension. Palpations: Abdomen is soft. There is no mass. Tenderness: There is no abdominal tenderness. There is no guarding or rebound. Hernia: No hernia is present. Genitourinary: Comments: Patient defers as obtained through gynecology Musculoskeletal: Cervical back: Neck supple. No tenderness. Right lower leg: No edema. Left lower leg: No edema. Lymphadenopathy: Cervical: No cervical adenopathy. Skin: General: Skin is warm and dry. Capillary Refill: Capillary refill takes less than 2 seconds. Findings: No rash. Neurological: General: No focal deficit present. Mental Status: She is alert and oriented to person, place, and time. Mental status is at baseline. Psychiatric: Mood and Affect: Mood normal. Behavior: Behavior normal. Thought Content: Thought content normal. ECG 12 Lead Date/Time: 06/14/2023 11:57 AM Performed by: Jd Santillan MD Authorized by: Jd Santillan MD Comparison: compared with previous ECG from 05/21/2022 Similar to previous ECG Rhythm: sinus rhythm Rate: normal Conduction: conduction normal ST Segments: ST segments normal T Waves: T waves normal QRS axis: normal Other findings: non-specific ST-T wave changes Clinical impression: normal ECG Comments: Nonconcerning EKG with only nonspecific ST/T wave changes which are unchanged compared toprevious and as isolated finding is nonconcerning. Assessment / Plan Assessment/Plan: Diagnoses and all orders for this visit: 1. Routine general medical examination at a health care facility (Primary) Assessment & Plan: Last blood work 05/21/2022 including notable negative HIV and hepatitis C virus screening, repeat ordered 06/14/2023 with management per results. Mammogram normal 08/10/2022, monitor yearly. DEXA scan 11/22/2020 with osteopenic picture but not in the range treatment with bisphosphonate, initiation of calcium plus vitamin D. Recheck 3 years. Pap smear normal by Dr. Cruz last in summer 2022, patient disc ussed with That she may not need further based on no ongoing risk factors. Positive Cologuard testing 04/18/2020 with resultant colonoscopy 06/01/2020 with 4-5 mm sessile polyp in the descending colon and few hyperplastic polyps in the rectum with five-year repeat recommended, by Dr. aG, due April 2025. TDaP vaccine October 2020 at [facility]. Recommend keep COVID vaccination and flu vaccinations up-to-date. Plan pneumococcal 20 valent vaccine at 63 years of age. Orders: - CBC & Differential; Future - Comprehensive Metabolic Panel; Future - Urinalysis With Culture If Indicated - Urine, Clean Catch; Future - Lipid Panel; Future - TSH Rfx On Abnormal To Free T4; Future - MicroAlbumin, Urine, Random - Urine, Clean Catch; Future - MicroAlbumin, Urine, Random - Urine, Clean Catch - TSH Rfx On Abnormal To Free T4 - Lipid Panel - Urinalysis With Culture If Indicated - Urine, Clean Catch - Comprehensive Metabolic Panel - CBC & Differential 2. Type 2 diabetes mellitus without complication, without long-term current use of insulin Assessment & Plan: Diagnosis 06/13/2020 with hemoglobin [...] more regularly. Check feet daily, eye check non- concerning April 2022, monitor yearly. Diabeticfoot exam nonconcerning 06/14/2023. Orders: - POC Glycosylated Hemoglobin (Hb A1C) - POC Glucose, Blood - empagliflozin (Jardiance) 25 MG tablet tablet; Take 1 tablet by mouth Daily. Dispense: 30 tablet;Refill: 2 3. Essential hypertension Assessment & Plan: With persistent blood pressure elevation as of 06/14/2023 visit, increase losartan/HCTZ from 50/12.5 mg dosing after 100/25 mg dosing. She needs to start monitoring her blood pressure more regularly athome. Notable for nonconcerning EKG with only some nonspecific ST and T wave changes 06/14/2023 and unchanged compared to 05/21/2022, 10/11/2020. Continue healthy diet, exercise, decrease salt intake, weight loss to benefit blood pressure. Reassess at follow-up. Orders: - ECG 12 Lead - losartan-hydrochlorothiazide (Hyzaar) 100-25 MG per tablet; Take 1 tablet by mouth Daily. Dispense: 30 tablet; Refill: 2 4. Mixed hyperlipidemia Assessment & Plan: 05/21/2022 total cholesterol 299, triglycerides of 411, HDL 36, LDL 181. Previous 06/13/2020 total cholesterol 295, triglycerides 187, HDL 41, LDL 207, 07/07/2016 with total cholesterol 317, [id number], HDL 47, LDL 212. Previous attempts at [...] with blood work 06/14/2023, management per results. 5. Right middle lobe pulmonary nodule Assessment & [...] change compared to 2019. Subsequent follow-up at [facility] on 06/27/2022 with stable right middle lung nodule, recommend 12-month follow-up low-dose CT the chest which has been scheduled as of 06/14/2023. Management per results. 6. Cigarette smoker Assessment & Plan: Long-standing smoker, at average about 1/2 pack/day for about 45 years. Currently 1/4-1/3 pack per day, patient understands cardiovascular, cancer, respiratory risks. Not ready to pursue cessation, advise if she changes her mind. Orders: - CT Chest Low Dose Cancer Screening WO; Future 7. Class 2 obesity due to excess calories without serious comorbidity with body mass index (BMI) of35.0 to 35.9 in adult Assessment & Plan: BMI in the mid 30s range, reinforced importance of healthy diet, exercise and weight loss to benefit multiple medical comorbidities. 8. Seasonal allergic rhinitis due to pollen Assessment & Plan: General benefit on regimen of Claritin, Flonase and Singulair, though typical June seasonal triggers in spring where she is having some breakthrough at this time. I discussed that neck step of treatment would be for allergy evaluation but she declines desire to proceed at this time. Additionally recommend [place] pot, nasal flushing, saline spray. Advised if not improving. 9. Vitamin D deficiency Assessment & Plan: 05/21/2022 vitamin D 25-hydroxy level 22.0, comparison 06/13/2020 at 26.4 with lower limit of normal 30, 17.1 on 07/07/2016.the patient continues on vitamin D 2000 units daily, recheck with pending blood work. Orders: - Vitamin D,25-Hydroxy; Future - Vitamin D,25-Hydroxy 10. Folliculitis barbae Assessment & Plan: Some associated modest dandruff for which she is using Selsun Blue, but some secondary folliculitisbarbae. Good response to treatment 02/14/2023 with mupirocin 2% ointment, resolved at this time. Advise any recurrence. Healthcare Maintenance: Counseling provided based on age appropriate USPSTF guidelines. BMI is >= 30 and <35. (Class 1 Obesity). The following options were offered after discussion;: weight loss educational material (shared in after visit summary), exercise counseling/recommendations, and nutrition counseling/recommendations Smoking Cessation: 3-10 mintues spent counseling Will try to cut down Ruthann Rosa voices understanding and acceptance of this advice and will call back with any further questions or concerns. AVS with preventive healthcare tips printed for patient. Follow Up: Return in about 3 months (around 09/14/2023) for Next scheduled follow up. Jd Santillan MD [facility] documented in this encounter Plan of Treatment Scheduled Orders Name Type Priority Associated Diagnoses Orde r Schedule CT Chest Low Dose Cancer Screening WO Imaging Routine Cigarette smoker Expected: 06/19/2023 (Approximate), Expires: 06/13/2024 documented as of this encounter Procedures Procedure Name Priority Date/Time Associated Diagnosis Comments TSH RFX ON ABNORMAL TO FREE T4 Routine 06/14/2023 11:29 AM EST Routine general medical examination at a health care facility ~MICROSCOPIC EXAMINATION Routine 06/14/2023 11:29 AM EST URINALYSIS W/ CULTURE IF INDICATED Routine 06/14/2023 11:29 AM EST Routine general medical examination at a health care facility MICROALBUMIN, URINE, RANDOM Routine 06/14/2023 11:29 AM EST Routine general medical examination at a health care facility VITAMIN D,25-HYDROXY Routine 06/14/2023 11:29 AM EST Vitamin D deficiency CBC AND DIFFERENTIAL Routine 06/14/2023 11:29 AM EST Routine general medical examination at a health care facility LIPID PANEL Routine 06/14/2023 11:29 AM EST Routine general medical examination at a [facility] care facility COMPREHENSIVE METABOLIC PANEL Routine 06/14/2023 11:29 AM EST Routine general medical examination at a [facility] care facility POCT GLUCOSE, BLD (NON STRIP) Routine 06/14/2023 11:05 AM EST Type 2 diabetes mellitus without complication, without long-term current use of insulin POCT GLYCOSYLATED HEMOGLOBIN (HGB A1C) Routine 06/14/2023 11:04 AM EST Type 2 diabetes mellitus without complication, without long-term current use of insulin ECG 12-LEAD Routine 06/14/2023 Essential hypertension documented in this encounter Results * Microscopic Examination - (06/14/2023 11:29 AM EST) WBC, UA None seen 0 - 5 /hpf [facility] RBC, UA 0-2 0 - 2 /hpf [facility] Epithelial Cells (non renal) 0-10 0 - 10 /hpf [facility] Casts None seen None seen /lpf [facility] Bacteria, UA None seen None seen/Few [facility] 06/14/2023 11:2 9 AM EST 06/14/2023 Comment:Urine Release to mimi Shrestha [facility] ([facility]) - 06/15/2023 9:07 AM EST Performed at: ??01 - [facility] [address] ??[id number] Lathe Spotter: Justino Duron PhD, Phone: ??[phone] us Jd Santillan MD URINE ORDERABLES Final Result [facility] ([facility]) [address] [place] [address], [facility] [address] [place] [address], * (ABNORMAL) Vitamin D,25-Hydroxy (06/14/2023 11:29 AM EST) 25 Hydroxy, Vitamin D 21.3(L) 30.0 - 100.0 ng/mL [facility] Comment: Vitamin D deficiency has been defined by the [place] of [employer] and an Endocrine Society practice guideline as a level of serum 25-OH vitamin D less than 20 ng/mL (1,2). The Endocrine Society went on to further define vitamin D insufficiency as a level between 21 and 29 ng/mL (2). 1. IOM ([place] of [employer]). 2010. Dietary reference ?? intakes for calcium and D. [place]: The ?? [facility]. 2. Chris MF, Meron NC, Darrius GAYTAN, et al. ?? Evaluation, treatment, and prevention of vitamin D ?? deficiency: an Endocrine Society clinical practice ?? guideline. JCEM. 2010; 96(7):1911-30. Blood Structure of right upper limb / Unknown 06/14/2023 11:29 AM EST 06/14/2023 Comment:Blood Release to mimi Shrestha [facility] (AMBULATORY) - 06/15/2023 10:07 AM EST Performed at: ??01 - [facility] [address] ??[id number] Lathe Spotter: Justino Duron PhD, Phone: ??[phone] Jd Santillan MD LAB BLOOD ORDERABLES Final Resul t [facility] (AMBULATORY) [address] [place] [address], [facility] [address] [place] [address], * MicroAlbumin, Urine, Random - Urine, Clean Catch (06/14/2023 11:29 AM EST) Microalbumin, Urine 9.0 Not Estab. ug/mL [facility] Urine Urine specimen obtained by clean catch procedure / Unknown 06/14/2023 11:29 AM EST 06/14/2023 Comment:Urine Release to [facility] (AMBULATORY) - 06/15/2023 9:07 AM EST Performed at: ??01 - [address] ??[id number] Lathe Spotter: Justino Duron PhD, Phone: ??[phone] us Jd Santillan MD URINE ORDERABLES Final Result Performing Organization Address [facility]/ZIP Co de Phone Number [facility] ([facility]) [address] [place] [address], [facility] [address] [place] [address], * TSH Rfx On Abnormal To Free T4 (06/14/2023 11:29 AM EST) Pathologist [facility] TSH 0.742 0.450 - 4.500 uIU/mL [facility] Blood Structure of right upper limb / Unknown 06/14/2023 11:29 AM EST 06/14/2023 Comment:Blood Release to [facility] (AMBULATORY) - 06/15/2023 10:07 AM EST Performed at: ??01 - [address] ??[id number] Lathe Spotter: Justino Duron PhD, Phone: ??[phone] us Jd Santillan MD LAB BLOOD ORDERABLES Final Resul t Performing Organization Address City/[facility]/ZIP Co de Phone Number [facility] ([facility]) [address] [place] [address], [place] [phone] [facility] [address] [place] [address], [place] [phone] * (ABNORMAL) Lipid Panel (06/14/2023 11:29 AM EST) Total Cholesterol 281(H) 100 - 199 mg/dL [facility] Triglycerides 323(H) 0 - 149 mg/dL [facility] HDL Cholesterol 35(L) >39 mg/dL [facility] VLDL Cholesterol Cornelio 63(H) 5 - 40 mg/dL [facility] LDL Chol Calc (NIH) 183(H) 0 - 99 mg/dL [facility] Blood Structure of right upper limb / Unknown 06/14/2023 11:29 AM EST 06/14/2023 Comment:Blood Release to pat kvng Shrestha [facility]) - 06/15/2023 10:07 AM EST Performed at: ??01 - [facility] ??[id number] Lathe Spotter: Justino Duron PhD, Phone: ??[phone] Jd Santillan MD LAB BLOOD ORDERABLES Final Resul t [facility] ([facility]) [address] [place] [address], [facility] [address] [place] [address], * Urinalysis With Culture If Indicated - Urine, Clean Catch (06/14/2023 11:29 AM EST) Pathologist [facility] Specific [place], UA 1.023 1.005 - 1.030 [facility] pH, UA 7.0 5.0 - 7.5 [facility] Color, UA Yellow Yellow [facility] Appearance, UA Clear Clear [facility] Leukocytes, UA Negative Negative [facility] Protein Trace Negative/Tra ce [facility] Glucose, UA Negative Negative [facility] Ketones Negative Negative [facility] Blood, UA Negative Negative [facility] Bilirubin, UA Negative Negative [facility] Urobilinogen, UA 1.0 0.2 - 1.0 mg/dL [facility] Nitrite, UA Negative Negative [facility] Microscopic Examination Comment [facility] Comment:Microscopic follows if indicated. Microscopic Examination See below: [facility] Comment:Microscopic was mary carmen cated and was performed. Urinalysis Reflex Comment [facility] Comment:This specimen will n ot reflex to a Urine Culture. Urine Urine specimen obtained by clean catch procedure / Unknown 06/14/2023 11:29 AM EST 06/14/2023 Comment:Urine Release to mimi kvng Henrietta [facility] (AMBULATORY) - 06/15/2023 9:07 AM EST Performed at: ??01 - [address], [place], [place] ??[id number] Lathe Spotter: Justino Duron PhD, Phone: ??[phone] us Jd Santillan MD URINE ORDERABLES Final Result [facility] (AMBULATORY) [address] [place] [address], [place] [phone] [facility] [address] [place] [address], * Comprehensive Metabolic Panel (06/14/2023 11:29 AM EST) Glucose 97 70 - 99 mg/dL [facility] BUN 19 8 - 27 mg/dL [facility] Creatinine 0.67 0.57 - 1.00 mg/dL [facility] EGFR Result 98 >59 mL/min/1.7 3 [facility] BUN/Creatinine Ratio 28 12 - 28 [facility] Sodium 141 134 - 144 mmol/L [facility] Potassium 4.1 3.5 - 5.2 mmol/L [facility] Chloride 102 96 - 106 mmol/L [facility] Total CO2 21 20 - 29 mmol/L [facility] Calcium 9.8 8.7 - 10.3 mg/dL [facility] Total Protein 7.6 6.0 - 8.5 g/dL [facility] Albumin 4.7 3.9 - 4.9 g/dL [facility] Globulin 2.9 1.5 - 4.5 g/dL [facility] A/G Ratio 1.6 1.2 - 2.2 [facility] Total Bilirubin 0.3 0.0 - 1.2 mg/dL [facility] Alkaline Phosphatase 76 44 - 121 IU/L [facility] AST (SGOT) 20 0 - 40 IU/L [facility] ALT (SGPT) 27 0 - 32 IU/L [facility] Blood Structure of right upper limb / Unknown 06/14/2023 11:29 AM EST 06/14/2023 Comment:Blood Release to pat kvng Henrietta [facility] ([facility]) - 06/15/2023 10:07 AM EST Performed at: ??01 - [facility] [address] [place], [place] ??[id number] Lathe Spotter: Justino Duron PhD, Phone: ??[phone] us Jd Santillan MD LAB BLOOD ORDERABLES Final Resul t [facility] (AMBULATORY) [address] [place] [address], [facility] [address] [place] [address], * CBC & Differential (06/14/2023 11:29 AM EST) WBC 8.6 3.4 - 10.8 x10E3/uL [facility] RBC 4.50 3.77 - 5.28 x10E6/uL [facility] Hemoglobin 13.7 11.1 - 15.9 g/dL [facility] Hematocrit 39.8 34.0 - 46.6 % [facility] MCV 88 79 - 97 fL [facility] MCH 30.4 26.6 - 33.0 pg [facility] MCHC 34.4 31.5 - 35.7 g/dL [facility] RDW 13.9 11.7 - 15.4 % [facility] Platelets 192 150 - 450 x10E3/uL [facility] Neutrophil Rel % 69 Not Estab. % [facility] Lymphocyte Rel % 23 Not Estab. % [facility] Monocyte Rel % 6 Not Estab. % [facility] Eosinophil Rel % 1 Not Estab. % [facility] Basophil Rel % 0 Not Estab. % [facility] Neutrophils Absolute 5.9 1.4 - 7.0 x10E3/uL [facility] Lymphocytes Absolute 2.0 0.7 - 3.1 x10E3/uL [facility] Monocytes Absolute 0.5 0.1 - 0.9 x10E3/uL [facility] Eosinophils Absolute 0.1 0.0 - 0.4 x10E3/uL [facility] Basophils Absolute 0.0 0.0 - 0.2 x10E3/uL [facility] Immature Granulocyte Rel % 1 Not Estab. % [facility] Immature Grans Absolute 0.0 0.0 - 0.1 x10E3/uL [facility] Blood Structure of right upper limb / Unknown 06/14/2023 11:29 AM EST 06/14/2023 Comment:Blood Release to [facility] Narrative [facility] (AMBULATORY) - 06/15/2023 10:07 AM EST Performed at: ??01 - [facility] ??[id number] Lathe Spotter: Justino Duron PhD, Phone: ??[phone] us Jd Santillan MD LAB BLOOD ORDERABLES Final Resul t [facility] ([facility]) [address] [place] [address], [facility] [address] [place] [address], * POC Glucose, Blood (06/14/2023 11:05 AM EST) Glucose 121 70 - 130 mg/dL Lot Number [id number] Expiration Date 10/06/2023 Blood 06/14/2023 11:0 5 AM EST us Jd Santillan MD POINT OF CARE TEST ORDERABLES Fi nal Result * (ABNORMAL) POC Glycosylated Hemoglobin (Hb A1C) (06/14/2023 11:04 AM EST) Hemoglobin A1C 6.3(A) 4.5 - 5.7 % [facility] Lot Number [id number] [facility] Expiration Date 02/26/2025 [facility] Blood 06/14/2023 11:0 4 AM EST Jd Santillan MD POINT OF CARE TEST ORDERABLES Fi nal Result [facility]
[address] [place] [address], * ECG 12-LEAD (06/14/2023) Narrative ECG - 06/14/2023 Jd Santillan MD ? 06/14/2023 11:58 AM ECG 12 Lead Date/Time: 06/14/2023 11:57 AM Performed by: Jd Santillan MD Authorized by: Jd Santillan MD ??Comparison: compared with previous ECG from 05/21/2022 Similar to previous ECG Rhythm: sinus rhythm Rate: normal Conduction: conduction normal ST Segments: ST segments normal T Waves: T waves normal QRS axis: normal Other findings: non-specific ST-T wave changes Clinical impression: normal ECG Comments: Nonconcerning EKG with only nonspecific ST/T wave changes which are unchanged compared to previous and as isolated finding is nonconcerning. Procedure Note Jd Santillan MD - 06/14/2023 11:00 AM EST Images from the original note were not included. Female Physical Note Date: 06/14/2023 Patient Name: Ruthann Lee : 1960 Chief Complaint Patient presents with Annual Exam History of Present Illness: Ruthann Lee is a 62 y.o. female who is heretoday for their annual health maintenance and physical. In additiondiscussion of multiple other medical problems and concerns. Regardingdiabetic pattern we initiated metformin 500 mg ER at last visit withglobin A1c had increased to 7.0% range and it has resulted in good sugarsin the 110s to 120s but unfortunate she feels she has some GI upset andlittle bit of diarrhea on this and would prefer to try different medicine.At the last visit we also noticed some modest increase blood pressure,such we initiated losartan/HCTZ 50/12.5 mg daily although she is notchecking her blood pressure at home, she has no lightheadedness ordizziness on the medicine. Regarding hyperlipidemia and obesity pattern,she has ongoing tolerability issues of taking her statin medicine but shestill is taking the Zetia 10 mg tablet daily and atorvastatin 40 mg twiceweekly. She continues smoking unchanged amount, we discussed cessationshe will consider but not ready to pursue. Regarding her right middlelobe pneumonia with recommendation repeat low-dose CT of the chest she isdue in the next couple weeks we will schedule. She is having somebreakthrough congestion drainage and sneezing consistent with allergieswith little bit of ear pressure especially the last couple weeks, she istaking her allergy medicine as prescribed but declines desire to pursueallergy referral. She is taking vitamin D as prescribed. Herfolliculitis Barbae treated with mupirocin has improved since treatmentfrom February 2024. Subjective Review of Systems Past Medical History, Social History, Family History and Care Team wereall reviewed with patient and updated as appropriate. Current Outpatient Medications: atorvastatin (LIPITOR) 40 MG tablet, Take 1 tablet by mouth 2 (Two)Times a Week., Disp: 30 tablet, Rfl: 2 Cholecalciferol (Vitamin D) 50 MCG (1999) tablet, Take 1 tablet bymouth Daily., Disp: 90 tablet, Rfl: 3 D3 50 MCG (1999) tablet, Take 1 tablet by mouth Daily., Disp: , Rfl: ezetimibe (Zetia) 10 MG tablet, Take 1 tablet by mouth Daily., Disp: 30tablet, Rfl: 5 fluticasone (FLONASE) 50 MCG/ACT nasal spray, Use 1 to 2 Sprays in eachnostril once daily., Disp: 16 g, Rfl: 3 loratadine (CLARITIN) 10 MG tablet, Take 1 Tablet by mouth once daily.,Disp: 30 tablet, Rfl: 3 metFORMIN ER (GLUCOPHAGE-XR) 500 MG 24 hr tablet, Take 1 tablet by mouthDaily With Breakfast., Disp: 30 tablet, Rfl: 2 montelukast (SINGULAIR) 10 MG tablet, Take 1 Tablet by mouth oncedaily., Disp: 30 tablet, Rfl: 3 mupirocin (BACTROBAN) 2 % ointment, Apply 1 application topically tothe appropriate area as directed 3 (Three) Times a Day., Disp: 22 g, Rfl:1 OneTouch Delica Lancets 30G misc, Use 1 each Daily., Disp: 50 each, Rfl:6 OneTouch Verio test strip, TEST BLOOD SUGAR ONCE DAILY, Disp: 50 each,Rfl: 6 empagliflozin (Jardiance) 25 MG tablet tablet, Take 1 tablet by mouthDaily., Disp: 30 tablet, Rfl: 2 losartan-hydrochlorothiazide (Hyzaar) 100-25 MG per tablet, Take 1tablet by mouth Daily., Disp: 30 tablet, Rfl: 2 Allergies Allergen Reactions Penicillins Rash Health Maintenance Summary Overdue - Pneumococcal Vaccine 0-64 (1 of 2 - PCV) Never done 07/16/2022 Postponed until 07/16/2022 by Johanna Villalba MA (Pendingevent) Overdue - ZOSTER VACCINE (1 of 2) Never done 07/16/2022 Postponed until 07/16/2022 by Johanna Villalba MA (PatientRefused) Overdue - RSV Vaccine - Adults (1 - 1-dose 60+ series) Never done No completion, postpone, or frequency change history exists for thistopic. Overdue - COVID-19 Vaccine (2022-24 season) Overdue since 12/07/2022 07/16/2022 Postponed until 08/25/2022 by Johanna Villalba MA (Pendingevent) 09/08/2020 Imm Admin: COVID-19 (UNSPECIFIED) 09/08/2020 Imm Admin: COVID-19 (MODERNA) 1st,2nd,3rd Dose Monovalent 08/11/2020 Imm Admin: COVID-19 (UNSPECIFIED) 08/11/2020 Imm Admin: COVID-19 (MODERNA) 1st,2nd,3rd Dose Monovalent Only the first 5 history entries have been loaded, but more historyexists. Overdue - ANNUAL PHYSICAL (Yearly) Overdue since 05/21/2023 05/21/2022 Registry Metric: Last Annual Physical Overdue - DIABETIC FOOT EXAM (Yearly) Overdue since 05/21/2023 05/21/2022 SmartData: WORKFLOW - DIABETES - DIABETIC FOOT EXAM PERFORMED 05/21/2022 SmartData: FINDINGS - TESTS - NEUROLOGY - MONOFILAMENT TEST - MONOFILAMENT TEST PERFORMED 05/21/2022 SmartData: WORKFLOW - DIABETES - DIABETIC FOOT EXAM PERFORMED Ordered - LIPID PANEL (Yearly) Ordered on 06/14/2023 05/21/2022 Lipid Panel Ordered - URINE MICROALBUMIN (Yearly) Ordered on 06/14/2023 05/21/2022 Microalbumin, Urine component of MicroAlbumin, Urine, Random- Urine, Clean Catch Postponed - INFLUENZA VACCINE (Yearly - November to June) Postponed until07/07/2023 02/13/2023 Postponed until 07/07/2023 by Jd Santillan MD (Patient Refused) Ordered - LUNG CANCER SCREENING (Yearly) Ordered on 06/14/2023 06/27/2022 Done - Completed low-dose CT of the chest 06/27/2022 at [facility] with stability and 12-month follow-up recommended DIABETIC EYE EXAM (Yearly) Next due on 07/08/2023 07/16/2022 Postponed until 09/03/2022 by Johanna Villalba MA (Pendingevent) 07/07/2022 Patient-Reported (Performed Externally) - Patient reportednegative diabetic screening HEMOGLOBIN A1C (Every 6 Months) Next due on 12/15/2023 06/14/2023 Hemoglobin A1C component of POC Glycosylated Hemoglobin (HbA1C) 02/13/2023 Hemoglobin A1C component of POC Glycosylated Hemoglobin (HbA1C) 05/21/2022 Hemoglobin A1C component of POC Glycosylated Hemoglobin (HbA1C) BMI FOLLOWUP (Yearly) Next due on 06/13/2024 06/14/2023 SmartData: WORKFLOW - QUALITY MEASUREMENT - DOCUMENTED WEIGHTFOLLOW- UP PLAN 05/21/2022 SmartData: WORKFLOW - QUALITY MEASUREMENT - BMI FOLLOW UPCARE PLAN DOCUMENTED 05/21/2022 SmartData: WORKFLOW - QUALITY MEASUREMENT - DOCUMENTED WEIGHTFOLLOW- UP PLAN MAMMOGRAM (Every 2 Years) Next due on 08/10/2024 08/10/2022 SCANNED - MAMMO 08/09/2021 HM MAMMOGRAPHY PAP SMEAR (Every 3 Years) Next due on 10/06/2025 10/06/2022 Patient-Reported (Performed Externally) - Negative PAP smearby Dr. Cruz in summer12/06/2020 Done - Pap smear normal by Dr. Cruz 12/06/2020. COLORECTAL CANCER SCREENING (COLONOSCOPY - Every 10 Years) Next due on06/01/2030 06/01/2020 Colonoscopy TDAP/TD VACCINES (2 - Td or Tdap) Next due on 10/12/2030 10/12/2020 Imm Admin: Tdap HEPATITIS C SCREENING Completed 05/21/2022 Hep C Virus Ab component of Hepatitis C Antibody Immunization History Administered Date(s) Administered COVID-19 (MODERNA) 1st,2nd,3rd Dose Monovalent 08/11/2020, 09/08/2020 COVID-19 (UNSPECIFIED) 08/11/2020, 09/08/2020 Tdap 10/12/2020 Colorectal Screening: Last Completed Colonoscopy COLORECTAL CANCER SCREENING (COLONOSCOPY - Every 10 Years) Next due on06/01/2030 06/01/2020 Colonoscopy Pap: Last Completed Pap Smear PAP SMEAR (Every 3 Years) Next due on 10/06/2025 10/06/2022 Patient-Reported (Performed Externally) - Negative PAP smearby Dr. Cruz in summer12/06/2020 Done - Pap smear normal by Dr. Cruz 12/06/2020. Mammogram: Last Completed Mammogram MAMMOGRAM (Every 2 Years) Next due on 08/10/2024 08/10/2022 SCANNED - MAMMO 08/09/[address] for Smoker (Age 50-80, 20 pk yr): 06/28/2023 with some nodules [id number] repeat scheduled at this time Hep C (Age 18-79 once): Negative on 05/21/2022 HIV (Age 15-65 once): Negative on 05/21/2022 A1c: Hemoglobin A1C Date Value Ref Range Status 06/14/2023 6.3 (A) 4.5 - 5.7 % Final Lipid panel: No results found for: LIPIDEXCLUSI The 10-year ASCVD risk score (Norma FERRIS, et al., 2019) is: 39.8% Values used to calculate the score: Age: 62 years Sex: Female Is Non- : No Diabetic: Yes Tobacco smoker: Yes Systolic Blood Pressure: 144 mmHg Is BP treated: Yes HDL Cholesterol: 36 mg/dL Total Cholesterol: 299 mg/dL Tobacco Use: High Risk (06/14/2023) Patient History Smoking Tobacco Use: Every Day Smokeless Tobacco Use: Never Passive Exposure: Not on file Social History Substance and Sexual Activity Alcohol Use Defer Social History Substance and Sexual Activity Drug Use Defer Diet/Physical activity: Ongoing attempts to improve dietary intake andactivity level but difficulty maintaining Social History Substance and Sexual Activity Sexual Activity Defer No LMP recorded. Depression: PHQ-2 Depression Screening PHQ-9 Total Score: 0 Intimate partner violence: (Screen on initial visit, women, womenwith injuries, older adult with injury or evidence of neglect): Violence can be a problem in many people's lives, so I now ask everypatient about trauma or abuse they may have experienced in [facility]. Stress/Safety - Do you feel safe in your relationship? Afraid/Abused - Have you ever been in a relationship where you werethreatened, hurt, or afraid? Friend/Family - Are your friends aware you have been hurt? Emergency Plan - Do you have a safe place to go and the resources you needin an emergency? Osteoporosis: Ost menopausal women < 65 with RF (advancing age, previous fracture,glucocorticoid therapy, parental hip fracture, low body weight, currentcigarette smoking, excessive alcohol consumption, rheumatoid arthritis,secondary osteoporosis [hypogonadism/premature menopause, malabsorption,chronic liver disease, IBD]). All women 65 or older Objective Physical Exam: Vitals: 06/14/23 1052 06/14/23 1103 BP: 132/88 144/92 BP Location: Right arm Patient Position: Sitting Cuff Size: Adult Pulse: 85 Resp: 18 Temp: 97.3 ??F (36.3 ??C) TempSrc: Temporal SpO2: 97% Weight: 75.9 kg (167 lb 4 oz) Height: 149.9 cm (59 ) Facility age limit for growth %willian is 20 years. Body mass index is 33.78 kg/m??. Physical Exam Constitutional: General: She is not in acute distress. Appearance: Normal appearance. She is not ill-appearing,toxic-appearing or diaphoretic. HENT: Head: Normocephalic and atraumatic. Right Ear: Ear canal and external ear normal. Left Ear: Ear canal and external ear normal. Ears: Comments: Mild to moderate fluid behind the right great left TM,partial screw by earwax in the right, otherwise clear. Nose: Nose normal. Rhinorrhea present. Comments: Mild to moderate clear rhinorrhea, pale mucosa Mouth/Throat: Mouth: Mucous membranes are moist. Pharynx: Oropharynx is clear. No oropharyngeal exudate or posteriororopharyngeal erythema. Comments: Poor dentition noted with recommendation to have dentistevaluation Eyes: Extraocular Movements: Extraocular movements intact. Conjunctiva/sclera: Conjunctivae normal. Pupils: Pupils are equal, round, and reactive to light. Neck: Vascular: No carotid bruit. Comments: No thyroid enlargement Cardiovascular: Rate and Rhythm: Normal rate and regular rhythm. Pulses: Normal pulses. Heart sounds: Normal heart sounds. No murmur heard. No friction rub. No gallop. Pulmonary: Effort: Pulmonary effort is normal. No respiratory distress. Breath sounds: Normal breath sounds. No stridor. No wheezing. Abdominal: General: Abdomen is flat. Bowel sounds are normal. There is nodistension. Palpations: Abdomen is soft. There is no mass. Tenderness: There is no abdominal tenderness. There is no guarding orrebound. Hernia: No hernia is present. Genitourinary: Comments: Patient defers as obtained through gynecology Musculoskeletal: Cervical back: Neck supple. No tenderness. Right lower leg: No edema. Left lower leg: No edema. Lymphadenopathy: Cervical: No cervical adenopathy. Skin: General: Skin is warm and dry. Capillary Refill: Capillary refill takes less than 2 seconds. Findings: No rash. Neurological: General: No focal deficit present. Mental Status: She is alert and oriented to person, place, and time.Mental status is at baseline. Psychiatric: Mood and Affect: Mood normal. Behavior: Behavior normal. Thought Content: Thought content normal. ECG 12 Lead Date/Time: 06/14/2023 11:57 AM Performed by: Jd Santillan MD Authorized by: Jd Santillan MD Comparison: compared with previous ECG from05/21/2022 Similar to previous ECG Rhythm: sinus rhythm Rate: normal Conduction: conduction normal ST Segments: ST segments normal T Waves: T waves normal QRS axis: normal Other findings: non-specific ST-T wave changes Clinical impression: normal ECG Comments: Nonconcerning EKG with only nonspecific ST/T wave changes whichare unchanged compared to previous and as isolated finding isnonconcerning. Assessment / Plan Assessment/Plan: Diagnoses and all orders for this visit: 1. Routine general medical examination at a health care facility(Primary) Assessment & Plan: Last blood work 05/21/2022 including notable negative HIV and hepatitis Cvirus screening, repeat ordered 06/14/2023 with management per results.Mammogram normal 08/10/2022, monitor yearly. DEXA scan 11/22/2020 withosteopenic picture but not in the range treatment with bisphosphonate,initiation of calcium plus vitamin D. Recheck 3 years. Pap smear normalby Dr. Cruz last in summer 2022, patient discussed with That she maynot need further based on no ongoing risk factors. Positive Cologuardtesting 04/18/2020 with resultant colonoscopy 06/01/2020 with 4-5 mm sessilepolyp in the descending colon and few hyperplastic polyps in the rectumwith five-year repeat recommended, by Dr. Ga, due April 2025. [facility]ine October [facility] at [facility]. Recommend keep COVID vaccination and fluvaccinations up-to-date. Plan pneumococcal 20 valent vaccine at 63 yearsof age. Orders: - CBC & Differential; Future - Comprehensive Metabolic Panel; Future - Urinalysis With Culture If Indicated - Urine, Clean Catch; Future - Lipid Panel; Future - TSH Rfx On Abnormal To Free T4; Future - MicroAlbumin, Urine, Random - Urine, Clean Catch; Future - MicroAlbumin, Urine, Random - Urine, Clean Catch - TSH Rfx On Abnormal To Free T4 - Lipid Panel - Urinalysis With Culture If Indicated - Urine, Clean Catch - Comprehensive Metabolic Panel - CBC & Differential 2. Type 2 diabetes mellitus without complication, without long-termcurrent use of insulin Assessment & Plan: Diagnosis 06/13/2020 with hemoglobin A1c 6.8%. Hemoglobin A1c improved to6.3% with addition of metformin 500 mg ER on 02/13/2023 visit, previous7.0%, 6.6%, 6.5%, 6.4%, 6.5%. Despite benefit of hemoglobin A1c,metformin 500 mg ER daily caused notable GI upset, such we willdiscontinue and switch to Jardiance 25 mg daily, and subsequently couldadd GLP-1 agonist in future. continue importance of healthy diet,exercise, ongoing weight loss. Infrequent monitoring of glucose at home,recommend checking more regularly. Check feet daily, eye checknon-concerning April 2022, monitor yearly. Diabetic foot examnonconcerning 06/14/2023. Orders: - POC Glycosylated Hemoglobin (Hb A1C) - POC Glucose, Blood - empagliflozin (Jardiance) 25 MG tablet tablet; Take 1 tablet bymouth Daily. Dispense: 30 tablet; Refill: 2 3. Essential hypertension Assessment & Plan: With persistent blood pressure elevation as of 06/14/2023 visit, increaselosartan/HCTZ from 50/12.5 mg dosing after 100/25 mg dosing. She needs tostart monitoring her blood pressure more regularly at home. Notable fornonconcerning EKG with only some nonspecific ST and T wave changes06/14/2023 and unchanged compared to 05/21/2022, 10/11/2020. Continue healthydiet, exercise, decrease salt intake, weight loss to benefit bloodpressure. Reassess at follow-up. Orders: - ECG 12 Lead - losartan-hydrochlorothiazide (Hyzaar) 100-25 MG per tablet; Take 1tablet by mouth Daily. Dispense: 30 tablet; Refill: 2 4. Mixed hyperlipidemia Assessment & Plan: 05/21/2022 total cholesterol 299, triglycerides of 411, HDL 36, LDL 181.Previous 06/13/2020 total cholesterol 295, triglycerides 187, HDL 41, [id number], 07/07/2016 with total cholesterol 317, triglycerides 291, HDL 47, [id number]. Previous attempts at pravastatin, simvastatin and atorvastatin allcausing GI upset. Crestor 10 mg attempted 10/11/2020 with some GI upset butalso rash. Livalo was not covered by insurance although he might retry inthe future. Patient currently taking atorvastatin 40 mg twice weekly,with tolerable amount of mild GI upset. Also continue on Zetia 10 mgtablet daily. Caution stomach upset. Reinforced importance healthy diet,exercise and weight loss. Repeat cholesterol pending with blood work06/14/2023, management per results. 5. Right middle lobe pulmonary nodule Assessment & Plan: Noted incidentally on CT the chest 07/01/2018, a 5 mm noncalcified rightmiddle lobe nodule, followup 03/12/2019 revealing no change in 4 mm nodulein right middle lobe, 4 mm nodule in lingula, 3 mm nodule left upper lobe,4 mm nodule left upper lobe, all new. Low-dose CT of chest 1revealing stable right middle lobe nodule a 4 mm, and 4 mm semisolidnodule in the lingula, 5 mm semi-solid nodule in the left lower lobe, allwithout change compared to 2019. Subsequent follow-up at [facility] on 06/27/2022 with stable right middle lung nodule,recommend 12-month follow-up low-dose CT the chest which has beenscheduled as of 06/14/2023. Management per results. 6. Cigarette smoker Assessment & Plan: Long-standing smoker, at average about 1/2 pack/day for about 45 years.Currently 1/4-1/3 pack per day, patient understands cardiovascular,cancer, respiratory risks. Not ready to pursue cessation, advise if shechanges her mind. Orders: - CT Chest Low Dose Cancer Screening WO; Future 7. Class 2 obesity due to excess calories without serious comorbidity withbody mass index (BMI) of 35.0 to 35.9 in adult Assessment & Plan: BMI in the mid 30s range, reinforced importance of healthy diet, exerciseand weight loss to benefit multiple medical comorbidities. 8. Seasonal allergic rhinitis due to pollen Assessment & Plan: General benefit on regimen of Claritin, Flonase and Singulair, thoughtypical June seasonal triggers in spring where she is having somebreakthrough at this time. I discussed that neck step of treatment wouldbe for allergy evaluation but she declines desire to proceed at this time.Additionally recommend Olga pot, nasal flushing, saline spray. Advisedif not improving. 9. Vitamin D deficiency Assessment & Plan: 05/21/2022 vitamin D 25-hydroxy level 22.0, comparison 06/13/2020 at 26.4with lower limit of normal 30, 17.1 on 07/07/2016.the patient continues onvitamin D 2000 units daily, recheck with pending blood work. Orders: - Vitamin D,25-Hydroxy; Future - Vitamin D,25-Hydroxy 10. Folliculitis barbae Assessment & Plan: Some associated modest dandruff for which she is using Selsun Blue, butsome secondary folliculitis barbae. Good response to treatment 02/14/2023with mupirocin 2% ointment, resolved at this time. Advise anyrecurrence. Healthcare Maintenance: Counseling provided based on age appropriate USPSTF guidelines. BMI is >= 30 and <35. (Class 1 Obesity). The following options wereoffered after discussion;: weight loss educational material (shared inafter visit summary), exercise counseling/recommendations, and nutritioncounseling/recommendations Smoking Cessation: 3-10 mintues spent counseling Will try to cut down Ruthann Rosa voices understanding and acceptance of this advice and willcall back with any further questions or concerns. AVS with preventivehealthcare tips printed for patient. Follow Up: Return in about 3 months (around 09/14/2023) for Next scheduled follow up. Jd Santillan MD [facility] us Jd Santillan MD ECG ORDERABLES Final Result ECG documented in this encounter Visit Diagnoses Diagnosis Routine general medical examination at a health care facility- Primary Type 2 diabetes mellitus without complication, without long-term current use of insulin Essential hypertension Unspecified essential hypertension Mixed hyperlipidemia Right middle lobe pulmonary nodule Cigarette smoker Tobacco use disorder Class 2 obesity due to excess calories without serious comorbidity with body mass index (BMI) of 35.0 to 35.9 in adult Seasonal allergic rhinitis due to pollen Vitamin D deficiency Folliculitis barbae Dermatophytosis of scalp and streeter documented in this encounter Care Teams Former Hand Relationship Specialty Start Date End Date Jd Santillan MD [address] [place] [address] [place] [address] PCP - General Internal Medicine 05/18/22 documented as of this encounter
--- OUTSIDE RECORDS SUMMARY | 2024-03-14 14:21 | XMS_ITS | Encounter Summary ---
Author Organization [facility] Address [address] [place] [address] Care Team Providers Care Education General Manager Name Role Phone Dante Ramirez MD Primary Care Provider [phone] Reason for Visit * Reason Onset Date Comments Medication Problem 02/21/2023 Encounter Details Date Type Department Care Team (Late st Contact Info) Description 02/21/2023 Telephone [facility] [address] [place] [address] Dante Ramirez MD [address] [place] [address] Medication Problem Social History Tobacco Use Types Packs/Day Years [...] 01/06 Potentially Unsafe Housing Conditions Not on imtzi e 01/16/2023 Family and Community Support Answer [...] encounter Miscellaneous Notes * Telephone Encounter - Katty Laird MA - 02/22/2023 11:42 AM EST Relayed message to pt per dante. She said she's going to try doing what dante recommends first and ifno better she will come in. * Telephone Encounter - Dante Ramirez MD - 02/21/2023 4:53 PM EST There is a lot going on here, it may be a little hard to have this fully clarified easily with the response. It is notable that losartan/HCTZ is new, Zetia is new atorvastatin has been started again,and metformin is new. What might make the most sense is to hold the metformin and Zetia for the next week and see how she does, and add back 1 each week to see how she tolerates. Metformin would be most likely to cause diarrhea, not necessarily dizziness but that is difficult to determine. Ultimately if she has a lot more questions it might be benefit of her to just come in and have a visit regarding these concerns. Please advise any of her concerns. * Telephone Encounter - Leti Tadeo RegSched Rep - 02/21/2023 12:22 PM EST Caller: Rosa Ruthann Relationship: Self Best call back number: [phone] Which medication are you concerned about: losartan-hydrochlorothiazide (Hyzaar) 50-12.5 MG per tablet metFORMIN ER (GLUCOPHAGE-XR) 500 MG 24 hr tablet atorvastatin (LIPITOR) 40 MG tablet Who prescribed you this medication: DOCTOR DANTE RAMIREZ When did you start taking this medication: PRESCRIBED 02.13.23 What are your concerns: STATED THE METFORMIN MAKES HER FEEL DIZZY AFTER TAKING. STATED VOMITING AND DIARRHEA FROM THE LOSARTAN AND ATORVASTATIN. PATIENT STATED SHE IS NOT CERTAIN IF MAYBE SHE IS HAVING DIARRHEA AND VOMITING FROM THE METFORMIN TO, OR IF FROM TAKING ALL THREE TOGETHER. STATED SHE IS STILL TAKING THE MEDICATIONS. How long have you had these concerns: SINCE TAKING THE NEW PRESCRIPTIONS documented in this encounter Plan of Treatment Not on file documented as of this encounter Visit Diagnoses Not on filedocumented in this encounter Care Teams Education General Manager Relationship Specialty Start Date End Date Dante Ramirez MD [address] [place] [address] [place] [id number] PCP - General Internal Medicine 05/18/22 documented as of this encounter
--- OUTSIDE RECORDS SUMMARY | 2024-03-14 14:21 | XMS_ITS | Encounter Summary ---
Author Organization [facility] Address [address] [place] [address] Care Team Providers Care Financial Manager Name Role Phone Jd Santillan MD Primary Care Provider Reason for Visit * Reason Onset Date Comments GLUCOMETER ISSUES 06/27/2023 Encounter Details Date Type Department Care Team (Late st Contact Info) Description 06/27/2023 Telephone [facility] [address] [place] [address] Jd Santillan MD [address] [address] GLUCOMETER ISSUES Social History Tobacco Use Types Packs/Day Years [...] Telephone Encounter - Mandi Khanna MA - 06/27/2023 2:18 PM EDT I have sent in a new machine for her to pharmacy and left her a voicemail * Telephone Encounter - Chanda Garcia RegSched Rep - 06/27/2023 9:16 AM EDT Caller: Ruthann Lee Relationship: Self Best call back number: [phone] What is the best time to reach you: ANY TIME Who are you requesting to speak with (clinical staff, provider, specific staff member): NURSE Do you know the name of the person who called: SELF What was the call regarding: PATIENT STATES HER GLUCOMETER KEEPS GIVING HER ERROR MESSAGES AND WOULD LIKE TO SPEAK TO THE NURSE ABOUT IT. PLEASE ADVISE documented in this encounter Plan of Treatment Not on file documented as of this encounter Visit Diagnoses Not on filedocumented in this encounter Care Teams Financial Manager Relationship Specialty Start Date End Date Jd Santillan MD [address] [place] [address] [place] [address] PCP - General Internal Medicine 05/18/22 documented as of this encounter
--- OUTSIDE RECORDS SUMMARY | 2024-03-14 14:21 | XMS_ITS | Encounter Summary ---
Author Organization [facility] Address [address] [place] [address] Care Team Providers Care Hvac Mechanic Name Role Phone Jd Santillan MD Primary Care Provider [phone] Reason for Visit * Reason Onset Date Comments CALL BACK 07/30/2023 Encounter Details Date Type Department Care Team (Late st Contact Info) Description 07/30/2023 Telephone [facility] [address] [place] [address] Jd Santillan MD [address] [place] [address] CALL BACK Social History Tobacco Use Types Packs/Day Years [...] Telephone Encounter - Mandi Khanna MA - 07/30/2023 8:54 AM EDT Spoke to patient she is going to pharmacy to see what they can do if anything we will give a verbalif needed for a new machine. * Telephone Encounter - Cara Bearden RegSched Rep - 07/30/2023 8:33 AM EDT Caller: Ruthann Lee Relationship: Self Best call back number: [phone] What was the call regarding: PATIENT WOULD LIKE A CALL BACK REGARDING HAVING QUESTION'S ABOUT HER NEW GLUCOSE MONITOR STILL NOT WORKING documented in this encounter Plan of Treatment Not on file documented as of this encounter Visit Diagnoses Not on filedocumented in this encounter Care Teams Hvac Mechanic Relationship Specialty Start Date End Date Jd Santillan MD [address] [place] [address] [place], [place] [address] PCP - General Internal Medicine 05/18/22 documented as of this encounter
--- OUTSIDE RECORDS SUMMARY | 2024-03-14 14:21 | XMS_ITS | Encounter Summary ---
Author Organization [facility] Address [address] [place] [id number] Care Team Providers Care Chronometer Adjuster Name Role Phone Jd Santillan MD Primary Care Provider [phone] Encounter Details Date Type Department Care Team (Late st Contact Info) Description 05/28/2022 Telephone [facility] [address] [place] [address] Jd Santillan MD [address] [place] [address] Social History Tobacco Use Types Packs/Day [...] encounter Miscellaneous Notes * Telephone Encounter - Jd Santillan MD - 05/28/2022 1:24 PM EST Please see phone message regarding blood work results, that was accidentally signed before speakingwith the patient by phone. Main result of that lab work investigation was verified and she was having no symptoms of her urine, and the patient is agreeable to trying to increase the atorvastatin 40 mg to 3 times weekly from current once weekly to see if this can help her cholesterol further. In the future if we have troublewe could try also Livalo 2 mg daily which could be titrated upwards sometimes a side effect profile. Continue healthy diet, activity and benefits of even modest weight loss. documented in this encounter Plan of Treatment Not on file documented as of this encounter Visit Diagnoses Not on filedocumented in this encounter Care Teams Chronometer Adjuster Relationship Specialty Start Date End Date Jd Santillan MD [address] [place] [address] PCP - General Internal Medicine 05/18/22 documented as of this encounter
--- OUTSIDE RECORDS SUMMARY | 2024-03-14 14:21 | XMS_ITS | Encounter Summary ---
Author Organization [facility] Address [address] [place] [address] Care Team Providers Care Doughnut Glazier Name Role Phone Jd Santillan MD Primary Care Provider [phone] Reason for Visit * Reason Onset Date Comments Med Refill 02/21/2023 RECEIVED THE WRO NG TEST STRIPS Encounter Details Date Type Department Care Team (Late st Contact Info) Description 02/21/2023 Telephone [facility]IMARY [facility]ARE [address] [place] [address] Jd Santillan MD [address] [place] [address] [place] [address] Med Refill (RECEIVED THE WRONG TEST STRIPS ) Social History Tobacco Use Types Packs/Day Years [...] Encounter - Katty Laird MA - 02/22/2023 3:13 PM EST Called pharmacy and they informed me that they ordered her a new machine. She is going to pick it up Saturday. * Telephone Encounter - Leti Tadeo RegSched Rep - 02/21/2023 12:18 PM EST Caller: Ruthann Lee Relationship: Self Best call back number: [phone] Requested Prescriptions: ONE TOUCH ULTRA TWO TEST STRIPS Pharmacy where request should be sent: [facility] [phone] [facility] [phone] Last office visit with prescribing clinician: 02/13/2023 Last telemedicine visit with prescribing clinician: Visit date not found Next office visit with prescribing clinician: 05/16/2023 Additional details provided by patient: PATIENT STATED SHE RECEIVE THE WRONG TEST STRIPS. Does the patient have less than a 3 day supply: [x] Yes [] No Would you like a call back once the refill request has been completed: [x] Yes [] No If the office needs to give you a call back, can they leave a voicemail: [x] Yes [] No Lula Zarate Rep 02/21/23 12:21 EST documented in this encounter Plan of Treatment Not on file documented as of this encounter Visit Diagnoses Not on filedocumented in this encounter Care Teams Doughnut Glazier Relationship Specialty Start Date End Date Jd Santillan MD [address] [place] [address] PCP - General Internal Medicine 05/18/22 documented as of this encounter
--- OUTSIDE RECORDS SUMMARY | 2024-03-14 14:21 | XMS_ITS | Encounter Summary ---
Author Organization [facility] Address [address] [place] [address] Care Team Providers Care Export Coordinator Name Role Phone Jd Santillan MD Primary Care Provider [phone] Reason for Visit * Reason Onset Date Comments New Med Request 03/13/2023 Encounter Details Date Type Department Care Team (Late st Contact Info) Description 03/13/2023 Telephone [facility]IMARY [facility] [address] [place] [address] Jd Santillan MD [address] [place] [address] New Med Request Social History Tobacco Use Types Packs/Day Years [...] Telephone Encounter - Mandi Khanna MA - 03/13/2023 4:00 PM EST Spoke to patient in regards to using mucinex dm to help with the congestion drainage. * Telephone Encounter - Lorie Bah RegSched Rep - 03/13/2023 12:21 PM EST Caller: Ruthann Lee Relationship: Self Best call back number: [phone] What medication are you requesting: PROVIDER RECOMMENDATION What are your current symptoms: SINUS DRAINAGE, BLOOD IN MUCUS How long have you been experiencing symptoms: 1 WEEK Have you had these symptoms before: [x] Yes [] No Have you been treated for these symptoms before: [x] Yes [] No If a prescription is needed, what is your preferred pharmacy and phone number: [facility] - [place], [place] - [address] [facility] - [phone] [facility] [phone] Additional notes: PLEASE CALL PATIENT BACK, IF NO ANSWER LEAVE A DETAILED MESSAGE. documented in this encounter Plan of Treatment Not on file documented as of this encounter Visit Diagnoses Not on filedocumented in this encounter Care Teams Export Coordinator Relationship Specialty Start Date End Date Jd Santillan MD [address] [place] [address] PCP - General Internal Medicine 05/18/22 documented as of this encounter
--- OUTSIDE RECORDS SUMMARY | 2024-03-14 14:21 | XMS_ITS | Encounter Summary ---
Author Organization [facility] Address [address] [place] [address] Care Team Providers Care Card Clothier Name Role Phone Jd Santillan MD Primary Care Provider [phone] Reason for Visit * Reason Comments Med Refill Encounter Details Date Type Department Care Team (Late st Contact Info) Description 06/01/2023 Refill [facility] [address] [place] [address] Jd Santillan MD [address] [place] [id number] Social History Tobacco Use Types Packs/Day Years [...] on filedocumented in this encounter Care Teams Card Clothier Relationship Specialty Start Date End Date Jd Santillan MD [address] [place] [address] PCP - General Internal Medicine 05/18/22 documented as of this encounter
--- OUTSIDE RECORDS SUMMARY | 2024-03-14 14:21 | XMS_ITS | Encounter Summary ---
Author Organization [facility] Address [address] [place] [address] Care Team Providers Care Elocution Teacher Name Role Phone Jd Santillan MD Primary Care Provider [phone] Reason for Visit * Reason Comments Med Refill Encounter Details Date Type Department Care Team (Late st Contact Info) Description 09/05/2023 Refill [facility] [address] [place] [address] Jd Santillan MD [address] [place] [id number] Type 2 diabetes mellitus without complication, without [...] insulin documented in this encounter Care Teams Elocution Teacher Relationship Specialty Start Date End Date Jd Santillan MD [address] [place] [address] [place] [address] PCP - General Internal Medicine 05/18/22 documented as of this encounter
--- OUTSIDE RECORDS SUMMARY | 2024-03-14 14:21 | XMS_ITS | Encounter Summary ---
Author Organization [facility] Address [address] [place] [address] Care Team Providers Care Ux Specialist Name Role Phone Jd Santillan MD Primary Care Provider [phone] Reason for Visit * Reason Onset Date Comments Med Refill 02/15/2023 Encounter Details Date Type Department Care Team (Late st Contact Info) Description 02/15/2023 Refill [facility]IMARY [facility] [address] [place] [address] [place] [address] Jd Santillan MD [address] [place] [address] Social History Tobacco Use Types [...] Telephone Encounter - Mandi Khanna MA - 02/15/2023 3:29 PM EST Script sent in for sugar supplies documented in this encounter Plan of Treatment Not on file documented as of this encounter Visit Diagnoses Not on filedocumented in this encounter Care Teams Ux Specialist Relationship Specialty Start Date End Date Jd Santillan MD [address] [place] [address] PCP - General Internal Medicine 05/18/22 documented as of this encounter
--- OUTSIDE RECORDS SUMMARY | 2024-03-14 14:21 | XMS_ITS | Encounter Summary ---
Author Organization [facility] Address [address] [place] [address] Care Team Providers Care Optometric Technician Name Role Phone Jd Santillan MD Primary Care Provider [phone] Encounter Details Date Type Department Care Team (Late st Contact Info) Description 06/17/2023 Telephone [facility]IMARY [facility] [address] [place] [address] Jd Santillan MD [address] [place] [address] Social History Tobacco Use Types Packs/Day [...] Telephone Encounter - Mandi Khanna MA - 06/17/2023 12:57 PM EDT I have spoken to patient she is taking her meds on regular basis. No questions. documented in this encounter Plan of Treatment Not on file documented as of this encounter Visit Diagnoses Not on filedocumented in this encounter Care Teams Optometric Technician Relationship Specialty Start Date End Date Jd Santillan MD [address] [place] [address] PCP - General Internal Medicine 05/18/22 documented as of this encounter
--- OUTSIDE RECORDS SUMMARY | 2024-03-14 14:21 | XMS_ITS | Encounter Summary ---
Author Organization [facility] Address [address] [place] [address] Care Team Providers Care Sex Worker Or Escort Name Role Phone Jd Santillan MD Primary Care Provider [phone] Reason for Visit * Reason Comments Med Refill Encounter Details Date Type Department Care Team (Late st Contact Info) Description 05/29/2022 Refill [facility] [address] [place] [address] Jd Santillan MD [address] [place] [address] [place] [address] Social History Tobacco Use Types Packs/Day Years [...] on filedocumented in this encounter Care Teams Sex Worker Or Escort Relationship Specialty Start Date End Date Jd Santillan MD [address] [place] [address] [place] [address] PCP - General Internal Medicine 05/18/22 documented as of this encounter
--- OUTSIDE RECORDS SUMMARY | 2024-03-14 14:21 | XMS_ITS | Encounter Summary ---
Author Organization [facility] Address [address] [place] [address] Care Team Providers Care Commercial Development Manager Name Role Phone Marcos Tran MD Primary Care Provider [phone] Antonio Yepze MD Unavailable [phone] Encounter Details Date Type Department Care Team (Late st Contact Info) Description 11/12/2023 Orders Only External Location [address] [place] [address] Jonathan Seals, PHILL[address] [place] [address] Social History Tobacco Use Types Packs/Day Years [...] Procedure Name Priority Date/Time Associated Diagnosis Comments CT OUTSIDE IMAGES 11/12/2023 1:22 PM EDT documented in this encounter Results * CT OUTSIDE IMAGES (11/12/2023 1:22 PM EDT) Anatomical Region Laterality Modality Computed Tomogra phy 11/12/2023 1:22 PM EDT Jonathan FRAGA IMG CT PROCEDURES Final Resu lt documented in this encounter Visit Diagnoses Not on filedocumented in this encounter Care Teams Commercial Development Manager Relationship Specialty Start Date End Date Marcos Tran MD [address] [place] [address] PCP - General 02/05/24 Antonio Yepez MD [address] [address] Referring Physician 02/05/24 documented as of this encounter
--- OUTSIDE RECORDS SUMMARY | 2024-03-14 14:21 | XMS_ITS | Encounter Summary ---
Author Organization [facility] Address [address] [place] [address] Care Team Providers Care Stone Fabricator Name Role Phone Jd Santillan MD Primary Care Provider [phone] Encounter Details Date Type Department Care Team (Late st Contact Info) Description 08/23/2023 Telephone [facility]IMARY [facility]ARE [address] [place] [address] Jd Santillan MD [address] [place] [address] Social History Tobacco Use Types Packs/Day [...] Telephone Encounter - Mandi Khanna MA - 08/23/2023 10:06 AM EDT Spoke to patient she understood and is fine with rechecking next year. She did ask about anxiety meds due to taking care of her she will discuss at next visit. documented in this encounter Plan of Treatment Not on file documented as of this encounter Visit Diagnoses Not on filedocumented in this encounter Care Teams Stone Fabricator Relationship Specialty Start Date End Date Jd Santilaln MD [address] [place], [place] [address] PCP - General Internal Medicine 05/18/22 documented as of this encounter
--- OUTSIDE RECORDS SUMMARY | 2024-03-14 14:21 | XMS_ITS ---
Author Organization Unknown [facility]VERSE [facility]ACTIONS No information ASSESSMENT No information CHIEF COMPLAINT No information MEDICATIONS No information OBJECTIVE DATA No information PHYSICAL EXAMINATION No information TREATMENT PLAN Planned Care Start Date Provider Encounter for Check-up [id number] [facility] PROBLEMS No information RESULTS No information REVIEW OF SYSTEMS No information SUBJECTIVE DATA No information VITAL SIGNS No information
--- OUTSIDE RECORDS SUMMARY | 2024-03-14 14:21 | XMS_ITS | Encounter Summary ---
Author Organization [facility] Address [address] [place] [address] Care Team Providers Care Housefellow Name Role Phone Jd Santillan MD Primary Care Provider [phone] Reason for Visit * Reason Onset Date Comments Med Refill 03/19/2023 Encounter Details Date Type Department Care Team (Late st Contact Info) Description 03/19/2023 Telephone [facility] [address] [place] [address] Jd Santillan MD [address] [place] [address] Med Refill Social History Tobacco Use Types Packs/Day Years [...] Telephone Encounter - Mandi Khanna MA - 03/25/2023 9:13 AM EST I have not heard anything else from patient she said she would call back after talking to her pharmacy. We will wait on her call. * Telephone Encounter - Mandi Khanna MA - 03/21/2023 1:31 PM EST I have spoke to patient she states her insurance won't do mail order they told her to talk to her pharmacy she is doing this today . * Telephone Encounter - Jd Santillan MD - 03/19/2023 10:47 AM EST Ok, sounds good. * Telephone Encounter - Mandi Khanna MA - 03/19/2023 10:24 AM EST Patient would like mail order for her dm supplies however she doesn't know what the name is. She does use ultra 2 monitor could we send in a new machine as well. documented in this encounter Plan of Treatment Not on file documented as of this encounter Visit Diagnoses Not on filedocumented in this encounter Care Teams Housefellow Relationship Specialty Start Date End Date Jd Santillan MD [address] [place] [address] PCP - General Internal Medicine 05/18/22 documented as of this encounter
--- OUTSIDE RECORDS SUMMARY | 2024-03-14 14:21 | XMS_ITS | Encounter Summary ---
Author Organization [facility] Address [address] [place] [address] Care Team Providers Care Merchandise Buyer Name Role Phone Jd Santillan MD Primary Care Provider [phone] Reason for Visit * Reason Comments Med Refill Encounter Details Date Type Department Care Team (Late st Contact Info) Description 03/25/2023 Refill [facility]ARE [address] [place] [address] Jd Santillan MD [address] [place] [id number] Social History Tobacco Use Types Packs/Day Years [...] encounter Miscellaneous Notes * Telephone Encounter - Luciana Coles RegSched Rep - 03/25/2023 12:34 PM EST PATIENT WOULD LIKE A NEYDA BACK TO DISCUSS TEST STRIPS. PHARMACY IS SAYING IT TO SOON TO REFILL,. * Telephone Encounter - Mandi Khanna MA - 03/25/2023 9:15 AM EST Patient is testing bid however insurance may not cover documented in this encounter Plan of Treatment Not on file documented as of this encounter Visit Diagnoses Not on filedocumented in this encounter Care Teams Merchandise Buyer Relationship Specialty Start Date End Date [place] [address] PCP - General Internal Medicine 05/18/22 documented as of this encounter
--- OUTSIDE RECORDS SUMMARY | 2024-03-14 14:21 | XMS_ITS | Encounter Summary ---
Author Organization [facility] Address [address] [place] [address] Care Team Providers Care Janitor Custodian Name Role Phone Jd Santillan MD Primary Care Provider [phone] Reason for Visit * Reason Comments Med Refill Encounter Details Date Type Department Care Team (Late st Contact Info) Description 06/03/2023 Refill [facility] [address] [place] [address] Jd Santillan MD [address] [place] [id number] Type 2 diabetes mellitus without complication, without [...] insulin documented in this encounter Care Teams Janitor Custodian Relationship Specialty Start Date End Date Jd Santillan MD [address] [place] [address] [place] [address] PCP - General Internal Medicine 05/18/22 documented as of this encounter
--- OUTSIDE RECORDS SUMMARY | 2024-03-14 14:21 | XMS_ITS | Encounter Summary ---
Author Organization [facility] Address [address] [place] [address] Care Team Providers Care Harvest Manager Name Role Phone Jd Santillan MD Primary Care Provider [phone] Reason for Visit * Reason Comments Med Refill Encounter Details Date Type Department Care Team (Late st Contact Info) Description 04/15/2023 Refill [facility]IMARY [facility] [address] [place] [address] Jd Santillan MD [address] [place] [id number] Social History Tobacco Use Types Packs/Day Years [...] on filedocumented in this encounter Care Teams Harvest Manager Relationship Specialty Start Date End Date Jd Santillan MD [address] [place] [address] PCP - General Internal Medicine 05/18/22 documented as of this encounter
--- OUTSIDE RECORDS SUMMARY | 2024-03-14 14:21 | XMS_ITS | Encounter Summary ---
Author Organization [facility] Address [address] [place] [address] Care Team Providers Care Engineering Supplies Sales Name Role Phone Jd Santillan MD Primary Care Provider [phone] Reason for Visit * Reason Comments Med Refill Encounter Details Date Type Department Care Team (Late st Contact Info) Description 01/30/2023 Refill [facility]IMARY [facility] [address] [place] [address] Jd Santillan MD [address] [place] [id number] Social History Tobacco Use Types Packs/Day Years [...] Telephone Encounter - Mandi Khanna MA - 01/30/2023 1:09 PM EDT Spoke to patient in regards to follow up in next month. Will send in scripts documented in this encounter Plan of Treatment Not on file documented as of this encounter Visit Diagnoses Not on filedocumented in this encounter Care Teams Engineering Supplies Sales Relationship Specialty Start Date End Date Jd Santillan MD [address] [place] [address] [place] [address] PCP - General Internal Medicine 05/18/22 documented as of this encounter
--- OUTSIDE RECORDS SUMMARY | 2024-03-14 14:22 | XMS_ITS | Encounter Summary ---
Author Organization [place] [address] Care Team Providers Care Ampoule Inspector Name Role Phone Unavailable Primary Care Provider Unavailabl e Reason for Visit * Reason Onset Date Comments Central Patient Navigator Outreach 03/09/2022 Attributions Encounter Details Date Type Department Care Team (Late st Contact Info) Description 03/09/2022 Patient Outreach [facility] [address] [place], [place] [id number] Nonstaff, Referring Central Patient Navigator Outreach (Attributions) Social History Tobacco Use Types Packs/Day Years Used Date Smoking Tobacco: Never Assessed Comments Unknown Sex and Gender Information Value Date Recorded Sex Assigned at Not on file Legal Sex Female 10:27 AM EDT Gender Identity Not on file Sexual Orientation Not on file documented as of this encounter Progress Notes * Dianna Hdez - 03/09/2022 10:32 AM EST Patient Outreach: Care Gap Outreach Attempt Count: 1st Care Gaps Addressed international logistics manager: Annual Wellness Visit Outcome: Doesnt go to [facility]. Goes outside of [facility]. documented in this encounter Plan of Treatment Not on file documented as of this encounter Visit Diagnoses Not on filedocumented in this encounter
--- OUTSIDE RECORDS SUMMARY | 2024-03-14 14:22 | XMS_ITS | Referral Summary ---
Author Organization [facility] Address [address] [place] [address] Phone Care Team Providers Care Mold Stamper And Repairer Name Role Phone Unavailable Primary Care Provider Unavailabl e Active Problems Patient Care Coordination No te Formatting of this note migh t be different from the original. Care gap audit completed by Chanda Kam RN on 02/15/2022. No additional problems on file Social History Tobacco Use Types Packs/Day Years Used Date Smoking Tobacco: Never Assessed Comments Unknown Sex and Gender Information Value Date Recorded Sex Assigned at Not on file Legal Sex Female 10:27 AM EDT Gender Identity Not on file Sexual Orientation Not on file Plan of Treatment Not on file
--- OUTSIDE RECORDS SUMMARY | 2024-03-14 14:22 | XMS_ITS | Encounter Summary ---
Author Organization [facility] Address [address] [place] [id number] Care Team Providers Care Adventure Guide Name Role Phone Provider, No Known Primary Care Provider Unavail able Reason for Visit * Reason Comments Med Refill Encounter Details Date Type Department Care Team (Late st Contact Info) Description 01/27/2022 Refill [facility] [address] [place] [address] Jd Santillan MD [address] [place] [address] Social History Tobacco Use Types [...] on filedocumented in this encounter Care Teams Adventure Guide Relationship Specialty Start Date End Date Provider, [place] [address] PCP - General 12/28/16 05/17/22 documented as of this encounter
--- OUTSIDE RECORDS SUMMARY | 2024-03-14 14:22 | XMS_ITS | Encounter Summary ---
Author Organization [facility] Address [address] [place] [address] Care Team Providers Care Gas Technician Name Role Phone Provider, No Known Primary Care Provider Unavail able Reason for Visit * Reason Comments Med Refill Encounter Details Date Type Department Care Team (Late st Contact Info) Description 03/01/2017 Refill [facility] [address] [place] [address] Kiana Maxwell, ENGINEERING TECHNICIAN PARKING [address] [facility] [address] [place] [address] Social History Tobacco Use Types Packs/Day Years [...] on filedocumented in this encounter Care Teams Gas Technician Relationship Specialty Start Date End Date Provider, [place] [address] PCP - General 12/28/16 05/17/22 documented as of this encounter
--- OUTSIDE RECORDS SUMMARY | 2024-03-14 14:22 | XMS_ITS | Encounter Summary ---
Author Organization [facility] Address [address] [place] [address] Care Team Providers Care Equity Trader Name Role Phone Dante Ramirez MD Primary Care Provider [phone] Reason for Visit * Reason Comments Annual Exam Medicaid Encounter Details Date Type Department Care Team (Late st Contact Info) Description 05/21/2022 2:00 PM EST Office Visit [facility] [address] [place] [address] Dante Ramirez MD [address] [place] [address] Routine general medical examination at a health care facility (Primary Dx); Type 2 diabetes mellitus without complication, without long-term current use of insulin; Palpitation; Vitamin D deficiency; Follicular lesion of thyroid; Seasonal allergic rhinitis due to pollen; Cigarette smoker; Mixed hyperlipidemia; Class 2 obesity due to excess calories without serious comorbidity with body mass index (BMI) of 35.0 to 35.9 in adult; Right middle lobe pulmonary nodule Social History Tobacco Use Types Packs/Day Years [...] Sign Reading Time Taken Comments Blood Pressure 126/80 05/21/2022 2:33 PM EST Pulse 80 05/21/2022 2:03 PM EST Temperature 36.3 ??C (97.3 ??F) 05/21/2022 2:03 PM ES T Respiratory Rate 14 05/21/2022 2:03 PM EST Oxygen Saturation 99% 05/21/2022 2:03 PM EST Inhaled Oxygen Concentration - - Weight 80.4 kg (177 lb 2.8 oz) 05/21/2022 2:03 P M EST Height 149.9 cm (4' 11 ) 05/21/2022 2:03 PM EST Body Mass Index 35.79 05/21/2022 2:03 PM EST documented in this encounter Patient Instructions * Patient Instructions* Dante Ramirez MD - 05/21/2022 2:00 PM EST Health Maintenance, Female Adopting a healthy [...] past 15 years. Have at least a 10-vrym-ekwu history of smoking. A pack year is [...] 10/08/2011 Document Revised: 08/30/2016 Document Reviewed: 12/27/2015 [employer] Interactive Patient Education ?? 2018 Pik[employer]chart. documented in this encounter Progress Notes * Dante Ramirez MD - 05/21/2022 2:48 PM ESTAssociated Problem(s): Routine general medical examination at a health care facility Last blood work 06/13/2020, complete blood work [...] Dr. Ga. TDaP vaccine October [address] [facility]. Covid vaccine x3 up-to-date. * Dante Ramirez MD - 05/21/2022 2:48 PM ESTAssociated Problem(s): Palpitation Infrequent palpitation pattern, not associated chest pain or shortness of breath. EKG nonconcerning05/21/2022 with normal sinus rhythm, nonspecific T wave change completely unchanged compared to 10/11/2020. Nonconcerning pattern. No need to evaluate further * Dante Ramirez MD - 05/21/2022 2:48 PM ESTAssociated Problem(s): Right middle lobe pulmonary [...] the chest, scheduled at this time through [facility]. * Dante Ramirez MD - 05/21/2022 2:47 PM ESTAssociated Problem(s): Follicular lesion of thyroid Noted incidentally on CT the chest and cervical spine, with a 4.8 cm left thyroid mass with tracheal shift towards the right. 08/08/2018 TSH normal 0.88, free T4 normal 0.76, 08/08/2018 thyroid ultrasound showed dominant 4.9 cm left thyroid mass. Fine needle aspiration by Dr. Rome 11/13/2018 with atypical follicular lesion of undetermined significance, cleared from followup by Dr. Rome. * Dante Ramirez MD - 05/21/2022 2:47 PM ESTAssociated Problem(s): Vitamin D deficiency 06/13/2020 vitamin D 25-hydroxy level 26.4 with lower limit of normal 30, comparison 17.1 on 07/07/2016.patient has not been taking her vitamin D 1000 units daily, recheck pending. * Dante Ramirez MD - 05/21/2022 2:46 PM ESTAssociated Problem(s): Class 2 obesity due to excess calories without serious comorbidity with bodymass index (BMI) of 35.0 to 35.9 in adult Modest weight loss over the last 8 months, reinforced importance of healthy diet, exercise and evenmodest weight loss further. * Dante Ramirez MD - 05/21/2022 2:45 PM ESTAssociated Problem(s): Mixed hyperlipidemia 06/13/2020 total cholesterol 295, triglycerides 187, HDL 41, LDL 207. Comparison cholesterol 07/07/2016with total cholesterol 317, triglycerides 291, HDL 47, [...] effect profile regarding obesity, BMI in the 38range. Recommended healthy diet, exercise and weight loss loss. * Dante Ramirez MD - 05/21/2022 2:44 PM ESTAssociated Problem(s): Cigarette smoker Long-standing smoker, at average about 1/2 pack/day for about 45 years. Currently 1/4-1/3 pack per day, patient understands cardiovascular, cancer, respiratory risks. Not ready to pursue cessation, advise if she changes her mind. * Dante Ramirez MD - 05/21/2022 2:44 PM ESTAssociated Problem(s): Seasonal allergic rhinitis due to pollen Good response historically to Zyrtec, Flonase and Singulair, use as needed. Additional benefit saline spray, Olga pot, discuss. * Dante Ramirez MD - 05/21/2022 2:43 PM ESTAssociated Problem(s): Type 2 diabetes mellitus, without long-term current use of insulin Currently diet controlled. Diagnosis 06/13/2020 with hemoglobin A1c 6.8%. Hemoglobin A1c 6.6%, previous 6.5%, 6.4%, 6.5%. Nonfasting glucose 119. Continue diet control, no need to add a medicine at this time. Reinforced importance of healthy diet, exercise, ongoing weight loss. Infrequent monitoring of glucose at home, recommend checking more regularly. Check feet daily, eye check non- concerning April 2022, monitor yearly. * Dante Ramirez MD - 05/21/2022 2:00 PM ESTAddended by: DANTE RAMRIEZ on: 05/22/2022 08:21 AM Modules accepted: Orders * Mandi Khanna MA - 05/21/2022 2:00 PM EST .rbw * Katty Laird MA - 05/21/2022 2:00 PM EST Venipuncture Blood Specimen Collection Venipuncture performed in right arm by Katty Laird MA with good hemostasis. Patient tolerated the procedure well without complications. 05/21/22 Katty Laird MA * Dante Ramirez MD - 05/21/2022 2:00 PM ESTAssociated Order(s): ECG 12 Lead Post-Procedure Diagnose(s): Palpitation Images from the original note were not included. Female Physical Note Date: 05/21/2022 Patient Name: Ruthann Lee : 1960 Chief Complaint Patient presents with ??? Annual Exam Medicaid History of Present Illness: Ruthann Lee is a 61 y.o. female who is here today for their annual health maintenance and physical. regarding diabetic diagnosis from spring 2020, she continues to makeattempts at improvements in diet, exercise. She rarely checks her glucose measurements, but when she does it is in the low 100s. No polyuria or polydipsia. Allergies with benefit on Zyrtec, Flonase and Singulair as needed, some periodic breakthrough symptoms but not bothersome. She continues to smoke at decreased amount of just under 1/4 pack per day, discussions of pursuing cessation the past which is not quite ready to pursue at this time. Either way she does not desire medicines when she attempts. Previous left hip pain pattern continues to do well. Related to cholesterol pattern notable for some mild stomach cramps and constipation pattern when on pravastatin, stomach upset with simvastatin and atorvastatin, attempt Crestor from 10/11/2020 caused a little bit of stomach upset more of a rash, and little low not attempted, stating insurance did not cover it. Ultimately she feels the atorvastatin was most tolerated and as such we have tried atorvastatin 40 mg daily, even doing every other day but she is only doing once weekly. We discussed trying to do it 2-3 times weekly, and coadministered with fiber and probiotic. Regarding constipation pattern as needed use of MiraLax with benefit, infrequently used. Related to obesity pattern, she still is very similar to her diet which could have some improvements, but she is quite active throughout the day. Lower back pain pattern flare in December 2015, responded to conservative management that time and has not recurred. Related to vitamin D deficiency, she had been taking vitamin D previous but has not been recently. Regarding inci dentally noted pulmonary lesions, she has completed followup imaging as appropriate to [facility], including low-dose CT of the chest from 10/31/2020 revealing stable right middle lobenodule a 4 mm, and 4 mm semisolid nodule in the lingula, 5 mm semi-solid nodule in the left lower lobe, all without change compared to 2019. Regarding left thyroid mass, status post FNA from Dr. Rome November 2019, with patient reporting followup non-concerning. Subjective Review of Systems Past Medical History, Social History, Family History and Care Team were all reviewed with patient and updated as appropriate. Current Outpatient Medications: ??? albuterol (PROVENTIL HFA;VENTOLIN HFA) 108 (90 Base) MCG/ACT inhaler, Inhale 2 puffs Every 4 (Four) Hours As Needed for Wheezing or Shortness of Air., Disp: 1 inhaler, Rfl: 0 ??? atorvastatin (LIPITOR) 40 MG tablet, TAKE 1 TABLET BY MOUTH EVERY OTHER DAY, Disp: 45 tablet, Rfl: 1 ??? cetirizine (zyrTEC) 10 MG tablet, Take 1 tablet by mouth Daily., Disp: 30 tablet, Rfl: 5 ??? fluticasone (FLONASE) 50 MCG/ACT nasal spray, Use 1 to 2 sprays in each nostril once daily., Disp: 16 g, Rfl: 3 ??? loratadine (CLARITIN) 10 MG tablet, TAKE 1 TABLET BY MOUTH DAILY, Disp: 30 tablet, Rfl: 3 ??? montelukast (SINGULAIR) 10 MG tablet, TAKE 1 TABLET BY MOUTH DAILY, Disp: 30 tablet, Rfl: 3 Allergies Allergen Reactions ??? Penicillins Rash Health Maintenance Summary Overdue - ZOSTER VACCINE (1 of 2) Overdue - never done No completion, postpone, or frequency change history exists for this topic. Ordered - HEPATITIS C SCREENING (Once) Ordered on 05/21/2022 No completion, postpone, or frequency change history exists for this topic. Overdue - ANNUAL PHYSICAL (Yearly) Overdue - never done No completion, postpone, or frequency change history exists for this topic. Overdue - COVID-19 Vaccine (5 - Booster) Overdue since 11/03/2020 09/08/2020 Imm Admin: COVID-19 (UNSPECIFIED) 09/08/2020 Imm Admin: COVID-19 (MODERNA) 1st, 2nd, 3rd Dose Only 08/11/2020 Imm Admin: COVID-19 (UNSPECIFIED) 08/11/2020 Imm Admin: COVID-19 (MODERNA) 1st, 2nd, 3rd Dose Only Overdue - INFLUENZA VACCINE (Yearly - November to June) Overdue - never done No completion, postpone, or frequency change history exists for this topic. Ordered - LIPID PANEL (Yearly) Ordered on 05/21/2022 No completion, postpone, or frequency change history exists for this topic. MAMMOGRAM (Every 2 Years) Next due on 08/10/2023 08/09/2021 MAMMOGRAPHY PAP SMEAR (Every 3 Years) Next due on 12/07/2023 12/06/2020 Done - Pap smear normal by Dr. Cruz 12/06/2020. COLORECTAL CANCER SCREENING (COLONOSCOPY - Every 10 Years) Next due on 06/01/2030 06/01/2020 Colonoscopy TDAP/TD VACCINES (2 - Td or Tdap) Next due on 10/12/2030 10/12/2020 Imm Admin: Tdap Pneumococcal Vaccine 0-64 (Series Information) Aged Out No completion, postpone, or frequency change history exists for this topic. Immunization History Administered Date(s) Administered ??? COVID-19 (MODERNA) 1st, 2nd, 3rd Dose Only 08/11/2020, 09/08/2020 ??? COVID-19 (UNSPECIFIED) 08/11/2020, 09/08/2020 ??? Tdap 10/12/2020 Colorectal Screening: Last Completed Colonoscopy COLORECTAL CANCER SCREENING (COLONOSCOPY - Every 10 Years) Next due on 06/01/2030 06/01/2020 Colonoscopy Pap: Last Completed Pap Smear PAP SMEAR (Every 3 Years) Next due on 12/07/2023 12/06/2020 Done - Pap smear normal by Dr. Cruz 12/06/2020. Mammogram: Last Completed Mammogram MAMMOGRAM (Every 2 Years) Next due on 08/10/2023 08/09/[address] for Smoker (Age 50-80, 20 pk yr): Pending repeat Hep C (Age 18-79 once): Pending with blood work HIV (Age 15-65 once): Ending with blood work A1c: Hemoglobin A1C Date Value Ref Range Status 05/21/2022 6.6 % Final Lipid panel: No results found for: LIPIDEXCLUSI The ASCVD Risk score (Norma FERRIS, et al., 2019) failed to calculate for the following reasons: Cannot find a previous HDL lab Cannot find a previous total cholesterol lab Tobacco Use: High Risk ??? Smoking Tobacco Use: Every Day ??? Smokeless Tobacco Use: Never ??? Passive Exposure: Not on file Social History Substance and Sexual Activity Alcohol Use Defer Social History Substance and Sexual Activity Drug Use Defer Diet/Physical activity: Ongoing attempts to improve dietary intake and activity level with pursuit of weight loss Social History Substance and Sexual Activity Sexual Activity Defer No LMP recorded. Depression: PHQ-2 Depression Screening PHQ-9 Total Score: 0 Intimate partner violence: (Screen on initial visit, women, women with injuries, older adult with injury or evidence of neglect): ??? Violence can be a problem in many people's lives, so I now ask every patient about trauma or abuse they may have experienced in a relationship. ??? Stress/Safety - Do you feel safe in your relationship? Afraid/Abused - Have you ever been in a relationship where you were threatened, hurt, or afraid? Friend/Family - Are your friends aware you have been hurt? Emergency Plan - Do you have a safe place to go and the resources you need in an emergency? Osteoporosis: ? ? Ost menopausal women < 65 with RF (advancing age, previous fracture, glucocorticoid therapy,parental hip fracture, low body weight, current cigarette smoking, excessive alcohol consumption, rheumatoid arthritis, secondary osteoporosis [hypogonadism/premature menopause, malabsorption, chronic liver disease, IBD]). ??? All women 65 or older Objective Physical Exam: Vitals: 05/21/22 1403 05/21/22 1433 BP: 154/94 126/80 BP Location: Left arm Patient Position: Sitting Cuff Size: Adult Pulse: 80 Resp: 14 Temp: 97.3 ??F (36.3 ??C) TempSrc: Temporal SpO2: 99% Weight: 80.4 kg (177 lb 2.8 oz) Height: 149.9 cm (59 ) Body mass index is 35.79 kg/m??. Physical Exam Constitutional: General: She is [...] No oropharyngeal exudate or posterior oropharyngeal erythema. Eyes: Extraocular Movements: Extraocular movements intact. Conjunctiva/sclera: Conjunctivae normal. Pupils: Pupils are equal, round, and reactive to light. Neck: Vascular: No carotid bruit. Cardiovascular: Rate and Rhythm: Normal rate and regular rhythm. Pulses: Normal pulses. Dorsalis pedis pulses are 2+ on the right side and 2+ on the left side. Posterior tibial pulses are 2+ on the right side and 2+ on the left side. Heart sounds: Normal heart sounds. No murmur [...] or rebound. Hernia: No hernia is present. Musculoskeletal: Cervical back: Normal range of motion and neck supple. No tenderness. Right lower leg: No edema. Left lower leg: No edema. Comments: No C/T/L spinous process tenderness. Spine is straight. Feet: Right foot: Protective Sensation: 8 sites tested. 8 sites sensed. Skin integrity: Skin integrity normal. Toenail Condition: Right toenails are normal. Left foot: Protective Sensation: 8 sites tested. 8 sites sensed. Skin integrity: Skin integrity normal. Toenail Condition: Left toenails are normal. Lymphadenopathy: Cervical: No cervical adenopathy. Skin: General: Skin is warm and dry. Neurological: General: No focal deficit present. Mental Status: She is alert and oriented to person, place, and time. Mental status is at baseline. Psychiatric: Mood and Affect: Mood normal. Behavior: Behavior normal. Thought Content: Thought content normal. Judgment: Judgment normal. Diabetic Foot Exam Performed and Monofilament Test Performed ECG 12 Lead Date/Time: 05/21/2022 2:34 PM Performed by: Dante Ramirez MD Authorized by: Dante Ramirez MD Comparison: compared with previous ECG from 10/11/2020 Similar to previous ECG Rhythm: sinus rhythm Rate: normal Conduction: conduction normal QRS axis: normal Other: no other findings Other findings: non-specific ST-T wave changes Clinical impression: normal ECG Comments: Overall nonconcerning EKG with only nonspecific T wave changes which are unchanged compared to previous and is an isolated finding nonconcerning Assessment / Plan Assessment/Plan: Diagnoses and all orders for this visit: 1. Routine general medical examination at a health care facility (Primary) Assessment & Plan: Last blood work 06/13/2020, complete blood work [...] Dr. Ga. TDaP vaccine October [address] [facility]. Covid vaccine x3 up-to-date. Orders: - CT Chest Low Dose Follow Up Without Contrast; Future - CBC & Differential; Future - Comprehensive Metabolic Panel; Future - Urinalysis With Culture If Indicated - Urine, Clean Catch; Future - Lipid Panel; Future - TSH; Future - MicroAlbumin, Urine, Random - Urine, Clean Catch; Future - HIV-1 / O / 2 Ag / Antibody 4th Generation; Future - Hepatitis C Antibody; Future - Hepatitis C Antibody - HIV-1 / O / 2 Ag / Antibody 4th Generation - MicroAlbumin, Urine, Random - Urine, Clean Catch - TSH - Lipid Panel - Comprehensive Metabolic Panel - Urinalysis With Culture If Indicated - Urine, Clean Catch - CBC & Differential 2. Type 2 diabetes mellitus without complication, without long-term current use of insulin (HCC) Assessment & Plan: Currently diet controlled. Diagnosis 06/13/2020 with hemoglobin A1c 6.8%. Hemoglobin A1c 6.6%, previous 6.5%, 6.4%, 6.5%. Nonfasting glucose 119. Continue diet control, no need to add a medicine at this time. Reinforced importance of healthy diet, exercise, ongoing weight loss. Infrequent monitoring of glucose at home, recommend checking more regularly. Check feet daily, eye check non- concerning April 2022, monitor yearly. Orders: - POC Glycosylated Hemoglobin (Hb A1C) - POC Glucose 3. Palpitation Assessment & Plan: Infrequent palpitation pattern, not associated chest pain or shortness of breath. EKG nonconcerning05/21/2022 with normal sinus rhythm, nonspecific T wave change completely unchanged compared to 10/11/2020. Nonconcerning pattern. No need to evaluate further Orders: - ECG 12 Lead 4. Vitamin D deficiency Assessment & Plan: 06/13/2020 vitamin D 25-hydroxy level 26.4 with lower limit of normal 30, comparison 17.1 on 07/07/2016.patient has not been taking her vitamin D 1000 units daily, recheck pending. Orders: - Vitamin D,25-Hydroxy; Future - Vitamin D,25-Hydroxy 5. Follicular lesion of thyroid Assessment & Plan: Noted incidentally on CT the chest and cervical spine, with a 4.8 cm left thyroid mass with tracheal shift towards the right. 08/08/2018 TSH normal 0.88, free T4 normal 0.76, 08/08/2018 thyroid ultrasound showed dominant 4.9 cm left thyroid mass. Fine needle aspiration by Dr. Rome 11/13/2018 with atypical follicular lesion of undetermined significance, cleared from followup by Dr. Rome. 6. Seasonal allergic rhinitis due to pollen Assessment & Plan: Good response historically to Zyrtec, Flonase and Singulair, use as needed. Additional benefit saline spray, Toney pot, discuss. 7. Cigarette smoker Assessment & Plan: Long-standing smoker, at average about 1/2 pack/day for about 45 years. Currently 1/4-1/3 pack per day, patient understands cardiovascular, cancer, respiratory risks. Not ready to pursue cessation, advise if she changes her mind. 8. Mixed hyperlipidemia Assessment & Plan: 06/13/2020 total cholesterol 295, triglycerides 187, HDL 41, LDL 207. Comparison cholesterol 07/07/2016with total cholesterol 317, triglycerides 291, HDL 47, [...] effect profile regarding obesity, BMI in the 38range. Recommended healthy diet, exercise and weight loss loss. 9. Class 2 obesity due to excess calories without serious comorbidity with body mass index (BMI) of35.0 to 35.9 in adult Assessment & Plan: Modest weight loss over the last 8 months, reinforced importance of healthy diet, exercise and evenmodest weight loss further. 10. Right middle lobe pulmonary nodule Assessment & [...] the chest, scheduled at this time through [facility]. Healthcare Maintenance: Counseling provided based on age appropriate USPSTF guidelines. Class 2 Severe Obesity (BMI >=35 and <=39.9). Obesity-related health conditions include the following: diabetes mellitus and dyslipidemias. Obesity is unchanged. BMI is is above average; BMI management plan is completed. We discussed low calorie, low carb based diet program, portion control and increasing exercise. Smoking Cessation: 3-10 mintues spent counseling Not agreeable to stopping Ruthann Rosa voices understanding and acceptance of this advice and will call back with any further questions or concerns. AVS with preventive healthcare tips printed for patient. Follow Up: Return in about 6 months (around 11/18/2022) for Next scheduled follow up. Dante Ramirez MD [facility] documented in this encounter Plan of Treatment Not on file documented as of this encounter Procedures Procedure Name Priority Date/Time Associated Diagnosis Comments CONV URINE CULTURE, COMPREHENSIVE Routine 05/21/2022 2:41 PM EST ~MICROSCOPIC EXAMINATION Routine 05/21/2022 2:41 PM EST URINALYSIS W/ CULTURE IF INDICATED Routine 05/21/2022 2:41 PM EST Routine general medical examination at a [facility] care facility HIV-1/O/2 ANTIGEN/ANTIBODY Routine 05/21/2022 2:41 PM EST Routine general medical examination at a [facility] care facility HEPATITIS C ANTIBODY Routine 05/21/2022 2:41 PM EST Routine general medical examination at a [facility] care facility MICROALBUMIN, URINE, RANDOM Routine 05/21/2022 2:41 PM EST Routine general medical examination at a [facility] facility VITAMIN D,25-HYDROXY Routine 05/21/2022 2:41 PM EST Vitamin D deficiency CBC AND DIFFERENTIAL Routine 05/21/2022 2:41 PM EST Routine general medical examination at a [facility] care facility TSH Routine 05/21/2022 2:41 PM EST Routine general medical examination at a [facility] care facility LIPID PANEL Routine 05/21/2022 2:41 PM EST Routine general medical examination at a [facility] care facility COMPREHENSIVE METABOLIC PANEL Routine 05/21/2022 2:41 PM EST Routine general medical examination at a [facility] care facility ECG 12-LEAD Routine 05/21/2022 2:34 PM EST Palpitation POCT GLYCOSYLATED HEMOGLOBIN (HGB A1C) Routine 05/21/2022 2:23 PM EST Type 2 diabetes mellitus without complication, without long-term current use of insulin POCT GLUCOSE FINGERSTICK Routine 05/21/2022 2:07 PM EST Type 2 diabetes mellitus without complication, without long-term current use of insulin documented in this encounter Results * (ABNORMAL) Urine culture, Comprehensive - , (05/21/2022 2:41 PM EST) Urine Culture Final report(A) [facility] Result 1 Comment(A) [facility] Comment: Escherichia coli, identified by an automated biochemical system. 1,000 Colonies/mL Cefazolin <=4 ug/mL Cefazolin with an MIGNON <=16 predicts susceptibility to the oral agents cefaclor, cefdinir, cefpodoxime, cefprozil, cefuroxime, cephalexin, and loracarbef when used for therapy of uncomplicated urinary tract infections due to E. coli, Klebsiella pneumoniae, and Proteus mirabilis. Result 2 Enterococcus faecalis(A) [facility] Comment: For Enterococcus species, aminoglycosides (except for high-level resistance screening), cephalosporins, clindamycin, and trimethoprim-sulfamethoxazole are not effective clinically. (CLSI, [id number], 2016) 10,000-25,000 colony forming units per mL Note: this isolate is vancomycin-susceptible. This information is provided for epidemiologic purposes only: vancomycin is not among the antibiotics recommended for therapy of urinary tract infections caused by Enterococcus. Susceptibility Testing Comment [facility] Comment: ? S = Susceptible; I = Intermediate; R = Resistant ? P = Positive; N = Negative ?MICS are expressed in micrograms per mL ?? Antibiotic ? RSLT#1 ?RSLT#2 ?RSLT#3 ?RSLT#4 Amoxicillin/Clavulanic Acid ?S Ampicillin ? S Cefepime ? S Ceftriaxone ?S Cefuroxime ? S Ciprofloxacin ?S ? S Ertapenem ?S Gentamicin ? S Imipenem ? S Levofloxacin ? S ? S Meropenem ?S Nitrofurantoin ? S ? S Penicillin ? S Piperacillin/Tazobactam ?S Tetracycline ? S ? R Tobramycin ? S Trimethoprim/Sulfa ? R Vancomycin ? S 05/21/2022 2:41 PM EST 05/21/2022 Comment:Urine Release to pat i Narrative [facility] - 05/25/2022 8:08 AM EST Performed at: ??01 - [facility] [address] [place] [place], [place] ??[id number] Motor Route Carrier: Justino Duron PhD, Phone: ??[phone] us Dante Ramirez MD MICROBIOLOGY - GENERAL ORDERABLE S Final Result [facility] (AMBULATORY) [address] [place] [address], [facility] [address] [place] [address], [place] [phone] * Microscopic Examination - (05/21/2022 2:41 PM EST) WBC, UA 0-5 0 - 5 /hpf [facility] RBC, UA None seen 0 - 2 /hpf [facility] Epithelial Cells (non renal) 0-10 0 - 10 /hpf [facility] Casts None seen None seen /lpf [facility] Bacteria, UA None seen None seen/Few [facility] 05/21/2022 2:41 PM EST 05/21/2022 Comment:Urine Release to mimi Shrestha [facility] (AMBULATORY) - 05/25/2022 8:08 AM EST Performed at: ??01 - [facility] [address] [place], [place] ??[id number] Motor Route Carrier: Justino Duron PhD, Phone: ??[phone] Dante Ramirez MD URINE ORDERABLES Final Result [facility] (AMBULATORY) [address] [place] [address], [facility] [address] [place] [address], * (ABNORMAL) Vitamin D,25-Hydroxy (05/21/2022 2:41 PM EST) 25 Hydroxy, Vitamin D 22.2(L) 30.0 - 100.0 ng/mL [facility] Comment: Vitamin D deficiency has been defined by the [place] of Medicine and an Endocrine Society practice guideline as a level of serum 25-OH vitamin D less than 20 ng/mL (1,2). The Endocrine Society went on to further define vitamin D insufficiency as a level between 21 and 29 ng/mL (2). 1. IOM ([place] of Medicine). 2010. Dietary reference ?? intakes for calcium and D. [place]: The ?? National [employer]. 2. Chris MF, Meron NC, Darrius GAYTAN, et al. ?? Evaluation, treatment, and prevention of vitamin D ?? deficiency: an Endocrine Society clinical practice ?? guideline. JCEM. 2010; 96(4):1911-30. Blood Structure of right upper limb / Unknown 05/21/2022 2:41 PM EST 05/21/2022 Comment:Blood Release to [facility] - 05/22/2022 11:07 AM EST Performed at: ??01 - [facility] [address] [place] [address] ??[id number] Motor Route Carrier: Justino Duron PhD, Phone: ??[phone] us Dante Ramirez MD LAB BLOOD ORDERABLES Final Resul t Performing Organization Address City/[facility]/ZIP Co de Phone Number [facility] [address] [place] [address], [place] [phone] [facility] [address] [place] [address], [place] [phone] * Hepatitis C Antibody (05/21/2022 2:41 PM [...] 2:41 PM EST 05/21/2022 Comment:[facility] - 05/22/2022 11:07 AM EST Performed at: ??01 - [facility] [address] [place] [address] ??[id number] Motor Route Carrier: Justino Duron PhD, Phone: ??[phone] us Dante Ramirez MD LAB BLOOD ORDERABLES Final Resul t Performing Organization Address City/[facility]/ZIP Co de Phone Number [facility] [address] [place] [address], [place] [phone] [facility] [address] [place] [address], [place] [phone] * HIV-1 / O / 2 Ag / Antibody 4th Generation (05/21/2022 2:41 PM EST) HIV Screen 4th Gen w/RFX (Reference) Non Reactive Non Reactive [facility] Comment: HIV Negative HIV-1/HIV-2 antibodies and HIV-1 p24 antigen were NOT detected. There is no laboratory evidence of HIV infection. Blood Structure of right upper limb / Unknown 05/21/2022 2:41 PM EST 05/21/2022 Comment:Blood Release to [facility] (AMBULATORY) - 05/22/2022 11:07 AM EST Performed at: ??01 - [address] ??[id number] Motor Route Carrier: Justino Duron PhD, Phone: ??[phone] us Dante Ramirez MD LAB BLOOD ORDERABLES Final Resul t Performing Organization Address [facility] Co de Phone Number [facility] (AMBULATORY) [address] [place] [address], [place] [phone] [facility] [address] [place] [address], [place] [phone] * MicroAlbumin, Urine, Random - Urine, Clean Catch (05/21/2022 2:41 PM EST) Microalbumin, Urine 8.0 Not Estab. ug/mL [facility] Urine Urine specimen obtained by clean catch procedure / Unknown 05/21/2022 2:41 PM EST 05/21/2022 Comment:Urine Release to [facility] (AMBULATORY) - 05/25/2022 8:08 AM EST Performed at: ?? - [address] ??[id number] Motor Route Carrier: Justino Duron PhD, Phone: ??[phone] us Dante Ramirez MD URINE ORDERABLES Final Result Performing Organization Address [facility] Co de Phone Number [facility] (AMBULATORY) [address] [place] [address], [place] [phone] [facility] [address] [place] [address], [place] [phone] * TSH (05/21/2022 2:41 PM EST) Pathologist [facility] TSH 1.020 0.450 - 4.500 uIU/mL [facility] Blood Structure of right upper limb / Unknown 05/21/2022 2:41 PM EST 05/21/2022 Comment:Blood Release to [facility] (AMBULATORY) - 05/22/2022 11:07 AM EST Performed at: ??01 - [address] ??[id number] Motor Route Carrier: Justino Duron PhD, Phone: ??[phone] Dante Ramirez MD LAB BLOOD ORDERABLES Final Resul t [facility] [address] [place] [address], [place] [phone] [facility] [address] [place] [address], [place] [phone] * (ABNORMAL) Lipid Panel (05/21/2022 2:41 PM EST) Pathologist [facility] Total Cholesterol 299(H) 100 - 199 mg/dL [facility] Triglycerides 411(H) 0 - 149 mg/dL [facility] HDL Cholesterol 36(L) >39 mg/dL [facility] VLDL Cholesterol Cornelio 82(H) 5 - 40 mg/dL [facility] LDL Chol Calc (NIH) 181(H) 0 - 99 mg/dL [facility] Blood Structure of right upper limb / Unknown 05/21/2022 2:41 PM EST 05/21/2022 Comment:Blood Release to [facility] - 05/22/2022 11:07 AM EST Performed at: ?? - [address] ??[id number] Motor Route Carrier: Justino Duron PhD, Phone: ??[phone] Dante Ramirez MD LAB BLOOD ORDERABLES Final Resul t Performing Organization Address City/[facility]/ZIP Co de Phone Number [facility] [address] [place] [address], [place] [phone] [facility] [address] [place] [address], [place] [phone] * (ABNORMAL) Urinalysis With Culture If Indicated - Urine, Clean Catch (05/21/2022 2:41 PM EST) Specific [place], UA 1.020 1.005 - 1.030 [facility] pH, UA 6.0 5.0 - 7.5 [facility] Color, UA Yellow Yellow [facility] Appearance, UA Clear Clear [facility] Leukocytes, UA 1+(A) Negative [facility] Protein Negative Negative/Tra ce [facility] Glucose, UA Negative Negative [facility] Ketones Negative Negative [facility] Blood, UA Negative Negative [facility] Bilirubin, UA Negative Negative [facility] Urobilinogen, UA 0.2 0.2 - 1.0 mg/dL [facility] Nitrite, UA Negative Negative [facility] Microscopic Examination See below: [facility] Comment:Microscopic was mary carmen cated and was performed. Urinalysis Reflex Comment [facility] Comment:This specimen has re flexed to a Urine Culture. Urine Urine specimen obtained by clean catch procedure / Unknown 05/21/2022 2:41 PM EST 05/21/2022 Comment:Urine Release to [facility] kvng Shrestha [facility] (AMBULATORY) - 05/25/2022 8:08 AM EST Performed at: ??01 - [facility] ??[id number] Motor Route Carrier: Justino Duron PhD, Phone: ??[phone] us Dante Ramirez MD URINE ORDERABLES Final Result Performing Organization Address City/[facility]/ZIP Co de Phone Number [facility] [address] [place] [address], [place] [phone] [facility] [address] [place] [address] * (ABNORMAL) Comprehensive Metabolic Panel (05/21/2022 2:41 PM EST) Glucose CANCELED mg/dL [facility] Comment: Test not performed. ??Serum was in contact with cells when received which will make the result inaccurate. Result canceled by the ancillary. BUN 21 8 - 27 mg/dL [facility] Creatinine 0.66 0.57 - 1.00 mg/dL [facility] EGFR Result 99 >59 mL/min/1.7 3 [facility] BUN/Creatinine Ratio 32(H) 12 - 28 [facility] Sodium 138 134 - 144 mmol/L [facility] Potassium CANCELED mmol/L [facility] Comment: Test not performed. ??Serum was in contact with cells when received which will make the result inaccurate. Result canceled by the ancillary. Chloride 100 96 - 106 mmol/L [facility] Total CO2 19(L) 20 - 29 mmol/L [facility] Calcium 9.8 8.7 - 10.3 mg/dL [facility] Total Protein 7.5 6.0 - 8.5 g/dL [facility] Albumin 4.5 3.8 - 4.8 g/dL [facility] Globulin 3.0 1.5 - 4.5 g/dL [facility] A/G Ratio 1.5 1.2 - 2.2 [facility] Total Bilirubin 0.2 0.0 - 1.2 mg/dL [facility] Alkaline Phosphatase 93 44 - 121 IU/L [facility] AST (SGOT) 18 0 - 40 IU/L [facility] ALT (SGPT) 23 0 - 32 IU/L [facility] Blood Structure of right upper limb / Unknown 05/21/2022 2:41 PM EST 05/21/2022 Comment:Blood Release to mimi Shrestha [facility] ([facility]) - 05/22/2022 11:07 AM EST Performed at: ??01 - [facility], [place], [place] ??[id number] Motor Route Carrier: Justino Duron PhD, Phone: ??[phone] us Dante Ramirez MD LAB BLOOD ORDERABLES Edited Resu lt - Final [facility] ([facility]) [address] [place] [address], [place] [phone] [facility] [address] [place] [address], [place] [phone] * CBC & Differential (05/21/2022 2:41 PM EST) WBC 7.1 3.4 - 10.8 x10E3/uL [facility] RBC 4.73 3.77 - 5.28 x10E6/uL [facility] Hemoglobin 14.2 11.1 - 15.9 g/dL [facility] Hematocrit 41.4 34.0 - 46.6 % [facility] MCV 88 79 - 97 fL [facility] MCH 30.0 26.6 - 33.0 pg [facility] MCHC 34.3 31.5 - 35.7 g/dL [facility] RDW 13.4 11.7 - 15.4 % [facility] Platelets 199 150 - 450 x10E3/uL [facility] Neutrophil Rel % 66 Not Estab. % [facility] Lymphocyte Rel % 28 Not Estab. % [facility] Monocyte Rel % 6 Not Estab. % [facility] Eosinophil Rel % 0 Not Estab. % [facility] Basophil Rel % 0 Not Estab. % [facility] Neutrophils Absolute 4.6 1.4 - 7.0 x10E3/uL [facility] Lymphocytes Absolute 2.0 0.7 - 3.1 x10E3/uL [facility] Monocytes Absolute 0.4 0.1 - 0.9 x10E3/uL [facility] Eosinophils Absolute 0.0 0.0 - 0.4 x10E3/uL [facility] Basophils Absolute 0.0 0.0 - 0.2 x10E3/uL [facility] Immature Granulocyte Rel % 0 Not Estab. % [facility] Immature Grans Absolute 0.0 0.0 - 0.1 x10E3/uL [facility] Blood Structure of right upper limb / Unknown 05/21/2022 2:41 PM EST 05/21/2022 Comment:Blood Release to pat i Narrative [facility] (AMBULATORY) - 05/22/2022 11:07 AM EST Performed at: ??01 - [facility] [address] [facility], [place], [place] ??[id number] Motor Route Carrier: Justino Duron PhD, Phone: ??[phone] Dante Ramirez MD LAB BLOOD ORDERABLES Final Resul t [facility] (AMBULATORY) [address] [place] [address], [facility] [address] [place] [address], * ECG 12-LEAD (05/21/2022 2:34 PM EST) Narrative ECG - 05/21/2022 2:34 PM EST Dante Ramirez MD ? 05/21/2022 ??4:08 PM ECG 12 Lead Date/Time: 05/21/2022 2:34 PM Performed by: Dante Ramirez MD Authorized by: Dante Ramirez MD Comparison: compared with previous ECG from 10/11/2020 Similar to previous ECG Rhythm: sinus rhythm Rate: normal Conduction: conduction normal QRS axis: normal Other: no other findings Other findings: non-specific ST-T wave changes Clinical impression: normal ECG Comments: Overall nonconcerning EKG with only nonspecific T wave changes which are unchanged compared to previous and is an isolated finding nonconcerning Procedure Note Dante Ramirez MD - 05/21/2022 2:00 PM EST Images from the original note were not included. Female Physical Note Date: 05/21/2022 Patient Name: Ruthann Lee : 1960 Chief Complaint Patient presents with ? ? Annual Exam Medicaid History of Present Illness: Ruthann Lee is a 61 y.o. female who is heretoday for their annual health maintenance and physical. regarding diabeticdiagnosis from spring 2020, she continues to make attempts at improvementsin diet, exercise. She rarely checks her glucose measurements, but whenshe does it is in the low 100s. No polyuria or polydipsia. Allergieswith benefit on Zyrtec, Flonase and Singulair as needed, some periodicbreakthrough symptoms but not bothersome. She continues to smoke atdecreased amount of just under 1/4 pack per day, discussions of pursuingcessation the past which is not quite ready to pursue at this time.Either way she does not desire medicines when she attempts. Previous lefthip pain pattern continues to do well. Related to cholesterol patternnotable for some mild stomach cramps and constipation pattern when onpravastatin, stomach upset with simvastatin and atorvastatin, attemptCrestor from 10/11/2020 caused a little bit of stomach upset more of a rash,and little low not attempted, stating insurance did not cover it.Ultimately she feels the atorvastatin was most tolerated and as such wehave tried atorvastatin 40 mg daily, even doing every other day but she isonly doing once weekly. We discussed trying to do it 2-3 times weekly,and coadministered with fiber and probiotic. Regarding constipationpattern as needed use of MiraLax with benefit, infrequently used. Relatedto obesity pattern, she still is very similar to her diet which could havesome improvements, but she is quite active throughout the day. Lower backpain pattern flare in December 2015, responded to conservative managementthat time and has not recurred. Related to vitamin D deficiency, she hadbeen taking vitamin D previous but has not been recently. Regardingincidentally noted pulmonary lesions, she has completed [facility] revealing stable right middle lobe nodule a 4 mm, and4 mm semisolid nodule in the lingula, 5 mm semi-solid nodule in the leftlower lobe, all without change compared to 2019. Regarding left thyroidmass, status post FNA from Dr. [place] November 2019, with patient reportingfollowup non-concerning. Subjective Review of Systems Past Medical History, Social History, Family History and Care Team wereall reviewed with patient and updated as appropriate. Current Outpatient Medications: ? ? albuterol (PROVENTIL HFA;VENTOLIN HFA) 108 (90 Base) MCG/ACT inhaler,Inhale 2 puffs Every 4 (Four) Hours As Needed for Wheezing or Shortness ofAir., Disp: 1 inhaler, Rfl: 0 ? ? atorvastatin (LIPITOR) 40 MG tablet, TAKE 1 TABLET BY MOUTH EVERY OTHERDAY, Disp: 45 tablet, Rfl: 1 ? ? cetirizine (zyrTEC) 10 MG tablet, Take 1 tablet by mouth Daily., Disp:30 tablet, Rfl: 5 ? ? fluticasone (FLONASE) 50 MCG/ACT nasal spray, Use 1 to 2 sprays in eachnostril once daily., Disp: 16 g, Rfl: 3 ? ? loratadine (CLARITIN) 10 MG tablet, TAKE 1 TABLET BY MOUTH DAILY, Disp:30 tablet, Rfl: 3 ? ? montelukast (SINGULAIR) 10 MG tablet, TAKE 1 TABLET BY MOUTH DAILY,Disp: 30 tablet, Rfl: 3 Allergies Allergen Reactions ? ? Penicillins Rash Health Maintenance Summary Overdue - ZOSTER VACCINE (1 of 2) Overdue - never done No completion, postpone, or frequency change history exists for thistopic. Ordered - HEPATITIS C SCREENING (Once) Ordered on 05/21/2022 No completion, postpone, or frequency change history exists for thistopic. Overdue - ANNUAL PHYSICAL (Yearly) Overdue - never done No completion, postpone, or frequency change history exists for thistopic. Overdue - COVID-19 Vaccine (5 - Booster) Overdue since 11/03/2020 09/08/2020 Imm Admin: COVID-19 (UNSPECIFIED) 09/08/2020 Imm Admin: COVID-19 (MODERNA) 1st, 2nd, 3rd Dose Only 08/11/2020 Imm Admin: COVID-19 (UNSPECIFIED) 08/11/2020 Imm Admin: COVID-19 (MODERNA) 1st, 2nd, 3rd Dose Only Overdue - INFLUENZA VACCINE (Yearly - November to June) Overdue - neverdone No completion, postpone, or frequency change history exists for thistopic. Ordered - LIPID PANEL (Yearly) Ordered on 05/21/2022 No completion, postpone, or frequency change history exists for thistopic. MAMMOGRAM (Every 2 Years) Next due on 08/10/2023 08/09/2021 MAMMOGRAPHY PAP SMEAR (Every 3 Years) Next due on 12/07/2023 12/06/2020 Done - Pap smear normal by Dr. Cruz 12/06/2020. COLORECTAL CANCER SCREENING (COLONOSCOPY - Every 10 Years) Next due on06/01/2030 06/01/2020 Colonoscopy TDAP/TD VACCINES (2 - Td or Tdap) Next due on 10/12/2030 10/12/2020 Imm Admin: Tdap Pneumococcal Vaccine 0-64 (Series Information) Aged Out No completion, postpone, or frequency change history exists for thistopic. Immunization History Administered Date(s) Administered ? ? COVID-19 (MODERNA) 1st, 2nd, 3rd Dose Only 08/11/2020, 09/08/2020 ? ? COVID-19 (UNSPECIFIED) 08/11/2020, 09/08/2020 ? ? Tdap 10/12/2020 Colorectal Screening: Last Completed Colonoscopy COLORECTAL CANCER SCREENING (COLONOSCOPY - Every 10 Years) Next due on06/01/2030 06/01/2020 Colonoscopy Pap: Last Completed Pap Smear PAP SMEAR (Every 3 Years) Next due on 12/07/2023 12/06/2020 Done - Pap smear normal by Dr. Cruz 12/06/2020. Mammogram: Last Completed Mammogram MAMMOGRAM (Every 2 Years) Next due on 08/10/2023 08/09/[address] for Smoker (Age 50-80, 20 pk yr): Pending repeat Hep C (Age 18-79 once): Pending with blood work HIV (Age 15-65 once): Ending with blood work A1c: Hemoglobin A1C Date Value Ref Range Status 05/21/2022 6.6 % Final Lipid panel: No results found for: LIPIDEXCLUSI The ASCVD Risk score (Norma DK, et al., 2019) failed to calculate for thefollowing reasons: Cannot find a previous HDL lab Cannot find a previous total cholesterol lab Tobacco Use: High Risk ? ? Smoking Tobacco Use: Every Day ? ? Smokeless Tobacco Use: Never ? ? Passive Exposure: Not on file Social History Substance and Sexual Activity Alcohol Use Defer Social History Substance and Sexual Activity Drug Use Defer Diet/Physical activity: Ongoing attempts to improve dietary intake andactivity level with pursuit of weight loss Social History Substance and Sexual Activity Sexual Activity Defer No LMP recorded. Depression: PHQ-2 Depression Screening PHQ-9 Total Score: 0 Intimate partner violence: (Screen on initial visit, women, womenwith injuries, older adult with injury or evidence of neglect): ? ? Violence can be a problem in many people's lives, so I now ask everypatient about trauma or abuse they may have [facility]. ? ? Stress/Safety - Do you feel safe in your relationship? ? ? Afraid/Abused - Have you ever been in a relationship where you werethreatened, hurt, or afraid? ? ? Friend/Family - Are your friends aware you have been hurt? ? ? Emergency Plan - Do you have a safe place to go and the resources youneed in an emergency? Osteoporosis: ? ? Ost menopausal women < 65 with RF (advancing age, previous fracture,glucocorticoid therapy, parental hip fracture, low body weight, currentcigarette smoking, excessive alcohol consumption, rheumatoid arthritis,secondary osteoporosis [hypogonadism/premature menopause, malabsorption,chronic liver disease, IBD]). ? ? All women 65 or older Objective Physical Exam: Vitals: 05/21/22 1403 05/21/22 1433 BP: 154/94 126/80 BP Location: Left arm Patient Position: Sitting Cuff Size: Adult Pulse: 80 Resp: 14 Temp: 97.3 ??F (36.3 ??C) TempSrc: Temporal SpO2: 99% Weight: 80.4 kg (177 lb 2.8 oz) Height: 149.9 cm (59 ) Body mass index is 35.79 kg/m??. Physical Exam Constitutional: General: She is [...] clear. No oropharyngeal exudate or posteriororopharyngeal erythema. Eyes: Extraocular Movements: Extraocular movements intact. Conjunctiva/sclera: Conjunctivae normal. Pupils: Pupils are equal, round, and reactive to light. Neck: Vascular: No carotid bruit. Cardiovascular: Rate and Rhythm: Normal rate and regular rhythm. Pulses: Normal pulses. Dorsalis pedis pulses are 2+ on the right side and 2+ on the leftside. Posterior tibial pulses are 2+ on the right side and 2+ on the leftside. Heart sounds: Normal heart sounds. No murmur [...] guarding orrebound. Hernia: No hernia is present. Musculoskeletal: Cervical back: Normal range of motion and neck supple. No tenderness. Right lower leg: No edema. Left lower leg: No edema. Comments: No C/T/L spinous process tenderness. Spine is straight. Feet: Right foot: Protective Sensation: 8 sites tested. 8 sites sensed. Skin integrity: Skin integrity normal. Toenail Condition: Right toenails are normal. Left foot: Protective Sensation: 8 sites tested. 8 sites sensed. Skin integrity: Skin integrity normal. Toenail Condition: Left toenails are normal. Lymphadenopathy: Cervical: No cervical adenopathy. Skin: General: Skin is warm and dry. Neurological: General: No focal deficit present. Mental Status: She is alert and oriented to person, place, and time.Mental status is at baseline. Psychiatric: Mood and Affect: Mood normal. Behavior: Behavior normal. Thought Content: Thought content normal. Judgment: Judgment normal. Diabetic Foot Exam Performed and Monofilament Test Performed ECG 12 Lead Date/Time: 05/21/2022 2:34 PM Performed by: Dante Ramirez MD Authorized by: Dante Ramirez MD Comparison: compared with previous ECG from 10/11/2020 Similar to previous ECG Rhythm: sinus rhythm Rate: normal Conduction: conduction normal QRS axis: normal Other: no other findings Other findings: non-specific ST-T wave changes Clinical impression: normal ECG Comments: Overall nonconcerning EKG with only nonspecific T wave changeswhich are unchanged compared to previous and is an isolated findingnonconcerning Assessment / Plan Assessment/Plan: Diagnoses and all orders for this visit: 1. Routine general medical examination at a health care facility(Primary) Assessment & Plan: Last blood work 06/13/2020, complete blood work ordered at this time.Mammogram normal 08/09/2021, monitor yearly. DEXA scan 11/22/2020 withosteopenic picture but not in the range treatment with bisphosphonate,initiation of calcium plus vitamin D. Recheck 3 years. Pap smear normalby Dr. Cruz 12/06/2020. Positive Cologuard testing 04/18/2020 withresultant colonoscopy 06/01/2020 with 4-5 mm sessile polyp in thedescending colon and few hyperplastic polyps in the rectum with five-yearrepeat recommended, by Dr. Ga. TDaP vaccine October [address] [facility].Covid vaccine x3 up-to-date. Orders: - CT Chest Low Dose Follow Up Without Contrast; Future - CBC & Differential; Future - Comprehensive Metabolic Panel; Future - Urinalysis With Culture If Indicated - Urine, Clean Catch; Future - Lipid Panel; Future - TSH; Future - MicroAlbumin, Urine, Random - Urine, Clean Catch; Future - HIV-1 / O / 2 Ag / Antibody 4th Generation; Future - Hepatitis C Antibody; Future - Hepatitis C Antibody - HIV-1 / O / 2 Ag / Antibody 4th Generation - MicroAlbumin, Urine, Random - Urine, Clean Catch - TSH - Lipid Panel - Comprehensive Metabolic Panel - Urinalysis With Culture If Indicated - Urine, Clean Catch - CBC & Differential 2. Type 2 diabetes mellitus without complication, without long-termcurrent use of insulin (HCC) Assessment & Plan: Currently diet controlled. Diagnosis 06/13/2020 with hemoglobin A1c 6.8%.Hemoglobin A1c 6.6%, previous 6.5%, 6.4%, 6.5%. Nonfasting glucose 119.Continue diet control, no need to add a medicine at this time. Reinforcedimportance of healthy diet, exercise, ongoing weight loss. Infrequentmonitoring of glucose at home, recommend checking more regularly. Checkfeet daily, eye check non-concerning April 2022, monitor yearly. Orders: - POC Glycosylated Hemoglobin (Hb A1C) - POC Glucose 3. Palpitation Assessment & Plan: Infrequent palpitation pattern, not associated chest pain or shortness ofbreath. EKG nonconcerning 05/21/2022 with normal sinus rhythm, nonspecificT wave change completely unchanged compared to 10/11/2020. Nonconcerningpattern. No need to evaluate further Orders: - ECG 12 Lead 4. Vitamin D deficiency Assessment & Plan: 06/13/2020 vitamin D 25-hydroxy level 26.4 with lower limit of normal 30,comparison 17.1 on 07/07/2016.patient has not been taking her vitamin D 1000units daily, recheck pending. Orders: - Vitamin D,25-Hydroxy; Future - Vitamin D,25-Hydroxy 5. Follicular lesion of thyroid Assessment & Plan: Noted incidentally on CT the chest and cervical spine, with a 4.8 cm leftthyroid mass with tracheal shift towards the right. 08/08/2018 TSH normal0.88, free T4 normal 0.76, 08/08/2018 thyroid ultrasound showed dominant 4.9cm left thyroid mass. Fine needle aspiration by Dr. Rome 11/13/2018 withatypical follicular lesion of undetermined significance, cleared fromfollowup by Dr. Rome. 6. Seasonal allergic rhinitis due to pollen Assessment & Plan: Good response historically to Zyrtec, Flonase and Singulair, use asneeded. Additional benefit saline spray, Olga pot, discuss. 7. Cigarette smoker Assessment & Plan: Long-standing smoker, at average about 1/2 pack/day for about 45 years.Currently 1/4-1/3 pack per day, patient understands cardiovascular,cancer, respiratory risks. Not ready to pursue cessation, advise if shechanges her mind. 8. Mixed hyperlipidemia Assessment & Plan: 06/13/2020 total cholesterol 295, triglycerides 187, HDL 41, LDL 207.Comparison cholesterol 07/07/2016 with total cholesterol 317, [id number], HDL 47, LDL 212. Previous attempts at pravastatin, simvastatin andatorvastatin all causing GI upset. Crestor 10 mg attempted 10/11/2020 withsome GI upset but also rash. Initiate Livalo 2 mg daily, her highcholesterol with comorbid diabetes warrants statin therapy. Lipid panelfrom 08/10/2021 with total cholesterol 305, triglycerides 274, HDL 41, [id number]. Comparison 06/13/2020 with total cholesterol 295, triglycerides 187,HDL 41, LDL 207. Attempted initiate atorvastatin 40 mg that time, she istaking once weekly on average, recheck pending. We could also attemptLivalo in future which has less side effect profile regarding obesity, BMIin the 38 range. Recommended healthy diet, exercise and weight lossloss. 9. Class 2 obesity due to excess calories without serious comorbidity withbody mass index (BMI) of 35.0 to 35.9 in adult Assessment & Plan: Modest weight loss over the last 8 months, reinforced importance ofhealthy diet, exercise and even modest weight loss further. 10. Right middle lobe pulmonary nodule Assessment & [...] left lower lobe, allwithout change compared to 2019, pending 12 month followup low-dose CT ofthe chest, scheduled at this time through [facility]. Healthcare Maintenance: Counseling provided based on age appropriate USPSTF guidelines. Class 2 Severe Obesity (BMI >=35 and <=39.9). Obesity-related healthconditions include the following: diabetes mellitus and dyslipidemias.Obesity is unchanged. BMI is is above average; BMI management plan iscompleted. We discussed low calorie, low carb based diet program, portioncontrol and increasing exercise. Smoking Cessation: 3-10 mintues spent counseling Not agreeable to stopping Ruthann Rosa voices understanding and acceptance of this advice and willcall back with any further questions or concerns. AVS with preventivehealthcare tips printed for patient. Follow Up: Return in about 6 months (around 11/18/2022) for Next scheduled followup. Dante Ramirez MD [facility] us Dante Ramirez MD ECG ORDERABLES Final Result ECG * POC Glycosylated Hemoglobin (Hb A1C) (05/21/2022 2:23 PM EST) Hemoglobin A1C 6.6 % [facility] Lot Number [id number] [facility] Expiration Date 02/09/2024 [facility] Blood 05/21/2022 2:23 PM EST Dante Ramirez MD POINT OF CARE TEST ORDERABLES Fi nal Result [facility]
[address] [place] [address], * POC Glucose (05/21/2022 2:07 PM EST) Glucose 119 70 - 130 mg/dL Blood 05/21/2022 2:07 PM EST Dante Ramirez MD POINT OF CARE TEST ORDERABLES Fi nal Result documented in this encounter Visit Diagnoses Diagnosis Routine general medical examination at a health care facility- Primary Type 2 diabetes mellitus without complication, without long-term current use of insulin Palpitation Palpitations Vitamin D deficiency Follicular lesion of thyroid Seasonal allergic rhinitis due to pollen Cigarette smoker Tobacco use disorder Mixed hyperlipidemia Class 2 obesity due to excess calories without serious comorbidity with body mass index (BMI) of 35.0 to 35.9 in adult Right middle lobe pulmonary nodule documented in this encounter Care Teams Equity Trader Relationship Specialty Start Date End Date Dante Ramirez MD [address] [place] [address] PCP - General Internal Medicine 05/18/22 documented as of this encounter
--- OUTSIDE RECORDS SUMMARY | 2024-03-14 14:22 | XMS_ITS | Encounter Summary ---
Author Organization [facility] Address [address] [place] [address] Care Team Providers Care Manager Custom Name Role Phone Provider, No Known Primary Care Provider Unavail able Reason for Visit * Reason Comments Sinus Problem Encounter Details Date Type Department Care Team (Late st Contact Info) Description 05/30/2017 10:15 AM EST Office Visit [facility] [address] [place] [address] Acute recurrent pansinusitis (Primary Dx); Acute seasonal allergic rhinitis, unspecified trigger Social History Tobacco Use Types Packs/Day Years [...] Taken Comments Blood Pressure - - Pulse 78 05/30/2017 10:22 AM EST Temperature 36.6 ??C (97.8 ??F) 05/30/2017 10:[address] Respiratory Rate 20 05/30/2017 10:22 AM EST Oxygen Saturation 98% 05/30/2017 10:22 AM EST Inhaled Oxygen Concentration - - Weight 81.6 kg (180 lb) 05/30/2017 10:22 AM EST Height 149.9 cm (4' 11 ) 05/30/2017 10:22 AM EST Body Mass Index 36.36 05/30/2017 10:22 AM EST documented in this encounter Patient Instructions * Patient Instructions* Frederic Maxwell APRN - 05/30/2017 10:30 AM EST Images from the original note were not included. Sinusitis, Adult Sinusitis is soreness and inflammation of your sinuses. Sinuses are hollow spaces in the bones around your face. Your sinuses are located: ?? Around your eyes. ?? In the middle of your forehead. ?? Behind your nose. ?? In your cheekbones. Your sinuses and nasal passages are lined with a stringy fluid (mucus). Mucus normally drains out of your sinuses. When your nasal tissues become inflamed or swollen, the mucus can become trapped or blocked so air cannot flow through your sinuses. This allows bacteria, viruses, and funguses to grow, which leads to infection. Sinusitis can develop quickly and last for 7?10 days (acute) or for more than 12 weeks (chronic). Sinusitis often develops after a cold. What are the causes? This condition is caused by anything that creates swelling in the sinuses or stops mucus from draining, including: ?? Allergies. ?? Asthma. ?? Bacterial or viral infection. ?? Abnormally shaped bones between the nasal passages. ?? Nasal growths that contain mucus (nasal polyps). ?? Narrow sinus openings. ?? Pollutants, such as chemicals or irritants in the air. ?? A foreign object stuck in the nose. ?? A fungal infection. This is rare. What increases the risk? The following factors may make you more likely to develop this condition: ?? Having allergies or asthma. ?? Having had a recent cold or respiratory tract infection. ?? Having structural deformities or blockages in your nose or sinuses. ?? Having a weak immune system. ?? Doing a lot of swimming or diving. ?? Overusing nasal sprays. ?? Smoking. What are the signs or symptoms? The main symptoms of this condition are pain and a feeling of pressure around the affected sinuses.Other symptoms include: ?? Upper toothache. ?? Earache. ?? Headache. ?? Bad breath. ?? Decreased sense of smell and taste. ?? A cough that may get worse at night. ?? Fatigue. ?? Fever. ?? Thick drainage from your nose. The drainage is often green and it may contain pus (purulent). ?? Stuffy nose or congestion. ?? Postnasal drip. This is when extra mucus collects in the throat or back of the nose. ?? Swelling and warmth over the affected sinuses. ?? Sore throat. ?? Sensitivity to light. How is this diagnosed? This condition is diagnosed based on symptoms, a medical history, and a physical exam. To find out if your condition is acute or chronic, your health care provider may: ?? Look in your nose for signs of nasal polyps. ?? Tap over the affected sinus to check for signs of infection. ?? View the inside of your sinuses using an imaging device that has a light attached (endoscope). If your health care provider suspects that you have chronic sinusitis, you may also: ?? Be tested for allergies. ?? Have a sample of mucus taken from your nose (nasal culture) and checked for bacteria. ?? Have a mucus sample examined to see if your sinusitis is related to an allergy. If your sinusitis does not respond to treatment and it lasts longer than 8 weeks, you may have an MRI or CT scan to check your sinuses. These scans also help to determine how severe your infection is. In rare cases, a bone biopsy may be done to rule out more serious types of fungal sinus disease. How is this treated? Treatment for sinusitis depends on the cause and whether your condition is chronic or acute. If a virus is causing your sinusitis, your symptoms will go away on their own within 10 days. You may be given medicines to relieve your symptoms, including: ?? Topical nasal decongestants. They shrink swollen nasal passages and let mucus drain from your sinuses. ?? Antihistamines. These drugs block inflammation that is triggered by allergies. This can help to ease swelling in your nose and sinuses. ?? Topical nasal corticosteroids. These are nasal sprays that ease inflammation and swelling in your nose and sinuses. ?? Nasal saline washes. These rinses can help to get rid of thick mucus in your nose. If your condition is caused by bacteria, you will be given an antibiotic medicine. If your condition is caused by a fungus, you will be given an antifungal medicine. Surgery may be needed to correct underlying conditions, such as narrow nasal passages. Surgery may also be needed to remove polyps. Follow these instructions at home: Medicines ?? Take, use, or apply omfr-rvn-lcffdbx and prescription medicines only as told by your health careprovider. These may include nasal sprays. ?? If you were prescribed an antibiotic medicine, take it as told by your health care provider. Do not stop taking the antibiotic even if you start to feel better. Hydrate and Humidify ?? Drink enough water to keep your urine clear or pale yellow. Staying hydrated will help to thin your mucus. ?? Use a cool mist humidifier to keep the humidity level in your home above 50%. ?? Inhale steam for 10-15 minutes, 3-4 times a day or as told by your health care provider. You karo this in the bathroom while a hot shower is running. ?? Limit your exposure to cool or dry air. Rest ?? Rest as much as possible. ?? Sleep with your head raised (elevated). ?? Make sure to get enough sleep each night. General instructions ?? Apply a warm, moist washcloth to your face 3-4 times a day or as told by your health care provider. This will help with discomfort. ?? Wash your hands often with soap and water to reduce your exposure to viruses and other germs. Ifsoap and water are not available, use hand aeronautical products sales engineer. ?? Do not smoke. Avoid being around people who are smoking (secondhand smoke). ?? Keep all follow-up visits as told by your health care provider. This is important. Contact a health care provider if: ?? You have a fever. ?? Your symptoms get worse. ?? Your symptoms do not improve within 10 days. Get help right away if: ?? You have a severe headache. ?? You have persistent vomiting. ?? You have pain or swelling around your face or eyes. ?? You have vision problems. ?? You develop confusion. ?? Your neck is stiff. ?? You have trouble breathing. This information is not intended to replace advice given to you by your health care provider. Make sure you discuss any questions you have with your health care provider. Document Released: 03/25/2006 Document Revised: 11/18/2016 Document Reviewed: 01/18/2016 [employer] Patient Education ?? 2017 [employer] documented in this encounter Progress Notes * Frederic Maxwell APRN - 05/30/2017 10:15 AM EST Usha Lee is a 56 y.o. female. Sinus Problem This is a new problem. The current episode started in the past 7 days. The problem has been gradually worsening since onset. There has been no fever. The pain is moderate. Associated symptoms includecongestion, ear pain (bilat pain and fullness), headaches and sinus pressure. Pertinent negatives include no chills, coughing, hoarse voice, neck pain, shortness of breath, sneezing, sore throat or swollen glands. Past treatments include nothing. The treatment provided no relief. The following portions of the patient's history were reviewed and updated as appropriate: allergies, current medications, past medical history, past social history, past surgical history and problem list. Review of Systems Constitutional: Negative for appetite change, chills and fever. HENT: Positive for congestion, ear pain (bilat pain and fullness), postnasal drip, rhinorrhea, sinus pain and sinus pressure. Negative for hoarse voice, sneezing, sore throat and trouble swallowing. Eyes: Negative. Respiratory: Negative for cough, shortness of breath and wheezing. Cardiovascular: Negative. Gastrointestinal: Negative for abdominal pain, diarrhea, nausea and vomiting. Musculoskeletal: Negative. Negative for neck pain. Skin: Negative. Neurological: Positive for headaches. Negative for dizziness. Hematological: Negative for adenopathy. Pulse 78 Temp 97.8 ??F (36.6 ??C) Resp 20 Ht 149.9 cm (59 ) Wt 81.6 kg (180 lb) SpO2 98% BMI 36.36 kg/m2 Objective Physical Exam Constitutional: She is oriented to person, place, and time. Vital signs are normal. She appears well-developed and well-nourished. HENT: Head: Normocephalic. Right Ear: External ear and ear canal normal. No drainage, swelling or tenderness. Tympanic membrane is bulging. Tympanic membrane is not erythematous. Left Ear: External ear and ear canal normal. No drainage, swelling or tenderness. Tympanic membraneis bulging. Tympanic membrane is not erythematous. Nose: Mucosal edema and rhinorrhea present. Right sinus exhibits maxillary sinus tenderness and frontal sinus tenderness. Left sinus exhibits maxillary sinus tenderness and frontal sinus tenderness. Mouth/Throat: Uvula is midline, oropharynx is clear and moist and mucous membranes are normal. Tonsils are 0 on the right. Tonsils are 0 on the left. No tonsillar exudate. Eyes: Conjunctivae are normal. Pupils are equal, round, and reactive to light. Cardiovascular: Normal rate, regular rhythm, S1 normal, S2 normal and normal heart sounds. Pulmonary/Chest: Effort normal and breath sounds normal. No respiratory distress. She has no wheezes. Lymphadenopathy: Head (right side): Tonsillar adenopathy present. Head (left side): Tonsillar adenopathy present. She has no cervical adenopathy. Neurological: She is alert and oriented to person, place, and time. Skin: Skin is warm, dry and intact. No rash noted. Psychiatric: She has a normal mood and affect. Her speech is normal and behavior is normal. Thoughtcontent normal. Vitals reviewed. Assessment/Plan Ruthann was seen today for sinus problem. Diagnoses and all orders for this visit: Acute recurrent pansinusitis - doxycycline (MONODOX) 100 MG capsule; Take 1 capsule by mouth 2 (Two) Times a Day for 10 days. - pseudoephedrine (SUDAFED) 120 MG 12 hr tablet; Take 1 tablet by mouth Every 12 (Twelve) Hours for10 days. Acute seasonal allergic rhinitis, unspecified trigger - cetirizine (zyrTEC) 10 MG tablet; Take 1 tablet by mouth Daily. - fluticasone (FLONASE) 50 MCG/ACT nasal spray; 2 sprays into each nostril Every Night for 30 days.Administer 2 sprays in each nostril for each dose. documented in this encounter Plan of Treatment Not on file documented as of this encounter Visit Diagnoses Diagnosis Acute recurrent pansinusitis- Primary Acute seasonal allergic rhinitis, unspecified trigger documented in this encounter Care Teams Manager Custom Relationship Specialty Start Date End Date Provider, [place] [address] PCP - General 12/28/16 05/17/22 documented as of this encounter
--- OUTSIDE RECORDS SUMMARY | 2024-03-14 14:22 | XMS_ITS | Encounter Summary ---
Author Organization [facility] Address [address] [place] [id number] Care Team Providers Care Composition Mixer Name Role Phone Provider, No Known Primary Care Provider Unavail able Reason for Visit * Reason Comments Allergies Encounter Details Date Type Department Care Team (Late st Contact Info) Description 12/28/2016 2:30 PM EDT Office Visit [facility] [address] [place] [address] Seasonal allergic rhinitis due to pollen (Primary Dx); Acute otitis externa of both ears, unspecified type Social History Tobacco Use Types Packs/Day Years [...] Pressure - - Pulse - - Temperature 37 ??C (98.6 ??F) 12/28/2016 2:35 PM EDT Respiratory Rate 16 12/28/2016 2:35 PM EDT Oxygen Saturation 98% 12/28/2016 2:35 PM EDT Inhaled Oxygen Concentration - - Weight 81.6 kg (180 lb) 12/28/2016 2:35 PM EDT Height 149.9 cm (4' 11 ) 12/28/2016 2:35 PM EDT Body Mass Index 36.36 12/28/2016 2:35 PM EDT documented in this encounter Patient Instructions * Patient Instructions* Kiana Maxwell APRN - 12/28/2016 2:43 PM EDT Allergic Rhinitis Allergic rhinitis is when the mucous membranes in the nose respond to allergens. Allergens are particles in the air that cause your body to have an allergic reaction. This causes you to release allergic antibodies. Through a chain of events, these eventually cause you to release histamine into the blood stream. Although meant to protect the body, it is this release of histamine that causes your discomfort, such as frequent sneezing, congestion, and an itchy, runny nose. CAUSES Seasonal allergic rhinitis (hay fever) is caused by pollen allergens that may come from grasses, trees, and weeds. Year-round allergic rhinitis (perennial allergic rhinitis) is caused by allergens such as house dust mites, pet dander, and mold spores. SYMPTOMS ?? Nasal stuffiness (congestion). ?? Itchy, runny nose with sneezing and tearing of the eyes. DIAGNOSIS Your health care provider can help you determine the allergen or allergens that trigger your symptoms. If you and your health care provider are unable to determine the allergen, skin or blood testingmay be used. Your health care provider will diagnose your condition after taking your health history and performing a physical exam. Your health care provider may assess you for other related conditions, such as asthma, pink eye, or an ear infection. TREATMENT Allergic rhinitis does not have a cure, but it can be controlled by: ?? Medicines that block allergy symptoms. These may include allergy shots, nasal sprays, and oral antihistamines. ?? Avoiding the allergen. Hay fever may often be treated with antihistamines in pill or nasal spray forms. Antihistamines block the effects of histamine. There are tuqe-zgi-qwcklxj medicines that may help with nasal congestion and swelling around the eyes. Check with your health care provider before taking or giving this medicine. If avoiding the allergen or the medicine prescribed do not work, there are many new medicines your health care provider can prescribe. Stronger medicine may be used if initial measures are ineffective. Desensitizing injections can be used if medicine and avoidance does not work. Desensitization is when a patient is given ongoing shots until the body becomes less sensitive to the allergen. Make sure you follow up with your health care provider if problems continue. HOME CARE INSTRUCTIONS It is not possible to completely avoid allergens, but you can reduce your symptoms by taking steps to limit your exposure to them. It helps to know exactly what you are allergic to so that you can avoid your specific triggers. SEEK MEDICAL CARE IF: ?? You have a fever. ?? You develop a cough that does not stop easily (persistent). ?? You have shortness of breath. ?? You start wheezing. ?? Symptoms interfere with normal daily activities. This information is not intended to replace advice given to you by your health care provider. Make sure you discuss any questions you have with your health care provider. Document Released: 12/18/2001 Document Revised: 04/15/2015 Document Reviewed: 11/30/2013 [employer] Patient Education ??2017 [employer]. documented in this encounter Progress Notes * Kiana Maxwell APRN - 12/28/2016 2:30 PM EDT Usha Lee is a 56 y.o. female. Temp 98.6 ??F (37 ??C) Resp 16 Ht 59 (149.9 cm) Wt 180 lb (81.6 kg) SpO2 98% BMI 36.36 kg/m2 URI This is a new problem. The current episode started more than 1 month ago. The problem has been unchanged. There has been no fever. Associated symptoms include congestion, coughing, rhinorrhea, sneezing and wheezing. Pertinent negatives include no abdominal pain or chest pain. The following portions of the patient's history were reviewed and updated as appropriate: allergies, current medications, past family history, past medical history, past social history, past surgicalhistory and problem list. Review of Systems HENT: Positive for congestion, postnasal drip, rhinorrhea and sneezing. Negative for sinus pressure. Eyes: Positive for redness and itching. Respiratory: Positive for cough and wheezing. Cardiovascular: Negative for chest pain. Gastrointestinal: Negative for abdominal pain. Objective Physical Exam Constitutional: She appears well-developed and well-nourished. HENT: Head: Normocephalic and atraumatic. Right Ear: Tympanic membrane normal. Left Ear: Tympanic membrane normal. Nose: Mucosal edema and rhinorrhea present. Right sinus exhibits no maxillary sinus tenderness and no frontal sinus tenderness. Left sinus exhibits no maxillary sinus tenderness and no frontal sinus tenderness. Mouth/Throat: Uvula is midline, oropharynx is clear and moist and mucous membranes are normal. Red excoriated canal Cardiovascular: Regular rhythm and normal heart sounds. Pulmonary/Chest: Effort normal. She has wheezes (trace). She has no rhonchi. She has no rales. Lymphadenopathy: She has no cervical adenopathy. Skin: Skin is warm and dry. Assessment/Plan Ruthann was seen today for allergies. Diagnoses and all orders for this visit: Seasonal allergic rhinitis due to pollen Acute otitis externa of both ears, unspecified type Other orders - cxwlbdkm-cfbqador-mcfgpqqtrxfdaq-thonzonium (CORTISPORIN-TC) 3.3-3-10-0.5 MG/ML otic suspension; Administer 3 drops into both ears 3 (Three) Times a Day for 7 days. - cetirizine (zyrTEC) 10 MG tablet; Take 1 tablet by mouth Daily. - fluticasone (FLONASE) 50 MCG/ACT nasal spray; 1 spray into each nostril Daily. Administer 1 sprayin each nostril for each dose. - montelukast (SINGULAIR) 10 MG tablet; Take 1 tablet by mouth Every Night for 30 days. - albuterol (PROVENTIL HFA;VENTOLIN HFA) 108 (90 Base) MCG/ACT inhaler; Inhale 2 puffs Every 4 (Four) Hours As Needed for Wheezing or Shortness of Air. documented in this encounter Plan of Treatment Not on file documented as of this encounter Visit Diagnoses Diagnosis Seasonal allergic rhinitis due to pollen- Primary Acute otitis externa of both ears, unspecified type documented in this encounter Care Teams Composition Mixer Relationship Specialty Start Date End Date Provider, [place] [address] PCP - General 12/28/16 05/17/22 documented as of this encounter
--- OUTSIDE RECORDS SUMMARY | 2024-03-14 14:22 | XMS_ITS | Clinical Summary ---
Author Organization [facility] Address [address] [place] [address] Phone Care Team Providers Care Maker Up Folding Name Role Phone Unavailable Primary Care Provider [...] Orientation Not on file Plan of Treatment Health Maintenance Due Date Last Done Comments Annual Wellness Exam 1960 Hepatitis C Screening 1976 DTaP/TDaP/Td (1 - Tdap) 1977 Cologuard 08/19/2003 Colon Cancer Screening 08/19/2003 Colonoscopy 08/19/2003 FIT 08/19/2003 Sigmoidoscopy 08/19/2003 Virtual Colonography 08/19/2003 Zoster (1 of 2) 2008 Bone Density Screening 08/19/2023 Pneumococcal Vaccine 65+ (1 of 1 - PCV) 08/19/2023 COVID-19 Vaccine (3 - 2023-2 5 season) 2023 09/08/2020, 08/11/2020 Influenza Vaccine (#1) 2023 Hepatitis B Vaccine Aged Out No longe r eligible based on patient's age to complete this topic
--- OUTSIDE RECORDS SUMMARY | 2024-03-14 14:22 | XMS_ITS | Encounter Summary ---
Author Organization [facility] Address [address] [place] [id number] Care Team Providers Care Photovoltaic Technician Name Role Phone Provider, No Known Primary Care Provider Unavail able Reason for Visit * Reason Comments Med Refill Encounter Details Date Type Department Care Team (Late st Contact Info) Description 03/28/2022 Refill [facility] [address] [place] [address] [place] [address] Jd Santillan MD [address] [place] [address] Social History Tobacco Use Types Packs/Day Years Used Date Smoking Tobacco: Never Alcohol Use Standard Drinks/Week Comments [...] Telephone Encounter - Johanna Villalba MA - 03/28/2022 1:30 PM EST Upcoming visit on 05/21/2022 rx sent documented in this encounter Plan of Treatment Not on file documented as of this encounter Visit Diagnoses Not on filedocumented in this encounter Care Teams Photovoltaic Technician Relationship Specialty Start Date End Date Provider, [place] [address] PCP - General 12/28/16 05/17/22 documented as of this encounter
--- OUTSIDE RECORDS SUMMARY | 2024-03-14 14:22 | XMS_ITS | Encounter Summary ---
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 Notable results as follows: Urinalysis negative excluding 1+ leukocyte Estrace, but then add on urine microscopy with 0-5 WBC, no RBC, 0-10 epithelial cell and culture growing 1000 colonies of E. coli, 10,000-25,000 colonies ofEnterococcus faecalis, essentially pansensitive. CBC with differential with normal blood counts. CMP with glucose and potassium canceled, patient already has hemoglobin A1c recent as such glucose canceling is not a concern. Otherwise normal electrolytes, good kidney function with creatinine 0.66, GFR 99. Normal proteins, normal liver function test. Total cholesterol 299, triglycerides 411, HDL 36, LDL 181. Comparison 06/13/2020 total cholesterol 295, triglycerides 187, HDL 41, LDL 207. Comparison cholesterol 07/07/2016 with total cholesterol 317, triglycerides 291, HDL 47, LDL 212. TSH normal at 1.020. Urine microalbumin normal at 8.0. HIV and hepatitis C virus screening negative. Vitamin D 25-hydroxy level modestly low at 22.2, patient has already resumed her vitamin D replacement. Regarding urinalysis if patient is asymptomatic, no indication for culture based on low colony count. Regarding hyperlipidemia with approxi once weekly atorvastatin 40 mg daily, I have discussed the potential of trying to increase that to 3 times weekly versus switching to Livalo 2 mg daily which typically has less side effect profile, as she notably has significant GI upset with Crestor, pravastatin, simvastatin and current atorvastatin. Addition continue healthy diet and exercise. documented in this encounter Plan of Treatment Not on file documented as of this encounter Visit Diagnoses Not on filedocumented in this encounter Care Teams New Car Make Ready Worker Relationship Specialty Start Date End Date Jd Santillan MD [address] [place] [address] [address] [place], [place] [address] PCP - General Internal Medicine 05/18/22 documented as of this encounter
[2024-03-14 17:20] LABS: POC Glucose,Bedside 139 (70-110)
--- NOTE | 2024-03-14 18:41 | PC.NURSE ---
PT HAS DONE WELL TODAY. VSS. SHE HAS C/O SOME CHEST DISCOMFORT X2 THIS SHIFT AND WAS MEDICATED PER MAR FOR PAIN. NO C/O SOB. C/O NAUSEA X1 AND MEDICATED PER MAR.
[2024-03-14] MEDS: ONDANSETRON 4MG/2ML VIAL 4 MG IV (18:45)
--- NOTE | 2024-03-14 19:01 | P.PN_ITS ---
Subjective *Date: 03/15/24 *Time: 16:55 Exam Data for Last 24 hours Vital signs and Labs for Last 24 Hours: Temp Pulse Resp BP Pulse Ox O2 Del Method O2 Flow Rate 98.3 F 60 16 109/62 L 94 L Room Air 2 03/14/24 16:00 03/14/24 16:16 03/14/24 16:00 03/14/24 16:00 03/14/24 16:00 03/14/24 17:00 03/14/24 09:00 Laboratory Results - last 24 hr 03/13/24 18:58: WBC 7.1, RBC 4.30, Hgb 13.4, Hct 38.6, MCV 89.8, MCH 31.1, MCHC 34.6, RDW 13.8, Plt Count 178, MPV 8.1, Neut % (Auto) 62.6, Lymph % (Auto) 29.1, [place] % (Auto) 6.0, Eos % (Auto) 1.3, Baso % (Auto) 1.0, Neut # (Auto) 4.5, Lymph # (Auto) 2.1, [place] # (Auto) 0.4, Eos # (Auto) 0.1, Baso # (Auto) 0.1, APTT 27.0 L, D-Dimer 0.87 H, Sodium 137, Potassium 4.0, Chloride 108 H, Carbon Dioxide 25, Anion Gap 8.0, BUN 27 H, Creatinine 0.60, Estimated Creat Clear 62, Estimated GFR 100, Est GFR ( Amer) 121, Glucose 155 H, Calcium 9.3, Total Bilirubin 0.6, AST 30, ALT 20, Alkaline Phosphatase 55, Troponin I < 0.01, Total Protein 7.3, Albumin 4.4, Globulin 2.9, Albumin/Globulin Ratio 1.5, Lipase 127, HIV 1&2 Antibody Rapid Nonreactive 03/13/24 19:00: Urine Color Yellow, Urine Appearance Clear, Urine pH 6.0, Ur Specific [place] 1.025, Urine Protein Negative, Urine Glucose (UA) 3+, Urine Ketones Negative, Urine Blood Negative, Urine Nitrate Negative, Urine Bilirubin Negative, Urine Urobilinogen 0.2, Ur Leukocyte Esterase Negative, Urine RBC Occasional, Urine WBC 10-20, Ur Squamous Epith Cells 10-20, Urine Bacteria 1+, Urine Mucus 2+ 03/13/24 21:25: POC Glucose 173 H 03/13/24 22:20: Troponin I < 0.01 03/14/24 00:55: Troponin I < 0.01 03/14/24 03:45: APTT 45.0 L 03/14/24 05:12: POC Glucose 102 03/14/24 05:40: WBC 7.5, RBC 4.17 L, Hgb 12.9, Hct 38.2, MCV 91.4, MCH 30.9, MCHC 33.9, RDW 14.0, Plt Count 172, MPV 8.3, Neut % (Auto) 57.0, Lymph % (Auto) 35.2, [place] % (Auto) 5.6, Eos % (Auto) 1.5, Baso % (Auto) 0.7, Neut # (Auto) 4.3, Lymph # (Auto) 2.7, [place] # (Auto) 0.4, Eos # (Auto) 0.1, Baso # (Auto) 0.1, Sodium 139, Potassium 3.8, Chloride 111 H, Carbon Dioxide 23, Anion Gap 8.8, BUN 21 H, Creatinine 0.70, Estimated Creat Clear 61, Estimated GFR 84, Est GFR ( Amer) 102, Glucose 98 D, Calcium 8.9, Magnesium 2.1 03/14/24 12:10: POC Glucose 109 03/14/24 17:01: POC Glucose 139 H I & O for Last 24 hours: Intake & Output 03/11/24 03/12/24 03/13/24 03/14/24 23:59 23:59 23:59 23:59 Intake Total 1240 / 1240 Output Total 200 / 200 200 / 200 Balance -200 / 240 1040 / 1040 Weight 68.855 kg 68.855 kg Constitutional Constitutional: no acute distress *Routine HEENT Exam Head: Present normocephalic Eye: Present EOMI and PERRL ENT: Present mucous membranes moist *Routine Neck Exam Neck: Present supple; Absent lymphadenopathy *Routine Respiratory Exam Respiratory: Present CTA bilaterally *Routine Cardiovascular Exam Cardiovascular: Present RRR *Routine Abdominal Exam Abdominal: Present soft and normoactive bowel sounds; Absent tenderness *Routine Extremities Exam Extremities: Absent cyanosis, clubbing or edema *Routine Skin Exam Skin: Present warm; Absent rash *Routine Neurological Exam Neurological: Present alert and oriented X3 Assessment and Plan *Assessment and plan (1) Unstable angina: Status: Acute Category: Medical Code(s): I20.0 - Unstable angina (2) CAD, multiple vessel: Status: Acute Category: Medical Code(s): I25.10 - Atherosclerotic heart disease of [place] coronary artery without angina pectoris (3) Diabetes: Status: Acute Qualifiers: Diabetes mellitus complication status: with hyperglycemia 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: without penitentiary use Diabetes mellitus type: type 2 Qualified Code(s): E11.65 - Type 2 diabetes mellitus with hyperglycemia Category: Medical Code(s): E11.9 - Type 2 diabetes mellitus without complications (4) HTN (hypertension): Status: Acute Qualifiers: Hypertension type: primary hypertension Qualified Code(s): I10 - Essential (primary) hypertension Category: Medical Code(s): I10 - Essential (primary) hypertension (5) Tobacco dependence: Status: Acute Category: Medical Code(s): F17.200 - Nicotine dependence, unspecified, uncomplicated Plan This is a 63-year-old female with identified multi-vessel coronary artery disease with recent cardiac catheterization and referred for surgical intervention. The patient declined surgical intervention and presented to the ED with chest pain. Problems addressed as follows: Unstable angina Multi-vessel coronary artery disease Telemetry monitoring Cardiology consultation Coronary angiography CT (11/12/2023) with multi-vessel coronary artery disease Cardiac catheterization (02/04/2024) with multi-vessel coronary artery disease [facility] cardiothoracic surgery evaluation and recommendations (February 2024) Patient elected to decline CABG Admission ECG with no STEMI Admission troponin negative Nitroglycerin as needed Aspirin allergy noted, continue clopidogrel High-dose statin therapy Drug therapy requiring intensive monitoring for toxicity Routine PTT Beta-ysabel therapy ARB therapy Antiemetic therapy Pain control ? Therapeutic Lovenox. Discontinued heparin. ? Still continues to have intermittent chest pain, though reproducible to palpation. ? Complex PCI planned for tomorrow morning. N.p.o. at midnight Saturday. Diabetes Routine blood sugar monitoring Hemoglobin A1c 6.0% Basal insulin therapy Sliding scale insulin therapy Avoiding SGLT2 inhibitor therapy with planned procedure Consistent carbohydrate diet Hypertension Routine blood pressure monitoring Beta-ysabel therapy ARB therapy ? Weaned off nitroglycerin drip. Generalized anxiety disorder Routine nursing interaction SSRI therapy Admission ECG with QTc 434 MS Benzodiazepine therapy as needed Tobacco dependence Tobacco cessation education Nicotine replacement therapy
[2024-03-14] MEDS: SIMETHICONE 80MG CHEWABLE TABLET 80 MG PO (19:06)
[2024-03-14] MEDS: PANTOPRAZOLE 40MG TABLET 40 MG PO (20:12)
[2024-03-14] MEDS: INSULIN GLARGINE 100 UNITS/ML 3ML FLEXPEN 10 UNIT SUBCUT (20:12)
[2024-03-14] MEDS: ATORVASTATIN 40MG TABLET 40 MG PO (20:12)
[2024-03-15] VITALS (9 sets, daily range): BP systolic 105–137; BP diastolic 60–71; PULSE 50–68; RESP 16–18; TEMP 36.7–37.1; O2SAT 92–95; BMI 31.2
--- NOTE | 2024-03-15 04:08 | PC.NURSE ---
Patient is alert and oriented x4. Patient was observed to have eyes closed, respirations even and unlabored on room air, and no apparent distress throughout the night. Patient has not had any complaints of chest pain, generalized pain, or nausea this shift. She has complained of discomfort by gas earlier this shift, of which was relieved by a simethicone administration (given by the previous shift per MAR); she has not had any further complaints since receiving it. Scheduled medications were administered as appropriately per JUN. She refused a bedtime snack but requested a couple cans of Starry soda to drink on behalf of feeling dry-mouth. Upon auscultation of the patient's lungs, a low rubbing-like sound was heard during exhalation in the patient's right lobe; clear but diminished lung sounds could be heard in the patient's left lobe. She has been running normal sinus rhythm on telemetry. Vital signs have been stable this shift. At this time, the patient is resting supine in bed. No acute changes noted thus far. Call light within reach.
[2024-03-15] MEDS: HYDROCODONE/APAP 5/325 MG TABLET 1 TAB PO ×2 (05:35→16:50)
[2024-03-15] MEDS: SIMETHICONE 80MG CHEWABLE TABLET 80 MG PO (06:10)
--- NOTE | 2024-03-15 06:11 | PC.NURSE ---
Patient reported having some itching coming on this morning. She asked if she could have Benadryl or a type of antihistamine to be taken with her scheduled morning medications. This request will be passed along to the oncoming shift.
[2024-03-15 06:41] LABS: POC Glucose,Bedside 108 (70-110)
[2024-03-15 08:11] LABS: Basophils # 0.1 K/mm3 (0-0.2); Basophils % 1.1 % (0.1-2.0); Eosinophils # 0.1 K/mm3 (0.0-0.4); Eosinophils % 1.1 % (0.1-12.0); Hematocrit 37.6 % (37.0-47.0); Hemoglobin 12.9 g/dL (12.2-16.2); Lymphocytes # 1.5 K/mm3 (0.7-4.5); Lymphocytes % 23.7 % (10-50); Mean Corpuscular HGB Conc 34.3 g/dL (31.8-35.4); Mean Corpuscular Hemoglobin 31.2 pg (27.0-31.2); Mean Platelet Volume 8.3 fl (7.4-10.4); Monocytes # 0.3 K/mm3 (0.1-1.0); Monocytes % 4.6 % (1.7-9.3); Neutrophils # 4.3 K/mm3 (1.8-7.8); Neutrophils % 69.5 % (37.0-80.0); Platelet Count 161 K/mm3 (142-424); Red Blood Count 4.13 M/mm3 (4.20-5.40); Red Cell Distribution Width 13.8 % (11.5-17.5); White Blood Count 6.2 K/mm3 (4.8-10.8)
[2024-03-15 08:15] LABS: Chloride 107 mmol/L (98-107); Potassium 4.2 mmoL/L (3.5-5.1); Sodium 138 mmol/L (136-145)
[2024-03-15 08:18] LABS: Anion Gap 7.2 mEq/L (5-15); Blood Urea Nitrogen 21 mg/dl (7-17); Carbon Dioxide 28 mmol/L (22.0-30.0); Creatinine Clearance Estimated 62 mL/min (50-200); Estimated Glomerular Filt Rate 72 ml/min (>60); GFR (African American) 87 ML/MIN (>60); Glucose 135 mg/dl (74-100)
[2024-03-15 08:19] LABS: Calcium 9.1 mg/dl (8.4-10.2)
[2024-03-15 08:36] LABS: HCV Ab Non Reactive (Non Reactive)
[2024-03-15] MEDS: POLYETHYLENE GLYCOL 3350 17 GM PACKET PO (08:54)
[2024-03-15] MEDS: CITALOPRAM 40MG TABLET 40 MG PO (08:54)
[2024-03-15] MEDS: CLOPIDOGREL 75MG TAB 75 MG PO (08:54)
[2024-03-15] MEDS: ENOXAPARIN 80MG/0.8ML SYRINGE 70 MG SUBCUT ×2 (08:55→20:22)
[2024-03-15 09:19] LABS: Alanine Aminotransferase 21 U/L (12-78); Aspartate Amino Transferase 27 U/L (14-36); Bilirubin,Total 0.5 mg/dl (0.2-1.3)
[2024-03-15 09:20] LABS: Total Protein,Serum 6.6 g/dl (6.3-8.2)
[2024-03-15 11:45] LABS: POC Glucose,Bedside 101 (70-110)
--- NOTE | 2024-03-15 15:07 | PC.NURSE ---
PT IS RESTING IN BED. ALERT AND ORIENTED X4. AMBULATES TO THE BATHROOM WITH 1 ASSIST. EATING AND DRINKING FAIR. LUNG SOUNDS DIMINISHED WITH SCATTERED RHONCHI. ABDOMEN SOFT/NON TENDER WITH ACTIVE BOWEL SOUNDS. SHAMA ON TELEMETRY. WILL CONTINUE TO MONITOR.
[2024-03-15 15:54] LABS: POC Glucose,Bedside 115 (70-110)
--- NOTE | 2024-03-15 16:58 | P.PN_ITS ---
Subjective *Date: 03/15/24 *Time: 16:58 Interval history: Patient is ready for [facility] tomorrow, left-sided chest pain has improved today though it seems to be completely reproducible. No shortness of breath. Exam Data for Last 24 hours Vital signs and Labs for Last 24 Hours: Temp Pulse Resp BP Pulse Ox O2 Del Method O2 Flow Rate 98.8 F 50 L 18 122/68 95 Room Air 2 03/15/24 15:54 03/15/24 15:59 03/15/24 15:54 03/15/24 15:54 03/15/24 15:54 03/15/24 15:54 03/14/24 09:00 Laboratory Results - last 24 hr 03/13/24 18:58: Hepatitis C Antibody Non reactive 03/14/24 17:01: POC Glucose 139 H 03/15/24 05:28: POC Glucose 108 03/15/24 07:15: WBC 6.2, RBC 4.13 L, Hgb 12.9, Hct 37.6, MCV 91.0, MCH 31.2, MCHC 34.3, RDW 13.8, Plt Count 161, MPV 8.3, Neut % (Auto) 69.5, Lymph % (Auto) 23.7, [place] % (Auto) 4.6, Eos % (Auto) 1.1, Baso % (Auto) 1.1, Neut # (Auto) 4.3, Lymph # (Auto) 1.5, [place] # (Auto) 0.3, Eos # (Auto) 0.1, Baso # (Auto) 0.1, Sodium 138, Potassium 4.2, Chloride 107, Carbon Dioxide 28, Anion Gap 7.2, BUN 21 H, Creatinine 0.80, Estimated Creat Clear 62, Estimated GFR 72, Est GFR ( Amer) 87, Glucose 135 H, Calcium 9.1, Magnesium 2.0, Total Bilirubin 0.5, AST 27, ALT 21, Total Protein 6.6, Albumin 4.0 03/15/24 11:32: POC Glucose 101 03/15/24 15:42: POC Glucose 115 H I & O for Last 24 hours: Intake & Output 03/12/24 03/13/24 03/14/24 03/15/24 23:59 23:59 23:59 23:59 Intake Total 1240 / 1684 1194 / 1194 Output Total 200 / 200 200 / 200 0 / 0 Balance -200 / 240 1040 / 1484 1194 / 1194 Weight 68.855 kg 68.855 kg 70.398 kg Microbiology Reports for the Last 24 Hours: Microbiology 03/13/24 19:00 Urine,Clean Catch Urine Culture - Final Constitutional Constitutional: no acute distress *Routine HEENT Exam Head: Present normocephalic Eye: Present EOMI and PERRL ENT: Present mucous membranes moist *Routine Neck Exam Neck: Present supple; Absent lymphadenopathy *Routine Respiratory Exam Respiratory: Present CTA bilaterally *Routine Cardiovascular Exam Cardiovascular: Present RRR *Routine Abdominal Exam Abdominal: Present soft and normoactive bowel sounds; Absent tenderness *Routine Extremities Exam Extremities: Absent cyanosis, clubbing or edema *Routine Skin Exam Skin: Present warm; Absent rash *Routine Neurological Exam Neurological: Present alert and oriented X3 Assessment and Plan *Assessment and plan (1) Unstable angina: Status: Acute Category: Medical Code(s): I20.0 - Unstable angina (2) CAD, multiple vessel: Status: Acute Category: Medical Code(s): I25.10 - Atherosclerotic heart disease of [place] coronary artery without angina pectoris (3) Diabetes: Status: Acute Qualifiers: Diabetes mellitus type: type 2 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 Diabetes mellitus complication status: with hyperglycemia Qualified Code(s): E11.65 - Type 2 diabetes mellitus with hyperglycemia Category: Medical Code(s): E11.9 - Type 2 diabetes mellitus without complications (4) HTN (hypertension): Status: Acute Qualifiers: Hypertension type: primary hypertension Qualified Code(s): I10 - Essential (primary) hypertension Category: Medical Code(s): I10 - Essential (primary) hypertension (5) Tobacco dependence: Status: Acute Category: Medical Code(s): F17.200 - Nicotine dependence, unspecified, uncomplicated Plan This is a 63-year-old female with identified multi-vessel coronary artery disease with recent cardiac catheterization and referred for surgical interventi on. The patient declined surgical intervention and presented to the ED with chest pain. Problems addressed as follows: Unstable angina Multi-vessel coronary artery disease Telemetry monitoring Cardiology consultation Coronary angiography CT (11/12/2023) with multi-vessel coronary artery disease Cardiac catheterization (02/04/2024) with multi-vessel coronary artery disease [facility] cardiothoracic surgery evaluation and recommendations (February 2024) Patient elected to decline CABG Admission ECG with no STEMI Admission troponin negative Nitroglycerin as needed Aspirin allergy noted, continue clopidogrel High-dose statin therapy Drug therapy requiring intensive monitoring for toxicity Routine PTT Beta-ysabel therapy ARB therapy Antiemetic therapy Pain control ? Therapeutic Lovenox. ? Still continues to have intermittent left-sided chest pain but improved today, though reproducible to palpation. ? Complex PCI planned for tomorrow morning. N.p.o. at midnight Saturday. Diabetes Routine blood sugar monitoring Hemoglobin A1c 6.0% Basal insulin therapy Sliding scale insulin therapy Avoiding SGLT2 inhibitor therapy with planned procedure Consistent carbohydrate diet Hypertension Routine blood pressure monitoring Beta-ysabel therapy ARB therapy ? Weaned off nitroglycerin drip. Generalized anxiety disorder Routine nursing interaction SSRI therapy Admission ECG with QTc 434 MS Benzodiazepine therapy as needed Tobacco dependence Tobacco cessation education Nicotine replacement therapy
[2024-03-15] MEDS: PANTOPRAZOLE 40MG TABLET 40 MG PO (20:22)
[2024-03-15] MEDS: MELATONIN 5MG TABLET 5 MG PO (20:22)
[2024-03-15] MEDS: ATORVASTATIN 40MG TABLET 40 MG PO (20:22)
[2024-03-15 22:49] LABS: POC Glucose,Bedside 101 (70-110)
[2024-03-16] VITALS (21 sets, daily range): BP systolic 95–128; BP diastolic 47–76; PULSE 43–70; RESP 14–20; TEMP 36.7–37.2; O2SAT 92–96; BMI 31.3
--- NOTE | 2024-03-16 04:50 | PC.NURSE ---
Addendum entered by Chely Rojas RN 03/16/24 05:24: Patient reported having increased gas/stomach discomfort this morning. She requested Zofran and Tylenol. Original Note: Patient is alert and oriented x4. Patient was observed to have eyes closed, respirations even and unlabored on room air, and no apparent distress throughout the majority of the night. She has not had any complaints of itchiness or chest pain this shift. However, the patient continues to report having occasional gas/stomach discomfort. Patient reports having a poor appetite but was willing to attempt to eat chocolate pudding; she tolerated it well. Patient continued to drink Starry sodas and ice water. Due to an expected heart cath this morning, she has remained NPO since midnight. Glargine insulin (as well as Lispro) was held this shift due to blood glucose reading of 101 at 21:00 and ordered NPO status. Upon auscultation of her lungs, inspiratory/expiratory rhonchi could be heard in her right lung. The left lung appeared to sound clear. Patient has active bowel sounds. She has been running sinus bradycardic on telemetry this shift. Other vital signs have remained stable. Scheduled medications were given as appropriately per JUN. At this time, the patient is resting on her right side in bed. No acute changes noted thus far. Call light within reach.
[2024-03-16] MEDS: ACETAMINOPHEN 500MG TAB 1000 MG PO ×2 (05:30→17:49)
[2024-03-16] MEDS: ONDANSETRON 4MG/2ML VIAL 4 MG IV ×2 (05:30→18:42)
[2024-03-16 06:38] LABS: POC Glucose,Bedside 112 (70-110)
[2024-03-16 07:00] LABS: Basophils # 0.1 K/mm3 (0-0.2); Basophils % 0.8 % (0.1-2.0); Eosinophils # 0.1 K/mm3 (0.0-0.4); Eosinophils % 0.8 % (0.1-12.0); Hematocrit 38.6 % (37.0-47.0); Lymphocytes # 1.6 K/mm3 (0.7-4.5); Lymphocytes % 25.9 % (10-50); Mean Corpuscular HGB Conc 33.7 g/dL (31.8-35.4); Mean Corpuscular Hemoglobin 30.6 pg (27.0-31.2); Mean Corpuscular Volume 90.8 fl (81-99); Mean Platelet Volume 8.3 fl (7.4-10.4); Monocytes # 0.4 K/mm3 (0.1-1.0); Monocytes % 6.4 % (1.7-9.3); Neutrophils # 4.1 K/mm3 (1.8-7.8); Neutrophils % 66.2 % (37.0-80.0); Platelet Count 152 K/mm3 (142-424); Red Blood Count 4.25 M/mm3 (4.20-5.40); Red Cell Distribution Width 13.6 % (11.5-17.5); White Blood Count 6.2 K/mm3 (4.8-10.8)
[2024-03-16 07:05] LABS: Chloride 106 mmol/L (98-107)
[2024-03-16 07:06] LABS: Potassium 3.6 mmoL/L (3.5-5.1); Sodium 139 mmol/L (136-145)
[2024-03-16 07:09] LABS: Anion Gap 8.6 mEq/L (5-15); Blood Urea Nitrogen 18 mg/dl (7-17); Calcium 9.1 mg/dl (8.4-10.2); Carbon Dioxide 28 mmol/L (22.0-30.0); Creatinine Clearance Estimated 62 mL/min (50-200); Estimated Glomerular Filt Rate 84 ml/min (>60); GFR (African American) 102 ML/MIN (>60); Glucose 104 mg/dl (74-100)
[2024-03-16 07:31] LABS: Alanine Aminotransferase 17 U/L (12-78); Albumin/Globulin Ratio 1.7 (1.1-1.8); Alkaline Phosphatase 63 U/L (38-126); Anion Gap 7.7 mEq/L (5-15); Aspartate Amino Transferase 22 U/L (14-36); Bilirubin,Total 0.6 mg/dl (0.2-1.3); Blood Urea Nitrogen 19 mg/dl (7-17); Calcium 9.2 mg/dl (8.4-10.2); Carbon Dioxide 30 mmol/L (22.0-30.0); Chloride 105 mmol/L (98-107); Creatinine Clearance Estimated 62 mL/min (50-200); Estimated Glomerular Filt Rate 72 ml/min (>60); GFR (African American) 87 ML/MIN (>60); Globulin 2.3 g/dL (1.3-3.2); Glucose 101 mg/dl (74-100); Potassium 3.7 mmoL/L (3.5-5.1); Sodium 139 mmol/L (136-145); Total Protein,Serum 6.3 g/dl (6.3-8.2)
[2024-03-16] MEDS: CLOPIDOGREL 75MG TAB 75 MG PO ×2 (09:22→13:01)
[2024-03-16] MEDS: CITALOPRAM 40MG TABLET 40 MG PO (09:23)
[2024-03-16] MEDS: HYDROCODONE/APAP 5/325 MG TABLET 1 TAB PO ×2 (09:56→23:29)
--- NOTE | 2024-03-16 10:32 | IR_ITS ---
APPROVED REPORT Patient Location: Inpatient Product Distribution Specialist: ALVARADO Munson RT (R) PROCEDURES Drug-eluting stent deployment to the proximal to mid dominant circumflex artery Drug-eluting stent deployment to the mid left main artery extending into the proximal circumflex artery INDICATION Refusal to undergo bypass surgery, Acute coronary syndrome, Coronary artery disease Informed consent was obtained prior to the procedure. COMPLICATIONS None Estimated Blood Loss: Less than 10 mls TECHNIQUE One percent lidocaine used to anesthetize the right anterior aspect of the wrist. The right radial artery was accessed via the Seldinger technique. A 6 [place] sheath was placed in the right radial artery. 2.5 mg of Verapamil, 800 mcg of nitroglycerin, 1mg Lidocaine and 5000 U Heparin were given through the arterial sheath. The 6 [place] JL 3 guide catheter was placed in the left main artery. Therapeutic heparin already been administered giving a therapeutic ACT. A choice floppy wire was placed distally into the circumflex artery. A guide liner was advanced and a 3 mm x 27 mm balloon was deployed at 20 karen to predilate the stenosis. A 3 mm x 12 mm compliant balloon was placed into the mid circumflex artery and deployed at 20 karen. With the balloon deployed the guide liner was advanced into the mid circumflex artery. The balloon was quickly deployed and removed and a 4 mm x 38 mm Jaylan frontier stent was deployed in the left main artery extending into the proximal circumflex artery at 20 karen. An additional 3.5 x 12 mm Jaylan frontier stent was placed distal to the stent in the circumflex artery is still overlapping and deployed at 18 karen. The balloon was brought back and deployed at 24 karen to mesh the 2 stents and post dilate the proximal circumflex artery extending back into the left main artery. A 4 mm x 12 mm noncompliant balloon was then advanced and deployed in the proximal circumflex artery at 24 karen as well as the ostial segment and back into the left main artery. Intravascular ultrasound probe was advanced however would not make the turn into the proximal circumflex artery. There are excellent angiographic results and the stent appeared to be sufficiently deployed. Given the complexity of patient's [place] coronary artery disease with the excellent angiographic results it was decided to terminate the procedure. The apparatus was removed the sheath was removed and hemostasis was achieved using TR banding patient was transferred to the postop putting in stable condition IMPRESSION Successful stenting of the left main artery extending into the proximal dominant circumflex artery critical disease reduced to less than 10% with 1 drug-eluting stent Successful stenting of the proximal dominant circumflex artery severe to critical disease reduced to 0% with 1 drug-eluting stent Chronically occluded LAD which fills via large collaterals from the large ramus intermedius and the dominant circumflex artery Jailed large ramus intermedius from the above procedure which is accompanied by no angiographic evidence of stenosis and accompanying MANOHAR-3 flow PLAN 1. Dual antiplatelet therapy 2. LDL less than 55 to be achieved with high intensity statin 3. Standard therapy for ischemic heart disease which should include AVNI inhibitor's and beta-blockers and nitrates 4. Cardiac rehabilitation 5. Avoidance of tobacco products Electronically signed by : Antonio Yepez MD 03/16/2024 12:50:50
[2024-03-16 10:50] LABS: POC Glucose,Bedside 127 (70-110)
[2024-03-16] MEDS: HEPARIN 1,000 UNITS/ML 10ML VIAL (CATH LAB) 10000 UNIT IV (11:45)
[2024-03-16] MEDS: diphenhydrAMINE 50MG/ML VIAL 50 MG IV (11:45)
[2024-03-16] MEDS: VERAPAMIL 2.5MG/ML 2ML VIAL 2.5 MG IV (11:46)
[2024-03-16] MEDS: NITROGLYCERIN 800MCG/8ML SYR (CATH LAB) 800 MCG IA (11:46)
[2024-03-16] MEDS: LIDOCAINE 1% 10ML MDV 20 ML IJ (11:46)
[2024-03-16] MEDS: 0.9 % SODIUM CHLORIDE 500 ML 25 ML IV (11:50)
[2024-03-16] MEDS: HEPARIN 1,000 UNITS/500ML NS (CATH LAB) 3000 UNIT IV (11:51)
[2024-03-16] MEDS: FENTANYL 100MCG/2ML VIAL 50 MCG IV (12:19)
[2024-03-16] MEDS: MIDAZOLAM HCL 1MG/ML 5ML VIAL 1 MG IV (12:19)
--- NOTE | 2024-03-16 12:23 | EXP.CARD.CON ---
History of Present Illness History of Present Illness Consult date: 03/16/24 Requesting physician: Calin Henao Consult reason: chest pain Chief complaint: chest pain History of present illness: This is a 63-year-old female who presented to the emergency department with complaints of chest pain. She states that this is a substernal pressure in the center of her chest and radiates over to the left side of her breast. The patient states at its worst the pain is a 10 out of 10 in intensity. She states the pain did improve with nitroglycerin given to her by EMS and the medications here in the hospital. She states that her chest pain is worse with exertion. Is associated with shortness of breath and diaphoresis. She states that her chest pain continues to worsen. The patient underwent left cardiac catheterization in January of this year which showed severe multivessel coronary artery disease and she was referred for CABG. The patient was evaluated at [facility] and decided not to pursue CABG. she is now back in the hospital with unstable angina. She has been started on IV heparin and continues to have chest pain intermittently. She denies any fever, chills, nausea, vomiting or diarrhea. [facility] Disclaimer: The information contained in this section may have been updated after the patient was seen, as this information can be updated by other users. Medical History (Updated 03/16/24 @ 12:32 by Elise Phelps APRN) Unstable angina Tobacco dependence Coronary artery disease CAD, multiple vessel Diabetes HLD (hyperlipidemia) HTN (hypertension) Abnormal ECG Right ovarian cyst Surgical History S/P cardiac catheterization H/O left knee surgery Family History Other No significant family history Social History (Updated 03/13/24 @ 22:02 by Niecy García RN) Smoking Status: Current every day smoker tobacco type: cigarettes packs per day: 1 alcohol intake: never substance use type: denies use current occupational status: other Travel in the last 8 weeks: None household members: spouse and children housing: house Review of Systems Review of Systems Review of systems:: pertinent systems reviewed and negative unless documented below Constitutional Constitutional: Reports system reviewed and no additional complaints, except as documented Eyes Eyes: Reports system reviewed and no additional complaints, except as documented ENT Ears, Nose, Mouth, and Throat: Reports system reviewed and no additional complaints, except as documented *Cardiovascular Cardiovascular: Reports system reviewed and no additional complaints, except as documented, Reports chest pain, Reports chest pain at rest, Reports chest pain with activity, Reports diaphoresis, Reports dyspnea and Reports dyspnea on exertion *Respiratory Respiratory: Reports system reviewed and no additional complaints, except as documented, Reports dyspnea and Reports dyspnea on exertion *Gastrointestinal Gastrointestinal: Reports system reviewed and no additional complaints, except as documented *Musculoskeletal Musculoskeletal: Reports system reviewed and no additional complaints, except as documented Integumentary/Breasts Skin/Breast: Reports system reviewed and no additional complaints, except as documented *Neurologic Neurologic: Reports system reviewed and no additional complaints, except as documented Psychiatric Psychiatric: Reports system reviewed and no additional complaints, except as documented Endocrine Endocrine: Reports system reviewed and no additional complaints, except as documented Hematologic/Lymphatic Hematologic/Lymphatic: Reports system reviewed and no additional complaints, except as documented Allergic/Immunologic Allergic/Immunologic: Reports system reviewed and no additional complaints, except as documented Exam Data for Last 24 hours Vital signs and Labs for Last 24 Hours: Temp Pulse Resp BP Pulse Ox O2 Del Method O2 Flow Rate 98.9 F 51 L 18 101/59 L 92 L Room Air 2 03/16/24 08:00 03/16/24 08:00 03/16/24 08:00 03/16/24 08:00 03/16/24 08:00 03/16/24 10:47 03/14/24 09:00 Laboratory Results - last 24 hr 03/15/24 15:42: POC Glucose 115 H 03/15/24 20:26: POC Glucose 101 03/16/24 05:22: POC Glucose 112 H 03/16/24 06:23: WBC 6.2, RBC 4.25, Hgb 13.0, Hct 38.6, MCV 90.8, MCH 30.6, MCHC 33.7, RDW 13.6, Plt Count 152, MPV 8.3, Neut % (Auto) 66.2, Lymph % (Auto) 25.9, [place] % (Auto) 6.4, Eos % (Auto) 0.8, Baso % (Auto) 0.8, Neut # (Auto) 4.1, Lymph # (Auto) 1.6, [place] # (Auto) 0.4, Eos # (Auto) 0.1, Baso # (Auto) 0.1, Sodium 139 03/16/24 06:23: Sodium 139, Potassium 3.6 03/16/24 06:23: Potassium 3.7, Chloride 106 03/16/24 06:23: Chloride 105, Carbon Dioxide 28 03/16/24 06:23: Carbon Dioxide 30, Anion Gap 8.6 03/16/24 06:23: Anion Gap 7.7, BUN 18 H 03/16/24 06:23: BUN 19 H, Creatinine 0.70 03/16/24 06:23: Creatinine 0.80, Estimated Creat Clear 62 03/16/24 06:23: Estimated Creat Clear 62, Estimated GFR 84 03/16/24 06:23: Estimated GFR 72, Est GFR ( Amer) 102 03/16/24 06:23: Est GFR ( Amer) 87, Glucose 104 H D 03/16/24 06:23: Glucose 101 H, Calcium 9.1 03/16/24 06:23: Calcium 9.2, Magnesium 2.0, Total Bilirubin 0.6, AST 22, ALT 17, Alkaline Phosphatase 63, Total Protein 6.3, Albumin 4.0, Globulin 2.3, Albumin/Globulin Ratio 1.7 03/16/24 10:43: POC Glucose 127 H I & O for Last 24 hours: Intake & Output 03/13/24 03/14/24 03/15/24 03/16/24 23:59 23:59 23:59 23:59 Intake Total 1240 / 1684 1194 / 1416 342 / 342 Output Total 200 / 200 200 / 200 0 / 0 0 / 0 Balance -200 / 240 1040 / 1484 1194 / 1416 342 / 342 Weight 151 lb 12.8 oz 151 lb 12.789 oz 155 lb 3.2 oz 155 lb 6.109 oz Microbiology Reports for the Last 24 Hours: Microbiology 03/13/24 19:00 Urine,Clean Catch Urine Culture - Final Constitutional Constitutional: no acute distress and average body habitus *Routine HEENT Exam Head: Present normocephalic and atraumatic ENT: Present mucous membranes moist *Routine Neck Exam Neck: Present supple, full ROM and normal carotid upstroke; Absent JVD, carotid bruit or lymphadenopathy *Routine Respiratory Exam Respiratory: Present CTA bilaterally, normal respiratory effort, able to speak in complete sentences and symmetric chest movement *Routine Cardiovascular Exam Cardiovascular: Present RRR, Normal S1 and Normal S2; Absent murmur or gallop *Routine Abdominal Exam Abdominal: Present soft and normoactive bowel sounds; Absent tenderness, distended or organomegaly *Routine Extremities Exam Extremities: Present full ROM, pulses intact and normal capillary refill; Absent cyanosis, clubbing or edema *Routine Skin Exam Skin: Present intact and warm; Absent erythema *Routine Neurological Exam Neurological: Present alert, oriented X3 and CN II-XII intact; Absent sensory deficit or motor deficit Routine Psychiatric Exam Psychiatric: Present normal affect Meds Home Medications and Allergies Home Medications ?Medication ?Instructions ?Recorded ?Confirmed ?Type losartan 100 mg tablet 100 mg PO DAILY #90 tabs 10/14/23 03/14/24 Rx empagliflozin 25 mg tablet 25 mg PO DAILY Diabetes #30 tabs 01/14/24 03/14/24 Rx (Jardiance) ezetimibe 10 mg tablet 10 mg PO DAILY #90 tabs 01/28/24 03/14/24 Rx escitalopram oxalate 20 mg tablet 20 mg PO DAILY #90 tabs 03/11/24 03/14/24 Rx (Lexapro) evolocumab 140 mg/mL subcutaneous 140 mg SQ .[id number] 03/14/24 03/14/24 History pen injector (Repatha SureClick) fluticasone propionate 50 1 spray intranasal DAILY 03/14/24 03/14/24 History mcg/actuation nasal spray,suspension montelukast 10 mg tablet 10 mg PO PM 03/14/24 03/14/24 History rosuvastatin 20 mg tablet 20 mg PO HS 03/14/24 03/14/24 History New Prescriptions to Start Prescriptions: Allergies Allergy/AdvReac Type Severity Reaction Status Date / Time aspirin Allergy Mild Rash Verified 03/13/24 19:17 Penicillins (PENICILLINS) Allergy Mild BREAKS HER Verified 03/13/24 19:17 OUT. calcium Allergy rash Verified 03/13/24 19:17 polyester fibers Allergy Irritable Verified 03/15/24 06:15 evolocumab (From Repatha AdvReac Mild rash on Verified 03/13/24 19:17 SureClick) arms Assessment and Plan *Assessment and plan (1) Unstable angina: Status: Acute Category: Medical Code(s): I20.0 - Unstable angina (2) CAD, multiple vessel: Status: Acute Category: Medical Code(s): I25.10 - Atherosclerotic heart disease of [place] coronary artery without angina pectoris (3) Tobacco dependence: Status: Acute Category: Medical Code(s): F17.200 - Nicotine dependence, unspecified, uncomplicated (4) HLD (hyperlipidemia): Status: Acute Qualifiers: Hyperlipidemia type: other hyperlipidemia Qualified Code(s): E78.49 - Other hyperlipidemia Category: Medical Code(s): E78.5 - Hyperlipidemia, unspecified (5) HTN (hypertension): Status: Acute Qualifiers: Hypertension type: primary hypertension Qualified Code(s): I10 - Essential (primary) hypertension Category: Medical Code(s): I10 - Essential (primary) hypertension (6) Abnormal ECG: Status: Acute Category: Medical Code(s): R94.31 - Abnormal electrocardiogram [ECG] [EKG] Plan Plan: 1. The patient has known severe coronary artery disease. She denies CABG. She is having unstable angina. Will plan to proceed with left cardiac catheterization today to evaluate her coronary artery disease and proceed with multivessel coronary stenting. 2. The patient has been educated the risk and benefits of proceeding with left cardiac catheterization. The patient verbalized understanding and is agreeable to proceeding with the procedure. 3. The patient will be n.p.o. preparation for left cardiac catheterization. 4. CAD is present. 5. Her blood pressure is well-controlled. 6. Her LDL goal is less than 55. She is on Repatha. Her LDL was 177 in January 2024. Will repeat a lipid panel. 7. Tobacco cessation is highly advised and counseled. 8. Further recommendations will be made pending the patient's response to treatment and the results of her left cardiac catheterization today. Thank you for the opportunity to help with this plan of care this patient. All recommendations and orders are per Isabel Hunt.
[2024-03-16] MEDS: IOPAMIDOL-370 (76%);100ML BOTTLE 110 ML IV (13:06)
[2024-03-16 13:09] LABS: CATHL Activated Clotting Time 400 SEC (74-125)
--- NOTE | 2024-03-16 18:56 | PC.NURSE ---
patient is a/o x4, remains on RA. right radial site is clean, dry and intact, no signs of infection. sterile gauze and transparent dressing applied. educated patient to not put pressure on right wrist, pt verbalized understanding. has c/o abdomen pain and nausea, treated per MAR. no further requests at this time.
[2024-03-16 20:14] LABS: POC Glucose,Bedside 136 (70-110)
[2024-03-16] MEDS: MELATONIN 5MG TABLET 5 MG PO (20:46)
[2024-03-16] MEDS: ATORVASTATIN 40MG TABLET 40 MG PO (20:46)
[2024-03-16] MEDS: PANTOPRAZOLE 40MG TABLET 40 MG PO (20:46)
--- NOTE | 2024-03-16 21:44 | P.PN_ITS ---
Subjective *Date: 03/16/24 *Time: 21:44 Exam Data for Last 24 hours Vital signs and Labs for Last 24 Hours: Temp Pulse Resp BP Pulse Ox O2 Del Method O2 Flow Rate 98.4 F 50 L 16 102/57 L 93 L Room Air 2 03/16/24 20:00 03/16/24 20:00 03/16/24 20:00 03/16/24 20:00 03/16/24 20:00 03/16/24 20:00 03/16/24 13:05 Laboratory Results - last 24 hr 03/15/24 20:26: POC Glucose 101 03/16/24 05:22: POC Glucose 112 H 03/16/24 06:23: WBC 6.2, RBC 4.25, Hgb 13.0, Hct 38.6, MCV 90.8, MCH 30.6, MCHC 33.7, RDW 13.6, Plt Count 152, MPV 8.3, Neut % (Auto) 66.2, Lymph % (Auto) 25.9, [place] % (Auto) 6.4, Eos % (Auto) 0.8, Baso % (Auto) 0.8, Neut # (Auto) 4.1, Lymph # (Auto) 1.6, [place] # (Auto) 0.4, Eos # (Auto) 0.1, Baso # (Auto) 0.1, Sodium 139 03/16/24 06:23: Sodium 139, Potassium 3.6 03/16/24 06:23: Potassium 3.7, Chloride 106 03/16/24 06:23: Chloride 105, Carbon Dioxide 28 03/16/24 06:23: Carbon Dioxide 30, Anion Gap 8.6 03/16/24 06:23: Anion Gap 7.7, BUN 18 H 03/16/24 06:23: BUN 19 H, Creatinine 0.70 03/16/24 06:23: Creatinine 0.80, Estimated Creat Clear 62 03/16/24 06:23: Estimated Creat Clear 62, Estimated GFR 84 03/16/24 06:23: Estimated GFR 72, Est GFR ( Amer) 102 03/16/24 06:23: Est GFR ( Amer) 87, Glucose 104 H D 03/16/24 06:23: Glucose 101 H, Calcium 9.1 03/16/24 06:23: Calcium 9.2, Magnesium 2.0, Total Bilirubin 0.6, AST 22, ALT 17, Alkaline Phosphatase 63, Total Protein 6.3, Albumin 4.0, Globulin 2.3, Albumin/Globulin Ratio 1.7 03/16/24 10:43: POC Glucose 127 H 03/16/24 13:35: Activated Clotting Time 400 H* 03/16/24 20:00: POC Glucose 136 H I & O for Last 24 hours: Intake & Output 03/13/24 03/14/24 03/15/24 03/16/24 23:59 23:59 23:59 23:59 Intake Total 1240 / 1684 1194 / 1416 842 / 842 Output Total 200 / 200 200 / 200 0 / 0 0 / 0 Balance -200 / 240 1040 / 1484 1194 / 1416 842 / 842 Weight 68.855 kg 68.855 kg 70.398 kg 70.48 kg Assessment and Plan *Assessment and plan (1) Unstable angina: Status: Acute Category: Medical Code(s): I20.0 - Unstable angina (2) CAD, multiple vessel: Status: Acute Category: Medical Code(s): I25.10 - Atherosclerotic heart disease of [place] coronary artery without angina pectoris (3) Diabetes: Status: Acute Qualifiers: Diabetes mellitus type: type 2 Diabetes mellitus custodial insulin use: without custodial use Diabetes mellitus complication status: with hyperglycemia Qualified Code(s): E11.65 - Type 2 diabetes mellitus with hyperglycemia Category: Medical Code(s): E11.9 - Type 2 diabetes mellitus without complications (4) HTN (hypertension): Status: Acute Qualifiers: Hypertension type: primary hypertension Qualified Code(s): I10 - Essential (primary) hypertension Category: Medical Code(s): I10 - Essential (primary) hypertension (5) Tobacco dependence: Status: Acute Category: Medical Code(s): F17.200 - Nicotine dependence, unspecified, uncomplicated Plan This is a 63-year-old female with identified multi-vessel coronary artery disease with recent cardiac catheterization and referred for surgical intervention. The patient declined surgical intervention and presented to the ED with chest pain. Problems addressed as follows: Unstable angina Multi-vessel coronary artery disease Telemetry monitoring Cardiology consultation Coronary angiography CT (11/12/2023) with multi-vessel coronary artery disease Cardiac catheterization (02/04/2024) with multi-vessel coronary artery disease [facility] cardiothoracic surgery evaluation and recommendations (February 2024) Patient elected to decline CABG Admission ECG with no STEMI Admission troponin negative Nitroglycerin as needed Aspirin allergy noted, continue clopidogrel High-dose statin therapy Drug therapy requiring intensive monitoring for toxicity Routine PTT Beta-ysabel therapy ARB therapy Antiemetic therapy Pain control ? S/p PCI with 2 stents today. Stable. Chest pain improved. Anticipate dc in the morning. Diabetes Routine blood sugar monitoring Hemoglobin A1c 6.0% Basal insulin therapy Sliding scale insulin therapy Avoiding SGLT2 inhibitor therapy with planned procedure Consistent carbohydrate diet Hypertension Routine blood pressure monitoring Beta-ysabel therapy ARB therapy ? Weaned off nitroglycerin drip. Generalized anxiety disorder Routine nursing interaction SSRI therapy Admission ECG with QTc 434 MS Benzodiazepine therapy as needed Tobacco dependence Tobacco cessation education Nicotine replacement therapy
[2024-03-17] VITALS: BP 106/52; PULSE 45; PULSE 54; RESP 16; TEMP 36.8; O2SAT 94
[2024-03-17 04:00] VITALS: BP 96/49; PULSE 50; RESP 16; TEMP 36.8; O2SAT 93; BMI 31.5
[2024-03-17 05:27] LABS: POC Glucose,Bedside 111 (70-110)
[2024-03-17 06:15] LABS: Albumin Level 3.9 g/dl (3.5-5.0)
[2024-03-17 06:17] LABS: Bilirubin,Unconjugated 0.3 mg/dL (0.0-1.1)
[2024-03-17 06:18] LABS: Alanine Aminotransferase 34 U/L (12-78); Alkaline Phosphatase 58 U/L (38-126); Aspartate Amino Transferase 44 U/L (14-36); Bilirubin,Direct 0.2 mg/dl (0.0-0.4); Bilirubin,Indirect 0.3 mg/dL (0.0-0.9); Bilirubin,Total 0.5 mg/dl (0.2-1.3); Chol/HDL Ratio 4.6 (1-3.5); Cholesterol 137 mg/dl (140-200); HDL Cholesterol 30 mg/dl (40-60); Total Protein,Serum 6.3 g/dl (6.3-8.2); Triglycerides 129 mg/dl (30-150); VLDL Cholesterol 26 mg/dL (0-40)
[2024-03-17 06:29] LABS: Direct LDL Cholesterol 78.53 mg/dL (100-129)
--- NOTE | 2024-03-17 06:36 | PC.NURSE ---
Pt A&OX4 and has tolerated room air. Lung sounds clear and bowel sounds active. Dressing over right radial cath site is C/D/I. The only complaint the pt had was back pain and was medicated per the MAR. Currently asleep with call light within reach.
[2024-03-17 07:39] LABS: Basophils % 0.6 % (0.1-2.0); Eosinophils # 0.1 K/mm3 (0.0-0.4); Hematocrit 36.4 % (37.0-47.0); Hemoglobin 12.4 g/dL (12.2-16.2); Lymphocytes # 1.6 K/mm3 (0.7-4.5); Mean Corpuscular Hemoglobin 30.7 pg (27.0-31.2); Mean Corpuscular Volume 90.2 fl (81-99); Mean Platelet Volume 8.5 fl (7.4-10.4); Monocytes # 0.4 K/mm3 (0.1-1.0); Neutrophils # 4.3 K/mm3 (1.8-7.8); Neutrophils % 67.4 % (37.0-80.0); Platelet Count 149 K/mm3 (142-424); Red Blood Count 4.03 M/mm3 (4.20-5.40); Red Cell Distribution Width 13.7 % (11.5-17.5); White Blood Count 6.3 K/mm3 (4.8-10.8)
[2024-03-17 07:48] LABS: Albumin Level 3.8 g/dl (3.5-5.0); Chloride 109 mmol/L (98-107); Potassium 3.8 mmoL/L (3.5-5.1); Sodium 138 mmol/L (136-145)
[2024-03-17 07:50] LABS: Blood Urea Nitrogen 20 mg/dl (7-17); Creatinine Clearance Estimated 63 mL/min (50-200); Estimated Glomerular Filt Rate 84 ml/min (>60); GFR (African American) 102 ML/MIN (>60)
[2024-03-17 07:51] LABS: Alanine Aminotransferase 32 U/L (12-78); Albumin/Globulin Ratio 1.7 (1.1-1.8); Alkaline Phosphatase 55 U/L (38-126); Anion Gap 5.8 mEq/L (5-15); Aspartate Amino Transferase 41 U/L (14-36); Bilirubin,Total 0.5 mg/dl (0.2-1.3); Carbon Dioxide 27 mmol/L (22.0-30.0); Globulin 2.3 g/dL (1.3-3.2); Glucose 93 mg/dl (74-100); Magnesium 2.1 mg/dl (1.6-2.3); Total Protein,Serum 6.1 g/dl (6.3-8.2)
[2024-03-17 08:00] VITALS: BP 111/70; PULSE 53; PULSE 55; RESP 16; TEMP 36.6; O2SAT 96
[2024-03-17] MEDS: ONDANSETRON 4MG/2ML VIAL 4 MG IV (08:03)
[2024-03-17] MEDS: SIMETHICONE 80MG CHEWABLE TABLET 80 MG PO (08:03)
[2024-03-17] MEDS: CITALOPRAM 40MG TABLET 40 MG PO (08:59)
[2024-03-17] MEDS: POLYETHYLENE GLYCOL 3350 17 GM PACKET PO (08:59)
[2024-03-17] MEDS: CLOPIDOGREL 75MG TAB 75 MG PO (08:59)
[2024-03-17] MEDS: HYDROCODONE/APAP 5/325 MG TABLET 1 TAB PO (09:04)
[2024-03-17] MEDS: METOPROLOL SUCCINATE XL 50MG TABLET 50 MG PO (09:10)
--- NOTE | 2024-03-17 10:58 | P.PN_ITS ---
Subjective Subjective Date: 03/17/24 Time: 08:30 Principal diagnosis: angina, CAD Interval history: This is a 63-year-old patient who presented to the emergency department with chest pain. The patient underwent left cardiac catheterization due to her unstable angina and known severe multivessel coronary artery disease. She underwent stenting to the left main artery and stenting to her circumflex artery. She tolerated the procedure well. She has a chronically occluded LAD with collateral circulation. The patient will be on Plavix 75 mg daily for her recent stenting. This morning she states that she is still having some twinges of sharp chest pain intermittently but this has been improved significantly. She denies any shortness of breath. She denies any lower extremity edema. She denies any fever, chills, nausea, vomiting, diarrhea, PND or orthopnea. Exam Data for Last 24 hours Vital signs and Labs for Last 24 Hours: Temp Pulse Resp BP Pulse Ox O2 Del Method O2 Flow Rate 98 F 53 L 16 111/70 96 Room Air 2 03/17/24 08:00 03/17/24 08:00 03/17/24 08:00 03/17/24 08:00 03/17/24 08:00 03/17/24 09:00 03/16/24 13:05 Laboratory Results - last 24 hr 03/16/24 13:35: Activated Clotting Time 400 H* 03/16/24 20:00: POC Glucose 136 H 03/17/24 05:19: POC Glucose 111 H 03/17/24 05:53: WBC 6.3, RBC 4.03 L, Hgb 12.4, Hct 36.4 L, MCV 90.2, MCH 30.7, MCHC 34.0, RDW 13.7, Plt Count 149, MPV 8.5, Neut % (Auto) 67.4, Lymph % (Auto) 25.0, [place] % (Auto) 6.0, Eos % (Auto) 1.0, Baso % (Auto) 0.6, Neut # (Auto) 4.3, Lymph # (Auto) 1.6, [place] # (Auto) 0.4, Eos # (Auto) 0.1, Baso # (Auto) 0.0, Sodium 138, Potassium 3.8, Chloride 109 H, Carbon Dioxide 27, Anion Gap 5.8, BUN 20 H, Creatinine 0.70, Estimated Creat Clear 63, Estimated GFR 84, Est GFR ( Amer) 102, Glucose 93, Calcium 9.0, Magnesium 2.1, Total Bilirubin 0.5 03/17/24 05:53: Total Bilirubin 0.5, Direct Bilirubin 0.2, Conjugated Bilirubin 0.0, Indirect Bilirubin 0.3, Unconjugated Bilirubin 0.3, AST 41 H D 03/17/24 05:53: AST 44 H, ALT 32 D 03/17/24 05:53: ALT 34, Alkaline Phosphatase 55 03/17/24 05:53: Alkaline Phosphatase 58, Total Protein 6.1 L 03/17/24 05:53: Total Protein 6.3, Albumin 3.8 03/17/24 05:53: Albumin 3.9, Globulin 2.3, Albumin/Globulin Ratio 1.7, Triglycerides 129, Cholesterol 137 L, LDL Cholesterol Direct 78.53 L, VLDL Cholesterol 26, HDL Cholesterol 30 L, Cholesterol/HDL Ratio 4.6 H I & O for Last 24 hours: Intake & Output 03/14/24 03/15/24 03/16/24 03/17/24 23:59 23:59 23:59 23:59 Intake Total 1240 / 1684 1194 / 1416 842 / 1092 250 / 250 Output Total 200 / 200 0 / 0 0 / 0 0 / 0 Balance 1040 / 1484 1194 / 1416 842 / 1092 250 / 250 Weight 151 lb 12.789 oz 155 lb 3.2 oz 155 lb 6.109 oz 156 lb 4.8 oz Constitutional Constitutional: no acute distress and average body habitus *Routine HEENT Exam Head: Present normocephalic and atraumatic ENT: Present mucous membranes moist *Routine Neck Exam Neck: Present supple, full ROM and normal carotid upstroke; Absent JVD, carotid bruit or lymphadenopathy *Routine Respiratory Exam Respiratory: Present CTA bilaterally, normal respiratory effort, able to speak in complete sentences and symmetric chest movement *Routine Cardiovascular Exam Cardiovascular: Present RRR, Normal S1 and Normal S2; Absent murmur or gallop *Routine Abdominal Exam Abdominal: Present soft and normoactive bowel sounds; Absent tenderness, distended or organomegaly *Routine Extremities Exam Extremities: Present full ROM, pulses intact and normal capillary refill; Absent cyanosis, clubbing or edema *Routine Skin Exam Skin: Present intact and warm; Absent erythema *Routine Neurological Exam Neurological: Present alert, oriented X3 and CN II-XII intact; Absent sensory deficit or motor deficit Routine Psychiatric Exam Psychiatric: Present normal affect Progress Note: A&P Assessment and plan (1) CAD, multiple vessel: Status: Acute (2) Diabetes: Status: Acute (3) HTN (hypertension): Status: Acute (4) Tobacco dependence: Status: Acute (5) HLD (hyperlipidemia): Status: Acute Assessment and Plan Assessment and Plan for All Diagnoses:: Plan: 1. The patient would like cardiac catheterization yesterday and had 1 stent placed to the left main and 1 stent placed to the circumflex artery. Her LAD remains chronically occluded with collateral circulation. She will remain on Plavix 75 mg p.o. daily. She is allergic to aspirin. 2. CAD is present and likely stable. 3. Her blood pressure is well-controlled. 4. Her LDL goal is less than 55. She is on Repatha and Crestor. Her LDL is 78. 5. Tobacco cessation is highly advised and counseled. She states she has not smoked a cigarette in several days. 6. No further recommendations at this time from a cardiac standpoint. The patient can be discharged home today with follow-up in cardiology clinic in 1 to 2 weeks. The patient can be discharged with the following cardiac medications: Crestor 20 mg p.o. nightly, Plavix 75 mg daily, Toprol 50 mg daily, and Repatha injection every 2 weeks, Zetia 10 mg daily, Jardiance 25 mg daily. Thank you for the opportunity to help with this plan of care this patient. All recommendations and orders are per Dr. Hunt.
[2024-03-17 11:30] LABS: POC Glucose,Bedside 101 (70-110)
[2024-03-17 11:33] VITALS: BP 102/59; PULSE 50; RESP 16; TEMP 36.6; O2SAT 98
--- NOTE | 2024-03-17 11:56 | EXP.DC.SUM ---
General Admission date:: 03/13/24 HPI HPI HPI: This is a 63-year-old female that presents to [facility] emergency department with concerns of chest pain that started today. She identifies the chest pain as retrosternal and radiates to the left breast. Initially her chest pain was rated as a 10 on a 1-10 pain scale but after receiving nitroglycerin from EMS she reports that her pain has improved. She reports at that chest pain is reproducible with exertion and she reports some diaphoresis but no associated nausea and vomiting. She denies confusion, unusual headaches, bruising, bleeding or syncopal episodes. Her past medical history is significant for multivessel coronary artery disease identified on a cardiac catheterization in January. She was recently evaluated by cardiothoracic surgery at [facility] with plans to pursue CABG but the patient declined and canceled the surgery. Thus far ECG x 2 identifies no acute changes and her troponins are negative. Cardiology was consulted out of the ED. She has been started on IV heparin and has received P2Y12 inhibitor therapy. Hospital Course Hospital Course Hospital Course: This is a 63-year-old female with identified multi-vessel coronary artery disease with recent cardiac catheterization and referred for surgical intervention for CABG. The patient declined that surgical intervention and presented to the ED with chest pain. Problems addressed as follows: Unstable angina Multi-vessel coronary artery disease Coronary angiography CT (11/12/2023) with multi-vessel coronary artery disease Cardiac catheterization (02/04/2024) with multi-vessel coronary artery disease [facility] cardiothoracic surgery evaluation and recommendations (February 2024) Patient elected to decline CABG Aspirin allergy noted, continue clopidogrel High-dose statin therapy Beta-ysabel therapy ARB therapy ? S/p PCI with 2 stents into left main and proximal dominant circumflex artery. - Start Plavix 75mg, continue losartan 100mg, Jardiance 25mg, metoprolol succinate 12.5mg, ezetimibe, Repatha. Diabetes Hemoglobin A1c 6.0% Continue Jardiance 25mg as above. Hypertension Initiall cardiology recommended nitroglycerin drip, weaned off. - Continue losartan 100mg, metoprolol succinate 12.5mg. Generalized anxiety disorder - Continue home Lexapro 20mg. Tobacco dependence - Provided smoking cessation counseling. Exam Data for Last 24 hours Vital signs and Labs for Last 24 Hours: Temp Pulse Resp BP Pulse Ox O2 Del Method O2 Flow Rate 97.9 F 50 L 16 102/59 L 98 Room Air 2 03/17/24 11:33 03/17/24 11:33 03/17/24 11:33 03/17/24 11:33 03/17/24 11:33 03/17/24 11:33 03/16/24 13:05 Laboratory Results - last 24 hr 03/16/24 13:35: Activated Clotting Time 400 H* 03/16/24 20:00: POC Glucose 136 H 03/17/24 05:19: POC Glucose 111 H 03/17/24 05:53: WBC 6.3, RBC 4.03 L, Hgb 12.4, Hct 36.4 L, MCV 90.2, MCH 30.7, MCHC 34.0, RDW 13.7, Plt Count 149, MPV 8.5, Neut % (Auto) 67.4, Lymph % (Auto) 25.0, Summers % (Auto) 6.0, Eos % (Auto) 1.0, Baso % (Auto) 0.6, Neut # (Auto) 4.3, Lymph # (Auto) 1.6, Summers # (Auto) 0.4, Eos # (Auto) 0.1, Baso # (Auto) 0.0, Sodium 138, Potassium 3.8, Chloride 109 H, Carbon Dioxide 27, Anion Gap 5.8, BUN 20 H, Creatinine 0.70, Estimated Creat Clear 63, Estimated GFR 84, Est GFR ( Amer) 102, Glucose 93, Calcium 9.0, Magnesium 2.1, Total Bilirubin 0.5 03/17/24 05:53: Total Bilirubin 0.5, Direct Bilirubin 0.2, Conjugated Bilirubin 0.0, Indirect Bilirubin 0.3, Unconjugated Bilirubin 0.3, AST 41 H D 03/17/24 05:53: AST 44 H, ALT 32 D 03/17/24 05:53: ALT 34, Alkaline Phosphatase 55 03/17/24 05:53: Alkaline Phosphatase 58, Total Protein 6.1 L 03/17/24 05:53: Total Protein 6.3, Albumin 3.8 03/17/24 05:53: Albumin 3.9, Globulin 2.3, Albumin/Globulin Ratio 1.7, Triglycerides 129, Cholesterol 137 L, LDL Cholesterol Direct 78.53 L, VLDL Cholesterol 26, HDL Cholesterol 30 L, Cholesterol/HDL Ratio 4.6 H 03/17/24 11:22: POC Glucose 101 I & O for Last 24 hours: Intake & Output 03/14/24 03/15/24 03/16/24 03/17/24 23:59 23:59 23:59 23:59 Intake Total 1240 / 1684 1194 / 1416 842 / 1092 250 / 250 Output Total 200 / 200 0 / 0 0 / 0 0 / 0 Balance 1040 / 1484 1194 / 1416 842 / 1092 250 / 250 Weight 68.855 kg 70.398 kg 70.48 kg 70.896 kg Constitutional Constitutional: no acute distress *Routine HEENT Exam Head: Present normocephalic Eye: Present EOMI and PERRL ENT: Present mucous membranes moist *Routine Neck Exam Neck: Present supple; Absent lymphadenopathy *Routine Respiratory Exam Respiratory: Present CTA bilaterally *Routine Cardiovascular Exam Cardiovascular: Present RRR *Routine Abdominal Exam Abdominal: Present soft and normoactive bowel sounds; Absent tenderness *Routine Extremities Exam Extremities: Absent cyanosis, clubbing or edema *Routine Skin Exam Skin: Present warm; Absent rash *Routine Neurological Exam Neurological: Present alert and oriented X3 Results Data Completed and Pending Labs on day of discharge: Labs from last 24 hours 03/17/24 03/17/24 03/17/24 11:22 05:53 05:53 WBC RBC Hgb Hct MCV MCH MCHC RDW Plt Count MPV Neut % (Auto) Lymph % (Auto) Summers % (Auto) Eos % (Auto) Baso % (Auto) Neut # (Auto) Lymph # (Auto) Summers # (Auto) Eos # (Auto) Baso # (Auto) Activated Clotting Time Sodium Potassium Chloride Carbon Dioxide Anion Gap BUN Creatinine Estimated Creat Clear Estimated GFR Est GFR ( Amer) Glucose POC Glucose 101 Calcium Magnesium Total Bilirubin Direct Bilirubin Conjugated Bilirubin Indirect Bilirubin Unconjugated Bilirubin AST ALT Alkaline Phosphatase Total Protein 6.3 Albumin 3.9 3.8 Globulin 2.3 Albumin/Globulin Ratio 1.7 Triglycerides 129 Cholesterol 137 L LDL Cholesterol Direct 78.53 L VLDL Cholesterol 26 HDL Cholesterol 30 L Cholesterol/HDL Ratio 4.6 H 03/17/24 03/17/24 03/17/24 05:53 05:53 05:53 WBC RBC Hgb Hct MCV MCH MCHC RDW Plt Count MPV Neut % (Auto) Lymph % (Auto) Summers % (Auto) Eos % (Auto) Baso % (Auto) Neut # (Auto) Lymph # (Auto) Summers # (Auto) Eos # (Auto) Baso # (Auto) Activated Clotting Time Sodium Potassium Chloride Carbon Dioxide Anion Gap BUN Creatinine Estimated Creat Clear Estimated GFR Est GFR ( Amer) Glucose POC Glucose Calcium Magnesium Total Bilirubin Direct Bilirubin Conjugated Bilirubin Indirect Bilirubin Unconjugated Bilirubin AST 44 H ALT 34 32 D Alkaline Phosphatase 58 55 Total Protein 6.1 L Albumin Globulin Albumin/Globulin Ratio Triglycerides Cholesterol LDL Cholesterol Direct VLDL Cholesterol HDL Cholesterol Cholesterol/HDL Ratio 03/17/24 03/17/24 03/17/24 05:53 05:53 05:19 WBC 6.3 RBC 4.03 L Hgb 12.4 Hct 36.4 L MCV 90.2 MCH 30.7 MCHC 34.0 RDW 13.7 Plt Count 149 MPV 8.5 Neut % (Auto) 67.4 Lymph % (Auto) 25.0 Summers % (Auto) 6.0 Eos % (Auto) 1.0 Baso % (Auto) 0.6 Neut # (Auto) 4.3 Lymph # (Auto) 1.6 Summers # (Auto) 0.4 Eos # (Auto) 0.1 Baso # (Auto) 0.0 Activated Clotting Time Sodium 138 Potassium 3.8 Chloride 109 H Carbon Dioxide 27 Anion Gap 5.8 BUN 20 H Creatinine 0.70 Estimated Creat Clear 63 Estimated GFR 84 Est GFR ( Amer) 102 Glucose 93 POC Glucose 111 H Calcium 9.0 Magnesium 2.1 Total Bilirubin 0.5 0.5 Direct Bilirubin 0.2 Conjugated Bilirubin 0.0 Indirect Bilirubin 0.3 Unconjugated Bilirubin 0.3 AST 41 H D ALT Alkaline Phosphatase Total Protein Albumin Globulin Albumin/Globulin Ratio Triglycerides Cholesterol LDL Cholesterol Direct VLDL Cholesterol HDL Cholesterol Cholesterol/HDL Ratio 03/16/24 03/16/24 20:00 13:35 WBC RBC Hgb Hct MCV MCH MCHC RDW Plt Count MPV Neut % (Auto) Lymph % (Auto) Summers % (Auto) Eos % (Auto) Baso % (Auto) Neut # (Auto) Lymph # (Auto) Summers # (Auto) Eos # (Auto) Baso # (Auto) Activated Clotting Time 400 H* Sodium Potassium Chloride Carbon Dioxide Anion Gap BUN Creatinine Estimated Creat Clear Estimated GFR Est GFR ( Amer) Glucose POC Glucose 136 H Calcium Magnesium Total Bilirubin Direct Bilirubin Conjugated Bilirubin Indirect Bilirubin Unconjugated Bilirubin AST ALT Alkaline Phosphatase Total Protein Albumin Globulin Albumin/Globulin Ratio Triglycerides Cholesterol LDL Cholesterol Direct VLDL Cholesterol HDL Cholesterol Cholesterol/HDL Ratio DS: Diagnosis Discharge Diagnosis (1) CAD, multiple vessel: Status: Acute Code(s): I25.10 - Atherosclerotic heart disease of [place] coronary artery without angina pectoris (2) Diabetes: Status: Acute Code(s): E11.9 - Type 2 diabetes mellitus without complications Qualifiers: Diabetes mellitus complication status: with hyperglycemia Diabetes mellitus long-term insulin use: without long-term use Diabetes mellitus type: type 2 Qualified Code(s): E11.65 - Type 2 diabetes mellitus with hyperglycemia (3) HTN (hypertension): Status: Acute Code(s): I10 - Essential (primary) hypertension Qualifiers: Hypertension type: primary hypertension Qualified Code(s): I10 - Essential (primary) hypertension (4) Tobacco dependence: Status: Acute Code(s): F17.200 - Nicotine dependence, unspecified, uncomplicated (5) HLD (hyperlipidemia): Status: Acute Code(s): E78.5 - Hyperlipidemia, unspecified Qualifiers: Hyperlipidemia type: other hyperlipidemia Qualified Code(s): E78.49 - Other hyperlipidemia Meds Home Medications and Allergies Home Medications ?Medication ?Instructions ?Recorded ?Confirmed ?Type losartan 100 mg tablet 100 mg PO DAILY #90 tabs 10/14/23 03/25/24 Rx empagliflozin 25 mg tablet 25 mg PO DAILY Diabetes #30 tabs 01/14/24 03/25/24 Rx (Jardiance) ezetimibe 10 mg tablet 10 mg PO DAILY #90 tabs 01/28/24 03/25/24 Rx escitalopram oxalate 20 mg tablet 20 mg PO DAILY #90 tabs 03/11/24 03/25/24 Rx (Lexapro) evolocumab 140 mg/mL subcutaneous 140 mg [id number] 03/14/24 03/25/24 History pen injector (Repathjunito Chapin) fluticasone propionate 50 1 spray intranasal DAILY 03/14/24 03/25/24 History mcg/actuation nasal spray,suspension montelukast 10 mg tablet 10 mg PO PM 03/14/24 03/25/24 History clopidogrel 75 mg tablet 75 mg PO DAILY 30 days #30 tabs 03/17/24 03/25/24 Rx acetaminophen 300 mg-codeine 30 mg 1 tab PO TID PRN pain #90 tabs 03/25/24 03/25/24 Rx tablet metoprolol succinate 25 mg 12.5 mg (1/2 x 25 mg) PO HS #30 03/30/24 Rx tablet,extended release 24 hr tabs New Prescriptions to Start Prescriptions: Bennie Adler Allergies Allergy/AdvReac Type Severity Reaction Status Date / Time aspirin Allergy Mild Rash Verified 03/25/24 11:11 Penicillins (PENICILLINS) Allergy Mild BREAKS HER Verified 03/25/24 11:11 OUT. calcium Allergy rash Verified 03/25/24 11:11 polyester fibers Allergy Irritable Verified 03/25/24 11:11 evolocumab (From Repatha AdvReac Mild rash on Verified 03/25/24 11:11 SureClick) arms Discharge Plan Disposition Patient Disposition: Home, Self-Care Condition: Fair Discharge Order Discharge Orders: Discharge Order (Routine); Ordered 03/17/24 Ordered By: Bennie Vargas Follow up Plan Follow up with: Jovanny Martinez PA [Physician Starting Sheet Tank Operator] - 03/24/24 2:30 pm Marcos Tran MD [Primary Care Provider] - 03/25/24 11:00 am Prescriptions/Medication Reconciliation: New clopidogrel 75 mg Tablet 75 mg PO DAILY 30 Days Qty: 30 0RF Continued losartan 100 mg tablet 100 mg PO DAILY Qty: 90 3RF Jardiance 25 mg tablet 25 mg PO DAILY Qty: 30 3RF ezetimibe 10 mg tablet 10 mg PO DAILY Qty: 90 3RF escitalopram oxalate [Lexapro] 20 mg tablet 20 mg PO DAILY Qty: 90 3RF Repatha SureClick 140 mg/mL pen injector 140 mg SQ .[id number] Patient Comments: INJECT 1 PEN UNDER THE SKIN EVERY 2 WEEKS. montelukast 10 mg tablet 10 mg PO PM fluticasone propionate 50 mcg/actuation spray,suspension 1 spray INTRANASAL DAILY No Action acetaminophen-codeine 300-30 mg tablet 1 tab PO TID PRN (Reason: pain) Qty: 90 2RF metoprolol succinate 25 mg tablet extended release 24 hr 12.5 mg PO HS Qty: 30 0RF Problem Reconciliation Problems Reviewed?: Yes Patient Discharge Instructions Patient Instructions: Heart-Healthy Diet, DI for Chest Pain Print Language: [place]ian Providers Primary Care Provider: Marcos Tran Admit Provider: Calin Henao Attending Provider: Calin Henao
[2024-03-17 15:02] LABS: Alkaline Phosphatase 63
[2024-03-18 17:12] LABS: Bone Fraction: 37 % (14-68); Intestinal Frac.: 0 % (0-18); Liver Fraction: 63 % (18-85)
--- NOTE | 2024-03-19 11:11 | SW/DCPLANNER ---
Patient called back. Patient stated that she still doesnt feel well. Patient stated that she was able to get her medicine filled and that she is aware of her upcoming appointments. Patient stated that she has no questions or concerns at this time other than she wants to feel better. Conchita GUAJARDO Invoice Machine Operator
== END 2024-03-17 13:17 | disposition home or self-care (01) | DRG 322 ==
LOC: ER 20:05 → 2ND 20:37
PROVIDERS: Internal Medicine; Nurse Practitioner Family; Student in an Organized Health Care Education/Training Program; Admitting Provider Family Medicine; Emergency Provider Student in an Organized Health Care Education/Training Program; PCP Family Medicine; Visit Provider Family Medicine
PROC: 027135Z Dilation of Coronary Artery, Two Arteries with Two Drug-eluting Intraluminal Devices, Percutaneous Approach (ICD-10-PCS; principal; 2024-03-16 12:00)
DX: I25.110 Atherosclerotic heart disease of native coronary artery with unstable angina pectoris (principal); E11.65 Type 2 diabetes mellitus with hyperglycemia; I10 Essential (primary) hypertension; F17.210 Nicotine dependence, cigarettes, uncomplicated; E78.49 Other hyperlipidemia; R94.31 Abnormal electrocardiogram [ECG] [EKG]; Z79.899 Other long term (current) drug therapy; Z79.84 Long term (current) use of oral hypoglycemic drugs; I25.82 Chronic total occlusion of coronary artery
CPT/HCPCS: 36415; 71046; 80048; 80053; 80061; 80076; 81001; 82040; 82247; 82962; 83690; 83735; 84075; 84080; 84155; 84450; 84460; 84484; 85025; 85347; 85378; 85730; 86803; 87086; 87389; 92928; 93005; 99152; 99153; 99291; C1725; C1769; C1874; C9600; J1200; J1644; J1650; J2250; J2270; J2405; J3010; Q9967

== ENCOUNTER 2024-03-24 13:05 | Outpatient (CLI) | payer MEDICARE, MEDICAID, SELFPAY ==
[2024-03-24 13:33] LABS: Basophils # 0.1 K/mm3 (0-0.2); Eosinophils # 0.1 K/mm3 (0.0-0.4); Eosinophils % 0.8 % (0.1-12.0); Hematocrit 40.1 % (37.0-47.0); Hemoglobin 13.5 g/dL (12.2-16.2); Lymphocytes # 1.8 K/mm3 (0.7-4.5); Lymphocytes % 24.3 % (10-50); Mean Corpuscular HGB Conc 33.7 g/dL (31.8-35.4); Mean Corpuscular Hemoglobin 30.9 pg (27.0-31.2); Mean Corpuscular Volume 91.7 fl (81-99); Mean Platelet Volume 8.5 fl (7.4-10.4); Monocytes # 0.4 K/mm3 (0.1-1.0); Monocytes % 5.8 % (1.7-9.3); Neutrophils # 5.1 K/mm3 (1.8-7.8); Neutrophils % 68.1 % (37.0-80.0); Platelet Count 181 K/mm3 (142-424); Red Blood Count 4.37 M/mm3 (4.20-5.40); White Blood Count 7.5 K/mm3 (4.8-10.8)
[2024-03-24 14:10] LABS: Anion Gap 12.9 mEq/L (5-15); Blood Urea Nitrogen 26 mg/dl (7-17); Carbon Dioxide 27 mmol/L (22.0-30.0); Chloride 107 mmol/L (98-107); Estimated Glomerular Filt Rate 100 ml/min (>60); GFR (African American) 121 ML/MIN (>60); Glucose 105 mg/dl (74-100); Potassium 3.9 mmoL/L (3.5-5.1); Sodium 143 mmol/L (136-145)
== END 2024-03-24 23:59 | disposition home or self-care (01) ==
LOC: LAB 13:06
PROVIDERS: PCP Family Medicine; Visit Provider Physician Assistant
DX: I20.0 Unstable angina (principal); D64.9 Anemia, unspecified
CPT/HCPCS: 36415; 80048; 85025

== ENCOUNTER 2024-05-15 09:27 | Outpatient (CLI) | payer MEDICARE, MEDICAID, SELFPAY ==
[2024-05-15 19:31] LABS: Anion Gap 17.3 mEq/L (5-15); Blood Urea Nitrogen 20 mg/dl (7-17); Calcium 9.8 mg/dl (8.4-10.2); Carbon Dioxide 24 mmol/L (22.0-30.0); Chloride 104 mmol/L (98-107); Chol/HDL Ratio 7.2 (1-3.5); Cholesterol 259 mg/dl (140-200); Estimated Glomerular Filt Rate 100 ml/min (>60); GFR (African American) 121 ML/MIN (>60); Glucose 109 mg/dl (74-100); HDL Cholesterol 36 mg/dl (40-60); Potassium 4.3 mmoL/L (3.5-5.1); Sodium 141 mmol/L (136-145); Triglycerides 198 mg/dl (30-150); VLDL Cholesterol 40 mg/dL (0-40)
[2024-05-15 19:38] LABS: Creatinine,Urine Random 122 mg/dL (Not Estab.)
[2024-05-15 19:43] LABS: Direct LDL Cholesterol 159.96 mg/dL (100-129)
[2024-05-15 20:14] LABS: Microalbumin/Creatinine Ratio 16.8
== END 2024-05-15 23:59 | disposition home or self-care (01) ==
LOC: LAB.DROPOF 05-16 11:02
PROVIDERS: PCP Family Medicine; Visit Provider Family Medicine
DX: I10 Essential (primary) hypertension (principal); E11.65 Type 2 diabetes mellitus with hyperglycemia; F17.200 Nicotine dependence, unspecified, uncomplicated; I25.10 Atherosclerotic heart disease of native coronary artery without angina pectoris; E78.49 Other hyperlipidemia; L40.9 Psoriasis, unspecified; F41.9 Anxiety disorder, unspecified; Q15.9 Congenital malformation of eye, unspecified; F32.A Depression, unspecified
CPT/HCPCS: 80048; 80061; 82043; 82570; 83036

== ENCOUNTER 2024-07-25 10:32 | Emergency (ER) | payer MEDICARE, MEDICAID, SELFPAY ==
[2024-07-25 10:42] VITALS: BP 149/81; PULSE 79; RESP 16; O2SAT 97
[2024-07-25 10:48] VITALS: BP 149/81; PULSE 81; RESP 14; TEMP 36.8; O2SAT 98; BMI 30.2
[2024-07-25 10:55] LABS: Microscopic, Urine URINE MICROSCOPIC (MICROSCOPIC)
[2024-07-25 10:56] LABS: Appearance,Urine CLEAR (Clear); Bilirubin,Urine Negative (Negative); Blood, Urine Negative (Negative); Color,Urine YELLOW (Yellow); Glucose,Urine (UA) 3+ (Negative); Ketones,Urine Negative (Negative); Leukocyte Esterase,Urine Negative (Negative); Nitrate,Urine Negative (Negative); PH,Urine 5.5 (5.0-8.5); Protein,Urine Negative (Negative); Specific Gravity, Urine 1.025 (1.005-1.030); Urobilinogen,Urine 0.2 EU/dl (0.2)
--- NOTE | 2024-07-25 11:00 | XR_ITS ---
PROCEDURE INFORMATION: Exam: XR Abdomen Exam date and time: 07/25/2024 11:23 AM Age: 63 years old Clinical indication: Constipation; Additional info: Constipation, lower abdominal pain TECHNIQUE: Imaging protocol: Radiologic exam of the abdomen. Views: Frontal supine view of the abdomen. 1 View. COMPARISON: CR XR CHEST 2V 03/13/2024 7:11 PM FINDINGS: Lungs: Visualized lung bases are clear. Gastrointestinal tract: There is retained stool within the rectum that appears somewhat distended that may reflect some degree of fecal impaction. Bowel-gas pattern is otherwise unremarkable. Bones/joints: Unremarkable. IMPRESSION: Findings suggesting some degree of fecal impaction, otherwise unremarkable study.
[2024-07-25 11:02] LABS: Bacteria,Urine Trace /lpf
--- NOTE | 2024-07-25 11:09 | HMH.EDGENADL ---
Discharge Plan Disposition Patient Disposition: Home, Self-Care Condition: Good Prescriptions Prescriptions: No Action losartan 100 mg tablet 100 mg PO DAILY Qty: 90 3RF cefdinir 300 mg capsule 300 mg PO BID Qty: 20 0RF clobetasol 0.05 % solution 1 applic topical BID Qty: 50 5RF metronidazole 500 mg tablet 500 mg PO BID Qty: 10 0RF moxifloxacin 0.5 % drops 1 drp ophthalmic (eye) TID 7 Days Qty: 3 1RF escitalopram oxalate [Lexapro] 20 mg tablet 20 mg PO DAILY Qty: 90 3RF clopidogrel 75 mg tablet 75 mg PO DAILY 30 Days Qty: 30 3RF metoprolol succinate 25 mg tablet extended release 24 hr See Rx Instructions .ROUTE .COMPLEX Qty: 30 3RF Dose Instruction: Take 1 Tablet by mouth once daily. Rx Instructions: Take 1 Tablet by mouth once daily. Jardiance 25 mg tablet 25 mg PO DAILY Qty: 30 3RF montelukast 10 mg tablet 10 mg PO PM Qty: 30 2RF pravastatin 10 mg tablet 10 mg PO HS Qty: 30 2RF fluticasone propionate 50 mcg/actuation spray,suspension 1 spray INTRANASAL DAILY Referrals Follow up/Referrals: Marcos Tran MD [Primary Care Provider] - See instructions Activity Restrictions/Add. Instructions Additional Instructions/Restrictions: Use 2 capfuls of MiraLAX daily until your stools become regular again. At that time, decrease it to 1 capful daily. Drink plenty of water to stay hydrated and keep your stools loose. Follow-up with your physician on the seventh as scheduled to follow-up your vaginal bleeding. If you develop any new or worsening symptoms, or if you become concerned for your health for any reason, return to the emergency department for evaluation Clinical Impressions Clinical Impression: Constipation, Fecal impaction Instructions Patient Instructions: DI for Acute Abdominal Pain Print Language Print Language: Tamazight Discharge ED Provider: Jovanny Maldonado Adult HPI General Chief complaint: Abdominal Pain Stated complaint: constipation, hemmorhoids, on blood thinners Time Seen by Provider: 07/25/24 10:44 Mode of Arrival: Ambulatory Source of Information: Patient Description of Symptoms (Recalled from ER Triage Doc. by RN): patient states she hasnt had her metamucil for 3 days and is constipated, tried an enema this morning but noticed bleeding however she does have hemrroids. she is having lower abdominal pain, she also has burning with urination and pain in her vaginal area that comes and goes with brown vaginal discharge that has been going on for 3 months History of Present Illness HPI narrative: Ruthann Lee is a 63y female with a history of hemorrhoids, constipation, hypertension, diabetes mellitus, coronary artery disease, who presents to the emergency department for complaints of rectal bleeding and constipation. Patient states that she ran out of her Metamucil 3 days ago. Her last bowel movement that was normal was 2 days ago. She states that yesterday she had a small bowel movement with hard stools. Yesterday, she started develop some rectal bleeding with bowel movements. She states that there is bright red blood in the stool and she is having some rectal pain as well. She believes that she is constipated and this is causing her hemorrhoids to bleed. She is on Plavix for unknown reasons. She called a nurse coordinator today who told her that she needed to come to the emergency department. She reports some mild suprapubic abdominal pain but denies any dysuria or hematuria. She reports some blood around her vaginal area as well this morning. Related Data Home Medications ?Medication ?Instructions ?Recorded ?Confirmed fluticasone propionate 50 1 spray intranasal DAILY 03/14/24 07/15/24 mcg/actuation nasal spray,suspension Previous Rx's ?Medication ?Instructions ?Recorded losartan 100 mg tablet 100 mg PO DAILY #90 tabs 10/14/23 escitalopram oxalate 20 mg tablet 20 mg PO DAILY #90 tabs 03/11/24 (Lexapro) cefdinir 300 mg capsule 300 mg PO BID #20 caps 04/07/24 clopidogrel 75 mg tablet 75 mg PO DAILY 30 days #30 tabs 05/04/24 empagliflozin 25 mg tablet 25 mg PO DAILY Diabetes #30 tabs 05/13/24 (Jardiance) metoprolol succinate 25 mg See Rx Instructions .Route 05/13/24 tablet,extended release 24 hr .COMPLEX #30 tabs montelukast 10 mg tablet 10 mg PO PM #30 tabs 05/13/24 clobetasol 0.05 % scalp solution 1 applic topical BID #50 mL 05/15/24 pravastatin 10 mg tablet 10 mg PO HS #30 tabs 06/10/24 metronidazole 500 mg tablet 500 mg PO BID #10 tabs 06/11/24 moxifloxacin 0.5 % eye drops 1 drp ophthalmic (eye) TID 7 days 07/15/24 #3 mL Allergies Allergy/AdvReac Type Severity Reaction Status Date / Time aspirin Allergy Mild Rash Verified 07/25/24 11:23 Penicillins (PENICILLINS) Allergy Mild BREAKS HER Verified 07/25/24 11:23 OUT. acetaminophen (From Allergy rash Verified 07/25/24 11:23 Tylenol-Codeine) calcium Allergy rash Verified 07/25/24 11:23 codeine (From Allergy rash Verified 07/25/24 11:23 Tylenol-Codeine) polyester fibers Allergy Irritable Verified 07/25/24 11:23 evolocumab (From Repatha AdvReac Mild rash on Verified 07/25/24 11:23 SureClick) arms PFSH PFS Disclaimer: The information contained in this section may have been updated after the patient was seen, as this information can be updated by other users. Medical History (Updated 07/25/24 @ 12:52 by Jovanny Maldonado MD) Cystocele Atypical angina Abnormal findings on diagnostic imaging of heart and coronary circulation Shoulder blade pain Allergies Impacted cerumen, right ear Sinusitis Ear congestion Ingrowing Toenail BMI 37.0-37.9, adult Pain around toenail, right foot Ingrowing Toenail Pain around toenail, left foot Atypical chest pain Bilateral shoulder pain Neck pain UTI (urinary tract infection) Effusion, left knee Unstable angina Tobacco dependence Coronary artery disease CAD, multiple vessel Diabetes HLD (hyperlipidemia) HTN (hypertension) Abnormal ECG Right ovarian cyst Surgical History History of heart artery stent S/P cardiac catheterization H/O left knee surgery Family History Other No significant family history Social History Smoking Status: Current every day smoker tobacco type: cigarettes packs per day: 1 alcohol intake: never substance use type: denies use current occupational status: other Travel in the last 8 weeks: None household members: spouse and children housing: house Have you lived/traveled outside US in past 30 days?: No Contact w/someone who lives/traveled outside US past 30 days?: No Exposure to someone with infectious disease in past 14 days?: No Do you have a fever (greater than 100.4 F or 38 C)?: No Have you tested positive for COVID-19: No Exposed to someone with COVID-19 in past 14 days?: No Do you have a sore throat?: No Do you have a cough?: No Do you have any weakness?: No Do you have any diarrhea?: No Are you experiencing any unusual bleeding?: No Do you have any muscle aches/pain?: No Do you have any abdominal pain?: No Are you experiencing loss of taste or smell?: No Other Medical History Have you received the Flu Vaccine for this season: No Have you received the Pneumonia Vaccine: No ROS Obtained: Yes Systems reviewed as appropriate & no additional complaints except as documented Physical Exam General General appearance: alert and in no apparent distress Head Head exam: atraumatic Eye Eye exam: Present normal appearance ENT ENT exam: Present normal external ear exam Neck Neck exam: Present full ROM Chest Chest inspection: Present symmetric chest wall rise Respiratory Respiratory exam: Present normal lung sounds bilaterally; Absent respiratory distress Cardiovascular Cardiovascular exam: Present regular rate and normal rhythm Abdominal Exam Abdominal exam: Present soft and tenderness (mild suprapubic); Absent guarding Rectal Exam comment: No bleeding, no external hemorrhoids appreciated. Likely skin tag at the 11 o'clock position External exam: Present normal external exam and other (No bleeding or cyst appreciated in the vaginal area. External vaginal exam is normal. This was performed with senior contract specialist present) Extremities Exam Extremities exam: Present normal inspection Back Exam Back exam: Present normal inspection Neurological Exam Neurological exam: Present alert and oriented X3 Psychiatric Psychiatric exam: Present normal affect Skin Skin exam: Present warm and dry Medical Decision Making Medical Records Screening: Per USPSTF and CDC recommendations, given the prevalence of disease in our region, it is our hospital?s policy to screen for HIV and viral Hepatitis for all patients aged 18 and over and those with ongoing risk factors. [place]wey Inquiry Pt receiving controlled substance: No Vital Signs: 07/25/24 10:42 07/25/24 10:48 07/25/24 11:30 Temperature 98.3 F Temperature Source Oral Pulse Rate 79 74 Pulse Rate [Right] 81 Respiratory Rate 16 14 21 Blood Pressure 149/81 H 130/71 Blood Pressure [Right Arm] 149/81 H Blood Pressure Mean [Right Arm] 103 Blood Pressure Source [Right Arm] Automatic Cuff Blood Pressure Position [Right Arm] Sitting 02 Sat by Pulse Oximetry 97 98 96 Oxygen Delivery Method Room Air Room Air Room Air 07/25/24 12:00 Temperature Temperature Source Pulse Rate 73 Pulse Rate [Right] Respiratory Rate 15 Blood Pressure 130/70 Blood Pressure [Right Arm] Blood Pressure Mean [Right Arm] Blood Pressure Source [Right Arm] Blood Pressure Position [Right Arm] 02 Sat by Pulse Oximetry 96 Oxygen Delivery Method Room Air Lab Data Lab Results 07/25/24 10:50: Urine Color Yellow, Urine Appearance Clear, Urine pH 5.5, Ur Specific Carver 1.025, Urine Protein Negative, Urine Glucose (UA) 3+, Urine Ketones Negative, Urine Blood Negative, Urine Nitrate Negative, Urine Bilirubin Negative, Urine Urobilinogen 0.2, Ur Leukocyte Esterase Negative, Urine RBC None, Urine WBC None, Ur Squamous Epith Cells 3-5, Urine Bacteria Trace 07/25/24 11:07: WBC 9.7, RBC 4.54, Hgb 13.8, Hct 40.6, MCV 89.4, MCH 30.4, MCHC 34.0, RDW 13.7, Plt Count 168, MPV 9.8, Neut % (Auto) 81.3 H, Lymph % (Auto) 12.5, [place] % (Auto) 4.4, Eos % (Auto) 0.6, Baso % (Auto) 0.6, Neut # (Auto) 7.9 H, Lymph # (Auto) 1.2, [place] # (Auto) 0.4, Eos # (Auto) 0.1, Baso # (Auto) 0.1, PT 10.3, INR 0.91, Sodium 140, Potassium 3.9, Chloride 106, Carbon Dioxide 25, Anion Gap 12.9, BUN 17, Creatinine 0.60, Estimated Creat Clear 60, Estimated GFR 100, Est GFR ( Amer) 121, Glucose 144 H, Calcium 9.7, Total Bilirubin 0.6, AST 27, ALT 25, Alkaline Phosphatase 71, Total Protein 8.2 D, Albumin 4.8, Globulin 3.4 H, Albumin/Globulin Ratio 1.4, Lipase 153 07/25/24 11:10: VBG pH 7.41, VBG pCO2 39.7, VBG pO2 69.2 H, VBG HCO3 24.5, VBG Total CO2 25.8, VBG O2 Saturation 94.7 H, VBG Base Excess -0.1, VBG Lactic Acid 1.9 07/25/24 11:07 07/25/24 11:07 Orders (Tests/Meds): ED MEDICATIONS Discontinued Medications Generic Name Dose Route Start Last Admin Trade Name Jana PRN Reason Stop Dose Admin Sodium Phosphate 133 ml 07/25/24 12:08 07/25/24 12:10 Sodium Phos/Biphosphate Fleet 133ml Enema RC 07/25/24 12:09 133 ml ONCE ONE Administration ORDERS Category Date Time Status KUB (single view) [XR KUB] Stat Exams 07/25/24 11:00 Completed CBC w/Auto Diff [Complete Blood Count Auto Diff] Stat Lab 07/25/24 11:07 Completed CMP [Comprehensive Metabolic Panel] Stat Lab 07/25/24 11:07 Completed Lipase Stat Lab 07/25/24 11:07 Completed PT INR [Prothrombin Time INR] Stat Lab 07/25/24 11:07 Completed UA [Urinalysis and Microscopic] Stat Lab 07/25/24 10:50 Completed VBG [Venous Blood Gas] Stat RT 07/25/24 11:10 Completed Medical Decision Narrative: Ruthann Lee is a 63y female with a history of hemorrhoids, constipation, hypertension, diabetes mellitus, coronary artery disease, who presents to the emergency department for complaints of rectal bleeding and constipation. Patient states that she ran out of her Metamucil 3 days ago. Her last bowel movement that was normal was 2 days ago. She states that yesterday she had a small bowel movement with hard stools. Yesterday, she started develop some rectal bleeding with bowel movements. She states that there is bright red blood in the stool and she is having some rectal pain as well. She believes that she is constipated and this is causing her hemorrhoids to bleed. She is on Plavix for unknown reasons. She called a nurse coordinator today who told her that she needed to come to the emergency department. She reports some mild suprapubic abdominal pain but denies any dysuria or hematuria. She reports some blood around her vaginal area as well this morning. On arrival, patient is mildly hypertensive, heart rate within normal limits, afebrile, breathing comfortably on room air with appropriate oxygen saturation. Physical exam, stated above, revealed an overall well-appearing female in no distress. Rectal vaginal exam, performed with senior contract specialist present, revealed no active rectal bleeding or vaginal bleeding. No external hemorrhoids are appreciated. She has what is likely a skin tag at the 11 o'clock position. External vaginal exam without any masses or cystic structures appreciated. Abdomen with mild suprapubic tenderness but no guarding or rebound. Difficulty gnosis includes, but is not limited to: Constipation, fecal impaction, UTI, acute pancreatitis, small bowel obstruction, among others. Workup in the emergency department included: KUB, CBC, CMP, lipase, VBG, PT/INR KUB interpreted by me personally prior to official radiology read. Patient has a large amount of stool in the rectal vault likely representing a fecal impaction. No air-fluid levels and no evidence for small bowel obstruction see final radiology report for details. Will administer a soapsuds enema at this time. Laboratory studies unremarkable with no anemia, no leukocytosis, INR normal at 0.91, VBG with normal lactate of 1.9. No significant electrolyte derangements or MIGUEL. Lipase normal at 153. No evidence of urinary tract infection On reassessment, patient reports significant relief with the enema and had a large bowel movement here in the emergency department. Given this, is felt that she is appropriate for discharge at this time and she reports that she is going to picking tech MiraLAX on the way home as this is what she typically uses. She was encouraged to use 2 capfuls daily until her bowel movements become regular and then to decrease it to 1 capful daily. She also was encouraged to follow-up on the seventh of next month as she states that she has an appointment with a physician to discuss her vaginal symptoms already. Return precautions were given. All questions were answered. She demonstrated understanding and was in agreement this plan. She was then discharged from the emergency department in stable condition. Critical Care Critical Care Time Critical Care Time: No
[2024-07-25 11:17] LABS: Basophils # 0.1 K/mm3 (0-0.2); Basophils % 0.6 % (0.1-2.0); Eosinophils # 0.1 Kmm3 (0.0-0.4); Eosinophils % 0.6 % (0.1-12.0); Hematocrit 40.6 % (37.0-47.0); Hemoglobin 13.8 g/dL (12.2-16.2); Lymphocytes # 1.2 K/mm3 (0.7-4.5); Lymphocytes % 12.5 % (10-50); Mean Corpuscular Hemoglobin 30.4 pg (27.0-31.2); Mean Corpuscular Volume 89.4 fl (81-99); Mean Platelet Volume 9.8 fl (7.4-10.4); Monocytes # 0.4 K/mm3 (0.1-1.0); Monocytes % 4.4 % (1.7-9.3); Neutrophils # 7.9 K/mm3 (1.8-7.8); Neutrophils % 81.3 % (37.0-80.0); Nucleated Red Blood Cells # 0 10^3/uL; Nucleated Red Blood Cells % 0 %; Platelet Count 168 K/mm3 (142-424); Red Blood Count 4.54 M/mm3 (4.20-5.40); Red Cell Distribution Width 13.7 % (11.5-17.5); Red Cell Distribution Width-SD 44.6 fL; White Blood Count 9.7 K/mm3 (4.8-10.8)
[2024-07-25 11:18] LABS: Albumin Level 4.8 g/dl (3.5-5.0); Chloride 106 mmol/L (98-107)
[2024-07-25 11:19] LABS: Potassium 3.9 mmoL/L (3.5-5.1); Sodium 140 mmol/L (136-145)
[2024-07-25 11:21] LABS: Blood Urea Nitrogen 17 mg/dl (7-17); Creatinine Clearance Estimated 60 mL/min (50-200); Estimated Glomerular Filt Rate 100 ml/min (>60); GFR (African American) 121 ML/MIN (>60)
[2024-07-25 11:21] LABS: Lactate Venous 1.9 mmol/L (0.4-2.0); VBG Base Excess -0.1 mmol/L (-2.4-2.3); VBG HCO3 24.5 mmol/L (23-30); VBG Oxygen Saturation 94.7 % (50-70); VBG PCO2 39.7 mmol/L (35-51); VBG PH 7.41 mmol/L (7.31-7.41); VBG PO2 69.2 mmol/L (28-40); VBG Total CO2 25.8 mmol/L (23-27)
[2024-07-25 11:22] LABS: Alanine Aminotransferase 25 U/L (12-78); Albumin/Globulin Ratio 1.4 (1.1-1.8); Alkaline Phosphatase 71 U/L (38-126); Anion Gap 12.9 mEq/L (5-15); Aspartate Amino Transferase 27 U/L (14-36); Bilirubin,Total 0.6 mg/dl (0.2-1.3); Calcium 9.7 mg/dl (8.4-10.2); Carbon Dioxide 25 mmol/L (22.0-30.0); Globulin 3.4 g/dL (1.3-3.2); Glucose 144 mg/dl (74-100); INR 0.91 (0.9-1.1); Lipase 153 U/L (23-300); Prothrombin Time 10.3 seconds (10.1-12.5); Total Protein,Serum 8.2 g/dl (6.3-8.2)
[2024-07-25 11:30] VITALS: BP 130/71; PULSE 74; RESP 21; O2SAT 96
[2024-07-25 12:00] VITALS: BP 130/70; PULSE 73; RESP 15; O2SAT 96
[2024-07-25] MEDS: SODIUM PHOS/BIPHOSPHATE FLEET 133ML ENEMA 133 ML RC (12:10)
--- NOTE | 2024-07-25 12:44 | PC.NURSE ---
patient had successful bowel movement she states she feels relieved
[2024-07-25 12:55] VITALS: BP 130/70; PULSE 73; RESP 15; TEMP 36.7; O2SAT 96
== END 2024-07-25 12:56 | disposition home or self-care (01) ==
PROVIDERS: Emergency Provider Student in an Organized Health Care Education/Training Program; PCP Family Medicine
DX: R10.30 Lower abdominal pain, unspecified (principal); K56.41 Fecal impaction; Z79.01 Long term (current) use of anticoagulants
CPT/HCPCS: 74018; 80053; 81001; 82803; 83690; 85025; 85610; 99284

== ENCOUNTER 2024-08-12 14:54 | Outpatient (CLI) | payer MEDICARE, MEDICAID, SELFPAY ==
[2024-08-12 16:46] LABS: Microscopic, Urine URINE MICROSCOPIC (MICROSCOPIC)
[2024-08-12 17:13] LABS: Appearance,Urine SL CLOUDY (Clear); Bilirubin,Urine Negative (Negative); Blood, Urine Negative (Negative); Color,Urine YELLOW (Yellow); Glucose,Urine (UA) 3+ (Negative); Ketones,Urine Negative (Negative); Leukocyte Esterase,Urine TRACE (Negative); Nitrate,Urine Negative (Negative); Protein,Urine Negative (Negative); Specific Gravity, Urine 1.015 (1.005-1.030); Urobilinogen,Urine 0.2 EU/dl (0.2)
[2024-08-12 18:00] LABS: Amorphous Sediment,Urine 4+ /lpf; Bacteria,Urine 1+ /lpf
== END 2024-08-12 23:59 | disposition home or self-care (01) ==
LOC: LAB.DROPOF 08-13 11:29
PROVIDERS: PCP Obstetrics & Gynecology; Visit Provider Obstetrics & Gynecology
DX: N76.0 Acute vaginitis (principal); B96.89 Other specified bacterial agents as the cause of diseases classified elsewhere
CPT/HCPCS: 81001

== ENCOUNTER 2024-08-25 12:59 | Outpatient (CLI) | payer MEDICARE, MEDICAID, SELFPAY ==
--- NOTE | 2024-08-25 13:44 | US_ITS ---
FINAL REPORT CLINICAL HISTORY: NODULE COMPARISON: 08/12/2023 FINDINGS: Sonographic images of the thyroid gland were obtained. The right thyroid lobe measures 2.6 mL in volume. The left thyroid lobe measures 75.6 mL in volume. The thyroid isthmus measures 2.5 mm. There is a large dominant nodule in the left thyroid lobe, measuring 56 x 37 x 52 mm in size, mixed cystic and solid, isoechoic, not significantly changed since the most recent ultrasound of 08/12/2023. Given the long-term stability of this nodule, favor benign. This is a TI-RADS category 3 nodule. There are a few small less than 3 mm in size cyst present in the right lobe of the thyroid, also stable. IMPRESSION: Dominant left thyroid nodule, given differences in technique not significantly changed since the prior ultrasound of 08/12/2023. Given long-term stability, favor benign. Reviewed, Interpreted and Dictated by Eliazar Mcgrath MD Transcribed by Tika Murphy Authenticated and [facility]
--- NOTE | 2024-08-25 14:15 | US_ITS ---
PROCEDURE: US TRANSVAGINAL CLINICAL INDICATION: postmenopausal bleeding COMPARISON: No exams were available for comparison FINDINGS: Transvaginal and transabdominal sonographic images of the pelvis were obtained. UTERUS: 6.2cm x 4.1cmx 2.7 cm anteverted with a combined endometrial thickness of 2.6mm. LEFT OVARY: Not visualized transvaginally or transabdominally. RIGHT OVARY: Not visualized transvaginally or transabdominally. Both ovaries not seen. There is no fluid in the cul-de-sac. IMPRESSION: 1. Anteverted small uterus. The myometrium appears heterogenous. The endometrium is thin measuring 2.6 mm. 2. We attempted to visualize the ovaries both transvaginally and transabdominally and they were not seen. Suspect atrophy. 3. No fluid in the cul-de-sac. Dictated by: Titus Murdock MD 08/25/2024 14:29 Titus Murdock MD in OV 08/25/2024 14:29
== END 2024-08-25 23:59 | disposition home or self-care (01) ==
LOC: RAD 13:00
PROVIDERS: PCP Family Medicine; Visit Provider Obstetrics & Gynecology
DX: E04.1 Nontoxic single thyroid nodule (principal); R93.89 Abnormal findings on diagnostic imaging of other specified body structures; N95.0 Postmenopausal bleeding
CPT/HCPCS: 76536; 76830

== ENCOUNTER 2024-09-15 14:32 | Outpatient (CLI) | payer MEDICARE, MEDICAID, SELFPAY ==
--- OUTSIDE RECORDS SUMMARY | 2024-09-16 11:59 | XMS_ITS | Clinical Summary ---
Author Organization [facility] Address [address] [place] [id number] Care Team Providers Care Inclined Railway Operator Name Role Phone Marcos Tran MD Primary Care Provider [phone] Marcos Tran MD Unavailable [phone] Social History Tobacco Use Types Packs/Day Years [...] (HCV) Screening 08/19/1979 Breast Cancer Screening 2008 Pneumococcal Vaccine: 50+ Years (1 of 1 - PCV) 009 Zoster-RZV(Shingrix) (1 of 2) 2008 Fall Risk Assessment 08/19/2023 Osteoporosis Screening 08/19/2023 COVID-19 Vaccine ( season) 2023 Advance Care Planning 04/08/2024 Depression Screening 04/08/2024 Influenza Vaccination (Season Ended) 2024 RSV Vaccines (1 - 1-dose 75+ series) 2033 Insurance AN[employer]M MEDICARE ANTH Care Teams Inclined Railway Operator Relationship Specialty [place] [address] [place] [address] PCP - General Family Medicine 03/03/24 [place] [address] [place] [address] Family Medicine 03/03/24
--- OUTSIDE RECORDS SUMMARY | 2024-09-16 11:59 | XMS_ITS | Clinical Summary ---
Author Organization [facility] Address [address] [place] [id number] Care Team Providers Care Service Desk Specialist Name Role Phone Marcos Tran MD Primary Care Provider [phone] Antonio Yepez MD Unavailable [phone] Allergies Active Allergy Reactions Criticality Noted Date [...] 31.0-31.9,adult 02/13/2024 Coronary artery disease invo lving lime coronary artery of lime heart without angina pectoris 02/13/2024 Immunizations Immunization Administration Dates Next Due Tdap 10/12/2020 Family [...] Health Maintenance Due Date Last Done Comments [facility]-Bone Density Scan 1958 [facility]-Depression Screening 1958 [facility]-Medicare Annual Wellness (AWV) 1958 [facility]-Infant/Child/Adol SDOH Screenings 1958 Diabetes: Dental Exam 1968 [facility]- SDOH Screenings 1976 [facility]-Adult SDOH Screenings 1976 [facility]-Pneumococcal Vaccine: 50 + Years (1 of 2 - PCV) 1977 CT Colonography 08/19/2003 Colonoscopy 08/19/2003 FIT-DNA 08/19/2003 FIT 08/19/2003 FOBT 08/19/2003 Sigmoidoscopy 08/19/2003 [facility]-Colorectal Cancer Screening 08/19/2003 [facility]-Breast Cancer Screening 2008 [facility]-Zoster Vaccines (1 of 2) 2008 [id number] Vaccine ( season) 2023 09/08/2020, 08/11/2020 [facility]-Diabetes: Hemoglobin A1C 08/14/2024 02/15/2024 [facility]-Influenza Vaccine (Seaso n Ended) 2024 [facility]-DTaP,Tdap,and Td Vaccine s (2 - Td or Tdap) 10/12/2030 10/12/2020 [facility]-RSV Vaccine: 60+ Years o r (1 - 1-dose 75+ series) 2033 [facility]-Hepatitis C Screening Completed 05/21/2022 [facility]-Obesity Intervention Completed 02/13/2024 HPV Vaccines Aged Out No longer eligi ble based on patient's age to complete this topic [facility]-HIB Vaccines Aged Out No longer e [...] Procedure Name Priority Date/Time Associated Diagnosis Comments HEMOGLOBIN A1C Routine 02/15/2024 from Last 3 Months or Most Recently Relevant to Health Maintenance Results * Hemoglobin A1c (02/15/2024) External Hemoglobin A1c 6.0 Blood Venous blood specimen / Unknown 02/15/2024 us Historical Provider LAB BLOOD ORDERABLES Michela l Result from Last 3 Months or Most Recently Relevant to Health Maintenance Insurance [employer]M MEDICARE Care Teams Service Desk Specialist Relationship Specialty Start Date End Date Marcos Tran MD [facility] [place] [address] PCP - General 02/05/24 Antonio Yepez MD [address] [place] [address] Referring Physician 02/05/24
--- OUTSIDE RECORDS SUMMARY | 2024-09-16 11:59 | XMS_ITS | Encounter Summary ---
Author Organization Healthcare Address [address] [id number] Care Team Providers Care Demolition Engineer Name Role Phone Marcos Tran MD Primary Care Provider [phone] Antonio Yepez MD Unavailable [phone] Encounter Details Date Type Department Care Team (Late st Contact Info) Description 11/12/2023 Orders Only External Location [address] [place] [address] Jonathan Seals PA [address] [place] [address] Social History Tobacco Use Types Packs/Day Years [...] Tomogra phy 11/12/2023 1:22 PM EDT Jonathan OWEN CT PROCEDURES Final Result documented in this encounter Visit Diagnoses Not on filedocumented in this encounter Care Teams Demolition Engineer Relationship Specialty Start Date End Date Marcos Tran MD [address] [id number] PCP - General 02/05/24 Antonio Yepez MD [address] [id number] Referring Physician 02/05/24 documented as of this encounter
--- OUTSIDE RECORDS SUMMARY | 2024-09-16 11:59 | XMS_ITS | Clinical Summary ---
Author Organization [facility] Address [address] [facility] [address] [place] [address] Phone Care Team Providers Care Linoleum Layer Name Role Phone Unavailable Primary Care Provider [...] Date Last Done Comments Annual Wellness Exam 1961 Hepatitis C Screening 1976 DTaP/TDaP/Td (1 - Tdap) 1977 Cologuard 08/19/2003 Colon Cancer Screening 08/19/2003 Colonoscopy 08/19/2003 FIT 08/19/2003 Sigmoidoscopy 08/19/2003 Virtual Colonography 08/19/2003 Pneumococcal Vaccine 50+ (1 of 1 - PCV) 2008 Zoster (1 of 2) 2008 Bone Density Screening 08/19/2023 COVID-19 Vaccine (3 - 2023-2 5 season) 2023 09/08/2020, 08/11/2020 Influenza Vaccine (Season Ended) 2024 Hepatitis B Vaccine Aged Out No longe r eligible based on patient's age to complete this topic Meningococcal B Vaccine Aged Out No l onger eligible based on patient's age to complete this topic
== END 2024-09-15 23:59 | disposition home or self-care (01) ==
LOC: LAB.DROPOF 09-16 11:57
PROVIDERS: PCP Nurse Practitioner; Visit Provider Nurse Practitioner
DX: N76.0 Acute vaginitis (principal)
CPT/HCPCS: 87086

== ENCOUNTER 2024-11-24 14:14 | Outpatient (CLI) | payer MEDICARE, MEDICAID, SELFPAY ==
--- OUTSIDE RECORDS SUMMARY | 2024-11-24 14:18 | XMS_ITS | Clinical Summary ---
Author Organization [facility] Address [address] [place] [id number] Care Team Providers Care Bank Accountant Name Role Phone Marcos Tran MD Primary Care Provider [phone] Marcos Tran MD Unavailable [phone] Social History Tobacco Use Types Packs/Day Years [...] Assessment 08/19/2023 Osteoporosis Screening 08/19/2023 COVID-19 Vaccine (2023- season) 2023 Advance Care Planning 04/08/2024 Depression Screening 04/08/2024 Influenza Vaccination (#1) 2024 RSV Vaccines (1 - 1-dose 75+ series) 2033 Insurance AN[employer]M MEDICARE ANTH Care Teams Bank Accountant Relationship Specialty [place] [address] [place] [address] PCP - General Family Medicine 03/03/24 [place] [address] [place] [address] Family Medicine 03/03/24
--- OUTSIDE RECORDS SUMMARY | 2024-11-24 14:18 | XMS_ITS | Clinical Summary ---
Author Organization [facility] Address [address] [place] [address] Care Team Providers Care Healthcare Receptionist Name Role Phone Marcos Tran MD Primary Care Provider [phone] Antonio Yepez MD Unavailable [phone] Allergies Active Allergy Reactions Criticality Noted Date [...] 31.0-31.9,adult 02/13/2024 Coronary artery disease invo lving platinum coronary artery of platinum heart without angina pectoris 02/13/2024 Immunizations Immunization [...] 2008 UKY-Zoster Vaccines (1 of 2) 2008 [id number] Vaccine ( season) 2023 09/08/2020, 08/11/2020 UKY-Diabetes: Hemoglobin A1C 08/14/2024 02/15/2024 UKY-Influenza Vaccine (#1) 2024 UKY-DTaP,Tdap,and Td Vaccine s (2 - [...] Blood Venous blood specimen / Unknown 02/15/2024 Zzzhistorical Provider LAB BLOOD ORDERABLES F inal Result from Last 3 Months or Most Recently Relevant to Health Maintenance Insurance [employer]M [employer] Care Teams Healthcare Receptionist Relationship Specialty Start Date End Date Marcos Tran MD [facility] [place] [address] PCP - General 02/05/24 Antonio Yepez MD [address] [id number] Referring Physician 02/05/24
--- OUTSIDE RECORDS SUMMARY | 2024-11-24 14:18 | XMS_ITS | Clinical Summary ---
Author Organization [facility] Address [address] [facility] [address] [place] [address] Phone Care Team Providers Care Screen Printing Machine Operator Helper Name Role Phone Unavailable Primary Care Provider [...] season) 2023 09/08/2020, 08/11/2020 Influenza Vaccine (#1) 2024 Hepatitis B Vaccine Aged Out No longe r eligible based on patient's age to complete this topic Meningococcal B Vaccine Aged Out No l onger eligible based on patient's age to complete this topic
--- OUTSIDE RECORDS SUMMARY | 2024-11-24 14:18 | XMS_ITS | Encounter Summary ---
Author Organization Healthcare Address [address] [id number] Care Team Providers Care Engineering Psychologist Name Role Phone Marcos Tran MD Primary Care Provider [phone] Antonio Yepez MD Unavailable [phone] Encounter Details Date Type Department Care Team (Late st Contact Info) Description 11/12/2023 Orders Only External Location [address] [place] [address] Jonathan Seals PA [address] [place] [address] Social History Tobacco Use Types Packs/Day Years [...] filedocumented in this encounter Care Teams Engineering Psychologist Relationship Specialty Start Date End Date Marcos Tran MD [address] [id number] PCP - General 02/05/24 Antonio Yepez MD [address] [id number] Referring Physician 02/05/24 documented as of this encounter
--- NOTE | 2024-11-24 14:30 | MM_ITS ---
PROCEDURE INFORMATION: Exam: MG Bilateral Screening 3D Mammography Exam date and time: 11/24/2024 2:15 PM Age: 64 years old Clinical indication: Screening exam. TECHNIQUE: Imaging protocol: Bilateral Screening tomosynthesis and 2D mammography including computer-aided detection (CAD) when performed. COMPARISON: 1. MG MM DIG SCREENING MAMM BI W/CAD 11/22/2023 9:42 AM 2. MG SCREEN MAMMO W CAD BILAT 08/10/2022 10:56 AM FINDINGS: MAMMOGRAPHY: Breast composition: There are scattered areas of fibroglandular density. Mass: No suspicious masses. Architectural distortion: None. Calcifications: No suspicious calcifications. Asymmetric density: None. Skin thickening: None. Axillary adenopathy: None. IMPRESSION: No mammographic evidence of malignancy. Annual screening is recommended unless otherwise clinically indicated. ASSESSMENT: BI-RADS Category 1: Negative.
== END 2024-11-24 23:59 | disposition home or self-care (01) ==
LOC: RAD 14:15
PROVIDERS: PCP Family Medicine; Visit Provider Family Medicine
DX: Z12.31 Encounter for screening mammogram for malignant neoplasm of breast (principal); R92.323 Mammographic fibroglandular density, bilateral breasts
CPT/HCPCS: 77063; 77067

== ENCOUNTER 2025-02-25 10:20 | Outpatient (CLI) | payer MEDICARE, MEDICAID, SELFPAY ==
[2025-02-25 15:50] LABS: Alanine Aminotransferase 23 U/L (12-78); Albumin Level 5.0 g/dl (3.5-5.0); Albumin/Globulin Ratio 1.7 (1.1-1.8); Alkaline Phosphatase 80 U/L (38-126); Anion Gap 11.9 mEq/L (5-15); Aspartate Amino Transferase 26 U/L (14-36); Bilirubin,Total 0.5 mg/dl (0.2-1.3); Blood Urea Nitrogen 21 mg/dl (7-17); Calcium 10.2 mg/dl (8.4-10.2); Carbon Dioxide 26 mmol/L (22.0-30.0); Chloride 103 mmol/L (98-107); Cholesterol 227 mg/dl (140-200); Creatinine,Serum 0.60 mg/dl (0.52-1.04); Estimated Glomerular Filt Rate 100 ml/min (>60); GFR (African American) 121 ML/MIN (>60); Globulin 2.9 g/dL (1.3-3.2); Glucose 115 mg/dl (74-100); HDL Cholesterol 42 mg/dl (40-60); Potassium 3.9 mmoL/L (3.5-5.1); Sodium 137 mmol/L (136-145); Total Protein,Serum 7.9 g/dl (6.3-8.2); Triglycerides 270 mg/dl (30-150)
--- OUTSIDE RECORDS SUMMARY | 2025-03-01 10:43 | XMS_ITS | Clinical Summary ---
Author Organization [facility] Address [address] [facility] [address] [place] [address] Phone Care Team Providers Care Speeder Machine Operator Name Role Phone Unavailable Primary Care Provider [...] Density Screening 08/19/2023 COVID-19 Vaccine (3 - 2024-2 6 season) 2024 09/08/2020, 08/11/2020 Influenza Vaccine (#1) 2024 Hepatitis B Vaccine Aged Out No longe r eligible based on patient's age to complete this topic Meningococcal B Vaccine Aged Out No l onger eligible based on patient's age to complete this topic
--- OUTSIDE RECORDS SUMMARY | 2025-03-01 10:43 | XMS_ITS | Clinical Summary ---
Author Organization [facility] Address [address] [place] [address] Care Team Providers Care Title Insurance Sales Representative Name Role Phone Marcos Tran MD Primary Care Provider [phone] Marcos Tran MD Unavailable Social History Tobacco Use Types Packs/Day Years [...] Fall Risk Assessment 08/19/2023 Osteoporosis Screening 08/19/2023 Advance Care Planning 04/08/2024 Depression Screening 04/08/2024 COVID-19 Vaccine ( - 2024- season) 2024 Influenza Vaccination (#1) 2024 RSV Vaccines (1 - 1-dose 75+ series) 2033 Insurance ANTHEM MEDICARE ANTH Care Teams Title Insurance Sales Representative Relationship Specialty [place] [address] [place] [address] PCP - General Family Medicine 03/03/24 [place] [address] [place] [address] Family Medicine 03/03/24
--- OUTSIDE RECORDS SUMMARY | 2025-03-01 10:43 | XMS_ITS | Clinical Summary ---
Author Organization [facility] Address [address] [place] [address] Care Team Providers Care Flat Drier Name Role Phone Marcos Tran MD Primary Care Provider [phone] Antonio Yepez MD Unavailable [phone] Allergies Active Allergy Reactions Criticality Noted Date [...] 31.0-31.9,adult 02/13/2024 Coronary artery disease invo lving [place] coronary artery of [place] heart without angina pectoris 02/13/2024 Immunizations Immunization [...] 1976 UKY-Adult SDOH Screenings 1976 UKY-Pneumococcal Vaccine: 50+ Years (1 of 2 - PCV) 1977 CT Colonography 08/19/2003 Colonoscopy 08/19/2003 FIT-DNA 08/19/2003 FIT 08/19/2003 FOBT 08/19/2003 Sigmoidoscopy 08/19/2003 UKY-Colorectal Cancer Screening 08/19/2003 UKY-Breast Cancer Screening 2008 UKY-Zoster Vaccines (1 of 2) 2008 UKY-Diabetes: Hemoglobin A1C 08/14/202412/2023, 06/14/2023, 02/13/2023, Additional history exists [id number] Vaccine (3 - season) 2024 09/08/2020, 08/11/2020 UKY-Influenza Vaccine (#1) 2024 UKY-DTaP,Tdap,and Td Vaccines (2 - Td or Tdap) 10/12/2030 10/12/2020 UKY-RSV Vaccine: 60+ Years or (1 - 1-dose 75+ series) 2033 UKY-Hepatitis [...] 02/15/2024 us Historical Provider LAB BLOOD ORDERABLES Final R esult from Last 3 Months or Most Recently Relevant to Health Maintenance Insurance ANTHEM MEDICARE Care Teams Flat Drier Relationship Specialty Start Date End Date Marcos Tran MD [address] [place] [address] PCP - General 02/05/24 Antonio Yepez MD [address] [address] Referring Physician 02/05/24
--- OUTSIDE RECORDS SUMMARY | 2025-03-01 10:43 | XMS_ITS | Clinical Summary ---
Author Organization [facility] Address [address] [place] [address] Care Team Providers Care Director Life Sciences Name Role Phone Jd Santillan MD Primary Care Provider [phone] Allergies Active Allergy Reactions Criticality Noted Date [...] Daily. 30 tablet 2 09/27/19 24 Active Active Problems Problem Noted Date Diagnosed [...] maxillary sinusitis 07/16/2022 Type 2 diabetes mellitus, wi out long-term current use of insulin 05/21/2022 Assessment [...] April 2025. TDaP vaccine October 2020 at [facility]. Recommend keep COVID vaccination and flu vaccinations [...] Dr. Ga. TDaP vaccine October 2020 at [facility]. Covid vaccine x3 up-to-date. Palpitation 05/21/2022 Assessment [...] change compared to 2019. Subsequent follow-up at [facility] on 06/27/2022 with stable right middle [...] change compared to 2019. Subsequent follow-up at [facility] on 06/27/2022 with stable right middle [...] the chest, scheduled at this time through [facility]. Immunizations Immunization Administration Dates Next Due COVID-19 (MODERNA) 1st,2nd,3rd [...] 85 06/14/2023 10:52 AM EST Temperature 36.3 C (97.3 F) 06/14/2023 10:52 AM EST Respiratory Rate 18 06/14/2023 10:52 AM EST Oxygen Saturation 97% 06/14/2023 10:52 AM EST Inhaled Oxygen Concentration - - Weight 75.9 kg (167 lb 4 oz) 06/14/2023 10:52 AM EST Height 149.9 cm (4' 11 ) 06/14/2023 10:52 AM EST Body Mass Index 33.78 06/14/2023 10:52 AM EST Plan of Treatment Health Maintenance Due Date Last Done Comments URINE MICROALBUMIN-CREATININ E RATIO (uACR) 1968 Pneumococcal Vaccine 50+ (1 of 2 - PCV) 1977 COLOGUARD 08/19/2003 COLON CANCER SCREENING 5 YEA R SIGMOIDOSCOPY 08/19/2003 CT COLONOGRAPHY 08/19/2003 FECAL OCCULT BLOOD TEST 08/19/2003 FIT Testing (1 year) 08/19/2003 ZOSTER VACCINE (1 of 2) 2008 DXA SCAN 11/22/2022 11/22/2020 DIABETIC FOOT EXAM 05/21/2023 05/21/2022, 0 05/21/2022, 05/21/2022 DIABETIC EYE EXAM 07/08/2023 07/07/2022 (Adilson harris-Reported (Performed Externally)) HEMOGLOBIN A1C 12/15/2023 06/14/2023, 11/0 11/2022, 05/21/2022 ANNUAL PHYSICAL 06/13/2024 06/14/2023 LIPID PANEL 06/13/2024 06/14/2023, 05/21/2022 MAMMOGRAM 08/10/2024 08/10/2022, 08/09/2021 INFLUENZA VACCINE 11/06/2024 COVID-19 Vaccine (5 - 2 6 season) 2024 09/08/2020, 09/08/2020, 08/11/2020, Additional history exists COLONOSCOPY 06/01/2030 06/01/2020 COLORECTAL CANCER SCREENING 06/01/2030 TDAP/TD VACCINES (2 - Td or Tdap) 10/12/2030 021 HEPATITIS C SCREENING Completed 05/21/2022 LUNG CANCER SCREENING Discontinued 07/19/2023, 023 Procedures Procedure Name Priority Date/Time Associated Diagnosis Comments LIPID PANEL Routine 06/14/2023 11:29 AM EST [...] Recently Relevant to Health Maintenance Results * (ABNORMAL) Lipid Panel (06/14/2023 11:29 AM [...] AM EST 06/14/2023 Comment:Blood Release to pat i Narrative [facility] (AMBULATORY) - 06/15/2023 10:07 AM EST Performed at: 01 - [facility] [address] [place], [place] [id number] Veterans' Coordinator: Justino Duron PhD, Phone: [phone] us Jd Santillan MD LAB BLOOD ORDERABLES Final Resul t Performing Organization Address City/[facility]/ZIP Co de Phone Number [facility] (AMBULATORY) [address] [place] [address], [place] [phone] [facility] [address] [place] [address], [place] [phone] * (ABNORMAL) POC Glycosylated Hemoglobin (Hb A1C) (06/14/2023 11:04 AM EST) Hemoglobin A1C 6.3(A) 4.5 - 5.7 % [facility] Lot Number [id number] [facility] Expiration Date 02/26/2025 [facility] Blood 06/14/2023 11:0 4 AM EST us Jd Santillan MD POINT OF CARE TEST ORDERABLES Fi nal Result Performing Organization Address City/[facility] Co de Phone Number [facility]
[address] [place] [address], * SCANNED - MAMMO (08/10/2022) Anatomical Region [...] Comment:Blood Release to pat i Narrative [facility] (AMBULATORY) - 05/22/2022 11:07 AM EST Performed at: 01 - [facility] [address] [facility], [place], [place] [id number] Veterans' Coordinator: Justino Duron PhD, Phone: [phone] us Jd Santillan MD LAB BLOOD ORDERABLES Final Resul t [facility] [address] [place] [address], [facility] [address] [place] [address], [place] [phone] * DEXA Scan (11/22/2020) Anatomical Region Laterality Modality Other [facility] CHART REVIEW TABS Final Re sult * Colonoscopy (06/01/2020) [facility] SURGICAL HISTORY PROCEDURES F inal Result from Last 3 Months or Most Recently Relevant to Health Maintenance Care Teams Director Life Sciences Relationship Specialty Start Date End Date Jd Santillan MD [address] [place] [address] PCP - General Internal Medicine 05/18/22
--- OUTSIDE RECORDS SUMMARY | 2025-03-01 10:43 | XMS_ITS | Encounter Summary ---
Author Organization [facility] Address [address] [id number] Care Team Providers Care Rn Gastroenterology Name Role Phone Marcos Tran MD Primary Care Provider [phone] Antonio Yepez MD Unavailable [phone] Encounter Details Date Type Department Care Team (Late st Contact Info) Description 11/12/2023 Orders Only External Location [address] [place] [address] Jonathan Seals PA [address] [place] [address] Social History Tobacco Use Types Packs/Day Years [...] on filedocumented in this encounter Care Teams Rn Gastroenterology Relationship Specialty Start Date End Date Marcos Tran MD [address] [id number] PCP - General 02/05/24 Antonio Yepez MD [address] [phone] Referring Physician 02/05/24 documented as of this encounter
== END 2025-02-25 23:59 ==
LOC: LAB.DROPOF 03-01 10:21
PROVIDERS: PCP Family Medicine; Visit Provider Family Medicine
DX: E11.65 Type 2 diabetes mellitus with hyperglycemia (principal); E78.49 Other hyperlipidemia
CPT/HCPCS: 80053; 80061

== ENCOUNTER 2025-03-17 07:44 | Outpatient (CLI) | payer MEDICARE, MEDICAID, SELFPAY ==
[2025-03-17 22:01] LABS: Alanine Aminotransferase 20 U/L (12-78); Albumin Level 5.0 g/dl (3.5-5.0); Alkaline Phosphatase 77 U/L (38-126); Anion Gap 18.7 mEq/L (5-15); Aspartate Amino Transferase 29 U/L (14-36); Bilirubin,Direct 0.2 mg/dl (0.0-0.4); Bilirubin,Indirect 0.4 mg/dL (0.0-0.9); Bilirubin,Total 0.6 mg/dl (0.2-1.3); Bilirubin,Unconjugated 0.3 mg/dL (0.0-1.1); Blood Urea Nitrogen 26 mg/dl (7-17); Calcium 9.9 mg/dl (8.4-10.2); Carbon Dioxide 23 mmol/L (22.0-30.0); Chloride 101 mmol/L (98-107); Cholesterol 186 mg/dl (140-200); Creatine Kinase 93 U/L (30-135); Creatinine,Serum 0.60 mg/dl (0.52-1.04); Estimated Glomerular Filt Rate 100 ml/min (>60); GFR (African American) 121 ML/MIN (>60); Glucose 97 mg/dl (74-100); HDL Cholesterol 41 mg/dl (40-60); Potassium 4.7 mmoL/L (3.5-5.1); Sodium 138 mmol/L (136-145); Total Protein,Serum 8.3 g/dl (6.3-8.2); Triglycerides 332 mg/dl (30-150)
[2025-03-17 22:12] LABS: C-Reactive Protein 3.5 mg/L (0-4)
[2025-03-17 23:38] LABS: Hemoglobin A1C 6.2 % (4.0-6.0)
--- OUTSIDE RECORDS SUMMARY | 2025-03-19 08:11 | XMS_ITS | Clinical Summary ---
Author Organization [facility] Address [address] [facility] [address] [place] [address] Phone Care Team Providers Care Acute Care Physician Name Role Phone Unavailable Primary Care Provider Unavailabl e Active Problems Patient Care Coordination No te Formatting of this note migh t be different from the original. Care gap audit completed by Chanda Kam RN on 02/15/2022. No additional problems on file Encounters Date Type Department Care Team Description 03/11/2025 Refill [facility] [address] [facility] [address] [place] [address] Michelle Salas MOLDING MACHINE SETTER Medication Refill 03/09/2025 [facility]ill [facility] [address] [facility] [address] [place] [address] Michelle Salas MOLDING MACHINE SETTER Medication Refill 03/09/2025 Refill [facility] [address] [facility] [address] [place] [address] Michelle Salas, MOLDING MACHINE SETTER Medication Refill from Last 3 Months Social History Tobacco [...] Bone Density Screening 08/19/2023 COVID-19 Vaccine (3 2024-2 6 season) 2024 09/08/2020, 08/11/2020 Influenza Vaccine (#1) 2024 Hepatitis B Vaccine Aged Out No longe r eligible based on patient's age to complete this topic Meningococcal B Vaccine Aged Out No l onger eligible based on patient's age to complete this topic
--- OUTSIDE RECORDS SUMMARY | 2025-03-19 08:11 | XMS_ITS | Clinical Summary ---
Author Organization [facility] Address [address] [place] [address] Care Team Providers Care Mold Cooler Name Role Phone Jd Santillan MD Primary Care Provider [phone] Allergies Active Allergy Reactions Criticality Noted Date [...] April 2025. TDaP vaccine October 2020 at [facility]. Recommend keep COVID vaccination and flu [...] Dr. Ga. TDaP vaccine October 2020 at [facility]. Covid vaccine x3 up-to-date. Palpitation 05/21/2022 [...] change compared to 2019. [facility] with stable right middle lung [...] change compared to 2019. [facility]22 with stable right middle lung [...] the chest, scheduled at this [facility] through [facility]. Encounters Date Type Department Care Team Description 03/15/2025 [facility] PRIMARY CARE [address] [place] [address] [place] [address] Jd Santillan MD from Last 3 Months Immunizations Immunization Administration Dates Next Due COVID-19 [...] 08/10/2022, 08/09/2021 INFLUENZA VACCINE 11/06/2024 COVID-19 Vaccine ( - 2024-2 6 season) 2024 09/08/2020, 09/08/2020, 08/11/2020, Additional [...] 11:29 AM EST 06/14/2023 Comment:Blood Release to [facility] i Narrative [facility] (AMBULATORY) - 06/15/2023 10:07 AM EST Performed at: 01 - [facility] [address] [id number] Sash Sticker: Justino Duron PhD, Phone: [phone] us Jd Santillan MD LAB BLOOD ORDERABLES Final Resul t Performing Organization Address City/[facility] Co de Phone Number [facility] [address] [place] [address], [place] [phone] [facility] [address] [place] [address], [place] [phone] * (ABNORMAL) POC Glycosylated Hemoglobin (Hb A1C) (06/14/2023 11:04 AM EST) Hemoglobin A1C 6.3(A) 4.5 - 5.7 % [facility] Lot Number [id number] [facility] Expiration Date 02/26/2025 [facility] Blood 06/14/2023 11:0 4 AM EST us Jd Santillan MD POINT OF CARE TEST ORDERABLES Fi nal Result [facility]
[address] [place] [address], [place] [phone] * SCANNED - MAMMO (08/10/2022) Anatomical Region [...] PM EST 05/21/2022 Comment:Blood Release to mimi calderon [place] [facility] - 05/22/2022 11:07 AM EST Performed at: 01 - [facility] [address] [place] [id number] Sash Sticker: Justino Duron PhD, Phone: [phone] us Jd Santillan MD LAB BLOOD ORDERABLES Final Resul t [facility] [address] [place] [address], [facility] [address] [place] [address], * DEXA Scan (11/22/2020) Anatomical Region Laterality Modality Other [facility] CHART [facility] TABS Final Re sult * Colonoscopy (06/01/2020) [facility] SURGICAL HISTORY PROCEDURES F inal Result from Last 3 Months or Most Recently Relevant to Health Maintenance Care Teams Mold Cooler Relationship Specialty Start Date End Date Jd Santillan MD [address] [place] [address] [place] [address] PCP - General Internal Medicine 05/18/22
--- OUTSIDE RECORDS SUMMARY | 2025-03-19 08:11 | XMS_ITS | Encounter Summary ---
Author Organization [facility] Address [address] [place] [address] Care Team Providers Care Substitute School Nurse Name Role Phone Jd Santillan MD Primary Care Provider [phone] Reason for Visit * Reason Comments Med Refill Encounter Details Date Type Department Care Team (Late st Contact Info) Description 03/15/2025 Refill [facility] PRIMARY [facility]ARE [address] [place] [address] Jd Santillan MD [address] [place] [id number] Social History Tobacco Use Types Packs/Day Years [...] help finding or keeping work or a shanw b? Not on file 01/16/2023 Disabilities Answer [...] Telephone Encounter - Mandi Khanna MA - 03/15/2025 4:55 PM EST Patient no longer under our care.has not been for over a year. documented in this encounter Plan of Treatment Not on file documented as of this encounter Visit Diagnoses Not on filedocumented in this encounter Care Teams Substitute School Nurse Relationship Specialty Start Date End Date Jd Santillan MD [address] [place] [address] PCP - General Internal Medicine 05/18/22 documented as of this encounter
--- OUTSIDE RECORDS SUMMARY | 2025-03-19 08:11 | XMS_ITS ---
Laboratory report Created on: March 09, 2025 MARLI NORTON : 1960 Sex: Female Author Name [employer] Unknown PROBLEMS Problems List Code Description Z00.00 E55.9 RESULTS Laboratory Orders Date Order Code Test 2023-06-14 [id number] VITAMIN D, 25-HY DROXY 2023-06-14 [id number] TSH RFX ON ABNOR MAL TO FREE T4 2023-06-14 [id number] COMP. METABOLIC PANEL (14) 2023-06-14 [id number] LIPID PANEL 2023-06-14 417407 UA/M W/RFLX CULT URE, COMP 2023-06-14 [id number] CBC WITH DIFFERE NTIAL/PLATELET 2023-06-14 [id number] ALBUMIN, RANDOM URINE Laboratory Results Date LOINC Test Value Unit Reference Range Interpre tation 2023-06-14 50074-5 VITAMIN D, 25-HYDROXY 21.3 NG/ML 30.0-100.0 L 2023-06-14 73821-4 TSH .742 UIU/ML 0.450-4.500 2023-06-14 2345-7 GLUCOSE 97 MG/DL 70-99 2023-06-14 3094-0 BUN 19 MG/DL 8-27 2023-06-14 2160-0 CREATININE .67 MG/DL 0.57-1.00 2023-06-14 51140-4 EGFR 98 ML/MIN/1.7 3 >59 2023-06-14 3097-3 BUN/CREATININE RATIO 28 12-2023-06-14 2951-2 SODIUM 141 MMOL/L 030-690 3534-03-08 2823-3 POTASSIUM 4.1 MMOL/L 3.5-5.2 2023-06-14 2075-0 CHLORIDE 102 MMOL/L 96-106 2023-06-14 2028-9 CARBON DIOXIDE, TOTAL 21 MMOL/L 20-29 2023-06-14 18243-7 CALCIUM 9.8 MG/DL 8.7-10.3 2023-06-14 2885-2 PROTEIN, TOTAL 7.6 G/DL 6.0-8.5 2023-06-14 1751-7 ALBUMIN 4.7 G/DL 3.9-4.9 2023-06-14 93703-8 GLOBULIN, TOTAL 2.9 G/DL 1.5-4.5 2023-06-14 1759-0 A/G RATIO 1.6 1.2-2.2 2023-06-14 1975-2 BILIRUBIN, TOTAL .3 MG/DL 0.0-1.2 2023-06-14 6768-6 ALKALINE PHOSPHATASE 76 IU/L 44-121 2023-06-14 1920-8 AST (SGOT) 20 IU/L 0-40 2023-06-14 1742-6 ALT (SGPT) 27 IU/L 0-32 2023-06-143-3 CHOLESTEROL, TOTAL 281 MG/DL 100-199 H 2023-06-14 2571-8 TRIGLYCERIDES 323 MG/DL 0-149 H 2023-06-14 2085-9 HDL CHOLESTEROL 35 MG/DL >39 L 2023-06-14 65112-3 VLDL CHOLESTEROL NEYDA 63 MG/DL 5-40 H 2023-06-14 89263-0 LDL CHOL CALC ([facility]) 183 MG/DL 0-99 H 2023-06-14 5811-5 SPECIFIC GRAVITY 1.023 1.005-1.030 2023-06-14 5803-2 PH 7 5.0-7.5 2023-06-14 5778-6 URINE-COLOR YL YELLOW 2023-06-14 5767-9 APPEARANCE CL CLEAR 2023-06-14 5799-2 WBC ESTERASE N NEGATIVE 2023-06-14 84684-9 PROTEIN PTRA 2023-06-14 09659-8 GLUCOSE N NEGATIVE 2023-06-14 2514-8 KETONES N NEGATIVE 2023-06-14 5794-3 OCCULT BLOOD N NEGATIVE 2023-06-14 5770-3 BILIRUBIN N NEGATIVE 2023-06-14 42256-5 UROBILINOGEN,ALIZA I-Q N 1 MG/DL 0.2-1.0 2023-06-14 5802-4 NITRITE, URINE N NEGATIVE 2023-06-14 16119-0 MICROSCOPIC EXAMINATION MICRON 2023-06-14 15547-9 MICROSCOPIC EXAMINATION MICRO 2023-06-14 5821-4 WBC NOSEE /HPF 0 - 5 2023-06-14 61194-0 RBC 0-2R /HPF 0 - 2 2023-06-14 5787-7 EPITHELIAL CELLS (NON RENAL) 0-10E /HPF 0 - 10 2023-06-14 73633-4 CASTS NOSEE /LPF NONE SEEN 2023-06-14 5769-5 BACTERIA NOSEE 2023-06-14 URINALYSIS REFLEX NOFLEX 2023-06-14 6690-2 WBC 8.6 X10E3/UL 3.4-10.8 2023-06-14 789-8 RBC 4.5 X10E6/UL 3.77-5.28 2023-06-14 718-7 HEMOGLOBIN 13.7 G/DL 11.1-15.9 2023-06-14 4544-3 HEMATOCRIT 39.8 % 34.0-46.6 2023-06-14 787-2 MCV 88 FL 79-97 2023-06-14 785-6 MCH 30.4 PG 26.6-33.0 2023-06-14 786-4 MCHC 34.4 G/DL 31.5-35.7 2023-06-14 788-0 RDW 13.9 % 11.7-15.4 2023-06-14 777-3 PLATELETS 192 X10E3/UL 505-498 1581-03-08 770-8 NEUTROPHILS 69 % 2023-06-14 736-9 LYMPHS 23 % 2023-06-14 5905-5 MONOCYTES 6 % 2023-06-14 713-8 EOS 1 % 2023-06-14 706-2 BASOS 0 % 2023-06-14 751-8 NEUTROPHILS (ABSOLUTE) 5.9 X10E3/UL 1.4-7.0 2023-06-14 731-0 LYMPHS (ABSOLUTE) 2 X10E3/UL 0.7-3.1 2023-06-14 742-7 MONOCYTES(ABSOLUTE) .5 X10E3/UL 0.1-0.9 2023-06-14 711-2 EOS (ABSOLUTE) .1 X10E3/UL 0.0-0.4 2023-06-14 704-7 BASO (ABSOLUTE) 0 X10E3/UL 0.0-0.2 2023-06-14 13912-3 IMMATURE GRANULOCYTES 1 % 2023-06-14 21250-3 IMMATURE GRANS (ABS) 0 X10E3/UL 0.0-0.1 2023-06-14 71541-5 ALBUMIN, URINE 9 UG/ML
--- OUTSIDE RECORDS SUMMARY | 2025-03-19 08:11 | XMS_ITS | Encounter Summary ---
Author Organization [place] [address] Care Team Providers Care Diversified Crops Ii Farmworker Name Role Phone Unavailable Primary Care Provider Unavailabl e Reason for Visit * Reason Comments Medication Refill Encounter Details Date Type Department Care Team (Late st Contact Info) Description 03/11/2025 Refill [facility] [address] [facility] [address] [place] [address] Michelle Salas, BODY AND FRAME MAN [address] [facility] [place] [address] Medication Refill Social History Tobacco Use Types Packs/Day [...]
--- OUTSIDE RECORDS SUMMARY | 2025-03-19 08:11 | XMS_ITS | Clinical Summary ---
Author Organization [facility] Address [address] [place] [address] Care Team Providers Care Graphic Arts Technician Name Role Phone Marcos Tran MD Primary Care Provider [phone] Marcos Tran MD Unavailable Social History Tobacco [...] Depression Screening 04/08/2024 COVID-19 Vaccine ( - season) 2024 Influenza Vaccination (#1) 2024 RSV Vaccines (1 - 1-dose 75+ series) 2033 Insurance ANTHEM MEDICARE ANTH Care Teams Graphic Arts Technician Relationship Specialty [place] [address] [place] [address] PCP - General Family Medicine 03/03/24 [place] [address] [place] [address] Family Medicine 03/03/24
--- OUTSIDE RECORDS SUMMARY | 2025-03-19 08:11 | XMS_ITS | Clinical Summary ---
Author Organization [facility] Address [address] [place] [address] Care Team Providers Care Home Therapy Teacher Name Role Phone Marcos Tran MD Primary Care Provider [phone] Antonio Yepez MD Unavailable [phone] Allergies Active Allergy Reactions Criticality Noted Date [...] 31.0-31.9,adult 02/13/2024 Coronary artery disease invo lving [place] coronary artery of [place] heart without angina pectoris 02/13/2024 Immunizations Immunization [...] Wellness (AWV) 1960 [facility]-Infant/Child/Adol SDOH Screenings 1960 UK[facility]- SDOH Screenings 1976 UKY-Adult SDOH Screenings 1976 CT Colonography 08/19/2003 Colonoscopy 08/19/2003 FIT-DNA 08/19/2003 FIT 08/19/2003 FOBT 08/19/2003 Sigmoidoscopy 08/19/2003 [facility]-Colorectal Cancer Screening 08/19/2003 UK[facility]-Breast Cancer Screening 2008 UKY-Pneumococcal Vaccine: 50+ Years (1 of 1 - PCV) 2008 [facility]Y-Zoster Vaccines (1 of 2) 2008 [id number]-SEUWU-28 Vaccine (3 - season) 2024 09/08/2020, 08/11/2020 UKY-Influenza Vaccine (#1) 2024 UKY-DTaP,Tdap,and Td Vaccines (2 - Td or Tdap) 10/12/2030 10/12/2020 UKY-RSV Vaccine: 60+ Years or (1 - 1-dose 75+ series) 2033 UKY-Hepatitis C Screening Completed 05/21/2022 UKY-Obesity Intervention Completed 02/13/2024 UKY-Diabetes: Hemoglobin A1C Discontinued 02/15/2024, 06/14/2023, 02/13/2023, Additional history exists HPV Vaccines (No Doses Required) Completed UKY-HIB Vaccines Aged Out No longer e [...] Unknown 02/15/2024 Historical Provider LAB BLOOD ORDERABLES Final R esult from Last 3 Months or Most Recently Relevant to Health Maintenance Insurance [employer]M MEDICARE Care Teams Home Therapy Teacher Relationship Specialty Start Date End Date Marcos Tran MD [facility] [place] [address] PCP - General 02/05/24 Antonio Yepez MD [facility] [address] [address] Referring Physician 02/05/24
--- OUTSIDE RECORDS SUMMARY | 2025-03-19 08:11 | XMS_ITS | Encounter Summary ---
Author Organization [place] [address] Care Team Providers Care Per Diem Registered Nurse Name Role Phone Unavailable Primary Care Provider Unavailabl e Reason for Visit * Reason Comments Medication Refill Encounter Details Date Type Department Care Team (Late st Contact Info) Description 03/09/2025 Refill SEP Infectious Disease EDG [address] [facility] [address] [place] [address] Michelle Salas, CRIMINAL INVESTIGATOR CUSTOMS 1 [place] [address] Medication Refill Social History Tobacco Use Types [...]
--- OUTSIDE RECORDS SUMMARY | 2025-03-19 08:11 | XMS_ITS | Encounter Summary ---
Author Organization [facility] Address [address] [id number] Care Team Providers Care Memorial Adviser Name Role Phone Marcos Tran MD Primary Care Provider [phone] Antonio Yepez MD Unavailable [phone] Encounter Details Date Type Department Care Team (Late st Contact Info) Description 11/12/2023 Orders Only External Location [address] [place] [address] Jonathan Seals PA [address] [place] [address] Social History Tobacco Use Types Packs/Day Years [...] on filedocumented in this encounter Care Teams Memorial Adviser Relationship Specialty Start Date End Date Marcos Tran MD [address] [id number] PCP - General 02/05/24 Antonio Yepez MD [address] [id number] Referring Physician 02/05/24 documented as of this encounter
--- OUTSIDE RECORDS SUMMARY | 2025-03-19 08:11 | XMS_ITS | Encounter Summary ---
Author Organization [place] [address] Care Team Providers Care Horticulturalist Name Role Phone Unavailable Primary Care Provider Unavailabl e Reason for Visit * Reason Comments Medication Refill Encounter Details Date Type Department Care Team (Late st Contact Info) Description 03/09/2025 Refill SEP Infectious Disease EDG 20 [facility] [address] [place] [address] Michelle Salas, DEPUTY CHIEF COUNSEL 1 [place] [address] Medication Refill Social History Tobacco Use Types [...]
--- OUTSIDE RECORDS SUMMARY | 2025-03-19 08:11 | XMS_ITS ---
Laboratory report Created on: March 09, 2025 MARLI NORTON : 1960 Sex: Female Author Organization Unknown PROBLEMS Problems List Code Description RESULTS Laboratory Orders Date Order Code Test 2024-03-13 [id number] HCV ANTIBODY RFX TO QUANT PCR Laboratory Results Date LOINC Test Value Unit Reference Range Interpre tation 2024-03-13 [id number] HCV AB NR NON REACTIVE
== END 2025-03-17 23:59 | disposition home or self-care (01) ==
LOC: LAB.DROPOF 03-19 07:45
PROVIDERS: PCP Family Medicine; Visit Provider Physician Assistant
DX: E78.49 Other hyperlipidemia (principal); I25.10 Atherosclerotic heart disease of native coronary artery without angina pectoris; E11.65 Type 2 diabetes mellitus with hyperglycemia; M79.10 Myalgia, unspecified site; I10 Essential (primary) hypertension
CPT/HCPCS: 80048; 80061; 80076; 82550; 83036; 83695; 85651; 86140

== ENCOUNTER 2025-03-31 12:05 | Emergency (ER) | payer MEDICARE, MEDICAID, SELFPAY ==
--- NOTE | 2025-03-31 | ECG_ITS ---
APPROVED REPORT Exam: Resting ECG HR:77 bpm ECG Measurements Heart Rate 77 AXES KS 148 P 49 QRSd 93 QRS 48 QT 395 T 74 QTc 427 Conclusion SINUS RHYTHM NORMAL ECG UNCONFIRMED REPORT Normal sinus rhythm. No STEMI Electronically signed by : KIMBER BALBUENA, 03/31/2025 15:58:00
[2025-03-31 12:28] VITALS: BP 134/65; PULSE 76; RESP 16; TEMP 37.4; O2SAT 97; BMI 32.3
--- NOTE | 2025-03-31 12:36 | XR_ITS ---
FINAL REPORT CLINICAL HISTORY: knee pain FINDINGS: RIGHT KNEE Four views were obtained. There is no fracture or dislocation. There are moderate degenerative changes. No soft tissue abnormality is identified. IMPRESSION: Moderate degenerative changes. Reviewed, Interpreted and Dictated by Eliazar Mcgrath MD Transcribed by Valentina Mcgovern Authenticated and [facility]
--- OUTSIDE RECORDS SUMMARY | 2025-03-31 12:45 | XMS_ITS | Encounter Summary ---
Author Organization [place] [address] Care Team Providers Care Security Officers And Guards Name Role Phone Unavailable Primary Care Provider Unavailabl e Reason for Visit * Reason Comments Medication Refill Encounter Details Date Type Department Care Team (Late st Contact Info) Description 03/09/2025 Refill SEP Infectious Disease EDG [address] [facility] [address] [place] [address] Michelle Salas, DATA ABSTRACTOR 1 [place] [address] Medication Refill Social History Tobacco Use Types [...]
--- OUTSIDE RECORDS SUMMARY | 2025-03-31 12:45 | XMS_ITS | Encounter Summary ---
Author Organization [facility] Address [address] [place] [address] Care Team Providers Care Floor Care Specialist Name Role Phone Marcos Tran MD Primary Care Provider [phone] Antonio Yepez MD Unavailable [phone] Encounter Details Date Type Department Care Team (Late st Contact Info) Description 11/12/2023 Orders Only External Location [address] [place] [address] Jonathan Seals PA [address] [place] [address] Social History Tobacco Use Types Packs/Day Years [...] on filedocumented in this encounter Care Teams Floor Care Specialist Relationship Specialty Start Date End Date Marcos Tran [place] [id number] PCP - General 02/05/24 Antonio Yepez MD [address] [address] Referring Physician 02/05/24 documented as of this encounter
--- OUTSIDE RECORDS SUMMARY | 2025-03-31 12:45 | XMS_ITS | Clinical Summary ---
Author Organization [facility] Address [address] [place] [address] Care Team Providers Care M1A1 Tank Crewman Name Role Phone Jd Snatillan MD Primary Care Provider [phone] Allergies Active Allergy Reactions Criticality Noted Date [...] April 2025. TDaP vaccine October 2020 at [facility]. Recommend keep COVID vaccination and flu vaccinations [...] Dr. Ga. TDaP vaccine October 2020 at [facility]. Covid vaccine x3 up-to-date. Palpitation 05/21/2022 Assessment [...] change compared to 2019. Subsequent follow-up at [facility] on 06/27/2022 with stable right middle [...] change compared to 2019. Subsequent follow-up at [facility] on 06/27/2022 with stable right middle [...] the chest, scheduled at this time through [facility]. Encounters Date Type Department Care Team Description 03/15/[address] [facility] PRIMARY CARE [address] [place] [address] [place] [address] Jd Santillan MD from Last 3 [...] 11:29 AM EST 06/14/2023 Comment:Blood Release to [facility] i Narrative [facility] ([facility]) - 06/15/2023 10:07 AM EST Performed at: 01 - [facility] [address] [id number] Is Support Analyst: Justino Duron PhD, Phone: [phone] us Jd Santillan MD LAB BLOOD ORDERABLES Final Resul t Performing Organization Address City/[facility] Co de Phone Number [facility] [address] [place] [address], [place] [phone] [facility] [address] [place] [address], [place] [phone] * (ABNORMAL) POC Glycosylated Hemoglobin (Hb A1C) (06/14/2023 11:04 AM EST) Hemoglobin A1C 6.3(A) 4.5 - 5.7 % [facility] Lot Number [id number] [facility] Expiration Date 02/26/2025 [facility] Blood 06/14/2023 11:0 4 AM EST us Jd Santillan MD POINT OF CARE TEST ORDERABLES Fi nal Result [facility]
[address] [place] [address], [place] [phone] * SCANNED - MAMMO (08/10/2022) Anatomical Region [...] 05/21/2022 Comment:Blood Release to mimi calderon [place] - 05/22/2022 11:07 AM EST Performed at: 01 - [facility] [address] [place] [id number] Is Support Analyst: Justino Duron PhD, Phone: [phone] us Jd Santillan MD LAB BLOOD ORDERABLES Final Resul t [facility] [address] [place] [address], [facility] [address] [place] [address], * DEXA Scan (11/22/2020) Anatomical Region Laterality Modality Other [facility]ART [facility] TABS Final Re sult * Colonoscopy (06/01/2020) [facility] SURGICAL HISTORY PROCEDURES F inal Result from Last 3 Months or Most Recently Relevant to Health Maintenance Care Teams M1A1 Tank Crewman Relationship Specialty Start Date End Date Jd Santillan MD [address] [place] [address] [place] [address] PCP - General Internal Medicine 05/18/22
--- OUTSIDE RECORDS SUMMARY | 2025-03-31 12:45 | XMS_ITS | Clinical Summary ---
Author Organization [facility] Call Center Address [address] [facility] [address] [place] [address] Phone Care Team Providers Care Gas Scrubber Operator Name Role Phone Unavailable Primary Care Provider Unavailabl e Active Problems Patient Care Coordination No te Formatting of this note migh t be different from the original. Care gap audit completed by Chanda Kam RN on 02/15/2022. No additional problems on file Encounters Date Type Department Care Team Description 03/11/2025 Refill SEP Infectious Disease EDG [address] [facility] [address] [place] [phone] Michelle Salas CUTTER AND PASTER PRESS CLIPPINGS Medication Refill 03/09/2025 Refill SEP Infectious Disease EDG [address] [facility] [address] [place] [address] Michelle Salas CUTTER AND PASTER [employer]IPPINGS Medication Refill 03/09/2025 Refill SEP Infectious Disease EDG [address] [facility] [address] [place] [address] Michelle Salas, CUTTER AND PASTER [employer]ESS CLIPPINGS Medication Refill from Last 3 Months Social [...]
--- OUTSIDE RECORDS SUMMARY | 2025-03-31 12:45 | XMS_ITS | Clinical Summary ---
Author Organization [facility] Address [address] [place], [place] [address] Care Team Providers Care Physical Therapist Name Role Phone Marcos Tran MD Primary Care Provider [phone] Antonio Yepez MD Unavailable [phone] Allergies Active Allergy Reactions Criticality Noted Date [...] 31.0-31.9,adult 02/13/2024 Coronary artery disease invo lving [place] coronary artery of [place] heart without angina pectoris 02/13/2024 Immunizations Immunization [...] 2008 UKY-Zoster Vaccines (1 of 2) 2008 SFR-[id number]-55 Vaccine (3 - season) 2024 09/08/2020, 08/11/2020 [...] Health Maintenance Insurance AN[employer]M MEDICARE Care Teams Physical Therapist Relationship Specialty [place] [address] PCP - General 02/05/24 Antonio Yepez MD [address] [address] Referring Physician 02/05/24
--- OUTSIDE RECORDS SUMMARY | 2025-03-31 12:45 | XMS_ITS | Encounter Summary ---
Author Organization [facility] [place] [address] Care Team Providers Care Window Glazier Helper Name Role Phone Unavailable Primary Care Provider Unavailabl e Reason for Visit * Reason Comments Medication Refill Encounter Details Date Type Department Care Team (Late st Contact Info) Description 03/09/2025 Refill SEP Infectious Disease EDG 20 [facility] [address] [place] [address] Michelle Salas, DRAW PRESS OPERATOR 1 [facility] [place] [place] [address] Medication Refill Social History Tobacco Use Types [...]
--- OUTSIDE RECORDS SUMMARY | 2025-03-31 12:45 | XMS_ITS | Encounter Summary ---
Author Organization [place] [address] Care Team Providers Care Occupational Psychologist Name Role Phone Unavailable Primary Care Provider Unavailabl e Reason for Visit * Reason Comments Medication Refill Encounter Details Date Type Department Care Team (Late st Contact Info) Description 03/11/2025 Refill SEP Infectious Disease EDG 20 [facility] [address] [place] [address] Michelle Salas, PROPERTY CONDITION ASSESSOR 1 [facility] [place] [address] Medication Refill Social History Tobacco Use Types [...]
--- OUTSIDE RECORDS SUMMARY | 2025-03-31 12:45 | XMS_ITS | Clinical Summary ---
Author Organization [facility] Address [address] [place] [address] Care Team Providers Care Tube Depatcher Name Role Phone Marcos Tran MD Primary Care Provider [phone] Marcos Tran MD Unavailable [phone] Social History Tobacco Use Types Packs/Day Years [...] 2033 Insurance ANTHEM MEDICARE ANTH Care Teams Tube Depatcher Relationship Specialty [place] [address] [place] [address] PCP - General Family Medicine 03/03/24 [place] [address] [place] [address] Family Medicine 03/03/24
--- OUTSIDE RECORDS SUMMARY | 2025-03-31 12:45 | XMS_ITS | Encounter Summary ---
Author Organization [facility] Address [address] [place] [address] Care Team Providers Care Reacher Name Role Phone Jd Santillan MD Primary Care Provider [phone] Reason for Visit * Reason Comments Med Refill Encounter Details Date Type Department Care Team (Late st Contact Info) Description 03/15/[address] [facility] PRIMARY CARE [address] [place] [address] Jd Santillan MD [address] [place] [id number] Social History Tobacco Use Types Packs/Day Years [...] on filedocumented in this encounter Care Teams Reacher Relationship Specialty Start Date End Date Jd Santillan MD [address] [place] [address] PCP - General Internal Medicine 05/18/22 documented as of this encounter
[2025-03-31 12:51] LABS: Hematocrit 38.8 % (37.0-47.0); Hemoglobin 13.3 g/dL (12.2-16.2); Immature Granulocytes % 0.2 %; Mean Corpuscular HGB Conc 34.3 g/dL (31.8-35.4); Mean Corpuscular Hemoglobin 30.8 pg (27.0-31.2); Mean Corpuscular Volume 89.8 fl (81-99); Nucleated Red Blood Cells % 0 %; Platelet Count 199 K/mm3 (142-424); Red Blood Count 4.32 M/mm3 (4.20-5.40); Red Cell Distribution Width-SD 45.0 fL; White Blood Count 9.1 K/mm3 (4.8-10.8)
[2025-03-31 12:59] LABS: Albumin Level 4.9 g/dl (3.5-5.0); Chloride 106 mmol/L (98-107); Potassium 3.9 mmoL/L (3.5-5.1); Sodium 141 mmol/L (136-145)
[2025-03-31 13:02] LABS: Alanine Aminotransferase 18 U/L (12-78); Albumin/Globulin Ratio 1.6 (1.1-1.8); Alkaline Phosphatase 72 U/L (38-126); Anion Gap 13.9 mEq/L (5-15); Aspartate Amino Transferase 24 U/L (14-36); Bilirubin,Total 0.4 mg/dl (0.2-1.3); Blood Urea Nitrogen 25 mg/dl (7-17); Carbon Dioxide 25 mmol/L (22.0-30.0); Creatinine Clearance Estimated 63 mL/min (50-200); Creatinine,Serum 0.60 mg/dl (0.52-1.04); Estimated Glomerular Filt Rate 100 ml/min (>60); GFR (African American) 121 ML/MIN (>60); Globulin 3.0 g/dL (1.3-3.2); Total Protein,Serum 7.9 g/dl (6.3-8.2)
[2025-03-31 13:03] LABS: Calcium 9.6 mg/dl (8.4-10.2); Glucose 136 mg/dl (74-100)
--- NOTE | 2025-03-31 13:15 | ED_ITS ---
<Statement entered by Jovanny Maldonado MD - 03/31/25 15:24> Jovanny Maldonado MD: I was consulted by the BUSHRA, and we discussed the complexity of the problems being addressed. I approve the treatment and management plan for this patient's care in the emergency department, thus performing a substantive portion of the medical decision making. Discharge Plan Disposition Patient Disposition: Home, Self-Care Prescriptions Prescriptions: New famotidine [Pepcid] 20 mg tablet 20 mg PO DAILY Qty: 10 0RF No Action metoprolol succinate 25 mg tablet extended release 24 hr 25 mg PO DAILY cyclobenzaprine 10 mg tablet 10 mg PO BID PRN (Reason: muscle spasm) Qty: 30 2RF (DME) blood-glucose meter [Contour Plus Blue Meter] Misc See Rx Instructions .Route Qty: 1 0RF Rx Instructions: As directed (DME) Contour Plus Test Strip Strip See Rx Instructions .Route Qty: 50 10RF Rx Instructions: As directed Repatha SureClick 140 mg/mL pen injector 140 mg SQ Q2W Qty: 2 12RF rosuvastatin [Crestor] 40 mg tablet 40 mg PO DAILY Qty: 30 2RF doxycycline hyclate 100 mg tablet 100 mg PO BID Qty: 20 0RF rosuvastatin [Crestor] 20 mg tablet 20 mg PO DAILY Qty: 90 3RF clobetasol 0.05 % solution 1 applic topical BID Qty: 50 5RF nystatin 100,000 unit/gram cream 1 applic topical TID Qty: 30 0RF mupirocin 2 % ointment 1 applic topical TID Qty: 15 0RF sertraline 50 mg tablet 50 mg PO DAILY Qty: 30 5RF diclofenac sodium 1 % gel 4 g topical QID PRN (Reason: pain ) 30 Days Qty: 100 2RF Rx Instructions: apply to single, ankle, foot; for foot includes sole/toes/top of foot (DME) Diabetic Shoes (DME) Misc See Rx Instructions .ROUTE .MEDSUPPLY Qty: 1 0RF Rx Instructions: [facility] Please dispense one (1) pair of Diabetic shoes with inserts (DME) blood-glucose meter [OneTouch Verio Reflect] Kit See Rx Instructions .Route Qty: 1 0RF Rx Instructions: Use to check blood sugar daily and prn losartan 100 mg tablet 100 mg PO DAILY Qty: 90 3RF clopidogrel 75 mg tablet See Rx Instructions .ROUTE .COMPLEX Qty: 30 3RF Dose Instruction: Take 1 Tablet by mouth once daily. Rx Instructions: Take 1 Tablet by mouth once daily. Jardiance 25 mg tablet 25 mg PO DAILY Qty: 30 3RF montelukast 10 mg tablet 10 mg PO PM Qty: 30 2RF (DME) lancets [OneTouch Delica Plus Lancet] 33 gauge misc See Rx Instructions .ROUTE .MEDSUPPLY Qty: 100 0RF Patient Comments: USE TO TEST BLOOD SUGAR ONCE DAILY. Rx Instructions: As directed fluticasone propionate 50 mcg/actuation spray,suspension 1 spray INTRANASAL DAILY Referrals Follow up/Referrals: Dami Mendoza DO [Staff Physician, Orthopedics] - See instructions Marcos Tran MD [Primary Care Provider, Family Practice] - See instructions Activity Restrictions/Add. Instructions Additional Instructions/Restrictions: You have been seen in the emergency department today and were diagnosed with a Naidu's cyst behind your right knee. Okay to alternate with Motrin and Tylenol for pain control at home. Okay to use ice, rest, compression, elevation to help with pain control. Okay to resume normal activities. You should follow-up with orthopedic surgery, Dr. Mendoza. He requested a prescription for something for intermittent heartburn after taking medications, I have called in Pepcid to your local pharmacy. You should follow-up with your primary care physician regarding your intermittent heartburn symptoms after taking your medications. Clinical Impressions Clinical Impression: Naidu cyst Instructions Patient Instructions: Naidu Cyst Print Language Print Language: Austrian Discharge ED Provider: Jovanny Maldonado General Adult HPI <Vivi Buchanan APRN - Last Filed: 03/31/25 15:24> General Chief complaint: PAIN Stated complaint: swollen left leg loss of RoM nausea Time Seen by Provider: 03/31/25 13:03 Mode of Arrival: Ambulatory Source of Information: Patient Description of Symptoms (Recalled from ER Triage Doc. by RN): PATIENT PRESENTS TO ED FOR RIGHT KNEE PAIN AND SWELLING WHICH HAS BEEN GOING ON FOR ABOUT A MONTH. STATES THIS STARTED WHEN SHE WAS PLACED ON CHOLESTEROL MEDICATION. PT ALSO NOW C/O BACK PAIN AND CHEST PRESSURE FOR 2 DAYS. History of Present Illness HPI narrative: Ruthann Lee is a 64-year-old female presents emergency room today with complaints of right knee pain. Ms. Lee states her right knee pain started yesterday, acutely worsened this morning. Mostly painful to flex her knee. Was able to ambulate on her own back to the emergency room. Reports some swelling mostly in the posterior aspect of her knee. States that she has blood veins popping out . Has recently been taken off of her cholesterol medications due to myalgias. Does have history of CAD s/p PCI in 2023, on ASA only due to side effects from her Plavix. No history of DVT or PE in the past. Has not taken any long car rides, no air travel. No erythema noted on the leg. No trauma to the leg or knee. Denies any fever, cough, chest pain, shortness of breath, abdominal pain. No bowel or bladder dysfunction. Does have history of a surgery on the left knee. Please note that the above description of symptoms, and this electronic medical record under categorization of recalled from ER triage doctor by RN are reflective of an initial nursing assessment, however, is not reflective of my full history and physical exam that was personally taken and clarified. Consequentially, this proceeding description of symptoms, which may include the patient's cauterized chief complaint in the EMR, do not reflect my personal clinical impression, and the ultimate description of the history of present illness stated complaints should be deferred to this section of this note. Unless stated otherwise were congruent with the section of the note, additional signs, symptoms, or incongruence can be interpreted as in or accurate with my clinical impression. Related Data Home Medications ?Medication ?Instructions ?Recorded ?Confirmed fluticasone propionate 50 1 spray intranasal DAILY 10/2903/26/25 mcg/actuation nasal spray,suspension metoprolol succinate 25 mg 25 mg PO DAILY 11/06/24 tablet,extended release 24 hr Previous Rx's ?Medication ?Instructions ?Recorded clobetasol 0.05 % scalp solution 1 applic topical BID #50 mL 05/15/24 blood-glucose meter (OneTouch #1 ea 08/12/24 Verio Reflect kit) mupirocin 2 % topical ointment 1 applic topical TID #1 5 grams 09/15/24 nystatin 100,000 unit/gram topical 1 applic topical TI D #30 grams 09/15/24 cream losartan 100 mg tablet 100 mg PO DAILY #90 tabs 06/02 sertraline 50 mg tablet 50 mg PO DAILY #30 tabs 11/30 blood sugar diagnostic (Contour #50 ea 11/06/24 Plus Test Strip) blood-glucose meter (Contour Plus #1 ea 11/06/24 Blue Meter) cyclobenzaprine 10 mg tablet 10 mg PO BID PRN muscle s pasm #30 11/06/24 tabs clopidogrel 75 mg tablet See Rx Instructions .Route 0 12/08/24 .COMPLEX #30 tabs empagliflozin 25 mg tablet 25 mg PO DAILY Diabetes #30 tabs 01/07/25 (Jardiance) montelukast 10 mg tablet 10 mg PO PM #30 tabs 5 rosuvastatin 40 mg tablet (Crestor) 40 mg PO DAILY #30 tabs 02/09/25 doxycycline hyclate 100 mg tablet 100 mg PO BID #20 ta bs 02/22/25 evolocumab 140 mg/mL subcutaneous 140 mg SQ Q2W #2 mL 02/25/25 pen injector (Repatha SureClick) Diabetic Shoes (DME) #1 ea 03/02/25 diclofenac sodium 1 % topical gel 4 g topical QID PRN pain 30 days 03/02/25 #100 grams lancets 33 gauge (OneTouch Delica #100 ea 03/16/25 Plus Lancet) rosuvastatin 20 mg tablet (Crestor) 20 mg PO DAILY #90 tabs 03/26/25 famotidine 20 mg tablet (Pepcid) 20 mg PO DAILY #10 ta bs 03/31/25 Allergies Allergy/AdvReac Type Severity Reaction Status Date / Time aspirin Allergy Mild Rash Verified 03/26/25 13:44 Penicillins (PENICILLINS) Allergy Mild BREAKS HER Verified 03/26/25 13:44 OUT. acetaminophen (From Allergy rash Verified 03/26/25 13:44 Tylenol-Codeine) calcium Allergy rash Verified 03/26/25 13:44 codeine (From Allergy rash Verified 03/26/25 13:44 Tylenol-Codeine) polyester fibers Allergy Irritable Verified 03/26/25 13:44 evolocumab (From Repatha AdvReac Mild rash on Verified 03/26/25 13:44 SureClick) arms PFSH <Vivi Buchanan, BUSINESS BANKER - Last Filed: 03/31/25 15:24> [facility] Disclaimer: The information contained in this section may have been updated after the patient was seen, as this information can be updated by other users. Medical History Need for influenza vaccination Radicular pain of upper extremity Cystocele Atypical angina Abnormal findings on diagnostic imaging of heart and coronary circulation Shoulder blade pain Allergies Impacted cerumen, right ear Sinusitis Ear congestion Ingrowing Toenail BMI 37.0-37.9, adult Pain around toenail, right foot Ingrowing Toenail Pain around toenail, left foot Atypical chest pain Bilateral shoulder pain Neck pain UTI (urinary tract infection) Effusion, left knee Unstable angina Tobacco dependence Coronary artery disease CAD, multiple vessel Diabetes HLD (hyperlipidemia) HTN (hypertension) Abnormal ECG Right ovarian cyst Surgical History History of heart artery stent S/P cardiac catheterization H/O left knee surgery Family History Other No significant family history Social History Smoking Status: Current every day smoker tobacco type: cigarettes packs per day: 1 pack-years: 45 alcohol intake: never substance use type: denies use current occupational status: other Travel in the last 8 weeks?: None household members: spouse and children housing: house Have you lived/traveled outside [place] in past 30 days?: No Contact w/someone who lives/traveled outside US past 30 days?: No Exposure to someone with infectious disease in past 14 days?: No Do you have a fever (greater than 100.4 F or 38 C)?: No Have you tested positive for COVID-19?: No Exposed to someone with COVID-19 in past 14 days?: No Do you have a sore throat?: No Do you have a cough?: No Do you have any weakness?: No Do you have any diarrhea?: No Are you experiencing any unusual bleeding?: No Do you have any muscle aches/pain?: No Do you have any abdominal pain?: No Are you experiencing loss of taste or smell?: No Other Medical History Have you received the Flu Vaccine for this season: No Have you received the Pneumonia Vaccine: No <Vivi Buchanan, BUSINESS BANKER - Last Filed: 03/31/25 15:24> ROS Obtained: Yes All systems reviewed & no additional complaints except as documented Physical Exam <Vivi Buchanan, BUSINESS BANKER - Last Filed: 03/31/25 15:24> General General appearance: alert and in no apparent distress Head Head exam: atraumatic, normocephalic and normal inspection Eye Eye exam: Present normal appearance, PERRL and EOMI ENT ENT exam: Present normal exam, normal oropharynx, mucous membranes moist, TM's normal bilaterally and normal external ear exam Neck Neck exam: Present normal inspection, full ROM and trachea midline; Absent meningismus or lymphadenopathy Chest Chest inspection: Present normal inspection and symmetric chest wall rise; Absent tenderness Respiratory Respiratory exam: Present normal lung sounds bilaterally; Absent respiratory distress Cardiovascular Cardiovascular exam: Present regular rate and normal rhythm; Absent JVD Abdominal Exam Abdominal exam: Present soft and normal bowel sounds; Absent distention, tenderness or guarding Extremities Exam Extremities exam: Present other (Right knee with some mild swelling on the posterior aspect of the knee, tender with range of motion, able to flex the knee to greater than 60 degrees, does report pain with that, 2+ pulses bilateral PT and DP) Back Exam Back exam: Present normal inspection; Absent tenderness Neurological Exam Neurological exam: Present alert and oriented X3 Psychiatric Psychiatric exam: Present normal affect and normal mood Skin Skin exam: Present warm, dry, intact and normal color Lymphatic Lymphatic Findings: no adenopathy Medical Decision Making <Vivi Buchanan, BUSINESS BANKER - Last Filed: 03/31/25 15:24> Medical Records Screening: Per USPSTF and CDC recommendations, given the prevalence of disease in our region, it is our hospital?s policy to screen for HIV and viral Hepatitis for all patients aged 18 and over and those with ongoing risk factors. [place] Inquiry Pt receiving controlled substance: No Vital Signs: 03/31/25 12:28 03/31/25 12:28 03/31/25 15:19 Temperature 99.3 F 99.3 F 98.2 F Temperature Source Oral Temporal Artery Scan Pulse Rate 76 78 Pulse Rate [Right] 76 Respiratory Rate 16 16 15 Blood Pressure 134/65 135/84 Blood Pressure [Right Arm] 134/65 Blood Pressure Mean [Right Arm] 88 Blood Pressure Source Automatic Cuff Blood Pressure Position Sitting 02 Sat by Pulse Oximetry 97 97 Oxygen Delivery Method Room Air Lab Data Lab Results 03/31/25 12:41: WBC 9.1, RBC 4.32, Hgb 13.3, Hct 38.8, MCV 89.8, MCH 30.8, MCHC 34.3, RDW 13.7, Plt Count 199, MPV 10.6 H, Neut % (Auto) 75.1, Lymph % (Auto) 16.4, Shelby % (Auto) 6.1, Eos % (Auto) 1.5, Baso % (Auto) 0.7, Neut # (Auto) 6.8, Lymph # (Auto) 1.5, Shelby # (Auto) 0.6, Eos # (Auto) 0.1, Baso # (Auto) 0.1, Sodium 141, Potassium 3.9, Chloride 106, Carbon Dioxide 25, Anion Gap 13.9, BUN 25 H, Creatinine 0.60, Estimated Creat Clear 63, Estimated GFR 100, Est GFR ( Amer) 121, Glucose 136 H, Calcium 9.6, Total Bilirubin 0.4, AST 24, ALT 18, Alkaline Phosphatase 72, Troponin I < 0.01, NT-Pro-B Natriuret Pep 58.1, Total Protein 7.9, Albumin 4.9, Globulin 3.0, Albumin/Globulin Ratio 1.6 03/31/25 14:22: Urine Color Yellow, Urine Appearance Clear, Urine pH 7.0, Ur Specific [place] 1.020, Urine Protein Negative, Urine Glucose (UA) 3+, Urine Ketones Negative, Urine Blood Negative, Urine Nitrate Negative, Urine Bilirubin Negative, Urine Urobilinogen 0.2, Ur Leukocyte Esterase Negative 03/31/25 12:41 03/31/25 12:41 Orders (Tests/Meds): ED MEDICATIONS Discontinued Medications Generic Name Dose Route Start Last Admin Trade Name Freq PRN Reason Stop Dose Admin Ibuprofen 800 mg 03/31/25 14:23 03/31/25 14:30 Ibuprofen 800 Mg Tablet PO 03/31/25 14:24 800 mg ONCE ONE Administration ORDERS Category Date Time Status POCUS Point of Care (ER Only) Stat Exams 03/31/25 13:14 Completed XR knee RT 3V Stat Exams 03/31/25 12:36 Completed BNP [NT Pro Brain Natriuretic Pep.] Stat Lab 03/31/25 12:41 Completed Complete Blood Count Auto Diff Stat Lab 03/31/25 12:41 Completed Comprehensive Metabolic Panel Stat Lab 03/31/25 12:41 Completed Troponin I Stat Lab 03/31/25 12:41 Completed UA [Urinalysis and Microscopic] Stat Lab 03/31/25 14:22 Results CA venous doppler LE RT Stat Y 03/31/25 13:30 Completed Medical Decision Narrative: In summary patient is an 64-year-old female who presents emergency department for evaluation of right knee pain and swelling. Patient is hemodynamically stable upon arrival, afebrile. Patient not tachycardic, not tachypneic, normotensive blood pressure. Unremarkable nonfocal physical exam except for some mild swelling to the posterior aspect of the right knee. Differential diagnosis includes Naidu's cyst, DVT, septic joint. Initial workup will be conducted with hematologic labs, x-ray of the right knee, [id number] ultrasound. Initial interventions include multimodal pain management. Initial workup reviewed by me hematologic labs essentially unremarkable. X-ray of the right knee without any acute fractures noted on informal read. EKG without ST elevation. Upon repeat evaluation patient had an improvement in her pain symptoms. Workup included an ultrasound of the right lower extremity for DVT rule out. No DVT was present, did note a large Naidu's cyst behind the posterior aspect of the right knee. Patient was instructed she could alternate with Motrin and Tylenol for pain control, okay for rest, ice, compression, elevation. I will send her a referral for follow-up with orthopedic surgery for further care of this. She can resume normal activities. Patient requesting something for occasional heartburn, we will call her in a few days of Pepcid. Given this patient appropriate for discharge and will be discharged home with a prescription for Pepcid for a few days. She needs to follow-up with her primary care physician for further management of intermittent heartburn symptoms. <Jovanny Maldonado MD - Last Filed: 03/31/25 15:27> Vital Signs: 03/31/25 12:28 03/31/25 12:28 03/31/25 15:19 Temperature 99.3 F 99.3 F 98.2 F Temperature Source Oral Temporal Artery Scan Pulse Rate 76 78 Pulse Rate [Right] 76 Respiratory Rate 16 16 15 Blood Pressure 134/65 135/84 Blood Pressure [Right Arm] 134/65 Blood Pressure Mean [Right Arm] 88 Blood Pressure Source Automatic Cuff Blood Pressure Position Sitting 02 Sat by Pulse Oximetry 97 97 Oxygen Delivery Method Room Air Lab Data Lab Results 03/31/25 12:41: WBC 9.1, RBC 4.32, Hgb 13.3, Hct 38.8, MCV 89.8, MCH 30.8, MCHC 34.3, RDW 13.7, Plt Count 199, MPV 10.6 H, Neut % (Auto) 75.1, Lymph % (Auto) 16.4, [place] % (Auto) 6.1, Eos % (Auto) 1.5, Baso % (Auto) 0.7, Neut # (Auto) 6.8, Lymph # (Auto) 1.5, [place] # (Auto) 0.6, Eos # (Auto) 0.1, Baso # (Auto) 0.1, Sodium 141, Potassium 3.9, Chloride 106, Carbon Dioxide 25, Anion Gap 13.9, BUN 25 H, Creatinine 0.60, Estimated Creat Clear 63, Estimated GFR 100, Est GFR ( Amer) 121, Glucose 136 H, Calcium 9.6, Total Bilirubin 0.4, AST 24, ALT 18, Alkaline Phosphatase 72, Troponin I < 0.01, NT-Pro-B Natriuret Pep 58.1, Total Protein 7.9, Albumin 4.9, Globulin 3.0, Albumin/Globulin Ratio 1.6 03/31/25 14:22: Urine Color Yellow, Urine Appearance Clear, Urine pH 7.0, Ur Specific [place] 1.020, Urine Protein Negative, Urine Glucose (UA) 3+, Urine Ketones Negative, Urine Blood Negative, Urine Nitrate Negative, Urine Bilirubin Negative, Urine Urobilinogen 0.2, Ur Leukocyte Esterase Negative Orders (Tests/Meds): ED MEDICATIONS Discontinued Medications Generic Name Dose Route Start Last Admin Trade Name Freq PRN Reason Stop Dose Admin Ibuprofen 800 mg 03/31/25 14:23 03/31/25 14:30 Ibuprofen 800 Mg Tablet PO 03/31/25 14:24 800 mg ONCE ONE Administration ORDERS Category Date Time Status POCUS Point of Care (ER Only) Stat Exams 03/31/25 13:14 Completed XR knee RT 3V Stat Exams 03/31/25 12:36 Completed BNP [NT Pro Brain Natriuretic Pep.] Stat Lab 03/31/25 12:41 Completed Complete Blood Count Auto Diff Stat Lab 03/31/25 12:41 Completed Comprehensive Metabolic Panel Stat Lab 03/31/25 12:41 Completed Troponin I Stat Lab 03/31/25 12:41 Completed UA [Urinalysis and Microscopic] Stat Lab 03/31/25 14:22 Results CA venous doppler LE RT Stat Y 03/31/25 13:30 Completed Procedures <Jovanny Maldonado MD - Last Filed: 03/31/25 15:27> Limited Ultrasound Indication:: Indication: Limited compression ultrasonography of the right lower extremity was performed to evaluate for non-compressibility of the deep veins in the patient. The ultrasound was performed with the following indications, as noted in the H&P: Right popliteal area pain, possible Naidu's cyst versus DVT Identified structures: RIGHT femoral vein, popliteal vein were examined. Findings: Lower Extremity: Right FV: Concern for noncompressible vein Right Popliteal vein: Large cystic structure in the popliteal fossa, could be screening representative of cyst but could be screening representative of DVT Impression: Large cystic structure in the popliteal fossa and noncompressible vein in the distal right femoral vein area concerning for DVT. Images were saved to permanent archive The study was technically adequate CPT: 50547-31-EL This study was performed by me, Jovanny Maldonado MD, and I personally interpreted all images/videos. Based on my clinical judgement, these images were inadequate and did necessitate further imaging. Critical Care <Vivi Buchanan APRN - Last Filed: 03/31/25 15:24> Critical Care Time Critical Care Time: No
[2025-03-31 13:24] LABS: Troponin I < 0.01 ng/ml (0.00-0.034)
--- NOTE | 2025-03-31 13:30 | CA_ITS ---
FINAL REPORT TECHNIQUE: Compression mason scale and Doppler evaluation CLINICAL HISTORY: Pain RLE x 1 month with pain worse since yesterday. Unable to flex knee due to pain. Denies trauma or long distance travel. No history of DVT. HTN, HLD, smoker, DM, CAD. ASA daily. recently stopped cholesterol meds secondary to leg pain. COMPARISON: None FINDINGS: Right lower extremity femoral and popliteal veins show normal compressibility and flow. Visualized portion of the right lower extremity calf veins are patent by Doppler exam. There is presumed complex Naidu's cyst which measures up to 5.0 x 1.5 cm in the popliteal fossa. IMPRESSION: No evidence of right lower extremity deep venous thrombosis Reviewed, Interpreted and Dictated by Eliazar Mcgrath MD Transcribed by Tika Murphy Authenticated and [facility]
[2025-03-31 13:58] LABS: NT Pro Brain Natriuretic Pep. 58.1 pg/mL (0-125)
--- NOTE | 2025-03-31 14:18 | PC.NURSE ---
patient assisted to bathroom for urine specimen collection
--- NOTE | 2025-03-31 14:19 | PC.NURSE ---
patient requesting something for pain. Provider notified.
[2025-03-31 14:26] LABS: Microscopic, Urine URINE MICROSCOPIC (MICROSCOPIC)
[2025-03-31 14:28] LABS: Bilirubin,Urine Negative (Negative); Color,Urine YELLOW (Yellow); Glucose,Urine (UA) 3+ (Negative); Ketones,Urine Negative (Negative); Leukocyte Esterase,Urine Negative (Negative); PH,Urine 7.0 (5.0-8.5); Protein,Urine Negative (Negative); Specific Gravity, Urine 1.020 (1.005-1.030); Urobilinogen,Urine 0.2 EU/dl (0.2)
[2025-03-31] MEDS: IBUPROFEN 800 MG TABLET PO (14:30)
[2025-03-31 15:19] VITALS: BP 135/84; PULSE 78; RESP 15; TEMP 36.8; O2SAT 98
[2025-03-31 15:29] LABS: Bacteria,Urine 2+ /lpf
[2025-03-31 15:30] LABS: Amorphous Sediment,Urine 1+ /lpf; Squamous Epithelial Cell,Urine Occasional #/hpf (0-5)
== END 2025-03-31 15:20 | disposition home or self-care (01) ==
PROVIDERS: Nurse Practitioner Acute Care; Emergency Provider Student in an Organized Health Care Education/Training Program; PCP Family Medicine
DX: M71.21 Synovial cyst of popliteal space [Baker], right knee (principal); M25.561 Pain in right knee; F17.210 Nicotine dependence, cigarettes, uncomplicated
CPT/HCPCS: 73562; 80053; 81001; 83880; 84484; 85025; 87086; 93005; 93971; 99284; 99285